=== PATIENT | male | born 1960 | race Caucasian/White ===

== ENCOUNTER 2021-01-27 15:42 | Outpatient (CLI) | payer OTHER, MEDICARE, SELFPAY | END 2021-01-27 15:43 | disposition home or self-care (01) | LOC: ANHCOVIDVC 15:42 | DX: Z23 Encounter for immunization (principal) | CPT/HCPCS: 0001A; 91300 ==

== ENCOUNTER 2021-02-17 15:47 | Outpatient (CLI) | payer OTHER, MEDICARE, SELFPAY | END 2021-02-17 15:48 | disposition home or self-care (01) | LOC: ANHCOVIDVC 15:47 | DX: Z23 Encounter for immunization (principal) | CPT/HCPCS: 0002A; 91300 ==

== ENCOUNTER 2022-05-20 14:52 | Emergency (ER) | payer MEDICARE, OTHER, SELFPAY ==
[2022-05-20 15:06] VITALS: BP 121/66; PULSE 88; RESP 18; TEMP 36.9; O2SAT 97
[2022-05-20] MEDS: SODIUM CHLORIDE 0.9% IV 1,000 ML 999 ML IV CONT (16:10)
[2022-05-20] MEDS: KETOROLAC 30 MG/ML VIAL (*BKC) IV PUSH (16:10)
[2022-05-20 16:16] LABS: Basophils Percent Auto 0.5 % (0.2-1.2); Eosinophils Absolute Auto 0.2 K/mm3 (0-0.3); Eosinophils Percent Auto 2.3 % (0-4.4); Hematocrit 45.6 % (42.0-52.0); Hemoglobin 14.9 g/dL (14.0-18.0); Immature Granulocyte Absolute 0.04 K/mm3 (0.00-0.031); Immature Granulocyte Percent A 0.5 % (0-0.5); Lymphocytes Absolute Auto 0.82 K/mm3 (0.9-3.2); Lymphocytes Percent Auto 9.6 % (18.3-44.2); Mean Corpuscular HGB Conc 32.7 g/dl (32-36); Mean Corpuscular Hemoglobin 30.2 pg (26-34); Mean Corpuscular Volume 92.3 fl (80-100); Mean Platelet Volume 9.9 fl (7.4-10.4); Monocytes Absolute Auto 0.7 K/mm3 (0.1-0.6); Monocytes Percent Auto 8.3 % (2.6-8.5); Neutrophils Absolute Auto 6.7 K/mm3 (1.3-6.7); Neutrophils Percent Auto 78.8 % (45.5-73.1); Platelet Count Result 237 k/mm3 (150-375); Red Blood Count 4.94 M/mm3 (4.6-6.20); Red Cell Distribution Width 13.2 % (11.5-14.5); White Blood Count 8.5 K/mm3 (4.5-10.0)
[2022-05-20 16:27] LABS: Anion Gap 5 mmol/L (8-16); Blood Urea Nitrogen 13 mg/dL (9-20); Calcium 8.8 mg/dL (8.4-10.2); Carbon Dioxide 28 mmol/L (22-30); Chloride 107 mmol/L (98-107); Estimated CRCL calculation 61 ml/min; Estimated Glomerular Filt Rate > 60; Glucose 84 mg/dL (65-110); Potassium 3.7 mmol/L (3.4-5.0); Sodium 140 mmol/L (137-145)
--- NOTE | 2022-05-20 16:37 | ED.GENADULT ---
HPI - General Adult General Chief complaint: Upper Respiratory Infection Stated complaint: bodyaches, upper resp Time Seen by Provider: 05/20/22 15:10 History of Present Illness HPI narrative: Patient is a 61-year-old male who presents ER with concerns of having an infection. Reports for the last couple days he has been having body aches in his legs and back and shoulders. He has been having sore throat and some congestion. He endorses fevers and chills. No productive cough. No exertional dyspnea. Home COVID test was negative. No known sick contacts. Related Data Home Medications Medication Instructions Recorded Confirmed clonazepam 0.5 mg tablet tablet 05/20/22 lithium carbonate 300 mg capsule cap 05/20/22 metoprolol tartrate 25 mg tablet tablet 05/20/22 Allergies Allergy/AdvReac Type Severity Reaction Status Date / Time No Known Allergies Allergy Verified 05/20/22 15:15 Review of Systems Review of Systems: All systems reviewed & are unremarkable except as noted in HPI and below Constitutional: Constitutional: Reports chills, Reports fatigue and Reports fever(s) ENT: Denies nasal congestion and Reports sore throat Cardiovascular: Cardiovascular: Denies chest pain, Denies radiating jaw, neck or arm pain and Denies slow heart rate Respiratory: Respiratory: Denies cough and Denies dyspnea Musculoskeletal: Musculoskeletal: Reports myalgias, Denies arthralgias and Denies joint swelling Neurologic: Denies headache(s), Denies focal weakness and Denies numbness PMFSH Past Medical History Medical History (Updated 05/20/22 @ 18:19 by Kyle Ramon MD) Anxiety Depression GERD (gastroesophageal reflux disease) Surgical History Surgical History (Updated 05/20/22 @ 16:40 by Kyle Ramon MD) Hx of fusion of cervical spine Exam Narrative: GENERAL: Well-appearing, well-nourished, and in no acute distress. HEAD: Normocephalic, atraumatic. ENT: Mucous membranes moist. Normal-appearing posterior pharynx with uvula midline and nonedematous. NECK: Supple. CHEST: Clear to auscultation. No respiratory distress. HEART: Regular rate and rhythm. Normal peripheral pulses. EXTREMITIES: Normal range of motion. No edema. SKIN: Warm, dry, no rash. NEURO: Alert and oriented x3. PSYCH: Normal mood and affect. Course Course Emergency Course: Patient informed of results. Discharge home. Vital Signs Vital signs: Vital Signs Temperature 98.4 F 05/20/22 15:06 Pulse Rate 88 05/20/22 15:06 Respiratory Rate 18 05/20/22 15:06 Blood Pressure 121/66 05/20/22 15:06 Pulse Oximetry 97 05/20/22 15:06 Temperature 98.4 F 05/20/22 15:06 Pulse Rate 88 05/20/22 15:06 Respiratory Rate 18 05/20/22 15:06 Blood Pressure 121/66 05/20/22 15:06 Pulse Oximetry 97 05/20/22 15:06 Medical Decision Making Vital Signs Vital Signs: Vital Signs Temperature 98.4 F 05/20/22 15:06 Pulse Rate 88 05/20/22 15:06 Respiratory Rate 18 05/20/22 15:06 Blood Pressure 121/66 05/20/22 15:06 Pulse Oximetry 97 05/20/22 15:06 Temperature 98.4 F 05/20/22 15:06 Pulse Rate 88 05/20/22 15:06 Respiratory Rate 18 05/20/22 15:06 Blood Pressure 121/66 05/20/22 15:06 Pulse Oximetry 97 05/20/22 15:06 Lab Data Result diagrams: 05/20/22 16:05 05/20/22 16:05 Labs: Lab Results 05/20/22 05/20/22 05/20/22 Range/Units 16:05 16:05 16:05 WBC 8.5 (4.5-10.0) K/mm3 RBC 4.94 (4.6-6.20) M/mm3 Hgb 14.9 (14.0-18.0) g/dL Hct 45.6 (42.0-52.0) % MCV 92.3 (80-100) fl MCH 30.2 (26-34) pg MCHC 32.7 (32-36) g/dl RDW 13.2 (11.5-14.5) % Plt Count 237 (150-375) k/mm3 MPV 9.9 (7.4-10.4) fl Immature Gran % (Auto) 0.5 (0-0.5) % Neut % (Auto) 78.8 H (45.5-73.1) % Lymph % (Auto) 9.6 L (18.3-44.2) % [place] % (Auto) 8.3 (2.6-8.5) % Eos % (Auto) 2.3 (0-4.4) % Baso % (Auto)
[2022-05-20 16:53] LABS: SARS-CoV-2 RNA PCR Positive
[2022-05-20 17:58] LABS: Influenza A QL RT-PCR Negative (Negative); Influenza B QL RT-PCR Negative (Negative)
== END 2022-05-20 18:28 | disposition home or self-care (01) ==
PROVIDERS: Emergency Provider Emergency Medicine; PCP Family Medicine
DX: U07.1 COVID-19 (principal); K21.9 Gastro-esophageal reflux disease without esophagitis; F41.9 Anxiety disorder, unspecified; F32.A Depression, unspecified; Z98.1 Arthrodesis status
CPT/HCPCS: 36415; 80048; 85025; 87502; 96361; 96374; 99284; C9803; J1885; J7030; U0003; U0005

== ENCOUNTER 2022-05-23 07:58 | Emergency (ER) | payer MEDICARE, OTHER, SELFPAY ==
[2022-05-23 08:24] VITALS: BP 115/76; PULSE 60; RESP 20; TEMP 36.9; O2SAT 100
--- NOTE | 2022-05-23 08:58 | ED.GENADULT ---
HPI - General Adult General Chief complaint: Upper Respiratory Infection Stated complaint: COVID + - CANT SWALLOW, THROATS CLOSING Time Seen by Provider: 05/23/22 08:51 History of Present Illness HPI narrative: 61-year-old male presents emergency room secondary to severe sore throat. Patient is COVID-positive. Is been positive now for approximately 6 days. He has been started on Paxil avoid already. His main complaint now is that his throat hurts so bad that it hurts to swallow and has not been able to eat or even drink much. He has all the other typical symptoms of COVID such as significant amount of congestion, fevers, and body aches. He is not complaining of significant shortness of breath at this time. Related Data Home Medications Medication Instructions Recorded Confirmed clonazepam 0.5 mg tablet tablet 05/20/22 lithium carbonate 300 mg capsule cap 05/20/22 metoprolol tartrate 25 mg tablet tablet 05/20/22 Allergies Allergy/AdvReac Type Severity Reaction Status Date / Time No Known Allergies Allergy Verified 05/20/22 15:15 Review of Systems Review of Systems: CONSTITUTIONAL: Having chills and fevers and fatigue EYES: Denies visual changes, redness, or discharge. ENT: Having rhinorrhea, severe sore throat, pain with swallowing CARDIOVASCULAR: Denies chest pain, palpitations, or edema. RESPIRATORY: Having a cough which is predominantly GASTROINTESTINAL: Denies abdominal pain, nausea, vomiting, or diarrhea. GENITOURINARY: Denies dysuria or hematuria. SKIN: Denies rash or itching. MUSCULOSKELETAL: Denies back pain, joint pain, or myalgia. NEUROLOGIC: Denies headache, numbness, or weakness. PSYCHIATRIC: Denies anxiety or depression. [facility] Past Medical History Medical History Anxiety Depression GERD (gastroesophageal reflux disease) Surgical History Surgical History Hx of fusion of cervical spine Exam Narrative: APPEARANCE: Ill-appearing Head normocephalic and atraumatic. EYES: PERRLA/EOMI, conjunctivae very clear. NOSE: Normal with no drainage EARS:TMS clear Jenn Bright, with good light reflex. THROAT: Posterior pharynx is erythematous with no exudates no signs of any abscess formation NECK: Supple. No adenopathy, no masses. RESPIRATORY: Airway patent, respirations nonlabored. Clear to auscultation bilaterally, no rales, rhonchi, wheezing. CARDIOVASCULAR: Regular rate and rhythm without murmurs, rubs, or gallops. ABDOMINAL: Soft, nontender, nondistended, no hepatosplenomegaly Musculoskeletal: Moves all extremities. Strength/ROM intact, No edema, No calf tenderness. NEURO: Alert. Cranial nerves II through XII intact. Normal gait. Good coordination. Nonfocal examination. SKIN:: Warm, dry. Normal Color PSYCHIATRIC: Normal affect/mood, normal interaction Course Vital Signs Vital signs: Vital Signs Temperature 98.4 F 05/23/22 08:24 Pulse Rate 60 05/23/22 08:24 Respiratory Rate 20 05/23/22 08:24 Blood Pressure 115/76 05/23/22 08:24 Pulse Oximetry 100 05/23/22 08:24 Oxygen Delivery Room Air 05/23/22 08:24 Temperature 98.4 F 05/23/22 08:24 Pulse Rate 60 05/23/22 08:24 Respiratory Rate 20 05/23/22 08:24 Blood Pressure 115/76 05/23/22 08:24 Pulse Oximetry 100 05/23/22 08:24 Oxygen Delivery Room Air 05/23/22 08:24 Medical Decision Making [facility] Narrative Medical decision making narrative: Rapid strep screen was obtained however we are out of the reagent and is a send out will not get the results back today and this was explained to the patient. My index of suspicion for strep pharyngitis is very low we will not start him on antibiotics at this point. He did get some relief with the medication I gave him for his throat. We will discharge him on some viscous lidocaine as well as some medication to also assist with the pain. Advised him to increase flui
[2022-05-23] MEDS: HYDROcodone/acetaminophen (*CRX) 5-325 MG TABLET 1 TAB PO (09:33)
[2022-05-23] MEDS: LIDOCAINE HCL 2% VISC SOLN 15 ML UDC PO (09:33)
--- NOTE | 2022-05-23 10:47 | PC.NURSE ---
Patient report received from BENJAMÍN Green. All questions answered and care of patient assumed.
[2022-05-23 12:00] VITALS: PULSE 80; RESP 17; O2SAT 100
== END 2022-05-23 12:02 | disposition home or self-care (01) ==
PROVIDERS: Emergency Provider Emergency Medicine
DX: U07.1 COVID-19 (principal); J02.9 Acute pharyngitis, unspecified; F41.9 Anxiety disorder, unspecified; F32.A Depression, unspecified; K21.9 Gastro-esophageal reflux disease without esophagitis; Z98.1 Arthrodesis status
CPT/HCPCS: 87070; 87880; 99283; A9270

== ENCOUNTER 2022-07-23 08:16 | Outpatient (CLI) | payer MEDICARE, OTHER, SELFPAY ==
[2022-07-23 08:58] LABS: Alanine Aminotransferase 29 U/L (6-50); Alkaline Phosphatase 80 U/L (38-126); Anion Gap 8 mmol/L (8-16); Aspartate Amino Transferase 26 U/L (17-59); Bilirubin,Total 0.3 mg/dL (0.2-1.3); Blood Urea Nitrogen 18 mg/dL (9-20); Calcium 9.5 mg/dL (8.4-10.2); Carbon Dioxide 27 mmol/L (22-30); Chloride 105 mmol/L (98-107); Cholesterol 164 mg/dL (0-200); Estimated Glomerular Filt Rate 56; Glucose 101 mg/dL (65-110); HDL Direct 32 mg/dL; Potassium 3.8 mmol/L (3.4-5.0); Sodium 140 mmol/L (137-145); Triglycerides 429 mg/dL (<150)
[2022-07-23 09:10] LABS: LDL Cholesterol Direct 62 mg/dL
[2022-07-23 09:11] LABS: Vitamin D 25 Hydroxy 51.5 ng/mL
[2022-07-23 09:29] LABS: Prostate Specific Antigen 2.2 ng/mL (< OR = 4.0)
[2022-07-25 06:20] LABS: C-Peptide 4.16 ng/mL (0.80-3.85)
[2022-07-25 14:08] LABS: Insulin Level Total 19.2 uIU/mL (<=19.6)
[2022-07-26 11:03] LABS: Vitamin B6 8.6 ng/mL (2.1-21.7)
[2022-07-29 04:53] LABS: Vitamin B1 11 nmol/L (8-30)
== END 2022-07-23 08:17 | disposition home or self-care (01) ==
PROVIDERS: PCP Internal Medicine; Visit Provider Internal Medicine
DX: Z13.1 Encounter for screening for diabetes mellitus (principal); Z79.899 Other long term (current) drug therapy; Z13.29 Encounter for screening for other suspected endocrine disorder; E78.2 Mixed hyperlipidemia; E55.9 Vitamin D deficiency, unspecified; Z12.5 Encounter for screening for malignant neoplasm of prostate
CPT/HCPCS: 36415; 80053; 80061; 82306; 82607; 82746; 83525; 84153; 84207; 84252; 84425; 84439; 84443; 84681; G0103

== ENCOUNTER 2022-07-30 09:00 | Outpatient (CLI) | payer MEDICARE, OTHER, SELFPAY ==
--- NOTE | ~2022-07-30 | US_ITS ---
EXAMINATION: US abdomen complete DATE: 07/30/2022 09:51 INDICATION: Abdominal distention TECHNIQUE: Multiple grayscale and Doppler ultrasound images of the abdomen were obtained. COMPARISON: None available FINDINGS: Bowel gas obscures visualization of the pancreas. The liver is normal with normal echogenic ity and echotexture. No surface nodularity. Normal hepatopetal flow in the main portal vein. The gall bladder is normal with no abnormal wall thickening, pericholecystic fluid or stones. The normal commo n bile duct measures 3 mm. There was no sonographic Zurita sign. The visualized portions of the aorta and inferior vena cava are normal. The right kidney measures 11.6 x 5.4 x 4.9 cm. The left kidney measures 11.1 x 4.0 x 6.8 cm. The kidn eys demonstrate normal parenchymal echogenicity. There is no hydronephrosis. The spleen is normal in appearance and measures 11.6 cm. IMPRESSION: 1. No sonographic correlate for the patient's symptoms. Reviewed, dictated and finalized at location B.
--- NOTE | ~2022-07-30 | XR_ITS ---
EXAMINATION: XR UGIAC w small bowel DATE: 07/30/2022 10:44 INDICATION: Gaseous abdominal distention TECHNIQUE: Technology Engineer AP view of the abdomen and pelvis was obtained. The patient drank thick barium, gas- producing crystals, and thin barium. A total of 541 fluoroscopic images of the esophagus, stomach, an d proximal small bowel were obtained. Additional overhead radiographs were obtained during the transi t through the small bowel. Spot fluoroscopic images of the small bowel were obtained upon contrast re aching the cecum. Fluoroscopy exposure time was 1.8 minutes. COMPARISON: None. FINDINGS: Technology Engineer radiograph demonstrates a normal bowel gas pattern. Mild lumbar dextroscoliosis with mild spond ylosis. Median sternotomy wires suggesting prior coronary artery bypass grafting. There is also been prior C6-C7 anterior spinal fusion with anterior plate and screw fixation. The esophagus is normal without mass or stricture. Esophageal motility is normal. There is no hiatal hernia. There was no gastroesophageal reflux with provocative maneuvers. The stomach and proximal sma ll bowel are normal. Transit time from the stomach to proximal colon was approximately . There is normal caliber of the sm all bowel. Increased number/density of mildly thickened mucosal folds in the right ilium which appear s very similar to the jejunum which can be seen with celiac disease. Terminal ileum is normal. Small amount of contrast is seen within the appendix. No tethering or abnormal mass effect observed upon th e small bowel with real-time fluoroscopy. IMPRESSION: 1. Jejunalization of the ilium with increased number of mildly thickened mucosal fold which can be se en with celiac sprue disease. Otherwise normal upper GI and small bowel follow-through study. Reviewed, dictated and finalized at location A. IMPRESSION: 1. Jejunalization of the ilium with increased number of mildly thickened mucosa l fold which can be seen with celiac sprue disease. Otherwise normal upper GI a nd small bowel follow-through study.
== END 2022-07-30 09:01 | disposition home or self-care (01) ==
PROVIDERS: PCP Internal Medicine; Visit Provider Internal Medicine
DX: R14.0 Abdominal distension (gaseous) (principal); R10.9 Unspecified abdominal pain
CPT/HCPCS: 74246; 74248; 76700

== ENCOUNTER 2022-10-29 02:19 | Day surgery (SDC) | payer MEDICARE, OTHER, SELFPAY ==
[2022-10-26 15:36] VITALS: BMI 29.0
[2022-10-29 08:10] VITALS: BP 123/64; PULSE 56; RESP 18; TEMP 36.4; O2SAT 99
[2022-10-29] MEDS: LACTATED RINGERS 1,000 ML 150 ML IV CONT (08:13)
--- NOTE | 2022-10-29 08:28 | WPDHPUPDATE1 ---
History and Physical Update Update Date/Time: 10/29/22 08:28 Celiac panel has not yet been obtained will be obtained today, same day is EGD. History and Physical has been reviewed, including an updated exam of the patient. There are NO changes in the patient's condition. Risks, benefits, and alternatives have been discussed and questions answered. Patient agrees to proceed with procedure.
--- NOTE | 2022-10-29 08:45 | WPDANESEPPF ---
Anes - Initial Pre Proc Eval Procedure: Operation Date: 10/29/22 09:00 Proposed Procedures p Esophagogastroduodenoscopy EGD - Dariel Hilliard MD Date/Time: 10/29/22 08:45 Surgeon: Dariel Hilliard MD Pre Op Diagnosis: GERD, abnormal UGI, weight loss Patient Data Age: 62 Gender: M Height: 1.8 m Weight: 94.4 kg Last Vital Signs Temp 97.5 F L 10/29/22 08:10 Pulse 56 L 10/29/22 08:10 Resp 18 10/29/22 08:10 BP 123/64 10/29/22 08:10 Pulse Ox 99 10/29/22 08:10 O2 Del Method Room Air 10/29/22 08:10 Allergies Allergy/AdvReac Type Severity Reaction Status Date / Time No Known Allergies Allergy Verified 10/29/22 08:09 Home Medications Medication Instructions Recorded Confirmed Type clonazepam 0.5 mg tablet 1 tablet PO TID PRN Anxiety 05/20/22 10/29/22 History metoprolol tartrate 25 mg tablet 12.5 tablet PO DAILY 05/20/22 10/29/22 History hydrocodone 5 mg-acetaminophen 300 1 tablet PO TID PRN pain #10 tabs 05/23/22 10/29/22 Rx mg tablet alirocumab 75 mg/mL subcutaneous 75 mg subcut Q14D 07/23/22 10/29/22 History pen injector (Praluent Pen) aspirin 81 mg tablet,delayed 81 mg PO DAILY 07/23/22 10/29/22 History release (Adult Low Dose Aspirin) fluticasone propionate 50 1 spray intranasal Q12H 07/23/22 10/29/22 History mcg/actuation nasal spray,suspension lithium carbonate 300 mg capsule 300 mg PO TID 07/23/22 10/29/22 History cyclobenzaprine 5 mg tablet 5 mg PO TID PRN muscle spasm #270 10/14/22 10/29/22 Rx tabs omeprazole 20 mg capsule,delayed 20 mg PO DAILY #90 caps 10/14/22 10/29/22 Rx release pramipexole 1 mg tablet 1 mg PO TID #270 tabs 10/14/22 10/29/22 Rx pregabalin 25 mg capsule 25 mg PO TID 10/18/22 10/29/22 History melatonin 10 mg capsule 10 mg PO HS 10/26/22 10/29/22 History Patient hx anesthesia problems: none Family hx anesthesia problems: none Results Review: All pre-operative results and documents have been reviewed as part of the pre-operative evaluation. [facility] Past Medical History Medical History (Updated 10/20/22 @ 12:44 by Macey Beverly APRN) Abdominal bloating Abnormal digestive system diagnostic imaging Abnormal weight loss Anxiety Anxiety with depression ASHD (arteriosclerotic heart disease) Bipolar II disorder BMI 29.0-29.9,adult Chronic low back pain Colon cancer screening Depression Encounter for Medicare annual wellness exam Encounter to establish care Fundic gland polyposis of stomach GERD (gastroesophageal reflux disease) GERD (gastroesophageal reflux disease) Hypersomnolence Insulin resistance Mixed hyperlipidemia On [employer] drug therapy GUNJAN (obstructive sleep apnea) Overactive bladder Prostate cancer screening RLS (restless legs syndrome) Unintentional weight loss Vitamin B12 deficiency Surgical History Surgical History Hx of fusion of cervical spine S/P CABG x 3 Family History Family History Father Hypertension Depression Heart disease Diverticulitis Alzheimers disease Mother Depression Social History Social History Smoking status: Never smoker Second hand tobacco smoke exposure: No Alcohol intake: never Alcohol use details: Rare social ETOH. 2-3 drinks yearly. Substance use: never Substance use type: does not use Living arrangements: alone Gender identity (if verbalized by the patient): Male Spiritual care concerns: No Anes - Eval Final PreProcedure Day of Procedure 10/29/22 08:45 Patient weight: overweight Heart: regular rate and rhythm Lungs: clear to auscultation Airway: Mallampati scale class II Neurological: alert and oriented Last oral intake: >/= 8 hours ASA classification: III Emergent: no Anesthetic plan: proceed Anesthesia type and monitoring: general GIVS and standard monitoring Re
[2022-10-29] MEDS: BENZOCAINE (*SP) 60 ML SPRAY CAN (HURRICAINE) 1 SPRAY MUCOUS MEM (08:56)
[2022-10-29 09:05] VITALS: BP 98/60; PULSE 63; RESP 21; O2SAT 95
[2022-10-29 09:15] VITALS: BP 96/56; PULSE 62; RESP 23; O2SAT 96
[2022-10-29 09:25] VITALS: BP 101/52; PULSE 61; RESP 22; O2SAT 100
[2022-10-29 09:46] VITALS: BP 81/41; PULSE 61; RESP 14; O2SAT 100
[2022-10-29 09:56] VITALS: BP 129/83; PULSE 64; RESP 20; O2SAT 100
[2022-11-03 16:45] LABS: Gliadin AB, IgG <1.0 U/mL (<15.0); TTG IGA AB <1.0 U/mL (<15.0)
== END 2022-10-29 09:46 | disposition home or self-care (01) ==
PROVIDERS: PCP Internal Medicine; Visit Provider Internal Medicine Gastroenterology
PROC: 0DJ08ZZ Inspection of Upper Intestinal Tract, Via Natural or Artificial Opening Endoscopic (ICD-10-PCS; CPT 43235; principal; 2022-10-29 09:00)
DX: K21.9 Gastro-esophageal reflux disease without esophagitis (principal); Z87.19 Personal history of other diseases of the digestive system; I25.10 Atherosclerotic heart disease of native coronary artery without angina pectoris; E78.2 Mixed hyperlipidemia; G47.33 Obstructive sleep apnea (adult) (pediatric); G25.81 Restless legs syndrome; F41.8 Other specified anxiety disorders; F31.9 Bipolar disorder, unspecified; Z95.1 Presence of aortocoronary bypass graft; Z98.1 Arthrodesis status; Z79.82 Long term (current) use of aspirin; Z79.891 Long term (current) use of opiate analgesic
CPT/HCPCS: 43239; 36415; 83516; 86255; 87081; 88305; J2704; J7120

== ENCOUNTER 2022-11-02 10:07 | Outpatient (CLI) | payer MEDICARE, OTHER, SELFPAY ==
--- NOTE | ~2022-11-02 | CT_ITS ---
CT Abdomen and Pelvis with contrast. History: Abdominal pain. Spiral CT of the abdomen and pelvis was performed after the administration of intravenous contrast. 1 00 cc of Omnipaque 350 was administered intravenously without complication. Dose reduction technique was used on this scan by utilizing automated exposure control and iterative reconstruction technique. The dose-length product (DLP) was 634.12 mGy-cm. Findings: Scans through the lung bases demonstrate mild atelectatic change. The liver, spleen, pancreas, gallbladder, adrenals and right kidney are within normal limits. Tiny no nobstructing left renal stone noted. No evidence of aortic aneurysm. No lymphadenopathy is seen. There is no evidence of bowel obstruction. There is no evidence to suggest acute appendicitis or dive rticulitis. Images through the pelvis were performed. Urinary bladder unremarkable. Prostate gland and seminal ve sicles are unremarkable. No ascites is seen. Impression: Tiny nonobstructing left renal stone, otherwise unremarkable exam. Reviewed, dictated and finalized at [facility] [place]. ITORY REPRESENTATIVE Impression: Tiny nonobstructing left renal stone, otherwise unremarkable exam.
[2022-11-02 10:29] LABS: Estimated Glomerular Filt Rate 51
== END 2022-11-02 10:08 | disposition home or self-care (01) ==
LOC: ANHIMG 10:08
PROVIDERS: PCP Internal Medicine; Visit Provider Nurse Practitioner
DX: R10.9 Unspecified abdominal pain (principal); N20.0 Calculus of kidney
CPT/HCPCS: 74177; Q9967

== ENCOUNTER 2023-01-19 11:52 | Outpatient (CLI) | payer MEDICARE, OTHER, SELFPAY ==
[2023-01-19 12:51] LABS: Alanine Aminotransferase 27 U/L (6-50); Albumin Level 4.1 g/dL (3.5-5.1); Alkaline Phosphatase 75 U/L (38-126); Anion Gap 5 mmol/L (8-16); Aspartate Amino Transferase 22 U/L (17-59); Bilirubin,Total 0.8 mg/dL (0.2-1.3); Blood Urea Nitrogen 12 mg/dL (9-20); Calcium 9.2 mg/dL (8.4-10.2); Carbon Dioxide 27 mmol/L (22-30); Chloride 109 mmol/L (98-107); Estimated Glomerular Filt Rate > 60; Glucose 102 mg/dL (65-110); Potassium 4.3 mmol/L (3.4-5.0); Sodium 141 mmol/L (137-145)
[2023-01-19 13:28] LABS: Hemoglobin A1C 5.1 % (<5.7)
[2023-01-19 13:56] LABS: Folic Acid 8.2 ng/mL (2.76->20)
[2023-01-22 04:14] LABS: C-Peptide 3.42 ng/mL (0.80-3.85)
[2023-01-23 14:15] LABS: Insulin Level Total 12.2 uIU/mL (<=19.6)
[2023-01-24 10:56] LABS: Vitamin B1 11 nmol/L (8-30)
== END 2023-01-19 11:53 | disposition home or self-care (01) ==
PROVIDERS: PCP Internal Medicine; Visit Provider Internal Medicine
DX: E88.81 Metabolic syndrome and other insulin resistance (principal); Z79.899 Other long term (current) drug therapy; E53.9 Vitamin B deficiency, unspecified; E53.8 Deficiency of other specified B group vitamins
CPT/HCPCS: 36415; 80053; 82607; 82746; 83036; 83525; 84425; 84681

== ENCOUNTER 2023-02-17 08:23 | Outpatient (CLI) | payer MEDICARE, OTHER, SELFPAY ==
[2023-02-17 08:40] LABS: Basophils Absolute Auto 0.1 K/mm3 (0.0-0.1); Basophils Percent Auto 0.8 % (0.2-1.2); Eosinophils Absolute Auto 0.4 K/mm3 (0-0.3); Eosinophils Percent Auto 4.8 % (0-4.4); Hematocrit 49.5 % (42.0-52.0); Hemoglobin 16.1 g/dL (14.0-18.0); Immature Granulocyte Absolute 0.03 K/mm3 (0.00-0.031); Immature Granulocyte Percent A 0.4 % (0-0.5); Lymphocytes Absolute Auto 2.88 K/mm3 (0.9-3.2); Lymphocytes Percent Auto 33.6 % (18.3-44.2); Mean Corpuscular HGB Conc 32.5 g/dl (32-36); Mean Corpuscular Hemoglobin 29.9 pg (26-34); Mean Corpuscular Volume 91.8 fl (80-100); Mean Platelet Volume 9.4 fl (7.4-10.4); Monocytes Absolute Auto 0.5 K/mm3 (0.1-0.6); Monocytes Percent Auto 6.3 % (2.6-8.5); Neutrophils Absolute Auto 4.6 K/mm3 (1.3-6.7); Neutrophils Percent Auto 54.1 % (45.5-73.1); Platelet Count Result 250 k/mm3 (150-375); Red Blood Count 5.39 M/mm3 (4.6-6.20); Red Cell Distribution Width 12.9 % (11.5-14.5); White Blood Count 8.6 K/mm3 (4.5-10.0)
[2023-02-17 08:53] LABS: Alanine Aminotransferase 44 U/L (6-50); Albumin Level 4.2 g/dL (3.5-5.1); Alkaline Phosphatase 87 U/L (38-126); Anion Gap 5 mmol/L (8-16); Aspartate Amino Transferase 31 U/L (17-59); Bilirubin,Total 0.9 mg/dL (0.2-1.3); Blood Urea Nitrogen 12 mg/dL (9-20); Calcium 8.9 mg/dL (8.4-10.2); Carbon Dioxide 30 mmol/L (22-30); Chloride 105 mmol/L (98-107); Estimated Glomerular Filt Rate > 60; Glucose 105 mg/dL (65-110); Potassium 4.1 mmol/L (3.4-5.0); Sodium 140 mmol/L (137-145)
[2023-02-17 08:59] LABS: Lithium 0.7 mmol/L (0.6-1.2)
== END 2023-02-17 08:24 | disposition home or self-care (01) ==
LOC: ANHLAB 08:26
PROVIDERS: PCP Internal Medicine
DX: Z79.899 Other long term (current) drug therapy (principal)
CPT/HCPCS: 36415; 80053; 80178; 85025

== ENCOUNTER 2023-02-17 09:21 | Emergency (ER) | payer MEDICARE, OTHER, SELFPAY ==
--- NOTE | ~2023-02-17 | CT_ITS ---
EXAMINATION: CT brain wo con DATE: 02/17/2023 10:02 INDICATION: Head injury. TECHNIQUE: Computed tomography (CT) of the head was performed without intravenous contrast. The mA wa s adjusted according to patient size. Iterative reconstruction technique was employed. The dose-lengt h product was 605.33 mGy-cm. COMPARISON: None FINDINGS: There is no intracranial hemorrhage, acute infarction, or abnormal intracranial mass lesion . The ventricles are normal in size. The orbits are normal. There is mild mucosal thickening in the e thmoid sinuses. The mastoid air cells are normal. IMPRESSION: 1. Normal brain. Reviewed, dictated and finalized at location A. IMPRESSION: 1. Normal brain.
--- NOTE | ~2023-02-17 | CT_ITS ---
EXAMINATION: CT cervical spine wo con DATE: 02/17/2023 10:04 INDICATION: Head injury. Neck pain. TECHNIQUE: Computed tomography (CT) of the cervical spine was performed without intravenous contrast. Automated exposure control and iterative reconstruction technique were employed. The dose-length pro duct was 449.48 mGy-cm. COMPARISON: None FINDINGS: There is 19 degrees dextroscoliosis of cervical spine. There is 2 mm retrolisthesis of C4 o n C5. There are changes of anterior fusion procedure at C5-C6 with healed interbody bone graft and an terior plate and screws. There is moderately decreased disc height at C3-C4 and severely decreased di sc height at C4-C5 and C6-C7. The following disc levels are specifically discussed: C2-C3: There is no uncovertebral joint osteoarthritis. There is no facet joint osteoarthritis. There is no neural foraminal stenosis. There is no central canal stenosis. C3-C4: There is mild bilateral uncovertebral joint osteoarthritis. There is mild right facet joint os teoarthritis. There is no neural foraminal stenosis. There is mild central canal stenosis. C4-C5: There is mild right and severe left uncovertebral joint osteoarthritis. There is mild bilatera l facet joint osteoarthritis. There is mild left neural foraminal stenosis. There is mild central can al stenosis. C5-C6: There is mild left uncovertebral joint hypertrophy. There is ankylosis of the facet joints wit hout hypertrophy. There is no neural foraminal stenosis. There is no central canal stenosis. C6-C7: There is severe bilateral uncovertebral joint osteoarthritis. There is severe bilateral facet joint osteoarthritis. There is moderate right and mild left neural foraminal stenosis. There is mild central canal stenosis. C7-T1: There is no uncovertebral joint osteoarthritis. There is severe bilateral facet joint osteoart hritis. There is mild left neural foraminal stenosis. There is no central canal stenosis. IMPRESSION: 1. No fracture. 2. Severe cervical spondylosis. 3. Cervical dextroscoliosis. 4. Anterior fusion procedure at C5-C6. Reviewed, dictated and finalized at location A.
[2023-02-17 09:23] VITALS: BP 119/67; PULSE 63; RESP 18; TEMP 36.4; O2SAT 100
--- NOTE | 2023-02-17 09:43 | ED.GENADULT ---
HPI - General Adult General Chief complaint: Head Injury Stated complaint: head injury Time Seen by Provider: 02/17/23 09:31 Source: patient Mode of arrival: ambulatory Limitations: no limitations History of Present Illness HPI narrative: This is a 62-year-old male presents the ED with chief complaint of a head injury that occurred this morning just prior to arrival. Patient was stacking logs at home and one of the logs came back fell onto his head. Patient states that hit him in the right side of the head. He now complains of a laceration and some pain to the right side of the head. Reports the bleeding was able to be controlled. Reports a little bit of neck pain. Denies LOC. He is not taking blood thinners. Denies any further site of pain or injury. Related Data Home Medications Medication Instructions Recorded Confirmed clonazepam 0.5 mg tablet 1 tablet PO TID PRN Anxiety 05/20/22 01/19/23 alirocumab 75 mg/mL subcutaneous 75 mg subcut Q14D 07/23/22 01/19/23 pen injector (Praluent Pen) aspirin 81 mg tablet,delayed 81 mg PO DAILY 07/23/22 01/19/23 release (Adult Low Dose Aspirin) fluticasone propionate 50 1 spray intranasal Q12H 07/23/22 01/19/23 mcg/actuation nasal spray,suspension lithium carbonate 300 mg capsule 300 mg PO TID 07/23/22 01/19/23 pregabalin 25 mg capsule 25 mg PO TID 10/18/22 01/19/23 melatonin 10 mg capsule 10 mg PO HS 10/26/22 01/19/23 vibegron 75 mg tablet (Gemtesa) 75 mg PO DAILY 12/28/22 01/19/23 Allergies Allergy/AdvReac Type Severity Reaction Status Date / Time No Known Allergies Allergy Verified 01/19/23 11:18 Review of Systems Review of Systems: CONSTITUTIONAL: Denies fever, chills, or sweats. EYES: Denies visual changes, redness, or discharge. ENT: Endorses neck pain. Denies rhinorrhea, congestion, sore throat, or otalgia. CARDIOVASCULAR: Denies chest pain, palpitations, or edema. RESPIRATORY: Denies cough or dyspnea. GASTROINTESTINAL: Denies abdominal pain, nausea, vomiting, or diarrhea. GENITOURINARY: Denies dysuria or hematuria. SKIN: Endorses skin laceration. Denies rash or itching. MUSCULOSKELETAL: Denies back pain, joint pain, or myalgia. NEUROLOGIC: Endorses head pain. Denies headache, numbness, dizziness, or weakness. PSYCHIATRIC: Denies anxiety or depression. [facility] Past Medical History Medical History (Updated 02/17/23 @ 10:25 by Marlo Stark PA-C) Abdominal bloating Abnormal digestive system diagnostic imaging Abnormal weight loss Anxiety Anxiety with depression ASHD (arteriosclerotic heart disease) Bipolar II disorder BMI 28.0-28.9,adult BMI 29.0-29.9,adult Chest discomfort Chronic low back pain Colon cancer screening Depression Encounter for Medicare annual wellness exam Encounter to establish care Fundic gland polyposis of stomach GERD (gastroesophageal reflux disease) GERD (gastroesophageal reflux disease) Hypersomnolence Insulin resistance 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 2-3 drinks yearly. Substance use: never Substance use type: does not use Living arrangements: alone Occupation/Education: retired Gender identity (if verbalized by the patient): Male Spiritual care concerns:
[2023-02-17 10:43] VITALS: BP 124/87; PULSE 74; RESP 14; O2SAT 98
== END 2023-02-17 10:44 | disposition home or self-care (01) ==
PROVIDERS: Emergency Provider Physician Assistant; PCP Internal Medicine
DX: S01.81XA Laceration without foreign body of other part of head, initial encounter (principal); I25.10 Atherosclerotic heart disease of native coronary artery without angina pectoris; E78.2 Mixed hyperlipidemia; E53.8 Deficiency of other specified B group vitamins; N32.81 Overactive bladder; G47.33 Obstructive sleep apnea (adult) (pediatric); G25.81 Restless legs syndrome; K21.9 Gastro-esophageal reflux disease without esophagitis; F31.9 Bipolar disorder, unspecified; F41.8 Other specified anxiety disorders; Z98.1 Arthrodesis status; Z95.1 Presence of aortocoronary bypass graft; Z79.82 Long term (current) use of aspirin; W20.8XXA Other cause of strike by thrown, projected or falling object, initial encounter
CPT/HCPCS: 12001; 36415; 70450; 72125; 80053; 80178; 85025; 99284

== ENCOUNTER 2023-04-06 11:18 | Outpatient (CLI) | payer MEDICARE, OTHER, SELFPAY ==
[2023-04-06 11:54] LABS: Hematocrit 44.8 % (42.0-52.0); Hemoglobin 14.8 g/dL (14.0-18.0); Mean Corpuscular Hemoglobin 30.4 pg (26-34); Platelet Count Result 252 k/mm3 (150-375); Red Blood Count 4.87 M/mm3 (4.6-6.20); Red Cell Distribution Width 13.3 % (11.5-14.5); White Blood Count 9.4 K/mm3 (4.5-10.0)
[2023-04-06 12:09] LABS: CRP 0.6 mg/dL (<1.0)
[2023-04-06 13:01] LABS: Erythrocyte Sedimentation Rate 3 mm/hr (0-20)
== END 2023-04-06 11:19 | disposition home or self-care (01) ==
LOC: ANHLAB 11:19
PROVIDERS: PCP Internal Medicine; Visit Provider Nurse Practitioner
DX: K92.1 Melena (principal); Z79.899 Other long term (current) drug therapy; R19.8 Other specified symptoms and signs involving the digestive system and abdomen
CPT/HCPCS: 36415; 85027; 85652; 86140

== ENCOUNTER 2023-04-25 14:16 | Outpatient (CLI) | payer MEDICARE, OTHER, SELFPAY ==
--- NOTE | ~2023-04-25 | CT_ITS ---
EXAMINATION: CT brain wo/w con DATE: 04/25/2023 15:25 INDICATION: Confusion. Altered mental status. TECHNIQUE: Computed tomography (CT) of the head was performed without and with 100 mL Omnipaque 350 i ntravenous contrast. The mA was adjusted according to patient size. Iterative reconstruction techniqu e was employed. The dose-length product was 1362.00 mGy-cm. COMPARISON: Head CT 02/17/2023 FINDINGS: There is no intracranial hemorrhage, acute infarction, or abnormal intracranial mass lesion . The ventricles are normal in size. The orbits are normal. There is mild mucosal thickening in the e thmoid sinuses. The mastoid air cells are normal. IMPRESSION: 1. Normal brain. Reviewed, dictated and finalized at location A. IMPRESSION: 1. Normal brain.
[2023-04-25 15:00] LABS: Appearance Urine Clear (Clear); Bilirubin Urine Negative (Negative); Blood Urine Negative (Negative); Color Urine Yellow (Yellow); Glucose Urine UA Negative (Negative); Ketones Urine Negative (Negative); Leukocyte Esterase Ur Negative LEU/UL (Negative); Nitrate Urine Negative (Negative); Protein Urine Negative (Negative); Specific Grav Ur 1.013 (1.001-1.035); Urobilinogen Urine 0.2 mg/dL (<2.0)
[2023-04-25 15:05] LABS: Alanine Aminotransferase 29 U/L (6-50); Albumin Level 4.4 g/dL (3.5-5.1); Alkaline Phosphatase 77 U/L (38-126); Anion Gap 4 mmol/L (8-16); Aspartate Amino Transferase 25 U/L (17-59); Bilirubin,Total 0.5 mg/dL (0.2-1.3); Blood Urea Nitrogen 15 mg/dL (9-20); Calcium 9.1 mg/dL (8.4-10.2); Carbon Dioxide 28 mmol/L (22-30); Chloride 107 mmol/L (98-107); Estimated Glomerular Filt Rate 56; Glucose 101 mg/dL (65-110); Potassium 4.2 mmol/L (3.4-5.0); Sodium 139 mmol/L (137-145)
[2023-04-25 15:06] LABS: Lithium 0.9 mmol/L (0.6-1.2)
[2023-04-25 15:11] LABS: Estimated Glomerular Filt Rate 47
[2023-04-25 15:12] LABS: Add Urine Microscopic? NO
[2023-04-25 15:26] LABS: Free T4 Free Thyroxine 0.98 ng/mL (0.78-2.19)
[2023-04-25 16:39] LABS: Folic Acid > 20.0 ng/mL (2.76->20)
[2023-04-27 18:05] LABS: Amphetamines NEGATIVE ng/mL (<500); Barbiturates NEGATIVE ng/mL (<300); Benzodiazepines NEGATIVE ng/mL (<100); Cocaine Metabolite NEGATIVE ng/mL (<150); Marijuana Metabolite NEGATIVE ng/mL (<20); Methadone Metabolite NEGATIVE ng/mL (<100); Opiates NEGATIVE ng/mL (<100); Oxidant NEGATIVE mcg/mL (<200); pH 6.2 (4.5-9.0)
[2023-04-30 06:53] LABS: Vitamin B1 11 nmol/L (8-30)
[2023-05-05 15:16] LABS: Vitamin B2 16.8 nmol/L (6.2-39.0)
== END 2023-04-25 14:17 | disposition home or self-care (01) ==
PROVIDERS: PCP Internal Medicine; Visit Provider Internal Medicine
DX: R41.0 Disorientation, unspecified (principal); R41.82 Altered mental status, unspecified
CPT/HCPCS: 36415; 70470; 80053; 80178; 80307; 81003; 82607; 82746; 84207; 84252; 84425; 84439; 84443; Q9967

== ENCOUNTER 2023-05-31 01:50 | Day surgery (SDC) | payer MEDICARE, OTHER, SELFPAY ==
[2023-05-31 10:32] VITALS: BP 110/66; PULSE 56; RESP 18; TEMP 36.2; O2SAT 98
--- NOTE | 2023-05-31 10:41 | WPDANESEPPF ---
Anes - Initial Pre Proc Eval Procedure: Operation Date: 05/31/23 11:30 Proposed Procedures p Colonoscopy - Dariel Hilliard MD Date/Time: 05/31/23 10:41 Surgeon: Dariel Hilliard MD Pre Op Diagnosis: rectal bleeding Patient Data Age: 62 Gender: M Height: 1.8 m Weight: 95.5 kg Last Vital Signs Temp 97.2 F L 05/31/23 10:32 Pulse 56 L 05/31/23 10:32 Resp 18 05/31/23 10:32 BP 110/66 05/31/23 10:32 Pulse Ox 98 05/31/23 10:32 O2 Del Method Room Air 05/31/23 10:32 Allergies Allergy/AdvReac Type Severity Reaction Status Date / Time No Known Allergies Allergy Verified 05/31/23 10:31 Home Medications Medication Instructions Recorded Confirmed Type clonazepam 0.5 mg tablet 1 tablet PO TID PRN Anxiety 05/20/22 05/20/23 History alirocumab 75 mg/mL subcutaneous 75 mg subcut Q14D 07/23/22 05/20/23 History pen injector (Praluent Pen) aspirin 81 mg tablet,delayed 81 mg PO DAILY 07/23/22 05/20/23 History release (Adult Low Dose Aspirin) fluticasone propionate 50 1 spray intranasal Q12H 07/23/22 05/20/23 History mcg/actuation nasal spray,suspension omeprazole 20 mg capsule,delayed 20 mg PO DAILY #90 caps 10/14/22 05/20/23 Rx release melatonin 10 mg capsule 10 mg PO HS PRN Insomnia 10/26/22 05/20/23 History nitroglycerin 0.4 mg sublingual 0.4 mg sublingual Q5M PRN chest 12/28/22 05/20/23 Rx tablet pain #25 tabs nystatin-triamcinolone 100,000 1 applic topical BID #30 grams 12/28/22 05/20/23 Rx unit/g-0.1 % topical cream cyclobenzaprine 5 mg tablet 5 mg PO BID PRN muscle spasm 2 02/17/23 05/20/23 Rx weeks #14 tabs mecobalamin (vitamin B12) 1,000 1,000 mcg sublingual DAILY 02/18/23 05/20/23 History mcg disintegrating tablet,sublingual thiamine HCl (vitamin B1) 100 mg 100 mg PO DAILY 05/02/23 05/20/23 History tablet sodium,potassium,mag sulfates 17.5 See Rx Instructions PO .COMPLEX 05/03/23 05/20/23 Rx gram-3.13 gram-1.6 gram oral soln #354 mL (Suprep Bowel Prep Kit) lithium carbonate 300 mg capsule 300 mg PO TID 05/04/23 05/20/23 History folic acid 800 mcg tablet 0.8 mg PO DAILY 05/20/23 05/20/23 History hydrocodone 5 mg-acetaminophen 300 1 tablet PO TID PRN Anxiety 05/20/23 05/20/23 History mg tablet metoprolol succinate 25 mg 12.5 mg PO HS 05/20/23 05/20/23 History tablet,extended release 24 hr pramipexole 1 mg tablet 1 mg PO TID 05/20/23 05/20/23 History Patient hx anesthesia problems: none Family hx anesthesia problems: none Results Review: All pre-operative results and documents have been reviewed as part of the pre-operative evaluation. [facility] Past Medical History Medical History (Updated 04/25/23 @ 13:25 by Giselle Stevens CMA) Abdominal bloating Abnormal digestive system diagnostic imaging Abnormal weight loss Anxiety Anxiety with depression ASHD (arteriosclerotic heart disease) Bipolar II disorder BMI 28.0-28.9,adult BMI 29.0-29.9,adult Chest discomfort Chronic low back pain Colon cancer screening Confusion COVID-19 Depression Encounter for Medicare annual wellness exam Encounter for routine adult health examination with abnormal findings Encounter to establish care Fundic gland polyposis of stomach GERD (gastroesophageal reflux disease) GERD (gastroesophageal reflux disease) Head trauma Hematochezia Hypersomnolence Insulin resistance Laceration of head Mixed hyperlipidemia Mucus in stool On senior care drug therapy GUNJAN (obstructive sleep apnea) Overactive bladder Prostate cancer screening RLS (restless legs syndrome) Tenesmus (rectal) Tinea cruris Tremor Unintentional weight loss Urinary incontinence Vitamin B12 deficiency Surgical History Surgical History Hx of fusion of cervical spine S/P CABG x 3 Family History Family History Father Hypertension Depression Heart disease Diverticulitis
[2023-05-31] MEDS: LACTATED RINGERS 1,000 ML 150 ML IV CONT (10:42)
--- NOTE | 2023-05-31 11:01 | PM.HPGS ---
History of Present Illness History of Present Illness Consent: Risks, benefits, and alternatives have been discussed and questions answered. Patient agrees to proceed with procedure. Chief complaint: rectal bleeding Narrative: Rubens Madden is a 62 year old male Presents for colonoscopy. Patient reports he has had bright red blood per rectum with most all bowel movements over the last 6 weeks. He states this last 1 week this has stopped. Patient denies any abdominal pain. He reports his bowel habits are normal. He has not become anemic. Patient states approximately 3 years ago underwent colonoscopy elsewhere by Dr. Martin was found to have colon polyps. Patient presents today to evaluate rectal bleeding. Family history is noncontributory. Review of Systems Review of Systems: Review of systems noncontributory. [facility] Past Medical History Medical History (Updated 04/25/23 @ 13:25 by Giselle Stevens [facility]) Abdominal bloating Abnormal digestive system diagnostic imaging Abnormal weight loss Anxiety Anxiety with depression ASHD (arteriosclerotic heart disease) Bipolar II disorder BMI 28.0-28.9,adult BMI 29.0-29.9,adult Chest discomfort Chronic low back pain Colon cancer screening Confusion COVID-19 Depression Encounter for Medicare annual wellness exam Encounter for routine adult health examination with abnormal findings Encounter to establish care Fundic gland polyposis of stomach GERD (gastroesophageal reflux disease) GERD (gastroesophageal reflux disease) Head trauma Hematochezia Hypersomnolence Insulin resistance Laceration of head Mixed hyperlipidemia Mucus in stool 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 2-3 drinks yearly. Substance use: never Substance use type: does not use Living arrangements: with family Occupation/Education: retired Gender identity (if verbalized by the patient): Male Spiritual care concerns: No Meds Home Medications and Allergies Home Medications Medication Instructions Recorded Confirmed Type clonazepam 0.5 mg tablet 1 tablet PO TID PRN Anxiety 05/20/22 05/20/23 History alirocumab 75 mg/mL subcutaneous 75 mg subcut Q14D 07/23/22 05/20/23 History pen injector (Praluent Pen) aspirin 81 mg tablet,delayed 81 mg PO DAILY 07/23/22 05/20/23 History release (Adult Low Dose Aspirin) fluticasone propionate 50 1 spray intranasal Q12H 07/23/22 05/20/23 History mcg/actuation nasal spray,suspension omeprazole 20 mg capsule,delayed 20 mg PO DAILY #90 caps 10/14/22 05/20/23 Rx release melatonin 10 mg capsule 10 mg PO HS PRN Insomnia 10/26/22 05/20/23 History nitroglycerin 0.4 mg sublingual 0.4 mg sublingual Q5M PRN chest 12/28/22 05/20/23 Rx tablet pain #25 tabs nystatin-triamcinolone 100,000 1 applic topical BID #30 grams 12/28/22 05/20/23 Rx unit/g-0.1 % topical cream cyclobenzaprine 5 mg tablet 5 mg PO BID PRN muscle spasm 2 02/17/23 05/20/23 Rx weeks #14 tabs mecobalamin (vitamin B12) 1,000 1,000 mcg sublingual DAILY 02/18/23 05/20/23 History mcg disintegrating tablet,sublingual thiamine HCl (vitamin B1) 100 mg 100 mg PO DAILY 05/02/23 05/20/23 History tablet sodium,potassiu
[2023-05-31 12:09] VITALS: BP 93/62; PULSE 67; RESP 23; O2SAT 100
[2023-05-31 12:19] VITALS: BP 95/61; PULSE 66; RESP 18; O2SAT 99
[2023-05-31 12:29] VITALS: BP 98/65; PULSE 57; RESP 21; O2SAT 97
== END 2023-05-31 12:39 | disposition home or self-care (01) ==
PROVIDERS: PCP Internal Medicine; Visit Provider Internal Medicine Gastroenterology
PROC: 0DJD8ZZ Inspection of Lower Intestinal Tract, Via Natural or Artificial Opening Endoscopic (ICD-10-PCS; CPT 45378; principal; 2023-05-31 11:30)
DX: K92.1 Melena (principal); D12.2 Benign neoplasm of ascending colon; K64.8 Other hemorrhoids; E53.8 Deficiency of other specified B group vitamins; F41.8 Other specified anxiety disorders; I25.10 Atherosclerotic heart disease of native coronary artery without angina pectoris; F31.81 Bipolar II disorder; Z79.82 Long term (current) use of aspirin; K21.9 Gastro-esophageal reflux disease without esophagitis; E78.2 Mixed hyperlipidemia; G47.33 Obstructive sleep apnea (adult) (pediatric)
CPT/HCPCS: 45385; 88305; J2704; J7120

== ENCOUNTER 2023-08-19 16:05 | Emergency (ER) | payer MEDICARE, OTHER, SELFPAY ==
--- NOTE | ~2023-08-19 | XR_ITS ---
XR toe 1st LT min 2V DATE: 08/19/2023 16:44 INDICATION: Stepped on nail. TECHNIQUE: 3 views COMPARISON: None FINDINGS: There is severe joint space narrowing and prominent spurring at the first metatarsophalange al joint, consistent with severe osteoarthritis. No fracture or dislocation, periosteal reaction or bone destruction. No radiopaque intra-articular loose body or subcutaneous emphysema. 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
[2023-08-19 16:10] VITALS: BP 114/58; PULSE 64; RESP 16; TEMP 36.1; O2SAT 100
--- NOTE | 2023-08-19 16:32 | ED.SKABFB ---
HPI - Skin/Abscess/Foreign Bdy General Chief complaint: Skin/Abscess/Foreign Body Stated complaint: stepped on nail Time Seen by Provider: 08/19/23 16:24 Source: patient and RN notes reviewed Mode of arrival: ambulatory Limitations: no limitations History of Present Illness HPI narrative: This is a 62 year old male who presents for evaluation of left great toe injury. He states he accidentally stepped on a conner nail. He had his shoes on and he reports it went through his shoe. He has puncture wound to his great toe and he states he clean it with peroxide. he has throbbing pain to his toe. He is concerned because his tetanus immunization is out of date. He denies history of diabetes mellitus. Related Data Home Medications Medication Instructions Recorded Confirmed clonazepam 0.5 mg tablet 1 tablet PO TID PRN Anxiety 05/20/22 07/07/23 alirocumab 75 mg/mL subcutaneous 75 mg subcut Q14D 07/23/22 07/07/23 pen injector (Praluent Pen) aspirin 81 mg tablet,delayed 81 mg PO DAILY 07/23/22 07/07/23 release (Adult Low Dose Aspirin) fluticasone propionate 50 1 spray intranasal Q12H 07/23/22 07/07/23 mcg/actuation nasal spray,suspension mecobalamin (vitamin B12) 1,000 1,000 mcg sublingual DAILY 02/18/23 07/07/23 mcg disintegrating tablet,sublingual thiamine HCl (vitamin B1) 100 mg 100 mg PO DAILY 05/02/23 07/07/23 tablet folic acid 800 mcg tablet 0.8 mg PO DAILY 05/20/23 07/07/23 hydrocodone 5 mg-acetaminophen 300 1 tablet PO TID PRN Anxiety 05/20/23 07/07/23 mg tablet metoprolol succinate 25 mg 12.5 mg PO HS 05/20/23 07/07/23 tablet,extended release 24 hr pramipexole 1 mg tablet 1 mg PO TID 05/20/23 07/07/23 lithium carbonate 300 mg capsule 300 mg PO BID 07/07/23 07/07/23 trazodone 100 mg tablet 100 mg PO QHS PRN 07/07/23 07/07/23 Allergies Allergy/AdvReac Type Severity Reaction Status Date / Time No Known Allergies Allergy Verified 10/06/23 16:59 Review of Systems Review of Systems: All systems reviewed & are unremarkable except as noted in HPI and below PMFSH Past Medical History Medical History Abdominal bloating Abnormal digestive system diagnostic imaging Abnormal weight loss Anxiety Anxiety with depression ASHD (arteriosclerotic heart disease) Bipolar II disorder BMI 28.0-28.9,adult BMI 29.0-29.9,adult Chest discomfort Chronic low back pain Colon cancer screening Confusion COVID-19 Depression Encounter for Medicare annual wellness exam Encounter for routine adult health examination with abnormal findings Encounter for routine adult health examination without abnormal findings Encounter to establish care Fundic gland polyposis of stomach GERD (gastroesophageal reflux disease) GERD (gastroesophageal reflux disease) Head trauma Hematochezia Hypersomnolence Insomnia Insulin resistance Laceration of head Mixed hyperlipidemia Mucus in stool 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 2-3 drinks yearly. Substance use: never Substance use type: does not use Living arrangements: with family Occupation/Education: retired Gender identity (if verbalized by the patient): Male Spiritual
[2023-08-19] MEDS: TETANUS,DIPHTHERIA,AC PERTUSSIS ADULT (0.5 ML) BOOSTRIX IM (16:59)
[2023-08-19] MEDS: IBUPROFEN 400 MG TABLET 800 MG PO (16:59)
[2023-08-19] MEDS: CIPROFLOXACIN 500 MG TAB PO (16:59)
== END 2023-08-19 17:09 | disposition home or self-care (01) ==
LOC: ANHED 16:38
PROVIDERS: Emergency Provider General Practice; PCP Internal Medicine
DX: S91.132A Puncture wound without foreign body of left great toe without damage to nail, initial encounter (principal); Z23 Encounter for immunization; E78.2 Mixed hyperlipidemia; K21.9 Gastro-esophageal reflux disease without esophagitis; G47.33 Obstructive sleep apnea (adult) (pediatric); G25.81 Restless legs syndrome; E53.8 Deficiency of other specified B group vitamins; F31.9 Bipolar disorder, unspecified; F41.9 Anxiety disorder, unspecified; Z95.1 Presence of aortocoronary bypass graft; Z86.16 Personal history of COVID-19; Z98.1 Arthrodesis status; Z79.82 Long term (current) use of aspirin; M19.072 Primary osteoarthritis, left ankle and foot; W45.0XXA Nail entering through skin, initial encounter
CPT/HCPCS: 73660; 90471; 90715; 99283; A9270

== ENCOUNTER 2023-08-25 10:20 | Outpatient (CLI) | payer MEDICARE, OTHER, SELFPAY ==
[2023-08-25 12:24] LABS: Appearance Urine Clear (Clear); Bilirubin Urine Negative (Negative); Blood Urine Negative (Negative); Color Urine Yellow (Yellow); Glucose Urine UA Negative (Negative); Ketones Urine Negative (Negative); Leukocyte Esterase Ur Negative LEU/UL (Negative); Nitrate Urine Negative (Negative); Protein Urine Negative (Negative); Specific Grav Ur 1.017 (1.001-1.035); Urobilinogen Urine 0.2 mg/dL (<2.0)
[2023-08-25 12:24] LABS: Alanine Aminotransferase 30 U/L (6-50); Alkaline Phosphatase 71 U/L (38-126); Anion Gap 5 mmol/L (8-16); Aspartate Amino Transferase 29 U/L (17-59); Bilirubin,Total 0.7 mg/dL (0.2-1.3); Blood Urea Nitrogen 16 mg/dL (9-20); Calcium 9.1 mg/dL (8.4-10.2); Carbon Dioxide 25 mmol/L (22-30); Chloride 106 mmol/L (98-107); Estimated Glomerular Filt Rate 56; Glucose 116 mg/dL (65-110); Potassium 3.8 mmol/L (3.4-5.0); Sodium 136 mmol/L (137-145)
[2023-08-25 12:32] LABS: Add Urine Microscopic? NO
[2023-08-25 13:30] LABS: Folic Acid 9.9 ng/mL (2.76->20)
== END 2023-08-25 10:21 | disposition home or self-care (01) ==
PROVIDERS: PCP Internal Medicine; Visit Provider Internal Medicine
DX: Z79.899 Other long term (current) drug therapy (principal); E53.8 Deficiency of other specified B group vitamins
CPT/HCPCS: 36415; 80053; 81003; 82607; 82746

== ENCOUNTER 2023-08-27 08:20 | Outpatient (CLI) | payer MEDICARE, OTHER, SELFPAY ==
[2023-08-27 10:12] LABS: Hemoglobin A1C 5.1 % (<5.7)
== END 2023-08-27 08:21 | disposition home or self-care (01) ==
LOC: ANHLAB 08:22
PROVIDERS: PCP Internal Medicine; Visit Provider Internal Medicine
DX: E88.810 Metabolic syndrome (principal); Z79.899 Other long term (current) drug therapy
CPT/HCPCS: 36415; 83036

== ENCOUNTER 2023-09-13 10:05 | Outpatient (CLI) | payer MEDICARE, OTHER, SELFPAY ==
[2023-09-13 10:29] LABS: Cholesterol 184 mg/dL (0-200); HDL Direct 38 mg/dL; Triglycerides 152 mg/dL (<150)
[2023-09-13 10:41] LABS: LDL Cholesterol Direct 112 mg/dL
[2023-09-13 11:01] LABS: Prostate Specific Antigen 3.1 ng/mL (< OR = 4.0)
== END 2023-09-13 10:06 | disposition home or self-care (01) ==
PROVIDERS: PCP Internal Medicine; Visit Provider Internal Medicine
DX: E78.2 Mixed hyperlipidemia (principal); Z12.5 Encounter for screening for malignant neoplasm of prostate
CPT/HCPCS: 36415; 80061; 84153; G0103

== ENCOUNTER 2023-11-28 14:45 | Outpatient (CLI) | payer MEDICARE, OTHER, SELFPAY ==
--- NOTE | ~2023-11-28 | XR_ITS ---
EXAMINATION:XR_[id number]_CR DATE: 11/28/2023 15:15 INDICATION: Neck pain TECHNIQUE: AP and lateral in flexion and extension views of the cervical spine are provided. COMPARISON: None FINDINGS: There are 3 mm of retrolisthesis of C4 on C5. Alignment is otherwise normal. There is no hy permobility with flexion or extension. There are changes of anterior fusion at C5-6. There is no frac ture. There is severe loss of intervertebral disc space height at C4-5. There is moderate loss of int ervertebral disc space height at C3-4. The odontoid process is intact. No fracture is identified. The re is severe uncovertebral joint osteoarthritis at C4-5. There is moderate multilevel facet joint ost eoarthritis. Prevertebral soft tissues are normal. IMPRESSION: 1. Severe cervical spondylosis at C4-5, otherwise moderate cervical spondylosis without acute finding s. Reviewed, dictated and finalized at location F. TREATMENT OFFSIDER IMPRESSION: 1. Severe cervical spondylosis at C4-5, otherwise moderate cervical spondylosis without acute findings.
[2023-11-28 15:12] LABS: Appearance Urine Clear (Clear); Bilirubin Urine Negative (Negative); Blood Urine Negative (Negative); Color Urine Yellow (Yellow); Glucose Urine UA Negative (Negative); Ketones Urine Negative (Negative); Leukocyte Esterase Ur Negative LEU/UL (Negative); Nitrate Urine Negative (Negative); Protein Urine Negative (Negative); Specific Grav Ur 1.016 (1.001-1.035); Urobilinogen Urine 0.2 mg/dL (<2.0)
[2023-11-28 15:44] LABS: Add Urine Microscopic? NO
== END 2023-11-28 14:46 | disposition home or self-care (01) ==
PROVIDERS: PCP Internal Medicine; Visit Provider Internal Medicine
DX: N32.81 Overactive bladder (principal); R30.0 Dysuria; R32 Unspecified urinary incontinence; M47.892 Other spondylosis, cervical region
CPT/HCPCS: 72040; 81003; 87086

== ENCOUNTER → 2023-12-12 09:40 | Outpatient (CLI) | payer MEDICARE, OTHER, SELFPAY ==
--- NOTE | ~2023-12-12 | MR_ITS ---
MRI of the brain Clinical History: Syncope Technique: Axial and sagittal T1-weighted images were acquired. These were followed by axial T2-weigh blanka, diffusion weighted, gradient, and FLAIR images. Following intravenous administration of 19 cc Mu ltiHance gadolinium, T1-weighted fat-sat imaging was performed in the axial and coronal planes. Findings: There is no significant signal abnormality seen in the brain parenchyma. No acute infarct, intracranial hemorrhage or mass lesion. Ventricles and subarachnoid spaces are unremarkable. Orbits are unremarkable. Paranasal sinuses and m astoid air cells are clear. Major intracranial flow voids are intact. Sagittal midline structures are intact. No abnormal postcontrast enhancement identified. IMPRESSION: Unremarkable exam. Reviewed, dictated and finalized at location M. STERED VETERINARY TECHNICIAN IMPRESSION: Unremarkable exam.
--- NOTE | ~2023-12-12 | MR_ITS ---
MRI of the cervical spine Clinical History: Cervicalgia Technique: Axial T2-weighted and gradient images, and sagittal T1-weighted, T2-weighted, and STIR manda ges were acquired. Findings: There is anterior fusion of C5 and C6. There is 3 mm retrolisthesis of C4 over C5. No suspi cious bone marrow signal abnormality identified. No acute fracture seen. At C2-C3, there is no disc bulge or herniation. No spinal canal stenosis, cord compression, or neural foraminal narrowing. At C3-C4, there is mild degenerative disc narrowing. There is minimal disc bulge. No spinal canal mary carmen nosis, cord compression, or right neural foraminal narrowing. There is probable mild left neural fora chelsea narrowing with mild left facet arthropathy. At C4-C5, there is severe degenerative disc narrowing. There is mild disc ossify complex without todd k canal stenosis or cord compression. There is left neural foraminal narrowing with left facet arthro dionte. Right neural foramen preserved. At C5-C6, there is no disc bulge or herniation. No spinal canal stenosis, cord compression, or neural foraminal narrowing. At C6-C7, there is severe degenerative disc narrowing, with minimal disc bulge. No central canal sten osis or cord compression. There is probable mild bilateral neural foraminal narrowing. Paravertebral soft tissues are unremarkable. There is a 1.5 cm cystic mass noted in the region of the superficial left parotid gland, or along the anterior margin of the left sternocleidomastoid muscle (axial image 6). Impression: Anterior fusion of C5-C6. 3 mm retrolisthesis of C4 over C5. [id number] degenerative spondylosis, as above. Nonspecific 1.5 cm cystic mass in the superficial left neck, as detailed above. Reviewed, dictated and finalized at [facility]. RAM SUPERVISOR Impression: Anterior fusion of C5-C6. 3 mm retrolisthesis of C4 over C5. [id number] degenerative spondylosis, as above. Nonspecific 1.5 cm cystic mass in the superficial left neck, as detailed above.
== END ==
PROVIDERS: PCP Internal Medicine; Visit Provider Internal Medicine
DX: R55 Syncope and collapse (principal); M47.892 Other spondylosis, cervical region
CPT/HCPCS: 70553; 72141; A9577

== ENCOUNTER 2024-01-03 09:14 | Outpatient (CLI) | payer MEDICARE, OTHER, SELFPAY ==
--- NOTE | 2024-01-03 11:30 | NEURO_ITS ---
Impression: # Complains of left upper extremity weakness. History of C-spine surgery long time ago. # Subtle Carpal Tunnel Syndrome. # No ulnar neuropathy. # Needle/EMG exam mildly abnormal in left upper extremity with neurogenic changes but without fibrillations. # Clinical correlation recommended; Findings suggestive of old damage at cervical level. Nerve Conduction Studies Anti Sensory Summary Table Stim Site NR Peak (ms) P-T Amp (?V) Site1 Site2 Delta-P (ms) Dist (cm) Fernando (m/s) Left Median Anti Sensory (2-3nd Digit) Wrist 4.0 25.1 Wrist 2-3nd Digit 4.0 14.0 35 Wrist 3.8 28.4 Wrist 2-3nd Digit 4.0 14.0 35 Right Median Anti Sensory (2-3nd Digit) Wrist 3.6 24.3 Wrist 2-3nd Digit 3.6 14.0 39 Wrist 3.4 18.6 Wrist 2-3nd Digit 3.6 14.0 39 Left Radial Anti Sensory (Base 1st Digit) Wrist 2.2 25.2 Wrist Base 1st Digit 2.2 0.0 Right Radial Anti Sensory (Base 1st Digit) Wrist 2.9 16.5 Wrist Base 1st Digit 2.9 0.0 Left Ulnar Anti Sensory (5th Digit) Wrist 3.0 59.6 Wrist 5th Digit 3.0 14.0 47 Right Ulnar Anti Sensory (5th Digit) Wrist 2.9 39.4 Wrist 5th Digit 2.9 14.0 48 Motor Summary Table Stim Site NR Onset (ms) O-P Amp (mV) Site1 Site2 Delta-0 (ms) Dist (cm) Fernando (m/s) Left Median Motor (Abd Poll Brev) Wrist 3.5 3.3 Elbow Wrist 6.0 33.0 55 Elbow 9.5 2.5 Right Median Motor (Abd Poll Brev) Wrist 4.0 3.4 Elbow Wrist 5.6 31.0 55 Elbow 9.6 3.1 Left Ulnar Motor (Abd Dig Minimi) Wrist 3.0 6.1 A Elbow Wrist 5.6 31.0 55 A Elbow 8.6 5.1 Right Ulnar Motor (Abd Dig Minimi) Wrist 3.0 8.3 A Elbow Wrist 5.6 31.0 55 A Elbow 8.6 6.9 F Wave Studies NR F-Lat (ms) L-R F-Lat (ms) Left Median (Mrkrs) (Abd Poll Brev) 32.56 0.70 Right Median (Mrkrs) (Abd Poll Brev) 31.86 0.70 Left Ulnar (Mrkrs) (Abd Dig Min) 31.88 0.02 Right Ulnar (Mrkrs) (Abd Dig Min) 31.86 0.02 EMG Side Muscle Nerve Root Ins Act Fibs Amp Dur Recrt Comment Right 1stDorInt Ulnar C8-T1 Nml Nml Nml Nml Nml Right Ext Indicis Radial (Post Int) C7-8 Nml Nml Nml Nml Nml Right Ext Digitorum Radial (Post Int) C7-8 Nml Nml Nml Nml Nml Right BrachioRad Radial C5-6 Nml Nml Nml Nml Nml Right PronatorTeres Median C6-7 Nml Nml Nml Nml Nml Right Abd Poll Brev Median C8-T1 Nml Nml Nml Nml Nml Left 1stDorInt Ulnar C8-T1 Nml Nml Incr >12ms Reduced Left Ext Indicis Radial (Post Int) C7-8 Nml Nml Incr >12ms Reduced Left Ext Digitorum Radial (Post Int) C7-8 Nml Nml Incr >12ms Reduced Left Abd Poll Brev Median C8-T1 Nml Nml Incr >12ms Reduced Left BrachioRad Radial C5-6 Nml Nml Incr >12ms Reduced Left PronatorTeres Median C6-7 Nml Nml Incr >12ms Reduced Right ABD Dig Min Ulnar C8-T1 Nml Nml Nml Nml Nml Right Biceps Musculocut C5-6 Nml Nml Nml Nml Nml Right Triceps Radial C6-7-8 Nml Nml Nml Nml Nml Right Deltoid Axillary C5-6 Nml Nml Nml Nml Nml Left ABD Dig Min Ulnar C8-T1 Nml Nml Incr >12ms Reduced Left Biceps Musculocut C5-6 Nml Nml Incr >12ms Reduced Left Triceps Radial C6-7-8 Nml Nml Incr >12ms Reduced Left Deltoid Axillary C5-6 Nml Nml Incr >12ms Reduced MTDD
== END 2024-01-03 09:15 | disposition home or self-care (01) ==
LOC: ANHNEURO 09:15
PROVIDERS: PCP Internal Medicine; Visit Provider Internal Medicine
DX: R29.898 Other symptoms and signs involving the musculoskeletal system (principal); R25.1 Tremor, unspecified; R20.2 Paresthesia of skin; R20.0 Anesthesia of skin; R94.131 Abnormal electromyogram [EMG]; G56.02 Carpal tunnel syndrome, left upper limb
CPT/HCPCS: 95886; 95911

== ENCOUNTER 2024-01-04 01:15 | Day surgery (SDC) | payer MEDICARE, OTHER, SELFPAY ==
[2023-11-01 10:12] VITALS: BMI 27.9
--- NOTE | 2023-11-15 09:58 | SUR.PREOP ---
Patient called regarding upcoming procedure. Left voicemail with procedure date and time and contact for questions.
--- NOTE | 2023-11-15 21:00 | PM.HPGS ---
History of Present Illness History of Present Illness Consent: Risks, benefits, and alternatives have been discussed and questions answered. Patient agrees to proceed with procedure. Chief complaint: GERD Narrative: Rubens Madden is a 63 year old male with chronic GRD sx. [facility] Past Medical History Medical History (Updated 10/17/23 @ 13:56 by Giselle Stevens [facility]) Abdominal bloating Abnormal digestive system diagnostic imaging Abnormal weight loss Anxiety Anxiety with depression ASHD (arteriosclerotic heart disease) Bipolar II disorder Black-out (not amnesia) BMI 28.0-28.9,adult BMI 29.0-29.9,adult Cervicalgia Chest discomfort Chronic low back pain Colon cancer screening Confusion COVID-19 Depression Encounter for Medicare annual wellness exam Encounter for routine adult health examination with abnormal findings Encounter for routine adult health examination without abnormal findings Encounter to establish care Fundic gland polyposis of stomach GERD (gastroesophageal reflux disease) Head trauma Hematochezia Hypersomnolence Insomnia Insulin resistance Laceration of head Mixed hyperlipidemia Mucus in stool 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 2-3 drinks yearly. Substance use: never Substance use type: does not use Lack of Transportation: No Lack of Food: Never True Current Housing: I Have Housing Concerned About Future Housing: No Difficulty Paying Gas/Electric Bills: No Difficulty Paying for Meds: No Currently Unemployed: No Difficulty w/ Childcare or Family Care: No Living arrangements: with family Occupation/Education: retired Gender identity (if verbalized by the patient): Male Spiritual care concerns: No Meds Home Medications and Allergies Home Medications Medication Instructions Recorded Confirmed Type clonazepam 0.5 mg tablet 1 tablet PO TID PRN Anxiety 05/20/22 11/01/23 History alirocumab 75 mg/mL subcutaneous 75 mg subcut Q14D 07/23/22 11/01/23 History pen injector (Praluent Pen) aspirin 81 mg tablet,delayed 81 mg PO DAILY 07/23/22 11/01/23 History release (Adult Low Dose Aspirin) fluticasone propionate 50 1 spray intranasal Q12H 07/23/22 11/01/23 History mcg/actuation nasal spray,suspension omeprazole 20 mg capsule,delayed 20 mg PO DAILY #90 caps 10/14/22 11/01/23 Rx release nitroglycerin 0.4 mg sublingual 0.4 mg sublingual Q5M PRN chest 12/28/22 11/01/23 Rx tablet pain #25 tabs thiamine HCl (vitamin B1) 100 mg 100 mg PO DAILY 05/02/23 11/01/23 History tablet folic acid 800 mcg tablet 0.8 mg PO DAILY 05/20/23 11/01/23 History hydrocodone 5 mg-acetaminophen 300 0.5 tablet PO TID PRN Anxiety 05/20/23 11/01/23 History mg tablet metoprolol succinate 25 mg 12.5 mg PO HS 05/20/23 11/01/23 History tablet,extended release 24 hr lithium carbonate 300 mg capsule 300 mg PO BID 07/07/23 11/01/23 History trazodone 100 mg tablet 50 mg PO QHS 07/07/23 11/01/23 History nystatin 100,000 unit/gram topical 1 applic topical BID #60 grams 09/12/23 11/01/23 Rx powder ezetimibe 10 mg tablet (Zetia) 10 mg PO DAILY #90 tabs 09/14/23 11/01/23 Rx Adults Multivitamin 1 tab-cap PO DAILY 11/01/23 11/01/23 H
--- NOTE | 2024-01-02 09:16 | SUR.PREOP ---
Patient called regarding upcoming procedure. Voicemail left regarding appointment times.
--- NOTE | 2024-01-03 18:35 | PM.HPGS ---
History of Present Illness History of Present Illness Consent: Risks, benefits, and alternatives have been discussed and questions answered. Patient agrees to proceed with procedure. Chief complaint: GERD Narrative: Rubens Madden is a 63 year old male with chronic acid reflux disease for which she is on omeprazole 20 mg b.i.d.. He had an EGD about 14 months ago which was unremarkable. beginning about 1 year ago he has been having attacks of sharp pains in the substernal area. It initially comes on quickly but then will persist for a few minutes as a deep ache. He denies any difficulty with swallowing. These episodes do not occur necessarily while eating. He has lost about 30 lb in the last year as well. He believes that his appetite is unchanged. Review of Systems Review of Systems: All systems reviewed & are unremarkable except as noted in HPI and below PMFSH Past Medical History Medical History Abdominal bloating Abnormal digestive system diagnostic imaging Abnormal weight loss Anxiety Anxiety with depression ASHD (arteriosclerotic heart disease) Bipolar II disorder Black-out (not amnesia) BMI 28.0-28.9,adult BMI 29.0-29.9,adult Cervicalgia Chest discomfort Chronic low back pain Colon cancer screening Confusion COVID-19 Depression Encounter for Medicare annual wellness exam Encounter for routine adult health examination with abnormal findings Encounter for routine adult health examination without abnormal findings Encounter to establish care Frequent headaches Fundic gland polyposis of stomach GERD (gastroesophageal reflux disease) Head trauma Hematochezia Hypersomnolence Insomnia Insulin resistance Laceration of head Mixed hyperlipidemia Mucus in stool 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 2-3 drinks yearly. Substance use: never Substance use type: does not use Lack of Transportation: No Lack of Food: Never True Current Housing: I Have Housing Concerned About Future Housing: No Difficulty Paying Gas/Electric Bills: No Difficulty Paying for Meds: No Currently Unemployed: No Difficulty w/ Childcare or Family Care: No Living arrangements: with family Occupation/Education: retired Gender identity (if verbalized by the patient): Male Spiritual care concerns: No Meds Home Medications and Allergies Home Medications Medication Instructions Recorded Confirmed Type alirocumab 75 mg/mL subcutaneous 75 mg subcut Q14D 07/23/22 01/04/24 History pen injector (Praluent Pen) aspirin 81 mg tablet,delayed 81 mg PO DAILY 07/23/22 01/04/24 History release (Adult Low Dose Aspirin) nitroglycerin 0.4 mg sublingual 0.4 mg sublingual Q5M PRN chest 12/28/22 01/04/24 Rx tablet pain #25 tabs hydrocodone 5 mg-acetaminophen 300 0.5 tablet PO TID PRN Anxiety 05/20/23 01/04/24 History mg tablet nystatin 100,000 unit/gram topical 1 applic topical BID #60 grams 09/12/23 01/04/24 Rx powder Adults Multivitamin 1 tab-cap PO DAILY 11/01/23 01/04/24 History ascorbic acid (vitamin C) 1,000 mg 1 g PO DAILY 11/01/23 01/04/24 History tablet blood sugar diagnostic (Blood #25 ea 11/01/2301/04
[2024-01-04 10:20] VITALS: BP 117/62; PULSE 60; RESP 16; TEMP 36.1; O2SAT 100; BMI 28.7
--- NOTE | 2024-01-04 10:50 | WPDANESEPPF ---
Anes - Initial Pre Proc Eval Procedure: Operation Date: 01/04/24 11:30 Proposed Procedures p Esophagogastroduodenoscopy - Randy Staton MD Date/Time: 01/04/24 10:53 Surgeon: Randy Staton MD Pre Op Diagnosis: GERD Patient Data Age: 63 Gender: M Height: 1.8 m Weight: 93.4 kg Last Vital Signs Temp 96.9 F L 01/04/24 10:20 Pulse 60 01/04/24 10:20 Resp 16 01/04/24 10:20 BP 117/62 01/04/24 10:20 Pulse Ox 100 01/04/24 10:20 O2 Del Method Room Air 01/04/24 10:20 Allergies Allergy/AdvReac Type Severity Reaction Status Date / Time ciprofloxacin [From Cipro] AdvReac Intermediate Nausea and Verified 01/04/24 10:44 Vomiting Home Medications Medication Instructions Recorded Confirmed Type alirocumab 75 mg/mL subcutaneous 75 mg subcut Q14D 07/23/22 01/04/24 History pen injector (Praluent Pen) aspirin 81 mg tablet,delayed 81 mg PO DAILY 07/23/22 01/04/24 History release (Adult Low Dose Aspirin) nitroglycerin 0.4 mg sublingual 0.4 mg sublingual Q5M PRN chest 12/28/22 01/04/24 Rx tablet pain #25 tabs hydrocodone 5 mg-acetaminophen 300 0.5 tablet PO TID PRN Anxiety 05/20/23 01/04/24 History mg tablet nystatin 100,000 unit/gram topical 1 applic topical BID #60 grams 09/12/23 01/04/24 Rx powder Adults Multivitamin 1 tab-cap PO DAILY 11/01/23 01/04/24 History ascorbic acid (vitamin C) 1,000 mg 1 g PO DAILY 11/01/23 01/04/24 History tablet blood sugar diagnostic (Blood #25 ea 11/01/23 01/04/24 Rx Glucose Test strips) blood-glucose meter (Blood Glucose #1 ea 11/01/23 01/04/24 Rx Monitoring kit) cyanocobalamin (vitamin B-12) 1,000 mcg IM MONTHLY 11/01/23 01/04/24 History 1,000 mcg/mL injection solution fluticasone propionate 50 1 spray intranasal Q12H PRN 11/28/23 01/04/24 History mcg/actuation nasal Allergy Symptoms spray,suspension clonazepam 0.5 mg tablet 0.5 mg PO TID PRN Anxiety #60 tabs 12/05/23 01/04/24 Rx cyclobenzaprine 10 mg tablet 10 mg PO TID PRN muscle spasm #40 12/05/23 01/04/24 Rx tabs folic acid 800 mcg tablet 0.8 mg PO DAILY #90 tabs 12/05/23 01/04/24 Rx lithium carbonate 300 mg capsule 300 mg PO BID #180 caps 12/05/23 01/04/24 Rx metoprolol succinate 25 mg 12.5 mg PO HS #90 tabs 12/05/23 01/04/24 Rx tablet,extended release 24 hr omeprazole 20 mg capsule,delayed 20 mg PO BID #180 caps 12/05/23 01/04/24 Rx release trazodone 100 mg tablet 50 mg PO QHS #60 tabs 12/05/23 01/04/24 Rx pramipexole 1 mg tablet 1 mg PO TID 12/07/23 01/04/24 History Patient hx anesthesia problems: none Family hx anesthesia problems: none Results Review: All pre-operative results and documents have been reviewed as part of the pre-operative evaluation. [facility] Past Medical History Medical History (Updated 12/14/23 @ 15:00 by Coni Edgar MA) Abdominal bloating Abnormal digestive system diagnostic imaging Abnormal weight loss Anxiety Anxiety with depression ASHD (arteriosclerotic heart disease) Bipolar II disorder Black-out (not amnesia) BMI 28.0-28.9,adult BMI 29.0-29.9,adult Cervicalgia Chest discomfort Chronic low back pain Colon cancer screening Confusion COVID-19 Depression Encounter for Medicare annual wellness exam Encounter for routine adult health examination with abnormal findings Encounter for routine adult health examination without abnormal findings Encounter to establish care Frequent headaches Fundic gland polyposis of stomach GERD (gastroesophageal reflux disease) Head trauma Hematochezia Hypersomnolence Insomnia Insulin resistance Laceration of head Mixed hyperlipidemia Mucus in stool 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
[2024-01-04] MEDS: LACTATED RINGERS 1,000 ML 150 ML IV CONT (10:53)
[2024-01-04 11:47] VITALS: BP 98/68; PULSE 58; RESP 19; O2SAT 98
[2024-01-04 11:57] VITALS: BP 105/69; PULSE 57; RESP 23; O2SAT 98
[2024-01-04 12:07] VITALS: BP 116/76; PULSE 54; RESP 18; O2SAT 98
== END 2024-01-04 12:15 | disposition home or self-care (01) ==
PROVIDERS: PCP Internal Medicine; Visit Provider Internal Medicine Gastroenterology
PROC: 0DJ08ZZ Inspection of Upper Intestinal Tract, Via Natural or Artificial Opening Endoscopic (ICD-10-PCS; CPT 43235; principal; 2024-01-04 11:30)
DX: K21.9 Gastro-esophageal reflux disease without esophagitis (principal); F31.81 Bipolar II disorder; E78.2 Mixed hyperlipidemia; G47.33 Obstructive sleep apnea (adult) (pediatric); E53.8 Deficiency of other specified B group vitamins
CPT/HCPCS: 43239; 88305; J2704; J7120

== ENCOUNTER 2024-01-12 13:21 | Outpatient (CLI) | payer MEDICARE, OTHER, SELFPAY ==
--- NOTE | ~2024-01-12 | US_ITS ---
EXAMINATION: US soft tissue head and neck DATE: 01/12/2024 13:52 INDICATION: Cystic lesion seen on prior cervical spine MR TECHNIQUE: Multiple grayscale and Doppler ultrasound images of the region of concern at the left neck were obtained. COMPARISON: MRI dated 12/12/2023 FINDINGS: There are couple subcentimeter hypoechoic nodules in the parotid . Correspond to normal sized intrapa rotid lymph nodes on the prior MRI. Medially posterior to the ankles the left mandible and along the anterior margin of the sternocleidomastoid muscle is a 2.3 x 1.2 x 1.7 cm simple appearing anechoic c yst with no evident internal flow on color Doppler or evident solid soft tissue component. IMPRESSION: 1. 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 Reviewed, dictated and finalized at location L. [employer]ENT OF [place] IMPRESSION: 1. 2.3 x 1.2 x 1.7 cm simple appearing cystic lesion along the anterior margin of the left sternocleidomastoid muscle which given location would be most consi stent with a second branchial cleft cyst.
== END 2024-01-12 13:22 ==
PROVIDERS: PCP Internal Medicine; Visit Provider Internal Medicine
DX: R93.89 Abnormal findings on diagnostic imaging of other specified body structures (principal)
CPT/HCPCS: 76536

== ENCOUNTER 2024-01-25 11:56 | Outpatient (CLI) | payer MEDICARE, OTHER, SELFPAY ==
[2024-01-25 13:04] LABS: Alanine Aminotransferase 37 U/L (6-50); Albumin Level 4.2 g/dL (3.5-5.1); Alkaline Phosphatase 78 U/L (38-126); Anion Gap 5 mmol/L (8-16); Aspartate Amino Transferase 35 U/L (17-59); Bilirubin,Total 0.4 mg/dL (0.2-1.3); Blood Urea Nitrogen 15 mg/dL (9-20); Calcium 9.4 mg/dL (8.4-10.2); Carbon Dioxide 26 mmol/L (22-30); Chloride 107 mmol/L (98-107); Cholesterol 200 mg/dL (0-200); Estimated Glomerular Filt Rate > 60; Glucose 105 mg/dL (65-110); HDL Direct 37 mg/dL; Potassium 3.9 mmol/L (3.4-5.0); Sodium 138 mmol/L (137-145); Triglycerides 323 mg/dL (<150)
[2024-01-25 13:14] LABS: LDL Cholesterol Direct 130 mg/dL
== END 2024-01-25 11:57 | disposition home or self-care (01) ==
LOC: ANHLAB 12:00
PROVIDERS: PCP Internal Medicine; Visit Provider Internal Medicine
DX: E78.2 Mixed hyperlipidemia (principal); Z79.899 Other long term (current) drug therapy
CPT/HCPCS: 36415; 80053; 80061

== ENCOUNTER 2024-03-13 14:43 | Outpatient (CLI) | payer MEDICARE, OTHER, SELFPAY ==
[2024-03-13 15:30] LABS: Alanine Aminotransferase 40 U/L (6-50); Albumin Level 4.1 g/dL (3.5-5.1); Alkaline Phosphatase 67 U/L (38-126); Anion Gap 5 mmol/L (4-12); Aspartate Amino Transferase 34 U/L (17-59); Bilirubin,Total 0.5 mg/dL (0.2-1.3); Blood Urea Nitrogen 13 mg/dL (9-20); Calcium 9.2 mg/dL (8.4-10.2); Carbon Dioxide 25 mmol/L (22-30); Chloride 112 mmol/L (98-107); Estimated Glomerular Filt Rate > 60; Glucose 108 mg/dL (65-110); Potassium 4.1 mmol/L (3.4-5.0); Sodium 142 mmol/L (137-145)
[2024-03-13 16:35] LABS: Folic Acid 18.7 ng/mL (2.76->20)
[2024-03-13 17:01] LABS: Lithium 0.5 mmol/L (0.6-1.2)
[2024-03-13 17:21] LABS: Free T4 Free Thyroxine 1.04 ng/mL (0.78-2.19); Vitamin D 25 Hydroxy 32.8 ng/mL
== END 2024-03-13 14:44 | disposition home or self-care (01) ==
LOC: ANHLAB 14:48
PROVIDERS: PCP Internal Medicine; Visit Provider Internal Medicine
DX: E55.9 Vitamin D deficiency, unspecified (principal); Z79.899 Other long term (current) drug therapy; Z13.29 Encounter for screening for other suspected endocrine disorder; E53.8 Deficiency of other specified B group vitamins
CPT/HCPCS: 36415; 80053; 80178; 82306; 82607; 82746; 84439; 84443

== ENCOUNTER 2024-04-16 10:52 | Outpatient (CLI) | payer MEDICARE, OTHER, SELFPAY | END 2024-04-16 10:53 | disposition home or self-care (01) | LOC: ANHAUDIO 10:52 | PROVIDERS: PCP Internal Medicine; Visit Provider Otolaryngology | DX: H93.13 Tinnitus, bilateral (principal); H90.3 Sensorineural hearing loss, bilateral | CPT/HCPCS: 92557; 92567 ==

== ENCOUNTER 2024-04-27 08:44 | Outpatient (CLI) | payer MEDICARE, OTHER, SELFPAY ==
[2024-04-27 10:13] LABS: Anion Gap 8 mmol/L (4-12); Blood Urea Nitrogen 15 mg/dL (9-20); Calcium 9.4 mg/dL (8.4-10.2); Carbon Dioxide 25 mmol/L (22-30); Chloride 110 mmol/L (98-107); Estimated Glomerular Filt Rate 51; Glucose 94 mg/dL (65-110); Potassium 3.5 mmol/L (3.4-5.0); Sodium 143 mmol/L (137-145)
[2024-04-27 10:15] LABS: Lithium 0.9 mmol/L (0.6-1.2)
== END 2024-04-27 08:45 | disposition home or self-care (01) ==
LOC: ANHLAB 08:47
PROVIDERS: PCP Internal Medicine; Visit Provider Internal Medicine
DX: Z79.899 Other long term (current) drug therapy (principal)
CPT/HCPCS: 36415; 80048; 80178

== ENCOUNTER 2024-06-06 10:21 | Outpatient (CLI) | payer MEDICARE, OTHER, SELFPAY ==
[2024-06-06 11:00] LABS: Appearance Urine Clear (Clear); Bilirubin Urine Negative (Negative); Blood Urine Negative (Negative); Color Urine Yellow (Yellow); Glucose Urine UA Negative (Negative); Ketones Urine Negative (Negative); Leukocyte Esterase Ur Negative LEU/UL (Negative); Nitrate Urine Negative (Negative); Protein Urine Negative (Negative); Specific Grav Ur 1.016 (1.001-1.035); Urobilinogen Urine 0.2 mg/dL (<2.0)
[2024-06-06 11:01] LABS: Add Urine Microscopic? NO
[2024-06-06 11:02] LABS: Basophils Absolute Auto 0.1 K/mm3 (0.0-0.1); Basophils Percent Auto 0.8 % (0.2-1.2); Eosinophils Absolute Auto 0.2 K/mm3 (0-0.3); Eosinophils Percent Auto 2.9 % (0-4.4); Hematocrit 46.2 % (42.0-52.0); Hemoglobin 15.4 g/dL (14.0-18.0); Immature Granulocyte Absolute 0.01 K/mm3 (0.00-0.031); Immature Granulocyte Percent A 0.1 % (0-0.5); Lymphocytes Percent Auto 32.2 % (18.3-44.2); Mean Corpuscular HGB Conc 33.3 g/dl (32-36); Mean Corpuscular Hemoglobin 31.2 pg (26-34); Mean Corpuscular Volume 93.7 fl (80-100); Mean Platelet Volume 10.1 fl (7.4-10.4); Monocytes Absolute Auto 0.5 K/mm3 (0.1-0.6); Monocytes Percent Auto 6.7 % (2.6-8.5); Neutrophils Absolute Auto 4.3 K/mm3 (1.3-6.7); Neutrophils Percent Auto 57.3 % (45.5-73.1); Platelet Count Result 247 k/mm3 (150-375); Red Blood Count 4.93 M/mm3 (4.6-6.20); Red Cell Distribution Width 12.5 % (11.5-14.5); White Blood Count 7.5 K/mm3 (4.5-10.0)
[2024-06-06 11:17] LABS: Alanine Aminotransferase 29 U/L (6-50); Albumin Level 4.1 g/dL (3.5-5.1); Alkaline Phosphatase 70 U/L (38-126); Anion Gap 9 mmol/L (4-12); Aspartate Amino Transferase 25 U/L (17-59); Bilirubin,Total 0.8 mg/dL (0.2-1.3); Blood Urea Nitrogen 15 mg/dL (9-20); Carbon Dioxide 25 mmol/L (22-30); Chloride 104 mmol/L (98-107); Cholesterol 154 mg/dL (0-200); Estimated Glomerular Filt Rate 51; Glucose 100 mg/dL (65-110); HDL Direct 36 mg/dL; Potassium 4.2 mmol/L (3.4-5.0); Sodium 138 mmol/L (137-145); Triglycerides 195 mg/dL (<150)
[2024-06-06 11:28] LABS: LDL Cholesterol Direct 86 mg/dL
[2024-06-06 11:45] LABS: Iron 84 ug/dL (49-181)
[2024-06-06 11:54] LABS: Percent Iron Saturation 27 % (20-50)
[2024-06-06 12:01] LABS: Prostate Specific Antigen 4.2 ng/mL (< OR = 4.0)
[2024-06-06 12:10] LABS: Vitamin D 25 Hydroxy 57.4 ng/mL
[2024-06-06 12:29] LABS: Folic Acid > 20.0 ng/mL (2.76->20)
[2024-06-06 12:36] LABS: Hemoglobin A1C 5.3 % (<5.7)
[2024-06-06 13:31] LABS: Free T4 Free Thyroxine 1.03 ng/mL (0.78-2.19)
== END 2024-06-06 10:22 | disposition home or self-care (01) ==
PROVIDERS: PCP Internal Medicine; Visit Provider Internal Medicine
DX: E55.9 Vitamin D deficiency, unspecified (principal); Z79.899 Other long term (current) drug therapy; E78.2 Mixed hyperlipidemia; Z12.5 Encounter for screening for malignant neoplasm of prostate; D50.9 Iron deficiency anemia, unspecified; Z13.29 Encounter for screening for other suspected endocrine disorder; E53.8 Deficiency of other specified B group vitamins
CPT/HCPCS: 36415; 80053; 80061; 81003; 82306; 82607; 82728; 82746; 83036; 83540; 83550; 84153; 84439; 84443; 85025; G0103

== ENCOUNTER 2024-06-18 12:44 | Outpatient (CLI) | payer MEDICARE, OTHER, SELFPAY ==
--- NOTE | ~2024-06-18 | US_ITS ---
EXAMINATION: US FNA w image guidance DATE: 06/18/2024 13:59 INDICATION: Localized swelling, mass and lump, neck. TECHNIQUE: The procedure and its benefits and risks were discussed with the patient. Risks specifically discusse d included bleeding. The patient verbalized understanding of the risks and agreed to proceed. The nec k was prepped and draped in the usual sterile manner. 1% lidocaine was used for local anesthesia. A n 18 gauge needle and five 25G needles were passed into the lesion under ultrasound guidance. There were no immediate complications. COMPARISON: CT cervical spine 02/17/23, MRI 12/12/23, ultrasound 01/12/24 FINDINGS: Grayscale ultrasound images demonstrate needles advanced into 2.6 x 1.2 x 1.9 cm cyst in left neck fo r biopsy. IMPRESSION: 1. Ultrasound-guided fine needle aspiration of a 2.6 cm cyst in left neck. Reviewed, dictated and finalized at location A.
== END 2024-06-18 12:45 | disposition home or self-care (01) ==
PROVIDERS: PCP Internal Medicine; Visit Provider Otolaryngology
DX: R22.1 Localized swelling, mass and lump, neck (principal)
CPT/HCPCS: 10005; 88108; 88305

== ENCOUNTER 2024-09-05 11:52 | Outpatient (CLI) | payer MEDICARE, OTHER, SELFPAY ==
--- NOTE | ~2024-09-05 | CT_ITS ---
CLINICAL INDICATION: Prostate cancer COMPARISON: 11/02/2022. TECHNIQUE: An enhanced CT of the abdomen and pelvis was performed utilizing multislice spiral [employer] ue reconstructed at 5 mm slice thickness. Coronal and sagittal reconstructions were performed. This CT examination was performed utilizing dose reduction techniques. DLP: 713.64 mGy-cm FINDINGS/OBSERVATIONS: Visualized lower thorax:The bilateral lung bases are clear. The heart is of normal size, without pericardial effusion. Small hiatal hernia is present. Liver: The liver is borderline enlarged measuring 19 cm in longitudinal dimension. Gallbladder and biliary system: The gallbladder is decompressed, somewhat limiting its evaluation. Pancreas: The pancreas enhances homogeneously. No ductal dilatation is appreciated. Spleen: The spleen is not enlarged and demonstrates multiple punctate calcifications, suggesting prio r granulomatous disease. Kidneys: The bilateral kidneys enhance symmetrically. Redemonstration of a nonobstructing 2 mm calcul us within the interpolar region of the left kidney. No hydronephrosis or additional renal calculi are present. Adrenal glands: Unremarkable Gastrointestinal tract: No significant diverticulosis is present Appendix:The air-filled appendix is of normal caliber (axial sequence, image 120). Vasculature: Trace calcified atherosclerotic disease. Lymph nodes: No pathologically enlarged or morphologically suspicious lymph nodes within the retroper itoneum or at the root of the mesentery. Benign-appearing lymph nodes are identified within the bilateral inguinal regions, decreased in size from previous examination dated 11/02/2022 Pelvic structures:The bladder is only minimally distended. The prostate gland enhances heterogeneously, unchanged from prior. Body wall and musculoskeletal: Trace degenerative disease within the lower thoracic and lumbosacral s pines with disc space narrowing and endplate changes. Facet arthropathy is also noted. No lytic or blastic lesions are present. IMPRESSION: Stable contrast enhanced CT examination of the abdomen and pelvis, as detailed above with isolated fi ndings a nonobstructing stone. Reviewed, dictated and finalized at location A. IMPRESSION: Stable contrast enhanced CT examination of the abdomen and pelvis, as detailed above with isolated findings a nonobstructing stone.
--- NOTE | ~2024-09-05 | NM_ITS ---
EXAMINATION: NM bone scan whole body DATE: 09/05/2024 15:34 INDICATION: Prostate cancer TECHNIQUE: 23.6 mCi Tc-99m HDP was administered intravenously. Delayed whole-body scintigrams were o btained. COMPARISON: CT abdomen pelvis dated 09/05/2024 FINDINGS: There is likely degenerative joint centered uptake at the bilateral acromioclavicular and sternoclavi cular joints, the bilateral first metatarsophalangeal joints and at the bilateral patellofemoral ozzie culation of the knees. There is an upper thoracic mild dextrocurvature tiny focus of mild uptake in t he midthoracic spine along the concave left-sided curvature at T6-T7 most likely related to degenerat pratibha facet osteoarthritis. No other atypical foci of bone uptake to suggest metastatic disease. IMPRESSION: 1. No lesion suspicious for metastatic disease. Reviewed, dictated and finalized at location A.
[2024-09-05 12:21] LABS: Estimated Glomerular Filt Rate 44
== END 2024-09-05 11:53 | disposition home or self-care (01) ==
PROVIDERS: PCP Internal Medicine; Visit Provider Urology
DX: C61 Malignant neoplasm of prostate (principal)
CPT/HCPCS: 74177; 78306; A9503; Q9967

== ENCOUNTER 2024-09-18 15:26 | Outpatient (CLI) | payer MEDICARE, OTHER, SELFPAY ==
[2024-09-18 19:09] LABS: Anion Gap 7 mmol/L (4-12); Blood Urea Nitrogen 13 mg/dL (9-20); Calcium 9.2 mg/dL (8.4-10.2); Carbon Dioxide 29 mmol/L (22-30); Chloride 104 mmol/L (98-107); Estimated Glomerular Filt Rate 55; Glucose 87 mg/dL (65-110); Sodium 140 mmol/L (137-145)
[2024-09-18 20:31] LABS: Lithium 0.8 mmol/L (0.6-1.2)
== END 2024-09-18 15:27 | disposition home or self-care (01) ==
LOC: ANHGOSHLAB 15:27
PROVIDERS: PCP Internal Medicine; Visit Provider Internal Medicine
DX: Z79.899 Other long term (current) drug therapy (principal)
CPT/HCPCS: 36415; 80048; 80178

== ENCOUNTER 2024-09-18 15:30 | Outpatient (RCR) | payer MEDICARE, OTHER, SELFPAY ==
--- NOTE | 2024-09-07 12:41 | OPREHPOC ---
Outpatient Therapy Plan of Care This is a Multidisciplinary Plan of Care that may contain components documented by all disciplines (PT, OT, and ST.) PT Problem 1 PT Problem #1 Knowledge Deficit PT Goal 1 Goal / Goal Update [place] with HEP Target Visit 4 PT Goal 2 Goal / Goal Update Report 75% improvement in radicular pain symptoms into left shoulder Target Visit 8 PT Problem 2 PT Problem #2 Impaired Range of Motion PT Goal 1 Goal / Goal Update Patient will improve kymberly cervical rotation to 40+ degrees to allow for improved facet glide and cervical mobility Target Visit 10 PT Goal 2 Goal / Goal Update Patient will improve cervical extension to 30+ degrees to allow for improved cervical facet glide Target Visit 10 PT Problem 3 PT Problem #3 Impaired Strength PT Goal 1 Goal / Goal Update Improve kymberly hip flexion strength to 4+/5 to improve foot clearance with gait and ambulation Target Visit 10 PT Goal 2 Goal / Goal Update Improve L knee extension strength to 4+/5 to improve stability with gait and ADLs Target Visit 10
--- NOTE | 2024-09-07 12:42 | PTOPEVAL1 ---
Assessment and note entered by Dayday Stern, PT Evaluation Information Assessment Status Evaluation Diagnosis Unspecified Tremor ICD-10 Condition Codes (PT) Cervicalgia M54.2,Weakness R53.1 Onset February 2024 Subjective Information Reports that he has noted weakness in arm and gross extremity. He has been having pain in the neck radiating down the arm at this time. He uses a SCP in his left hand because his legs have been very unsteady. reports that he was having severe tremors on his left hand over the past few weeks. They checked in with MD to assess if he needed surgery. [place] that he needed therapy and surgery was not warranted at this time. Recommended cervical therapy and gross conditioning. Reports that overall his body just feels very weak as well at this time. Reports that he has anxiety problems as well and that they may be contributing to his issues. Patient was told that there was no effect noted on his nerve conduction study to justify his resting tremor. Majority of his problem is moving to the left. Patient was diagnosed with prostate Cancer last Tuesday Reported Pain Level Pain Score 0: Self Report Assessment PT Clinical Summary Patient presents with resting tremor, weakness in L hemisphere of LE and pain in cervical spine. Significant limitation to cervical mobility noted this date with pain working into left side of neck . Patient will benefit from skilled therapy to address these deficits to improve pain, functionality, and gross mobility to improve safety and mobility. Treatment will be emphasized to cervical spine with transition to whole body conditioning. Plan of Care Interventions Electrical Stimulation,Hot Pack/Cold Pack,Manual Therapy,Neuro Re-education,Therapeutic Activities, Therapeutic Exercise PT Services Indicated Yes Treatment Frequency and 1-2x/week for 10 visits Duration These treatments will address the objective and functional deficits as defined above. The patient will be advanced safely and appropriately in order for the patient to progress towards his/her prior level of function. Additional exercises will be introduced and as well as a comprehensive home exercise program upon discharge, if needed, ?to ensure carryover of functional gains achieved in the clinic. This treatment plan has been reviewed and agreement upon by the patient.
--- NOTE | 2024-10-01 11:02 | PCPTNOTE ---
Patient called & cancelled scheduled appointment this date due to having a biopsy and having some pain.
--- NOTE | 2024-10-03 13:42 | PCPTNOTE ---
Patient called to cancel due to being stuck at another appointment.
--- NOTE | 2024-10-05 13:06 | PTOPDC ---
Assessment and note entered by Dayday Stern, PT Evaluation Information Assessment Status Discharge - Pt Not Presen Diagnosis Unspecified Tremor ICD-10 Condition Codes (PT) Cervicalgia M54.2,Weakness R53.1 Onset February 2024 Subjective Information Patient reports that patient will need to cancel pending PT appointments. Currently undergoing infection in neck biopsy and will be starting radiation for prostate cancer. Assessment PT Clinical Summary Discharge patient from skilled therapy at this time due to medical complexity and limited availability. Will resume when patient is ready again following CA treatment. Plan of Care PT Services Indicated Yes
== END 2024-10-05 14:39 | disposition home or self-care (01) ==
LOC: ANHGOSHPT 15:30
PROVIDERS: PCP Internal Medicine; Visit Provider Internal Medicine
DX: M54.2 Cervicalgia (principal); R53.1 Weakness; R25.1 Tremor, unspecified
CPT/HCPCS: 36415; 80048; 80178; 97110; 97140; 97161

== ENCOUNTER 2024-10-01 20:31 | Emergency (ER) | payer MEDICARE, OTHER, SELFPAY ==
--- NOTE | ~2024-10-01 | CT_ITS ---
CT scan of the Neck Technique: 2.5 mm axial scans were obtained through the neck after intravenous administration of 75 c c Omnipaque 350. Coronal and sagittal reconstructions of the neck were obtained. Dose reduction techn ique was used on this scan by utilizing automated exposure control and iterative reconstruction techn ique. The dose-length product (DLP) was 514.19 mGy-cm. Clinical History: Left neck cyst/infection Findings: There is a 1.8 x 1.4 cm cystic mass or fluid collection in the left neck, just anterior to the sterno cleidal mastoid muscle, just inferior to the parotid gland (axial image 57), with surrounding soft ti ssue edema/infiltrative changes. Lesion is just superficial to the left submandibular gland. The paro tid and submandibular glands themselves appear unremarkable. No other lymphadenopathy, mass lesion, o r other fluid collection evident in the neck. Parapharyngeal fat preserved bilaterally. Orbits are unremarkable. Paranasal sinuses and mastoid air cells are clear. The thyroid gland appears normal. Images of the lung apices reveal no abnormalities. Impression: 1.8 x 1.4 cm cystic mass in the left neck, as detailed above, most compatible with necrotic lymph nod e versus other cystic lesion or possibly small circumscribed abscess. Correlate for suppurative adeni tis. Necrotic metastatic lymph node is a potential alternative consideration, though felt to be less likely overall. Reviewed, dictated and finalized at [facility]. TER PILOT Impression: 1.8 x 1.4 cm cystic mass in the left neck, as detailed above, most compatible w ith necrotic lymph node versus other cystic lesion or possibly small circumscri bed abscess. Correlate for suppurative adenitis. Necrotic metastatic lymph node is a potential alternative consideration, though felt to be less likely overal l.
[2024-10-01 20:49] VITALS: BP 122/76; PULSE 86; RESP 16; TEMP 36.8; O2SAT 100
[2024-10-02 00:58] LABS: Basophils Absolute Auto 0.1 K/mm3 (0.0-0.1); Basophils Percent Auto 0.4 % (0.2-1.2); Eosinophils Absolute Auto 0.2 K/mm3 (0-0.3); Eosinophils Percent Auto 1.7 % (0-4.4); Hematocrit 43.2 % (42.0-52.0); Hemoglobin 14.5 g/dL (14.0-18.0); Immature Granulocyte Absolute 0.05 K/mm3 (0.00-0.031); Immature Granulocyte Percent A 0.4 % (0-0.5); Lymphocytes Absolute Auto 2.89 K/mm3 (0.9-3.2); Lymphocytes Percent Auto 21.6 % (18.3-44.2); Mean Corpuscular HGB Conc 33.6 g/dl (32-36); Mean Corpuscular Volume 92.5 fl (80-100); Mean Platelet Volume 9.6 fl (7.4-10.4); Monocytes Absolute Auto 1.1 K/mm3 (0.1-0.6); Monocytes Percent Auto 7.9 % (2.6-8.5); Neutrophils Absolute Auto 9.1 K/mm3 (1.3-6.7); Platelet Count Result 229 k/mm3 (150-375); Red Blood Count 4.67 M/mm3 (4.6-6.20); Red Cell Distribution Width 12.4 % (11.5-14.5); White Blood Count 13.4 K/mm3 (4.5-10.0)
[2024-10-02 01:14] LABS: Alanine Aminotransferase 105 U/L (6-50); Albumin Level 3.9 g/dL (3.5-5.1); Alkaline Phosphatase 86 U/L (38-126); Anion Gap 6 mmol/L (4-12); Aspartate Amino Transferase 104 U/L (17-59); Bilirubin,Total 0.7 mg/dL (0.2-1.3); Blood Urea Nitrogen 17 mg/dL (9-20); CRP 4.3 mg/dL (<1.0); Calcium 9.1 mg/dL (8.4-10.2); Carbon Dioxide 26 mmol/L (22-30); Chloride 105 mmol/L (98-107); Estimated CRCL calculation 61 ml/min; Estimated Glomerular Filt Rate > 60; Glucose 130 mg/dL (65-110); Potassium 3.8 mmol/L (3.4-5.0); Sodium 137 mmol/L (137-145)
--- NOTE | 2024-10-02 01:15 | ED.GENADULT ---
HPI - General Adult General Chief complaint: Neck Pain/Injury Stated complaint: neck infection and swelling left side Time Seen by Provider: 10/02/24 01:04 History of Present Illness HPI narrative: Patient is a 64-year-old male who presents to the emergency department this evening complaining of left-sided neck pain and swelling. Patient does have a known cyst on his left neck was incidentally found on a cervical spine MRI on December 12 of this year measuring 1.5 cm. Patient underwent an ultrasound-guided FNA performed by Dr. Sims on June 18 of this which was inconclusive. Patient states that since then he has followed up with an ENT physician out of [facility] and recently underwent a 2nd biopsy this past Tuesday 3 days ago. Patient states that since he started to notice some pain along his left neck and noticed that the cyst which was initially barely noticeable has now increased in size and has become more swollen. Patient has also noticed some redness to the skin overlying the cyst. Patient states that prior to the biopsy he had no pain or swelling to the left neck. Patient finally decided to come to the emergency department for further evaluation due to concern for an infection. He denies any fevers or chills at home, denies any additional symptoms or concerns at this time. Related Data Home Medications Medication Instructions Recorded Confirmed aspirin 81 mg tablet,delayed 81 mg PO DAILY 07/23/22 09/18/24 release (Adult Low Dose Aspirin) ascorbic acid (vitamin C) 1,000 mg 1 g PO DAILY 11/01/23 09/18/24 tablet cyanocobalamin (vitamin B-12) 1,000 mcg IM MONTHLY 11/01/23 09/18/24 1,000 mcg/mL injection solution trazodone 50 mg tablet 50 mg PO QHS PRN 03/13/24 09/18/24 cholecalciferol (vitamin D3) 50 50 mcg PO DAILY 03/14/24 09/18/24 mcg (2,000 unit) capsule evolocumab 140 mg/mL subcutaneous 140 mg subcut .Q2W 03/16/24 09/18/24 pen injector (Zaire Watson) bupropion HCl 150 mg tablet,12 hr 150 mg PO DAILY 04/27/24 09/18/24 sustained-release (Wellbutrin SR) fluticasone propionate 50 1 spray intranasal Q12H PRN 09/18/24 09/18/24 mcg/actuation nasal Allergy Symptoms spray,suspension Allergies Allergy/AdvReac Type Severity Reaction Status Date / Time ciprofloxacin [From Cipro] AdvReac Intermediate Nausea and Verified 09/18/24 09:07 Vomiting Review of Systems Review of Systems: All systems are reviewed and are negative unless stated otherwise in the HPI. [facility] Past Medical History Medical History Abdominal bloating Abnormal digestive system diagnostic imaging Abnormal weight loss Anxiety Anxiety with depression ASHD (arteriosclerotic heart disease) Bipolar II disorder Black-out (not amnesia) BMI 27.0-27.9,adult BMI 28.0-28.9,adult BMI 29.0-29.9,adult Cervicalgia Chest discomfort Chronic low back pain Colon cancer screening Confusion COVID-19 Depression Dizziness DJD (degenerative joint disease) Elevated PSA Encounter for Medicare annual wellness exam Encounter for routine adult health examination with abnormal findings Encounter for routine adult health examination without abnormal findings Encounter to establish care Follow up Frequent headaches Fundic gland polyposis of stomach GERD (gastroesophageal reflux disease) Head trauma Hematochezia Hypersomnolence Insomnia Insulin resistance Laceration of head Left leg pain Memory impairment Mixed hyperlipidemia Mucus in stool Nausea Neuralgia of left perineal nerve 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 GUNJAN (obstructive sleep apnea) Overactive bladder Prostate cancer Prostate cancer screening RLS (restless legs syndrome) Tenesmus (rectal) Tinea cruris Tremor Unintentional weight loss Urinary incontinence Vitamin B12 deficiency Surgical History Surgical History Hx of fusion of cervical spine S/P CABG x 3 Family History Family History Father Hypertension Depression Heart disease Diverticulitis Alzheimers disease Mother Depression Social History Social History Social History: Caffeine-coffee Smoking status: Never smoker Second hand tobacco smoke exposure: No Alcohol intake: current Alcohol use details: Rare social ETOH. 2-3 drinks yearly. Substance use: never Substance use type: does not use Do You Feel Safe in your Home?: Yes Lack of Transportation: No Lack of Food: Never True Current Housing: I Have Housing Concerned About Future Housing: No Difficulty Paying Gas/Electric Bills: No Difficulty Paying for Meds: No Currently Unemployed: No Education: Bachelor's Degree Difficulty w/ Childcare or Family Care: No Living arrangements: with family Occupation/Education: retired Gender identity (if verbalized by the patient): Male Spiritual care concerns: No Exam Narrative: General: Alert, awake, afebrile, in no acute distress. HEENT: PERRL, no rhinorrhea, no post nasal drip, oropharynx clear. Neck: Round cystic mass palpated to the left neck, tender to touch, overlying erythema. Cardiovascular: Regular rate and rhythm, no murmurs, rubs or gallops, no peripheral edema. Respiratory: Clear to auscultation bilaterally, no tachypnea, no wheezing, no rhonchi, no rubs, no respiratory distress. Abdomen: Soft, nontender, nondistended, no rebound, no guarding, no peritoneal signs. Musculoskeletal: No joint swelling or deformity, normal muscle tone. Skin: No rashes or petechia, no signs of infection. Psychiatric: Alert and oriented, normal behavior and judgment for situation. Neurological: Alert and oriented to person, place, and time. Follows all commands. No focal deficits, speech is clear and fluent. Course Vital Signs Vital signs: Vital Signs Temperature 98.2 F 10/01/24 20:49 Pulse Rate 86 10/01/24 20:49 Respiratory Rate 16 10/01/24 20:49 Blood Pressure 122/76 10/01/24 20:49 Pulse Oximetry 100 10/01/24 20:49 Temperature 98.2 F 10/01/24 20:49 Pulse Rate 82 10/02/24 04:15 Respiratory Rate 17 10/02/24 04:15 Blood Pressure 126/82 10/02/24 04:15 Pulse Oximetry 100 10/02/24 04:15 Medical Decision Making MDM Narrative Medical decision making narrative: The patient was evaluated by myself in the emergency department. History is obtained from patient who is an independent historian and physical exam was performed. External medical records were reviewed at this time. IV was established and pertinent tests were ordered. Patient was administered 4 mg IV morphine for pain and 4 mg IV Zofran for nausea. Laboratory results obtained revealing a leukocytosis of 13.4, AST 104, ALT 105, CRP 4.3, ESR pending, otherwise unremarkable. Imaging studies obtained included CT neck soft tissue with IV contrast which was independently interpreted by me revealing a 1.8 cm no chronic limb fluid inferior to the left parotid gland at correlate with suppurative adenitis, which is pending final radiology interpretation. At this time, the [facility] transfer line for [facility] was contacted and I did speak with the on-call ENT physician Dr. Barrett and he informed me that given the patient's nontoxic appearance he feels comfortable having the patient follow-up as an outpatient tomorrow Tuesday or Tuesday of this week if the patient feels comfortable following up outpatient. If the patient is not feel comfortable he can be transferred. Shared medical decision with the patient was initiated at this time and patient feels comfortable following up as an outpatient. He was administered a dose of IV Unasyn here and 10 mg of IV Decadron. Patient was prescribed Augmentin yesterday by his ENT physician and he was instructed to continue taking the Augmentin. Differential diagnosis considerations include abscess, cancer, cellulitis. Comorbidities impacting this visit include none. I have evaluated and discussed social determinants of health with the patient that could potentially impact subsequent diagnosis and treatment plans. On repeat assessment of the patient, reevaluation revealed that the patient is doing well and is in no acute distress. Patient symptoms have improved since he arrived to our emergency department. Repeat vital signs were all reviewed and noted to be stable. Differential diagnosis and treatment plan were discussed with the patient at bedside. Patient agrees with discussion and after shared medical decision making agrees with discharge. All questions were answered to the patient's satisfaction. Patient will follow up with ENT either tomorrow on Tuesday or Tuesday of this week and was informed that he will be contacted via phone by the ENT office regarding the time of his appointment. He was also instructed to continue taking the Augmentin that was prescribed to him. Patient was provided with strict return precautions and instructed to return to the emergency department if any new or worsening symptoms develop. The patient was discharged in stable condition. Vital Signs Vital Signs: Vital Signs Temperature 98.2 F 10/01/24 20:49 Pulse Rate 86 10/01/24 20:49 Respiratory Rate 16 10/01/24 20:49 Blood Pressure 122/76 10/01/24 20:49 Pulse Oximetry 100 10/01/24 20:49 Temperature 98.2 F 10/01/24 20:49 Pulse Rate 82 10/02/24 04:15 Respiratory Rate 17 10/02/24 04:15 Blood Pressure 126/82 10/02/24 04:15 Pulse Oximetry 100 10/02/24 04:15 Lab Data 10/02/24 00:50 10/02/24 00:50 Labs: Lab Results 10/02/24 Range/Units 00:50 WBC 13.4 H (4.5-10.0) K/mm3 RBC 4.67 (4.6-6.20) M/mm3 Hgb 14.5 (14.0-18.0) g/dL Hct 43.2 (42.0-52.0) % MCV 92.5 (80-100) fl MCH 31.0 (26-34) pg MCHC 33.6 (32-36) g/dl RDW 12.4 (11.5-14.5) % Plt Count 229 (150-375) k/mm3 MPV 9.6 (7.4-10.4) fl Immature Gran % (Auto) 0.4 (0-0.5) % Neut % (Auto) 68.0 (45.5-73.1) % Lymph % (Auto) 21.6 (18.3-44.2) % [place] % (Auto) 7.9 (2.6-8.5) % Eos % (Auto) 1.7 (0-4.4) % Baso % (Auto) 0.4 (0.2-1.2) % Lymph # (Auto) 2.89 (0.9-3.2) K/mm3 [place] # (Auto) 1.1 H (0.1-0.6) K/mm3 Eos # (Auto) 0.2 (0-0.3) K/mm3 Baso # (Auto) 0.1 (0.0-0.1) K/mm3 Abs Immat Gran (auto) 0.05 H (0.00-0.031) K/mm3 Absolute Neuts (auto) 9.1 H (1.3-6.7) K/mm3 Absolute Nucleated RBC 0.000 (0.0-0.012) K/mm3 Nucleated RBC % 0.0 (0.0-0.2) % ESR 47 H (0-20) mm/hr Sodium 137 (137-145) mmol/L Potassium 3.8 (3.4-5.0) mmol/L Chloride 105 (98-107) mmol/L Carbon Dioxide 26 (22-30) mmol/L Anion Gap 6 (4-12) mmol/L BUN 17 (9-20) mg/dL Creatinine 1.10 (0.7-1.3) mg/dL Estim Creat Clear Calc 61 ml/min Estimated GFR > 60 (59 - ) Glucose 130 H (65-110) mg/dL Calcium 9.1 (8.4-10.2) mg/dL Total Bilirubin 0.7 (0.2-1.3) mg/dL AST 104 H (17-59) U/L ALT 105 H (6-50) U/L Alkaline Phosphatase 86 (38-126) U/L C-Reactive Protein 4.3 H (<1.0) mg/dL Total Protein 7.0 (6.3-8.2) g/dL Albumin 3.9 (3.5-5.1) g/dL Discharge Plan Discharge Clinical Impression: Necrotizing inflammation of lymph node Patient Disposition: Home, Self-Care Condition: Improved Instructions: Antibiotic Form, Lymph Node Biopsy (DC), Neck Pain (ED) Additional Instructions: Please follow-up with ENT as scheduled for your upcoming appointment. You will be contacted by the ENT office for Dr. Briscoe regarding your appointment time which will be tomorrow Tuesday or Tuesday of this week. You were instructed to continue taking the Augmentin that was prescribed to you. Use the prescribed pain medication as needed. Return to the emergency department if any new or worsening symptoms develop. Prescriptions: New hydrocodone-acetaminophen 5-325 mg tablet 1 tablet PO Q8H PRN (Reason: pain) Qty: 7 0RF No Action nitroglycerin 0.4 mg tablet, sublingual 0.4 mg sublingual Q5M PRN (Reason: chest pain) Qty: 25 0RF Rx Instructions: do not exceed 3 doses per episode bupropion HCl [Wellbutrin SR] 150 mg tablet sustained-release 12 hr 150 mg PO DAILY pramipexole 1 mg tablet 1 mg PO TID Qty: 270 1RF aspirin [Adult Low Dose Aspirin] 81 mg tablet,delayed release (DR/EC) 81 mg PO DAILY trazodone 50 mg tablet 50 mg PO QHS PRN Repatha SureClick 140 mg/mL pen injector 140 mg subcut .Q2W fluticasone propionate 50 mcg/actuation spray,suspension 1 spray intranasal Q12H PRN (Reason: Allergy Symptoms) Patient Comments: uses at bedtime once Rx Instructions: administer into each nostril ascorbic acid (vitamin C) 1,000 mg Tablet 1 g PO DAILY cyanocobalamin (vitamin B-12) 1,000 mcg/mL solution 1,000 mcg IM MONTHLY Rx Instructions: Pt to inject 1ml by IM route once monthly. Please D/C the oral Cyanocobalamin. Thank you (DME) blood-glucose meter [Blood Glucose Monitoring] Kit See Rx Instructions .Route Qty: 1 4RF Rx Instructions: As directed (DME) Blood Glucose Test Strip See Rx Instructions .Route Qty: 25 3RF Rx Instructions: As directed metoprolol succinate 25 mg tablet extended release 24 hr 12.5 mg PO HS Qty: 90 0RF Hold Instructions: Pt stopped on his own nystatin 100,000 unit/gram powder 1 applic topical BID Qty: 60 1RF cholecalciferol (vitamin D3) 50 mcg (2,000 unit) capsule 50 mcg PO DAILY omeprazole 20 mg capsule,delayed release(DR/EC) 20 mg PO BID Qty: 180 1RF clonazepam 0.5 mg tablet 0.5 mg PO TID PRN (Reason: anxiety) Qty: 60 0RF folic acid 800 mcg tablet 0.8 mg PO DAILY Qty: 90 1RF hydrocodone-acetaminophen 5-300 mg tablet 1 tablet PO TID PRN (Reason: Anxiety) Qty: 15 0RF lithium carbonate 300 mg capsule 300 mg PO BID Qty: 180 0RF Follow-up/Referrals: Bon Rodriguez MD [Primary Care Provider] - 1 Week Time of Disposition: 04:02
[2024-10-02] MEDS: MORPHINE SULFATE (*CRX) 4 MG/ML INJ IV PUSH (01:45)
[2024-10-02] MEDS: ONDANSETRON INJ 4 MG/2 ML VIAL IV PUSH ×2 (01:45→04:10)
[2024-10-02] MEDS: AMPICILLIN SULB 3 GM/NS 100 ML 3 GM/100 ML VIAL IVPB (03:53)
[2024-10-02] MEDS: MORPHINE SULFATE (*CRX) 2 MG/ML INJ IV PUSH (04:10)
[2024-10-02] MEDS: dexAMETHasone SOD PHOS INJ 10 MG/ML 1 ML VIAL IV PUSH (04:10)
[2024-10-02 04:15] VITALS: BP 126/82; PULSE 82; RESP 17; O2SAT 100
[2024-10-02 05:12] LABS: Erythrocyte Sedimentation Rate 47 mm/hr (0-20)
== END 2024-10-02 04:15 | disposition home or self-care (01) ==
PROVIDERS: Emergency Provider Emergency Medicine; PCP Internal Medicine
DX: I88.8 Other nonspecific lymphadenitis (principal); I25.10 Atherosclerotic heart disease of native coronary artery without angina pectoris; E78.2 Mixed hyperlipidemia; N32.81 Overactive bladder; G25.81 Restless legs syndrome; G47.33 Obstructive sleep apnea (adult) (pediatric); E55.9 Vitamin D deficiency, unspecified; K21.9 Gastro-esophageal reflux disease without esophagitis; F31.81 Bipolar II disorder; F41.8 Other specified anxiety disorders; R32 Unspecified urinary incontinence; Z95.1 Presence of aortocoronary bypass graft; Z98.1 Arthrodesis status; Z86.16 Personal history of COVID-19; Z79.82 Long term (current) use of aspirin; Z79.899 Other long term (current) drug therapy
CPT/HCPCS: 36415; 70491; 80053; 85025; 85652; 86140; 96365; 96375; 96376; 99284; J0295; J1100; J2270; J2405; Q9967

== ENCOUNTER 2024-11-30 09:56 | Outpatient (CLI) | payer MEDICARE, OTHER, SELFPAY ==
--- NOTE | ~2024-11-30 | XR_ITS ---
XR knee LT min 4V Ordering provider: Bon Rodriguez MD History: . M25.562 - Pain in left knee X 6 MONTHS, NKI . Comparison: None. FINDINGS: BONES: No acute fracture or dislocation. JOINT SPACES: Normal. SOFT TISSUES: Normal. IMPRESSION: No acute osseous abnormality left knee. Reviewed, dictated and finalized at location A. [facility]
--- OUTSIDE RECORDS SUMMARY | 2024-12-06 06:13 | XMS_ITS | Encounter Summary ---
Author Organization [facility] Address [address] [place] [address] Phone Care Team Providers Care Client Service Professional Name Role Phone Bon Rodriguez MD Primary Care Provider [phone] Rick Ricci MD Unavailable [phone] Encounter Details Date Type Department Care Team (Latest Contact Info) Description 01/30/2018 Orders Only [facility] CONVERSION Scanning, Provider Social History Tobacco Use Types Packs/Day Years Used Date Smoking Tobacco: Never Sex and Gender Information Value Date Recorded Sex Assigned at Not on file Legal Sex Male 7:15 AM BUNCH 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 Gender Identity Male 02/20/2021 1:17 PM CDT Sexual Orientation Straight 06/30/2019 7: 44 AM CDT documented as of this encounter Plan of Treatment Not on file documented as of this encounter Procedures Procedure Name Priority Date/Time Associated Diagnosis Comments VASCULAR LABORATORY REPORT 01/30/2018 3:42 PM CDT documented in this encounter Results * VASCULAR LABORATORY REPORT (01/30/2018 3:42 PM CDT) Anatomical Region Laterality Modality Ultrasound us Provider Scanning CV VASCULAR PROCEDURES Final R esult documented in this encounter Visit Diagnoses Not on filedocumented in this encounter Additional Health Concerns Infection Onset Date Last Indicated Resolved Time COVID: Suspected 06/10/2021 06/10/2021 06/10/2021 8:52 PM CDT documented as of this encounter Care Teams Client Service Professional Relationship Specialty Start Date End Date Bon Rodriguez MD [address] [place] [address] PCP - General Internal Medicine 10/21/23 Rick Ricci MD [address] [place] [address] Urology 10/08/24 documented as of this encounter
--- OUTSIDE RECORDS SUMMARY | 2024-12-06 06:13 | XMS_ITS | Referral Summary ---
Author Organization [facility] Address 1 [place] [address] Care Team Providers Care Musician Instrumental Name Role Phone Bon Rodriguez MD Primary Care Provider [phone] Rick Ricci MD Unavailable [phone] Encounters Date Type Department Care Team Description 12/04/2024 10:05 AM MAJOR GIFTS MANAGER Lab [facility] [address] [place] [id number] Prostate cancer (HCC); Hemorrhage, not elsewhere classified 11/29/2024 Telephone [facility] Radiology [address] [place] [address] Viviane Arias, RN 11/28/2024 Telephone [facility] Rad[facility] Oncology [address] [facility] [place] [address] Meghann Howard RN 11/28/2024 Telephone [facility] Radiology 1 [place] [address] Viviane Arias, RN 11/28/2024 Orders Only [facility] Radiation Oncology [address] [facility] [place] [address] Satya Vidal MD Prostate cancer (HCC) (Primary Dx); Hemorrhage, not elsewhere classified 11/27/2024 Telephone [facility] Radiation Oncology [address] [facility] [place] [address] Satya Vidal MD 11/24/2024 2:22 PM MAJOR GIFTS MANAGER - 11/24/2024 11:59 PM MAJOR GIFTS MANAGER Hospital Encounter [facility] [address] [place] [address] Prostate cancer (HCC) Discharge Disposition: Discharge to home or self care 11/21/2024 Orders Only [facility] [address] [place] [address] Satya Vidal MD Prostate cancer (HCC) 11/21/2024 Orders Only [facility] Radiation Oncology [address] [place] [address] Satya Vidal MD Prostate cancer (HCC) (Primary Dx) 11/02/2024 Orders Only [facility] Radiation Oncology [address] [place] [address] Satya Vidal MD Prostate cancer (HCC) (Primary Dx) 11/02/2024 10:00 AM MAJOR GIFTS MANAGER Consult [facility] Radiation Oncology [address] [place] [address] Satya Vidal MD Prostate cancer (HCC) (Primary Dx) 10/29/2024 12:46 PM MAJOR GIFTS MANAGER - 10/29/2024 11:59 PM MAJOR GIFTS MANAGER Hospital Encounter [facility] Medical Office Building [address] [address] Malignant neoplasm of prostate (HCC) Discharge Disposition: Discharge to home or self care 10/22/2024 12:30 PM MAJOR GIFTS MANAGER Office Visit [facility] [address] [facility] Floor 1, [address] [place] [address] Yesika Shah NP Mixed hyperlipidemia (Primary Dx); Multiple vessel coronary artery disease; S/P CABG (coronary artery bypass graft); Diastolic dysfunction 10/16/2024 Telephone [facility] Radiation Oncology [address] [facility] [place] [address] Satya Vidal MD 10/15/2024 Telephone [facility] [address] [place] [address] Marta Hayes RN 10/05/2024 Telephone [facility] [address] [facility] 8th [place] [address] [place] [phone] Moises Zurita from Last 3 Months Allergies Active Allergy Reactions Criticality Noted Date Comments Zolpidem Hallucinations Medium 11/02/2024 Propoxyphene Other (See comments) Low 02/25/2020 Confusion Rosuvastatin Other (See comments) Reaction: CRAMPS, Medications omeprazole (PriLOSEC) 20 mg capsule take 1 capsule by oral route every day 30 minutes to 1 hour before a meal 0 0 017 Active ascorbic acid, vitamin C, (VITAMIN C) 500 mg capsule, extended release CR capsule 500 mg. 0 0 017 Active HYDROcodone-a cetaminophen (NORCO) 5-325 mg per tablet take 1 tablet by oral route every 6 hours as needed for pain 0 0 017 Active pramipexole (MIRAPEX) 1 mg tablet take 1 tablet by oral route 3 times every day 0 0 017 Active clonazePAM (KlonoPIN) 0.5 mg tablet Take 1 tablet (0.5 mg total) by mouth daily as needed for anxiety Active lithium 300 mg capsule Take 1 tablet/capsule (300 mg total) by mouth 2 (two) times a day with meals Active nitroglycerin (NITROSTAT) 0.[address] 1 tablet (0.4 mg total) under the tongue every 5 (five) minutes as needed for chest pain May repeat dose q 5 min, up to 3 doses total 25 tablet 6 Active cyclobenzapri ne (FLEXERIL) 5 mg tablet as needed Active traZODone (DESYREL) 100 mg tablet Take 0.5 tablets (50 mg total) by mouth nightly 05/11/2 022 Active folic acid (FOLVITE) 800 mcg tablet Take 1 tablet (800 mcg total) by mouth daily Active buPROPion XL (WELLBUTRIN XL) 150 mg 24 hr tablet Take 1 tablet (150 mg total) by mouth daily Active bupropion HCl (WELLBUTRIN SR ORAL) Active cefadroxil (DURICEF) 500 mg capsule Take 1 capsule (500 mg total) by mouth 2 (two) times a day Active cyanocobalami n (Vitamin B-12) 1,000 mcg/mL injection INJECT 1ML INTRAMUSCULARLY ONCE MONTHLY Active HYDROcodone-a cetaminophen (VICODIN) 5-300 mg per tablet Take by mouth 3 (three) times a day as needed Active propranoloL (INDERAL) 10 mg tablet Take 1 tablet (10 mg total) by mouth 2 (two) times a day 60 tablet 11 Active evolocumab (Repatha SureClick) 140 mg/mL pen injector ADMINISTER 1 ML(140 MG) UNDER THE SKIN EVERY 14 DAYS 6 mL 1 Active evolocumab (Repatha SureClick) 140 mg/mL pen injector Inject 1 mL (140 mg total) under the skin every 14 (fourteen) days 2 mL 6 024 2023 Discontinued Active Problems Problem Noted Date Diagnosed Date Diastolic dysfunction 12/25/2021 Assessment & Plan (12/25/2021 10:32 AM MAJOR GIFTS MANAGER): As aforementioned the patient had a transthoracic echocardiogram on 02/26/2020 that showed mid range EF of 55%, mild LV hypertrophy as well as grade 1 diastolic dysfunction. Dyspnea on exertion 12/25/2021 Low vitamin D level 12/01/2021 Obesity (BMI 30-39.9) 12/01/2021 GUNJAN (obstructive sleep apnea) 12/01/2021 History of deep vein thrombosis 02/25/2021 Dysphonia 02/12/2020 Laryngopharyngeal reflux (LPR) 02/12/2020 Neck pain of over 3 months duration 09/06/2019 Bipolar affective disorder 06/24/2017 Hyperthyroidism 03/21/2017 Overview (04/08/2017): Hyperthyroidism Benign essential hypertension 03/17/2017 Assessment & Plan (06/25/2022 11:30 AM CDT): Blood pressure well controlled we will continue his current regimen without change. Assessment & Plan (12/25/2021 10:27 AM MAJOR GIFTS MANAGER): Records mention that the patient has hypertension. His blood pressure seems to be well controlled and is in the 120s over 70s. He is only taking metoprolol 12.5 mg daily. Patient was counseled on lifestyle modifications. Will make no adjustments to his antihypertensive therapy for now. Multiple vessel coronary artery disease 08/20/20 16 Overview (12/22/2021): Cath 06/2016LAD showed proximal calcification with a 60%-70% proximal and mid LAD stenosis with significant calcification. 3. Left circumflex artery showed mid circumflex site 90% stenosis. It seems to be filling the RCA indicating a total occlusion of the RCA. 4. RCA: A large caliber vessel. It showed total occlusion at the midsection with filling via collaterals from the left system Normal nuc stress 02/202002/11/21 LEXISCAN Adequate Stress with Lexiscan. Positive Lexiscan stress test. Reversible defect consistent wit ischemia in lateral area. Normal LV systolic function. Compared to last study in 2017. There are changes noted. LVEF 56% Assessment & Plan (06/25/2022 11:30 AM CDT): Status post coronary artery bypass grafting with recent oncologic stress echo showing normal LV function with no evidence of inducible ischemia. Prior atypical chest pain symptoms have since resolved the patient is now doing well with normal activity tolerance and no concerning symptoms. Continue current regimen without change. Assessment & Plan (12/25/2021 10:31 AM MAJOR GIFTS MANAGER): The patient is known to have triple-vessel disease and is currently status post triple-vessel CABG in 2015 with COLIN to LAD, SVG to RCA as well as SVG to OM. His most recent nuclear stress study was obtained in 2019 and was negative for infarct or ischemia. His last TTE from 2019 also described grade 1 diastolic dysfunction, mild concentric LV hypertrophy, mild systolic dysfunction with an EF of 55%. He is currently taking aspirin as well as metoprolol 12.5 and Praluent. Since he is now describing chest pain with atypical features that is not exertional and increase in frequency will plan to work him up with a pharmacological stress echocardiogram. Will start patient on Imdur 30 mg daily. Will prescribe sublingual nitroglycerin. Will order an NT proBNP. Hyperlipidemia 07/04/2016 Assessment & Plan (06/25/2022 11:30 AM CDT): Well controlled on PCSK9 inhibitor. Assessment & Plan (12/25/2021 10:26 AM MAJOR GIFTS MANAGER): Patient's most recent lipid panel is from 10/13/2021 with a total cholesterol 154 and LDL cholesterol 46. This was obtained while the patient was on Praluent. Anxiety 07/04/2016 S/P CABG (coronary artery bypass graft) 07/04/20 16 Overview (12/24/2021): [id number] COLIN to LAD, SVG to OM PDA) . Normal stress February 2020 CO (myocardial infarction) 11/14/2015 Resolved Problems Problem Noted Date Diagnosed Date Resolved Date Paroxysmal A-fib (CMS/HCC) 07/04/2016 0 02/10/2024 Immunizations Name Administration Dates Next Due DTaP 05/12/2015 Influenza, Quadrivalent, Split, Intramuscular Tdap 05/12/2015 Social History Tobacco Use Types Packs/Day Years Used Date Smoking Tobacco: Never Smokeless Tobacco: Never Tobacco Cessation:Counseling Given: Not Answered Alcohol Use Standard Drinks/Week Comments Not Currently 0 (1 standard drink = 0.6 oz pur e alcohol) AUDIT-C Answer Date Recorded Q1: How often do you have a drink containing alcohol? Never 11/02/2024 Q2: How many drinks containi ng alcohol do you have on a typical day when you are drinking? Patient does not drink Q3: How often do you have si x or more drinks on one occasion? Never 11/02/2024 PHQ-2 Answer Date Recorded PHQ-2 Total Score (If total score is 3 or more points, staff should administer the PHQ-9) 1 12/01/2021 Personal Safety Answer Date Recorded Have you ever been in or are you currently in a harmful physical or emotional relationship or is someone making you feel afraid or unsafe? Denies 08/01/2024 Sex and Gender Information Value Date Recorded Sex Assigned at Not on file Legal Sex Male 7:15 AM MAJOR GIFTS MANAGER Gender Identity Male 02/20/2021 1:17 PM CDT Sexual Orientation Straight 06/30/2019 7: 44 AM CDT Last Filed Vital Signs Vital Sign Reading Time Taken Comments Blood Pressure 120/76 11/02/2024 10:01 AM MAJOR GIFTS MANAGER Pulse 58 11/02/2024 10:01 AM MAJOR GIFTS MANAGER Temperature 36.5 ??C (97.7 ??F) 11/02/2024 10:[address] Respiratory Rate 18 11/02/2024 10:01 AM MAJOR GIFTS MANAGER Oxygen Saturation 96% 11/02/2024 10:01 AM MAJOR GIFTS MANAGER Inhaled Oxygen Concentration - - Weight 92.1 kg (203 lb) 11/24/2024 2:29 PM MAJOR GIFTS MANAGER Height 180.3 cm (5' 11 ) 11/24/2024 2:29 PM MAJOR GIFTS MANAGER Body Mass Index 28.31 11/24/2024 2:29 PM MAJOR GIFTS MANAGER Plan of Treatment Not on file Procedures Procedure Name Priority Date/Time Associated Diagnosis Comments PROTIME-INR Routine 12/04/2024 10:13 AM MAJOR GIFTS MANAGER Prostate cancer (HCC) Hemorrhage, not elsewhere classified MRI THORACIC SPINE W WO CONTRAST Schedule Routine, Read Routine (OP Routine) 11/24/2024 3:00 PM MAJOR GIFTS MANAGER Prostate cancer (HCC) SURGICAL PATHOLOGY Routine 11/21/2024 5:05 PM MAJOR GIFTS MANAGER Prostate cancer (HCC) PET/CT PROSTATE CANCER PSMA SKULL TO THIGH Schedule Routine, Read Routine (OP Routine) 10/29/2024 2:13 PM MAJOR GIFTS MANAGER Malignant neoplasm of prostate (HCC) PSA SCREEN Routine 10/13/2021 11:56 AM MAJOR GIFTS MANAGER HEPATITIS PANEL, ACUTE Routine 12/18/2015 3:58 PM MAJOR GIFTS MANAGER from Last 3 Months or Most Recently Relevant to Health Maintenance Results * (ABNORMAL) Protime-INR (12/04/2024 10:13 AM MAJOR GIFTS MANAGER) PT 15.4(H) 12.0 - 14.6 sec Comment: Ref Range High Testing performed by: [address] [address] INR 1.2 0.9 - 1.2 RICHY Comment: Ref Range High Interpretive data Oral anticoagulant therapeutic ranges: Venous thromboembolism prophylaxis or treatment: 2.0-3.0 CARDIOLOGY Standard range: 2.0-3.0 High-intensity range: 2.5-3.5 Refer to indication-specific guidelines for appropriate target ranges for prosthetic heart valve replacement. Current interpretive data was last revised on 2019. Testing performed by: [facility], [address] [place] [address]., [id number] Blood 12/04/2024 10:1 3 AM MAJOR GIFTS MANAGER 12/04/2024 11:55 AM MAJOR GIFTS MANAGER us Satya Vidal MD LAB BLOOD ORDERABLES Final R esult RICHY [address] [facility] Department [place] [address] * MRI Thoracic Spine W WO Contrast (11/24/2024 3:00 PM MAJOR GIFTS MANAGER) Anatomical Region Laterality Modality Spine N/A Magnetic Resonan ce 11/26/2024 10:3 8 AM MAJOR GIFTS MANAGER Impressions 11/26/2024 10:38 AM MAJOR GIFTS MANAGER 1. ??1 cm area of vague enhancement in the right aspect of the T7 vertebral bodies corresponding to the focus of PSMA uptake seen on the PET/CT suspicious for a metastatic lesion. ?? 2. ??Mild to moderate degenerative changes of the thoracic spine as described above without spinal canal or neural foraminal stenosis. Electronically signed by: Giana Clifford M.D. Narrative 11/26/2024 10:38 AM MAJOR GIFTS MANAGER EXAMINATION: Magnetic resonance imaging (MRI) of the thoracic spine without and with contrast HISTORY: Prostate cancer, suspicious T7 lesion seen on PET CT TECHNIQUE: Multiplanar multi-weighted MRI of the thoracic was performed without and with intravenous contrast using the standard protocol. Contrast information: 18 mL Gadoterate Meglumine COMPARISON: F 18-PSMA PET-CT on 10/29/2024 FINDINGS: The alignment of the thoracic spine is normal. ??In the area corresponding to the PSMA uptake in the right aspect of T7 vertebral body, there is a subtle 1 cm area of hypointense T1-weighted signal and subtle enhancement. The remaining vertebral bodies demonstrate normal signal intensity on all sequences. There are no compression fractures. The spinal cord demonstrates normal signal intensity on all sequences. Intervertebral disks have moderate disc degeneration with small disc protrusion from T8 to T12 without causing spinal canal stenosis. Limited views of the chest and abdomen show no soft tissue abnormality. The aorta is normal. There is mild to moderate facet arthropathy. There is no neuroforaminal stenosis. There is no spinal canal stenosis. Procedure Note VoGiana MD - 11/26/2024 EXAMINATION: Magnetic resonance imaging (MRI) of the thoracic spine without and with contrast HISTORY: Prostate cancer, suspicious T7 lesion seen on PET CT TECHNIQUE: Multiplanar multi-weighted MRI of the thoracic was performed without and with intravenous contrast using the standard protocol. Contrast information: 18 mL Gadoterate Meglumine COMPARISON: F 18-PSMA PET-CT on 10/29/2024 FINDINGS: The alignment of the thoracic spine is normal. In the area corresponding to the PSMA uptake in the right aspect of T7 vertebral body, there is a subtle 1 cm area of hypointense T1-weighted signal and subtle enhancement. The remaining vertebral bodies demonstrate normal signal intensity on all sequences. There are no compression fractures. The spinal cord demonstrates normal signal intensity on all sequences. Intervertebral disks have moderate disc degeneration with small disc protrusion from T8 to T12 without causing spinal canal stenosis. Limited views of the chest and abdomen show no soft tissue abnormality. The aorta is normal. There is mild to moderate facet arthropathy. There is no neuroforaminal stenosis. There is no spinal canal stenosis. IMPRESSION: 1. 1 cm area of vague enhancement in the right aspect of the T7 vertebral bodies corresponding to the focus of PSMA uptake seen on the PET/CT suspicious for a metastatic lesion. 2. Mild to moderate degenerative changes of the thoracic spine as described above without spinal canal or neural foraminal stenosis. Electronically signed by: Giana Clifford M.D. us Satya Vidal MD IMG MRI PROCEDURES Final Res ult * Surgical pathology (11/21/2024 5:05 PM MAJOR GIFTS MANAGER) Tissue (Miscellaneous) 11/21/2024 5:05 PM MAJOR GIFTS MANAGER 11/21/2024 5:05 PM MAJOR GIFTS MANAGER Narrative [facility] - 11/26/2024 2:58 PM MAJOR GIFTS MANAGER EPIC results best viewed via link to PDF [facility] Pathology Consult Service [address], [place] [address] Note to Patients: This report may contain a detailed description of human tissue sent by a health care provider to the laboratory for pathologic evaluation. The content of this report is essential for diagnosis and may provide important critical findings. This information may be unfamiliar to patients to review without a medical professional present. It is advised that the patient review this report in the presence of a health care provider who can answer questions and explain the details. SURGICAL PATHOLOGY REPORT * Consult Report * [facility] is providing an additional review of previously collected tissue. FINAL Patient Name: ??ARMANDO DALE Address: ??[address] [facility], ?[place], [place] ??[address] Gender: ??M : ??1960 (Age: 64) Hospital #: ??[id number] Patient Type: ??[facility] Location: ??UNKNOWN Taken: ??11/21/2024 Received: ??11/21/2024 Accessioned: ??11/22/2024 Reported: ??11/26/2024 Physician(s): Satya Vidal MD [facility] Client Services/Laboratory [address] [place] [address] P: [phone] F: [phone] Diagnosis: Consult material received from [facility], [place], [place] (OSC: [id number]; 08/15/2024). A. Prostate, left lateral base, biopsy ? - Prostatic adenocarcinoma, [place] score 4 + 3 = 7 (grade group 3, 70% pattern 4), in one of one cores, involving 35% of total core tissue ? - Cribriform pattern present ? B. Prostate, left base, biopsy ? - Prostatic adenocarcinoma, Darren score 3+3=6, grade group 1, in one of one core, involving 20% of total core tissue ? C. Prostate, left lateral mid, biopsy ? - Prostatic adenocarcinoma, [place] score 3 + 4 = 7 (grade group 2, 20% pattern 4), in one of one core, involving 20% of total core tissue ? D. Prostate, left mid, biopsy ? - Prostatic adenocarcinoma, Darren score 3 + 4 = 7 (grade group 2, 10% pattern 4), in one of one core, involving 15% of total core tissue ? E. Prostate, left lateral apex, biopsy ? - Prostatic adenocarcinoma, Darren score 3 + 4 = 7 (grade group 2, 10% pattern 4), in one of one core, involving 20% of total core tissue ? F. Prostate, left apex, biopsy ? - Prostatic adenocarcinoma, Darren score 4 + 3 = 7 (grade group 3, 70% pattern 4), in one of one core, involving 40% of total core tissue ? - Cribriform pattern present ? G. Prostate, right base, biopsy ? - Benign prostatic tissue H. Prostate, right lateral base, biopsy ? - Benign prostatic tissue I. Prostate, right mid, biopsy ? - Benign prostatic tissue J. Prostate, lateral mid, biopsy ? - Benign prostatic tissue K. Prostate, right apex, biopsy ? - Benign prostatic tissue L. Prostate, right lateral apex, biopsy ? - Benign prostatic tissue jili/11/22/2024 16:35 By this signature, I attest that the above diagnosis is based upon my personal examination of the slides(and/or other material indicated in the diagnosis). Ana Kramer M.D., PH.D. Report Electronically Reviewed and Signed Out By Ana Kramer M.D., PH.D. 11/26/2024 14:58:24 Microscopic Description and Comment: Unless gross-only is specified, the final diagnosis for each specimen is based on a microscopic examination of each tissue sample. History: The patient is a 64-year-old man with history of prostate cancer. Materials Received: Received for review are four slides labeled [id number], accompanied by a corresponding pathology report. The material originates from [facility], [place], [place]. Selected slide(s) may be digitally scanned for our files, and all materials are returned to the referring institution, along with a copy of our final report. Any testing required for diagnostic purposes was performed in the Department of Pathology and Immunology at [facility], [address] [place] [id number] CLIA # [id number] The performance characteristics of the testing cited in this report (if any) were determined by the ??[facility] Department of Pathology and Immunology [facility], as part of an ongoing quality compliance manager program and in compliance with federally mandated regulations drawn from the Clinical Laboratory Improvement Act of 1988 (CLIA '88). ??Some of these tests rely on the use of analyte specific reagents (ASR) and are subject to specific labeling requirements by the US Food and Drug Administration. ??Such diagnostic tests may only be performed in a facility that is certified by the Department of Health and Human Services as a high complexity laboratory under CLIA '88. ??The FDA has determined that such clearance or approval is not necessary. ??ASRs should not be regarded as investigational or for research. ??ASRs were developed and the performance characteristics determined by the [facility], [facility] Department of Pathology and Immunology. ??It has not been cleared or approved by the U.S. Food and Drug Administration. ??Any test designated as LDT was developed and its performance characteristics determined by [facility]. It has not been cleared or approved by the FDA. This test is used for clinical purposes and should not be regarded as investigational or for research. Report images and/or scanned reports, if included, only viewable in PDF version of report. us Satya Vidal MD LAB PATHOLOGY ORDERABLES Fin al Result [facility] [address] [address] * PET/CT Prostate Cancer PSMA Skull to Thigh (10/29/2024 2:13 PM MAJOR GIFTS MANAGER) Anatomical Region Laterality Modality N/A Positron Emissio n Tomography (PET) 10/29/2024 2:58 PM MAJOR GIFTS MANAGER Narrative 10/29/2024 3:12 PM MAJOR GIFTS MANAGER EXAM DESCRIPTION: ??F 18-PSMA PET-CT REASON FOR STUDY: INITIAL STAGING; prostate carcinoma; PSA 4.7 ng/mL RADIOPHARMACEUTICAL: 10.0 ??mCi F-18 PSMA via ??right antecubital TECHNIQUE: The patient received an IV injection of the radiotracer. After an initial uptake phase of approximately 60 ??minutes, a low-dose CT scan without intravenous and without oral contrast was acquired from skull base to mid-thigh. Subsequently positron emission tomography images were obtained from the thigh to skull base. CT, PET and fused images were reconstructed in transaxial, coronal, and sagittal projections and interpreted from a workstation. COMPARISON: CT chest 01/28/2018 FINDINGS: Prostate/prostate bed: ??Prostate gland measures 4.8 cm. ??Foci of PSMA uptake at the prostate base with SUV max of 3.8, suspicious for malignancy. ??Correlate with biopsy findings. Lymph nodes: ??No PSMA avid lymph nodes. Osseous structures: ??Focus of PSMA uptake in the vertebral body of T7, suspicious for metastatic disease. ??PSMA uptake in the lateral right 3rd rib and lateral right 7th rib without definite CT correlate but remains suspicious for metastatic disease. Head and neck: ??Expected prominent radiotracer activity in the lacrimal and salivary glands. No radiotracer avid cervical lymph nodes. Chest: ??No abnormal radiotracer uptake in the chest. No suspicious pulmonary nodules. Abdomen and pelvis: ??Expected mild activity in the liver without focal abnormal uptake. Expected intense radiotracer activity in the urinary system, proximal small bowel and spleen. Soft tissues: ??No abnormal radiotracer activity in the soft tissues. IMPRESSION: Foci of PSMA uptake at the prostate base, suspicious for malignancy. Correlate with biopsy findings. Foci of PSMA uptake in the vertebral body of T7, suspicious for metastatic disease. PSMA uptake in the lateral right 3rd and 7th ribs without definite CT correlate is indeterminate. ??Attention to follow-up. No evidence of PSMA avid sarah metastatic disease. ?? THIS IS AN ELECTRONICALLY VERIFIED FINAL REPORT 10/29/2024 3:12 PM - Electronically signed by ??Annamarie Stewart M.D. FT: FT D: ??10/29/2024 3:12 PM T: ??10/29/2024 3:12 PM Report ID: [id number] Reading Location: ??[id number] Procedure Note Annamarie Smith MD - 10/29/2024 EXAM DESCRIPTION: F 18-PSMA PET-CT REASON FOR STUDY: INITIAL STAGING; prostate carcinoma; PSA 4.7 ng/mL RADIOPHARMACEUTICAL: 10.0 mCi F-18 PSMA via right antecubital TECHNIQUE: The patient received an IV injection of the radiotracer. Afteran initial uptake phase of approximately 60 minutes, a low-dose CT scanwithout intravenous and without oral contrast was acquired from skull base to mid-thigh. Subsequently positron emission tomography images were obtainedfrom the thigh to skull base. CT, PET and fused images were reconstructed in transaxial, coronal, and sagittal projections and interpreted from a workstation. COMPARISON: CT chest 01/28/2018 FINDINGS: Prostate/prostate bed: Prostate gland measures 4.8 cm. Foci of PSMA uptake at the prostate base with SUV max of 3.8, suspicious for malignancy. Correlate with biopsy findings. Lymph nodes: No PSMA avid lymph nodes. Osseous structures: Focus of PSMA uptake in the vertebral body of T7, suspicious for metastatic disease. PSMA uptake in the lateral right 3rdrib and lateral right 7th rib without definite CT correlate but remainssuspicious for metastatic disease. Head and neck: Expected prominent radiotracer activity in the lacrimaland salivary glands. No radiotracer avid cervical lymph nodes. Chest: No abnormal radiotracer uptake in the chest. No suspiciouspulmonary nodules. Abdomen and pelvis: Expected mild activity in the liver without focal abnormal uptake. Expected intense radiotracer activity in the urinarysystem, proximal small bowel and spleen. Soft tissues: No abnormal radiotracer activity in the soft tissues. IMPRESSION: Foci of PSMA uptake at the prostate base, suspicious for malignancy. Correlate with biopsy findings. Foci of PSMA uptake in the vertebral body of T7, suspicious formetastatic disease. PSMA uptake in the lateral right 3rd and 7th ribs without definite CT correlate is indeterminate. Attention to follow-up. No evidence of PSMA avid sarah metastatic disease. THIS IS AN ELECTRONICALLY VERIFIED FINAL REPORT 10/29/2024 3:12 PM - Electronically signed by Annamarie Stewart M.D. FT: FT Report ID: [id number] Reading Location: [place] [id number] us Leonardo Garcia MD IMG PET PROCEDURES Final R esult * PSA screen (10/13/2021 11:56 AM MAJOR GIFTS MANAGER) [facility] PSA-Total 2.39 <=5.40 ng/mL RICHY JURADO Comment: Interpretive Data ?AGE ? SEX ?REFERENCE INTERVAL 0 minutes-150 years ?Female ?None 0 minutes-49 years ? Male ?None ? 50-59 years ? Male ?0-3.90 ? 60-69 years ? Male ?0-5.40 ? 70-79 years ? Male ?0-6.20 ? 80-150 years ?Male ?0-6.20 Current interpretive data last revised 2018. Blood 10/13/2021 11:5 6 AM MAJOR GIFTS MANAGER 10/13/2021 12:54 PM MAJOR GIFTS MANAGER us Karen Dailey MD LAB BLOOD ORDERABLES Final Resul t RICHY JURADO [address] [facility] Department [place] [address] * Hepatitis panel, acute (12/18/2015 3:58 PM MAJOR GIFTS MANAGER) HepBsAg NONREACT NONREACTIVE 12/18/2015 6:47 PM MAJOR GIFTS MANAGER [facility] [employer] [facility] HISTORICAL RESULTS Comment: Siemens CentaurXP using KAMERON (chemiluminescent immunoassay) technology. NONREACTIVE: IgM antibodies to Hepatitis B Surface antigen not detected. REACTIVE: IgM antibodies to Hepatitis B Surface antigen detected. Reactive results will be confirmed by neutralization testing. HBsAb (immune status) NONREACT NONREACTIVE 12/18/2015 6:34 PM MAJOR GIFTS MANAGER [facility] [employer] HISTORICAL RESULTS Comment: Siemens CentaurXP using KAMERON (chemiluminescent immunoassay) technology. NONREACTIVE: IgM antibodies to Hepatitis B Surface antibody not detected. REACTIVE: IgM antibodies to Hepatitis B Surface antibody detected. Hep B core IgM NONREACT NONREACTIVE 6 7:13 PM MAJOR GIFTS MANAGER [facility] [employer] HISTORICAL RESULTS Comment: Siemens CentaurXP using KAMERON (chemiluminescent immunoassay) technology. NONREACTIVE: IgM antibodies to Hepatitis B Core antigen not detected. EQUIVOCAL: IgM antibodies to Hepatitis B Core antigen may or may not be present. Obtain a ??new specimen and retest. REACTIVE: IgM antibodies to Hepatitis B Core antigen detected. Hep A IgM NONREACT NONREACTIVE 12/18/2015 7:14 PM [employer] [facility] [employer] HISTORICAL RESULTS Comment: Siemens CentaurXP using KAMERON (chemiluminescent immunoassay) technology. NONREACTIVE: IgM antibodies to Hepatitis A not detected. This does not exclude possibility of exposure to Hepatitis A or early acute infection. EQUIVOCAL:IgM antibodies to Hepatitis A may or may not be present. Suggest recollection and retest. REACTIVE: Antibodies to Hepatitis A detected. Hep C Ab NONREACT NONREACTIVE 12/18/2015 7:12 PM [employer] [facility] [employer] HISTORICAL RESULTS Comment: Siemens CentaurXP using KAMERON (chemiluminescent immunoassay) technology. NONREACTIVE: Antibodies to Hepatitis C not detected. This does not exclude early acute Hepatitis C infection, possibility of exposure to Hepatitis C, antibodies below detection limit, or to lack of antibody reactivity to the antigen used in this assay. EQUIVOCAL: Antibodies to Hepatitis C may or may not be present. ??Sample to be confirmed by real-time PCR method. REACTIVE: Antibodies to Hepatitis C detected. 12/18/2015 3:58 PM MAJOR GIFTS MANAGER 12/18/2015 4:06 PM MAJOR GIFTS MANAGER us Carlos Dailey MD LAB MICROBIOLOGY - GENERAL ORD ERABLES Final Result [facility] HISTORICAL RESULTS from Last 3 Months or Most Recently Relevant to Health Maintenance Insurance MEDICARE [facility] MEDICARE [facility] MEDICARE [facility] Care Teams Musician Instrumental Relationship Specialty Start Date End Date Bon Rodriguez MD [address] [place] [address] PCP - General Internal Medicine 10/21/23 Rick Ricci MD [address] [place] [address] Urology 10/08/24
--- OUTSIDE RECORDS SUMMARY | 2024-12-06 06:13 | XMS_ITS | Clinical Summary ---
Author Organization [facility] Address [address] [place] [address]. [place] [address] [place] [address] Care Team Providers Care Drug And Alcohol Counselor Name Role Phone Bon Rodriguez MD Primary Care Provider [phone] Social History Tobacco Use Types Packs/Day Years Used Date Smoking Tobacco: Never Assessed Sex and Gender Information Value Date Recorded Sex Assigned at Not on file Legal Sex Male 8:33 PM CDT Gender Identity Not on file Sexual Orientation Not on file Plan of Treatment Upcoming Encounters Date Type Department Care Team (Late st Contact Info) Description 12/21/2024 10:20 AM LINUX SYSTEMS ENGINEER Office Visit [facility] - [address], [address] [place] [address] Antionette Antonio MD [address] [place] [id number] Health Maintenance Due Date Last Done Comments Colorectal Cancer Screening Colonoscopy (10 Years) 1959 PHQ-2 (Physician Adel) 1971 Hepatitis C 1977 DTaP, Tdap and Td Vaccines ( 1 - Tdap) 1978 Zoster Vaccines (1 of 2) 2009 COVID-19 Vaccine ( - 2023-2 5 season) 2024 Influenza Adult (#1) 2024 Pneumococcal Vaccine: 65+ Ye ars (1 of 1 - PCV) 2024 RSV Immunization or 60+ Years (1 - 1-dose 75+ series) 2034 Meningococcal B Vaccine Aged Out No l onger eligible based on patient's age to complete this topic Meningococcal Vaccine Aged Out No deejay gladis eligible based on patient's age to complete this topic Pneumococcal Vaccine: Pediat rics (0 to 5 Years) and At-Risk Patients (6 to 64 Years) Aged Out No longer eligible b ased on patient's age to complete this topic RSV Immunizations Under 20 Months Aged Out No longer eligible based on patient's age to complete this topic Insurance MEDICARE [facility] Care Teams Drug And Alcohol Counselor Relationship Specialty Start Date End Date Bon Rodriguez MD [address] [facility] [address] - [facility] [address] [place] [address] PCP - General INTERNAL MEDICINE 01/19/23
--- OUTSIDE RECORDS SUMMARY | 2024-12-06 06:13 | XMS_ITS | Clinical Summary ---
Author Organization [facility] Address [address] [place] [address] Care Team Providers Care Forecast Analyst Name Role Phone Bon Rodriguez MD Primary Care Provider [phone] Rick Ricci MD Unavailable [phone] Allergies Active Allergy Reactions Criticality Noted Date [...] tablets (50 mg total) by mouth nightly Active folic acid (FOLVITE) 800 mcg tablet [...] 12/25/2021 Assessment & Plan (12/25/2021 10:32 AM TECHNICAL TRAINING COORDINATOR): As aforementioned the patient had a transthoracic [...] change. Assessment & Plan (12/25/2021 10:27 AM TECHNICAL TRAINING COORDINATOR): Records mention that the patient has hypertension. [...] systolic function. Compared to last study in 2018. There are changes noted. LVEF 56% Assessment [...] change. Assessment & Plan (12/25/2021 10:31 AM TECHNICAL TRAINING COORDINATOR): The patient is known to have triple-vessel [...] inhibitor. Assessment & Plan (12/25/2021 10:26 AM TECHNICAL TRAINING COORDINATOR): Patient's most recent lipid panel is from 10/13/2021 with a total cholesterol 154 and LDL cholesterol 46. This was obtained while the patient was on Praluent. Anxiety 07/04/2016 S/P CABG (coronary artery bypass graft) 07/04/20 16 Overview (12/24/2021): [id number] COLIN to LAD, SVG to OM PDA) . Normal stress February 2020 NH (myocardial infarction) 11/14/2015 Resolved Problems Problem Noted Date Diagnosed Date Resolved Date Paroxysmal A-fib (CMS/HCC) 07/04/2016 0 02/10/2024 Encounters Date Type Department Care Team Description 12/04/2024 10:05 AM TECHNICAL TRAINING COORDINATOR Lab [facility] Lab [facility] [place] [address] Prostate cancer (HCC); Hemorrhage, not elsewhere classified 11/29/2024 Telephone [facility] Radiology 1 [place] [address] Viviane Arias, BENJAMÍN 11/28/2024 Telephone [facility] Oncology [address] [facility] [place] [address] Meghann Howard RN 11/28/2024 Telephone [facility] Radiology 1 [place] [address] Viviane Arias, RN 11/28/2024 Orders Only [facility] Radiation Oncology [address] [facility] [place] [address] Satya Vidal MD Prostate cancer (HCC) (Primary Dx); Hemorrhage, not elsewhere classified 11/27/2024 Telephone [facility] Radiation Oncology [address] [facility] [place] [address] Satya Vidal MD 11/24/2024 2:22 PM TECHNICAL TRAINING COORDINATOR - 11/24/2024 11:59 PM TECHNICAL TRAINING COORDINATOR Hospital Encounter [facility] [address] [place] [address] Prostate cancer (HCC) Discharge Disposition: Discharge to home or self care 11/21/2024 Orders Only [facility] LEMUS [address] [place] [address] Satya Vidal MD Prostate cancer (HCC) 11/21/2024 Orders Only [facility] Radiation Oncology [address] [place] [address] [place] [address] Satya Vidal MD Prostate cancer (HCC) (Primary Dx) 11/02/2024 10:00 AM TECHNICAL TRAINING COORDINATOR Consult [facility] Radiation Oncology [address] [place] [address] [place] [address] Satya Vidal MD Prostate cancer (HCC) (Primary Dx) 11/02/2024 Orders Only [facility] Radiation Oncology [address] [place] [address] [place] [address] Satya Vidal MD Prostate cancer (HCC) (Primary Dx) 10/29/2024 12:46 PM TECHNICAL TRAINING COORDINATOR - 10/29/2024 11:59 PM TECHNICAL TRAINING COORDINATOR Hospital Encounter [facility] Medical Office Building [address] [place] [address] Malignant neoplasm of prostate (HCC) Discharge Disposition: Discharge to home or self care 10/22/2024 12:30 PM TECHNICAL TRAINING COORDINATOR Office Visit [facility] Cardiology [address] [facility] Floor 1, [address] [place] [phone] Yesika Shah NP Mixed hyperlipidemia (Primary Dx); Multiple vessel coronary artery disease; S/P CABG (coronary artery bypass graft); Diastolic dysfunction 10/16/2024 Telephone [facility] Radiation Oncology [address] [facility] [place] [address] Satya Vidal MD 10/15/2024 Telephone [place] [address] [place] [phone] Marta Hayes, RN 10/05/[address] [facility] Cardiology [address] [facility] 8th [place] [address] [place] [phone] Moises Zurita from Last 3 Months Immunizations Name Administration Dates Next Due DTaP 05/12/2015 Influenza, Quadrivalent, Split, Intramuscular Tdap 05/12/2015 Surgical History Surgery Date Site/Laterality Comments OTHER SURGICAL HISTORY Heart triple by pass SINUS SURGERY US ABDOMEN COMPLETE W LIVER DOPPLER (C) 04/17/2020 Right US ABDOMEN COMPLETE W LIVER DOPPLER (C) 03/12/2021 Right US ABDOMEN COMPLETE W LIVER DOPPLER (C) 03/02/2022 Right CERVICAL FUSION 11/14/1998 - 11/13/1999 Left HERNIA REPAIR FOOT SURGERY 11/14/2017 - 11/13/2018 Bilateral for arthritis Medical History Medical History Date Comments Gastroesophageal reflux disease GERD Disease of thyroid gland Thyroid disease Paroxysmal A-fib (CMS/HCC) (HCC) CAD (coronary artery disease) NH (myocardial infarction) (HCC) 2015 Essential tremor Overactive bladder Family History Medical History Relation Name Comments Cancer Brother Coronary artery disease Father Mary nary artery disease; Hypertension Father Relation Name Status Comments Brother Father Social History Tobacco Use Types Packs/Day Years [...] on file Legal Sex Male 7:15 AM TECHNICAL TRAINING COORDINATOR Gender Identity Male 02/20/2021 1:17 PM CDT Sexual Orientation Straight 06/30/2019 7: 44 AM CDT Obstetrics History Last Filed Vital Signs Vital Sign Reading Time Taken Comments Blood Pressure 120/76 11/02/2024 10:01 AM TECHNICAL TRAINING COORDINATOR Pulse 58 11/02/2024 10:01 AM TECHNICAL TRAINING COORDINATOR Temperature 36.5 ??C (97.7 ??F) 11/02/2024 10:[address] Respiratory Rate 18 11/02/2024 10:01 AM TECHNICAL TRAINING COORDINATOR Oxygen Saturation 96% 11/02/2024 10:01 AM TECHNICAL TRAINING COORDINATOR Inhaled Oxygen Concentration - - Weight 92.1 kg (203 lb) 11/24/2024 2:29 PM TECHNICAL TRAINING COORDINATOR Height 180.3 cm (5' 11 ) 11/24/2024 2:29 PM TECHNICAL TRAINING COORDINATOR Body Mass Index 28.31 11/24/2024 2:29 PM TECHNICAL TRAINING COORDINATOR Plan of Treatment Health Maintenance Due Date Last Done Comments Colon Cancer Screening-Colonoscopy 1960 Hepatitis B Screening 1977 Zoster Vaccine (1 of 2) 2009 Depression Screening 12/01/2022 12/01/2021 Prostate Cancer Screening-PSA 10/13/2023 10/13/2021, 10/12/2017 Covid-19 Vaccine ( season) 07/15/202404/2021, 01/27/2021 Influenza Vaccine (#1) 2024 08/20/2016 Pneumococcal vaccine 65+ (1 of 1 - PCV) 2024 Well Visit 65+ 2024 12/01/2021 Fall Risk Assessment 11/02/2025 11/02/2024, 03/18/20 22 DTaP/Tdap/Td Vaccine (4 - Td or Tdap) 08/19/2033 08/19/2023, 05/12/2015, 05/12/2015 Hepatitis C Screening Completed 12/18/2015 Procedures Procedure Name Priority Date/Time Associated Diagnosis Comments PROTIME-INR Routine 12/04/2024 10:13 AM TECHNICAL TRAINING COORDINATOR Prostate cancer (HCC) Hemorrhage, not elsewhere classified MRI THORACIC SPINE W WO CONTRAST Schedule Routine, Read Routine (OP Routine) 11/24/2024 3:00 PM TECHNICAL TRAINING COORDINATOR Prostate cancer (HCC) SURGICAL PATHOLOGY Routine 11/21/2024 5:05 PM TECHNICAL TRAINING COORDINATOR Prostate cancer (HCC) PET/CT PROSTATE CANCER PSMA SKULL TO THIGH Schedule Routine, Read Routine (OP Routine) 10/29/2024 2:13 PM TECHNICAL TRAINING COORDINATOR Malignant neoplasm of prostate (HCC) PSA SCREEN Routine 10/13/2021 11:56 AM TECHNICAL TRAINING COORDINATOR HEPATITIS PANEL, ACUTE Routine 12/18/2015 3:58 PM TECHNICAL TRAINING COORDINATOR from Last 3 Months or Most Recently Relevant to Health Maintenance Results * (ABNORMAL) Protime-INR (12/04/2024 10:13 AM TECHNICAL TRAINING COORDINATOR) PT 15.4(H) 12.0 - 14.6 sec Comment: Ref Range High Testing performed by: [facility], [address] [place] [address], [place]., [address] INR 1.2 0.9 - 1.2 RICHY Comment: Ref Range High Interpretive data Oral anticoagulant therapeutic ranges: Venous thromboembolism prophylaxis or treatment: 2.0-3.0 CARDIOLOGY Standard range: 2.0-3.0 High-intensity range: 2.5-3.5 Refer to indication-specific guidelines for appropriate target ranges for prosthetic heart valve replacement. Current interpretive data was last revised on 2019. Testing performed by: [facility], [address] [place] [address]., [address] Blood 12/04/2024 10:1 3 AM TECHNICAL TRAINING COORDINATOR 12/04/2024 11:55 AM TECHNICAL TRAINING COORDINATOR us Satya Vidal MD LAB BLOOD ORDERABLES Final R esult RICHY [address] [facility] Department [place] [address] * MRI Thoracic Spine W WO Contrast (11/24/2024 3:00 PM TECHNICAL TRAINING COORDINATOR) Anatomical Region Laterality Modality Spine N/A Magnetic Resonan ce 11/26/2024 10:3 8 AM TECHNICAL TRAINING COORDINATOR Impressions 11/26/2024 10:38 AM TECHNICAL TRAINING COORDINATOR 1. ??1 cm area of vague enhancement in the right aspect of the T7 vertebral bodies corresponding to the focus of PSMA uptake seen on the PET/CT suspicious for a metastatic lesion. ?? 2. ??Mild to moderate degenerative changes of the thoracic spine as described above without spinal canal or neural foraminal stenosis. Electronically signed by: Giana Clifford M.D. Narrative 11/26/2024 10:38 AM TECHNICAL TRAINING COORDINATOR EXAMINATION: Magnetic resonance imaging (MRI) of the [...] is no spinal canal stenosis. Procedure Note Giana Clifford MD - 11/26/2024 EXAMINATION: Magnetic resonance imaging [...] Giana Clifford M.D. us Satya Vidal MD IM MRI PROCEDURES Final Res ult * Surgical pathology (11/21/2024 5:05 PM TECHNICAL TRAINING COORDINATOR) Tissue (Miscellaneous) 11/21/2024 5:05 PM TECHNICAL TRAINING COORDINATOR 11/21/2024 5:05 PM TECHNICAL TRAINING COORDINATOR [facility] PATHOLOGY LAB - 11/26/2024 2:58 PM TECHNICAL TRAINING COORDINATOR EPIC results best viewed via link to PDF [facility] Pathology Consult Service [address], [address], [place] [address] Note to Patients: This report [...] SURGICAL PATHOLOGY REPORT * Consult Report * [facility] is providing an additional review of previously collected tissue. FINAL Patient Name: ??ARMANDO DALE Address: ??[address] [facility], ?[place], [place] ??[address] Gender: ??M : ??1960 (Age: 64) Hospital #: ??[id number] Patient Type: ??[facility] Location: ??UNKNOWN Taken: ??11/21/2024 Received: ??11/21/2024 Accessioned: ??11/22/2024 Reported: ??11/26/2024 Physician(s): Satya Vidal MD [facility] [address] [place] [address] P: [phone] F: [phone] Diagnosis: Consult material received from [facility], [place], [place] (OSC: [id number]; 08/15/2024). A. Prostate, left lateral base, biopsy ? - Prostatic adenocarcinoma, [place] score 4 + 3 = 7 (grade group 3, 70% pattern 4), in one of one cores, involving 35% of total core tissue ? - Cribriform pattern present ? B. Prostate, left base, biopsy ? - Prostatic adenocarcinoma, [place] score 3+3=6, grade group 1, in one of one core, involving 20% of total core tissue ? C. Prostate, left lateral mid, biopsy ? - Prostatic adenocarcinoma, Darren [...] lateral apex, biopsy ? - Prostatic adenocarcinoma, [place] score 3 + 4 = 7 (grade [...] Received for review are four slides labeled [id number], accompanied by a corresponding pathology report. The material originates from [facility], [place], [place]. Selected slide(s) may be digitally scanned for our files, and all materials are returned to the referring institution, along with a copy of our final report. Any testing required for diagnostic purposes was performed in the Department of Pathology and Immunology at [facility] Medical [facility], [address] [place] [address] CLIA # [id number] The performance characteristics of the testing cited in this report (if any) were determined by the ??[facility] Department of Pathology and Immunology [facility], as part of an ongoing quality assurance monitor final program and in compliance with federally mandated [...] and the performance characteristics determined by the [facility], [facility] Department of Pathology and Immunology. ??It has not been cleared or approved by the U.S. Food and Drug Administration. ??Any test designated as LDT was developed and its performance characteristics determined by [facility]. It has not been cleared or approved by the FDA. This test is used for clinical purposes and should not be regarded as investigational or for research. Report images and/or scanned reports, if included, only viewable in PDF version of report. Satya Vidal MD LAB PATHOLOGY ORDERABLES Fin al Result [facility] [address] [address] * PET/CT Prostate Cancer PSMA Skull to Thigh (10/29/2024 2:13 PM TECHNICAL TRAINING COORDINATOR) Anatomical Region Laterality Modality N/A Positron Emissio n Tomography (PET) 10/29/2024 2:58 PM TECHNICAL TRAINING COORDINATOR Narrative 10/29/2024 3:12 PM TECHNICAL TRAINING COORDINATOR EXAM DESCRIPTION: ??F 18-PSMA PET-CT REASON FOR [...] PM T: ??10/29/2024 3:12 PM Report ID: [id number] Reading Location: ??[id number] Procedure Note Annamarie Smith MD - 10/29/2024 [...] Annamarie Stewart M.D. FT: FT Report ID: [id number] Reading Location: [id number] us Leonardo Garcia MD IMG PET PROCEDURES Final R esult * PSA screen (10/13/2021 11:56 AM TECHNICAL TRAINING COORDINATOR) [facility] PSA-Total 2.39 <=5.40 ng/mL RICHY JURADO Comment: Interpretive Data ?AGE ? SEX ?REFERENCE INTERVAL 0 minutes-150 years ?Female ?None 0 minutes-49 years ? Male ?None ? 50-59 years ? Male ?0-3.90 ? 60-69 years ? Male ?0-5.40 ? 70-79 years ? Male ?0-6.20 ? 80-150 years ?Male ?0-6.20 Current interpretive data last revised 2018. Blood 10/13/2021 11:5 6 AM TECHNICAL TRAINING COORDINATOR 10/13/2021 12:54 PM TECHNICAL TRAINING COORDINATOR Karen Dailey MD LAB BLOOD ORDERABLES Final Resul t Performing Organization Address City/State/[facility] Co de Phone Number RICHY [address] [facility] Department of Laboratories [place], [place] [id number] * Hepatitis panel, acute (12/18/2015 3:58 PM TECHNICAL TRAINING COORDINATOR) [facility] HepBsAg NONREACT NONREACTIVE 12/18/2015 6:47 PM TECHNICAL TRAINING COORDINATOR [facility] HIST[facility]ICAL RESULTS Comment: [employer] using KAMERON (chemiluminescent immunoassay) technology. NONREACTIVE: IgM antibodies to Hepatitis B Surface antigen not detected. REACTIVE: IgM antibodies to Hepatitis B Surface antigen detected. Reactive results will be confirmed by neutralization testing. HBsAb (immune status) NONREACT NONREACTIVE 12/18/2015 6:34 PM TECHNICAL TRAINING COORDINATOR [facility] HISTORICAL RESULTS Comment: [employer] using KAMERON (chemiluminescent immunoassay) technology. NONREACTIVE: IgM antibodies to Hepatitis B Surface antibody not detected. REACTIVE: IgM antibodies to Hepatitis B Surface antibody detected. Hep B core IgM NONREACT NONREACTIVE 7:13 PM TECHNICAL TRAINING COORDINATOR [facility] [employer] [email or web address] HISTORICAL RESULTS Comment: [employer] using KAMERON (chemiluminescent immunoassay) technology. NONREACTIVE: IgM antibodies to Hepatitis B Core antigen not detected. EQUIVOCAL: IgM antibodies to Hepatitis B Core antigen may or may not be present. Obtain a ??new specimen and retest. REACTIVE: IgM antibodies to Hepatitis B Core antigen detected. Hep A IgM NONREACT NONREACTIVE 12/18/2015 7:14 PM TECHNICAL TRAINING COORDINATOR [facility] [employer] [email or web address] HISTORICAL RESULTS Comment: [employer] using KAMERON (chemiluminescent immunoassay) technology. NONREACTIVE: IgM antibodies to Hepatitis A not detected. This does not exclude possibility of exposure to Hepatitis A or early acute infection. EQUIVOCAL:IgM antibodies to Hepatitis A may or may not be present. Suggest recollection and retest. REACTIVE: Antibodies to Hepatitis A detected. Hep C Ab NONREACT NONREACTIVE 12/18/2015 7:12 PM TECHNICAL TRAINING COORDINATOR [facility] [employer] [email or web address] HISTORICAL RESULTS Comment: [employer] using KAMERON [...] to Hepatitis C detected. 12/18/2015 3:58 PM TECHNICAL TRAINING COORDINATOR 12/18/2015 4:06 PM TECHNICAL TRAINING COORDINATOR us Carlos Dailey MD LAB MICROBIOLOGY - GENERAL ORD ERABLES Final Result [facility] HISTORICAL RESULTS from Last 3 Months or Most Recently Relevant to Health Maintenance Insurance [place]IC[place] MEDICARE [employer] [facility] Care Teams Forecast Analyst Relationship Specialty Start Date End Date Bon Rodriguez MD [address] [place] [address] PCP - General Internal Medicine 10/21/23 Rick Ricci MD [address] [place] [address] Urology 10/08/24
--- OUTSIDE RECORDS SUMMARY | 2024-12-06 06:13 | XMS_ITS | Patient Health Summary ---
Author Organization [facility] Address [address] [place] [address] [place] [address] Care Team Providers Care Manager Roofing Name Role Phone Bon Rodriguez MD Primary Care Provider [phone] Note from [facility],non-owned Affiliates and Associated Physician Practices is amultiple site organization consisting of ambulatory clinics and hospital sitesin [place], [place], [place] and [place]. This disclosure is being madepursuant to the Care Everywhere program and may not contain all information available regarding this patient. Last updated 18.[facility] Allergies * Zolpidem(Other) * Propoxyphene(Unknown,Other) -Low Criticality * Rosuvastatin(Other) Medications * Be aware that medications may not be up to date on this document. Alwaysverify current medications with the patient. * buPROPion XL 24hr (Wellbutrin-XL) 150 MG tablet(Started 07/09/2024) Take 1 (one) tablet by mouth once daily * aspirin EC (Ecotrin) 325 MG tablet Take 1 (one) tablet by mouth once daily * clonazePAM (KlonoPIN) 0.5 MG tablet Take 1 (one) tablet by mouth once daily as needed * cyanocobalamin (Vitamin B-12) injection(Started 06/04/2024) Inject 1,000 (one thousand) mcg subcutaneously every 30 days * Repatha SureClick 140 MG/ML auto-injector(Started 02/10/2024) Inject 140 (one hundred forty) mg subcutaneously every 14 days * ezetimibe (Zetia) 10 MG tablet(Started 09/16/2024) Take 1 (one) tablet by mouth once daily * famotidine (Pepcid) 40 MG tablet Take 1 (one) tablet by mouth 2 times daily * fluticasone propionate (Flonase) 50 MCG/ACT nasal spray [place] 1 (one) spray into each nostril 2 times daily * folic acid 800 MCG tablet(Started 12/06/2023) Take 1 (one) tablet by mouth once daily * HYDROcodone-acetaminophen (Palacios) 5-325 MG tablet Take 1 (one) tablet by mouth once daily * lithium carbonate (Eskalith) 300 MG capsule Take 1 (one) capsule by mouth 3 times daily * metoprolol succinate XL 24hr (Toprol XL) 25 MG tablet(Started 08/02/2024) Take 1 (one) tablet by mouth once daily * nitroGLYCERIN (Nitrostat) 0.4 MG tablet Dissolve 1 (one) tablet under the tongue as needed * Nystop 957597 UNIT/GM powder(Started 09/16/2024) Apply 1 Units to affected area 2 times daily * omeprazole (PriLOSEC) 20 MG capsule(Started 08/23/2024) Take 1 (one) capsule by mouth 2 times daily * pramipexole (Mirapex) 1 MG tablet Take 1 (one) tablet by mouth at bedtime * traZODone (Desyrel) 50 MG tablet Take 1 (one) tablet by mouth once daily * Cholecalciferol (Vitamin D-3) 25 MCG (1000 UT) Take 1 (one) capsule by mouth once daily * aspirin EC (Ecotrin) 81 MG tablet Take 1 (one) tablet by mouth once daily * propranolol (Inderal) 10 MG tablet Take 1 (one) tablet by mouth 2 times daily * oxyCODONE, immediate release, (Roxicodone) 5 MG tablet(Started 11/01/2024) Take 1 (one) tablet by mouth every 6 hours as needed for Pain * amoxicillin-clavulanate (Augmentin) 875-125 MG tablet(Started 11/03/2024) Take 1 (one) tablet by mouth 2 times daily with morning and evening meal Ended Medications* amoxicillin-clavulanate (Augmentin) 875-125 MG tablet(Started 11/04/2024)() Take 1 (one) tablet by mouth 2 times daily for 7 days Active Problems No known active problems Immunizations * Covid Pfizer primary monovalent 12+ yr 0.3mL Purple cap(Given 02/17/2021, 01/27/2021) * DTaP VACCINE IM (6wk-6yrs)(Given 05/12/2015) * FLU VACCINE QUAD IIV4 SPLIT 0.25 ML IM(Given 08/20/2016) * TDAP (7yrs+)(Given 05/12/2015) * TDAP, HISTORIC VACCINE(Given 08/19/2023) Social History Tobacco Use Types Packs/Day Years Used Date Smoking Tobacco: Never Smokeless Tobacco: Never Tobacco Cessation:Counseling Given: Not Answered Alcohol Use Standard Drinks/Week Comments Never 0 (1 standard drink = 0.6 oz pur e alcohol) Sex and Gender Information Value Date Recorded Sex Assigned at Not on file Gender Identity Not on file Sexual Orientation Not on file Last Filed Vital Signs Vital Sign Reading Time Taken Comments Blood Pressure 124/82 11/16/2024 1:00 PM PROJECT SUPERINTENDENT Pulse 60 11/16/2024 1:00 PM PROJECT SUPERINTENDENT Temperature 36.6 ??C (97.9 ??F) 11/04/2024 2:27 PM CS T Respiratory Rate 18 11/04/2024 2:27 PM PROJECT SUPERINTENDENT Oxygen Saturation 97% 11/04/2024 2:27 PM PROJECT SUPERINTENDENT Inhaled Oxygen Concentration - - Weight 92.5 kg (204 lb) 11/16/2024 1:00 PM PROJECT SUPERINTENDENT Height 180.3 cm (5' 11 ) 11/16/2024 1:00 PM PROJECT SUPERINTENDENT Body Mass Index 28.45 11/16/2024 1:00 PM PROJECT SUPERINTENDENT Procedures * CARDIAC RHYTHM STRIP ORDER(Performed 11/06/2024) * CT NECK SOFT TISSUE W CONT(Performed 11/04/2024) Performed for Neck mass * COMPREHENSIVE METABOLIC PANEL(Performed 11/04/2024) * CBC W AUTO DIFFERENTIAL(Performed 11/04/2024) * PATHOLOGY TISSUE EXAM (STL)(Performed 11/01/2024) Performed for Diagnosis unknown * LARYNGEAL MASK AIRWAY(Performed 11/01/2024) * FL BX/REMV,LYMPH NODE,DEEP CERV/SCAL(Performed 11/01/2024) Performed for Diagnosis unknown * FL FNA BX W US GDN 1ST LES(Performed 09/28/2024) Performed for Neck mass * FINE NEEDLE ASPIRATION (STL)(Performed 09/28/2024) Performed for Neck mass * CT NECK SOFT TISSUE W CONT(Performed 09/28/2024) Performed for Neck mass * CREATININE - POCT INTERFACED(Performed 09/28/2024) Results * CARDIAC RHYTHM STRIP ORDER (11/06/2024 8:47 PM PROJECT SUPERINTENDENT) Narrative 11/06/2024 8:47 PM PROJECT SUPERINTENDENT Ordered by an unspecified provider. Scanned Document CARDIAC SERVICES ORD ERABLES * CT NECK SOFT TISSUE W CONT (11/04/2024 12:56 PM PROJECT SUPERINTENDENT) Only the most recent of2 resultswithin the time period is included. Anatomical Region Laterality Modality Head Computed Tomogra phy 11/04/2024 1:00 PM PROJECT SUPERINTENDENT Impressions 11/04/2024 2:28 PM PROJECT SUPERINTENDENT IMPRESSION: 1.Postsurgical changes of the removal of the soft tissue mass in the left upper neck at the level of the mandible just anterior to the left sternocleidomastoid muscle with associated subcutaneous emphysema, edema, ill-defined fat stranding and fluid densities. No residual or recurrent lesion identified in this region. 2.There is a 12 x 8 mm oval-shaped, hyperattenuating lesion within the level 3 of the left neck (series 4, image 73 and series 5, image 41), likely reactive lymph node. The left piriform sinus is obscured, likely postsurgical changes. No rim-enhancing fluid collection to suggest abscess. The report is dictated by Eliceo Carter MD, (Cheese Processor) I, Diane Stephen MD have personally reviewed and interpreted this examination/study. > Interpreting Provider: Diane Stephen MD on 11/04/2024 2:28 PM Narrative 11/04/2024 2:28 PM PROJECT SUPERINTENDENT PROCEDURE: ??CT NECK SOFT TISSUE W CONT, DATE/TIME OF EXAM: ??11/04/2024 12:57 PM, LOCATION ??[facility] INDICATION: R22.1: Neck mass ADDITIONAL CLINICAL INFORMATION: Ordering Provider Reason For Exam: ??further assess neck mass EXAMINATION: ??Computed tomography (CT) of the neck with contrast TECHNIQUE: CT of the neck was performed following the uneventful administration of Isovue-370 ??intravenous contrast according to standard protocol. COMPARISON: CT neck soft tissues 09/29/2024 FINDINGS: Postsurgical changes of the removal of the soft tissue mass in the left upper neck at the level of the mandible just anterior to the left sternocleidomastoid muscle with associated subcutaneous emphysema, edema, ill-defined fat stranding and fluid densities. No residual or recurrent lesion identified in this region. There is a 12 x 8 mm oval-shaped, hyperattenuating lesion within the level 3 of the left neck (series 4, image 73 and series 5, image 41), likely a lymph node. The left piriform sinus is obscured, unchanged. No rim-enhancing fluid collection to suggest abscess. Multiple small subcentimeter lymph nodes are noted in both sides of the neck with no evidence of cervical lymphadenopathy. The muscles of the neck appear normal. The cervical internal carotid arteries and internal jugular veins appear normal. The nasopharynx, oropharynx, hypopharynx and larynx appear normal. The visualized airway is patent. The visualized portions of the posterior fossa and brain appear normal. Postsurgical changes of anterior cervical fusion at C5-6. The visualized orbits and paranasal sinuses appear normal. The thyroid gland is normal. The visible lung apices are clear. Procedure Note Diane Stephen MD - 11/04/2024 PROCEDURE: CT NECK SOFT TISSUE W CONT, DATE/TIME OF EXAM: 11/04/2024 12:57 PM, LOCATION [facility] INDICATION: R22.1: Neck mass ADDITIONAL CLINICAL INFORMATION: Ordering Provider Reason For Exam: further assess neck mass EXAMINATION: Computed tomography (CT) of the neck with contrast TECHNIQUE: CT of the neck was performed following the uneventful administration of Isovue-370 intravenous contrast according to standard protocol. COMPARISON: CT neck soft tissues 09/29/2024 FINDINGS: Postsurgical changes of the removal of the soft tissue mass in the left upper neck at the level of the mandible just anterior to the left sternocleidomastoid muscle with associated subcutaneous emphysema,edema, ill-defined fat stranding and fluid densities. No residual or recurrent lesion identified in this region. There is a 12 x 8 mm oval-shaped, hyperattenuating lesion within the level 3 of the left neck (series 4, image 73 and series 5, image 41), likely a lymph node. The left piriform sinus is obscured, unchanged. No rim-enhancing fluid collection tosuggest abscess. Multiple small subcentimeter lymph nodes are noted in both sides of the neck with no evidence of cervical lymphadenopathy. The muscles of theneck appear normal. The cervical internal carotid arteries and internaljugular veins appear normal. The nasopharynx, oropharynx, hypopharynx and larynx appear normal. The visualized airway is patent. The visualized portions of the posterior fossa and brain appear normal. Postsurgical changes of anterior cervical fusion at C5-6. The visualized orbits and paranasal sinuses appear normal. The thyroid gland is normal. The visible lung apices are clear. IMPRESSION: 1.Postsurgical changes of the removal of the soft tissue mass in theleft upper neck at the level of the mandible just anterior to the left sternocleidomastoid muscle with associated subcutaneous emphysema,edema, ill-defined fat stranding and fluid densities. No residual or recurrent lesion identified in this region. 2.There is a 12 x 8 mm oval-shaped, hyperattenuating lesion within the level 3 of the left neck (series 4, image 73 and series 5, image 41), likely reactive lymph node. The left piriform sinus is obscured, likely postsurgical changes. No rim-enhancing fluid collection to suggestabscess. The report is dictated by Eliceo Carter MD, (Cheese Processor) I, Diane Stephen MD have personally reviewed and interpreted this examination/study. > Interpreting Provider: Diane Stephen MD on 11/04/2024 2:28 PM Stacey Faria DIRECTORY CARRIER-PROTOCOL OFFICER CT ORDERABLES * (ABNORMAL) CBC W AUTO DIFFERENTIAL (11/04/2024 11:38 AM PROJECT SUPERINTENDENT) WBC 10.9(H) 4.0 - 10.7 x10E9/L 11/04/2024 12:08 PM PROJECT SUPERINTENDENT [facility] RBC Count 5.04 4.30 - 5.80 x10E12/L 11/04/2024 12:08 PM PROJECT SUPERINTENDENT [facility] Hemoglobin 15.4 13.3 - 17.5 g/dL 11/04/2024 12:08 PM [facility] Hematocrit 45.5 38.7 - 51.1 % 11/04/2024 12:08 PM [facility] MCV 90.3 80.0 - 98.0 fL 11/04/2024 12:08 PM [facility] MCH 30.6 26.7 - 33.6 pg 11/04/2024 12:08 PM [facility] MCHC 33.8 31.7 - 36.3 g/dL 11/04/2024 12:08 PM [facility] RDW-CV 12.3 11.3 - 14.8 % 11/04/2024 12:08 PM [facility] Platelet Count 248 150 - 420 x10E9/L 11/04/2024 12:08 PM [facility] MPV 9.9 7.8 - 11.4 fL 11/04/2024 12:08 PM [facility] Neutrophil % 63.5 41.0 - 74.0 % 11/04/2024 12:08 PM [facility] Lymphocyte % 24.8 17.0 - 47.0 % 11/04/2024 12:08 PM [facility] Monocyte % 7.7 3.0 - 11.0 % 11/04/2024 12:08 PM [facility] Eosinophil % 2.9 0.0 - 7.0 % 11/04/2024 12:08 PM [facility] Basophil % 0.6 0.0 - 1.6 % 11/04/2024 12:08 PM [facility] Immature Granulocytes % 0.5 0.0 - 1.0 % 11/04/2024 12:08 PM [facility] Neutrophil Absolute 6.94 1.60 - 7.50 x10E9/L 11/04/2024 12:08 PM [facility] Lymphocyte Absolute 2.71 1.00 - 4.40 x10E9/L 11/04/2024 12:08 PM [facility] Monocyte Absolute 0.84 0.15 - 1.00 x10E9/L 11/04/2024 12:08 PM [facility] Eosinophil Absolute 0.32 0.00 - 0.60 x10E9/L 11/04/2024 12:08 PM [facility] Basophil Absolute 0.07 0.00 - 0.13 x10E9/L 11/04/2024 12:08 PM [facility] Blood BLOOD SPECIMEN / Unknown Venipuncture / Unknown 11/04/2024 11:38 AM PROJECT SUPERINTENDENT 11/04/2024 11:52 AM PROJECT SUPERINTENDENT Stacey Roman Faria DIRECTORY CARRIER-PROTOCOL OFFICER LAB - HEMATOL OGY ORDERABLES [facility] [address] [place] [address], [facility] [phone] * (ABNORMAL) COMPREHENSIVE METABOLIC PANEL (11/04/2024 11:38 AM PROJECT SUPERINTENDENT) BUN 13 7 - 26 mg/dL 11/04/2024 12:17 PM [facility] Creatinine 1.28(H) 0.71 - 1.16 mg/dL 11/04/2024 12:17 PM [facility] Sodium 138 136 - 145 mmol/L 11/04/2024 12:17 PM [facility] Potassium 3.8 3.5 - 4.5 mmol/L 11/04/2024 12:17 PM [facility] Chloride 108(H) 98 - 107 mmol/L 11/04/2024 12:17 PM [facility] CO2 27 22 - 29 mmol/L 11/04/2024 12:17 PM [facility] Glucose 105(H) 70 - 99 mg/dL 11/04/2024 12:17 PM [facility] Calcium 9.7 8.4 - 10.2 mg/dL 11/04/2024 12:17 PM [facility] Protein Total 6.8 6.0 - 8.3 g/dL 11/04/2024 12:17 PM [facility] Albumin 3.8 3.4 - 5.0 g/dL 11/04/2024 12:17 PM [facility] Bilirubin Total 0.5 0.2 - 1.2 mg/dL 11/04/2024 12:17 PM [facility] Alkaline Phosphatase 79 40 - 150 U/L 11/04/2024 12:17 PM [facility] ALT 26 5 - 55 U/L 11/04/2024 12:17 PM [facility] AST 20 5 - 34 U/L 11/04/2024 12:17 PM [facility] Anion Gap 3(L) 6 - 16 11/04/2024 12:17 PM [facility] BUN/Creatinine Ratio 10 7 - 23 11/04/2024 12:17 PM [facility] Osmolality Calculated 286 275 - 295 mOsm/kg 11/04/2024 12:17 PM [facility] Albumin/Globulin Ratio 1.3 1.1 - 2.3 11/04/2024 12:17 PM [facility] eGFR by CKD-EPI 62(L) >=90 mL/min/1.7 3 m2 11/04/2024 12:17 PM [facility] Blood BLOOD SPECIMEN / Unknown Venipuncture / Unknown 11/04/2024 11:38 AM PROJECT SUPERINTENDENT 11/04/2024 11:52 AM PROJECT SUPERINTENDENT Stacey Faria DIRECTORY CARRIER-PROTOCOL OFFICER LAB - SELVAGE MACHINE OPERATOR RY ORDERABLES Performing Organization Address City/State/[facility] Co de Phone Number [facility] [address] [place] [address], [facility] [phone] * PATHOLOGY TISSUE EXAM (STL) (11/01/2024 8:21 AM PROJECT SUPERINTENDENT) Case Report Surgical Pathology Report ? Case: [id number] ? Authorizing Provider: ??Marlo Briscoe MD ?Collected: ? 11/01/2024 08:21 AM ? Ordering Location: ? [facility] ? Received: ?11/01/2024 08:45 AM ? Pathologist: ? Laxmi Deleon MD ? Specimens: ?? A) - Nodule, Left Neck Nodule ? B) - Tissue, Additional Neck Tissue ? 11/02/2024 9:18 AM [facility] Final Diagnosis Left neck nodule, excision (A) - Warthin tumor - Focal adjacent benign salivary gland parenchyma Lymph node, additional neck tissue, excision (B) - Two lymph nodes with reactive follicular hyperplasia 11/02/2024 9:18 AM [facility] Clinical History The patient is a 64-year-old man. Per Epic, he has a neck mass that is located just posterior to the left submandibular gland. Operative procedure: excisional biopsy of neck mass. 11/02/2024 9:18 AM [facility] Gross Description The specimens are identified with the patient's name and date of . Received in formalin, specimen A, left neck nodule is 1.3 x 0.7 x 0.7 cm pink-zhang nodule, with fatty adhesions. The specimen is inked blue, and is sectioned showing pink-zhang cut surfaces with a central cyst (0.6 cm diameter) and zhang-yellow, gelatinous fluid. Entirely submitted in cassette A1. LJ Received in formalin, specimen B, additional neck tissue is an aggregate of pink-yellow soft tissues, 4 x 2.2 x 1 cm. Possible lymph nodes are identified, 1.5 x 0.7 x 0.7 cm and 0.6 x 0.4 x 0.2 cm. The remaining tissue is pink-yellow and fibrofatty. Entirely submitted as follows: B1-1 lymph node bisected, B2-intact node, B3-remaining tissue. LJ 11/02/2024 9:18 AM [facility] Microscopic Description Microscopic examination substantiates the above diagnosis. 11/02/2024 9:18 AM [facility] Pathologist Location at [facility] 11/02/2024 9:18 AM [facility] Disclaimer All histochemical and/or immunohistochemical results are interpreted with controls that demonstrate appropriate staining reactions before reporting results. Note on use of immunocytochemistry reagents: This test was developed and its performance characteristic determined by [facility], Department of Laboratory Medicine. It has not been cleared or approved by the U.S. Food and Drug Administration (FDA). The FDA has determined that such clearance or approval is not necessary. The test is used for clinical purpose. It should not be regarded as investigational or for research. This laboratory is certified to perform high complexity testing. The performance characteristics of the IHC/MARYANN assays have been validated on formalin-fixed paraffin embedded tissues only. The assays have not been validated on decalcified tissues. Results should be interpreted with caution. 11/02/2024 9:18 AM [facility] Embedded Images 11/02/2024 9:18 AM [facility] Pathology/Cytology NODULE / Unknown 11/01 8:21 AM PROJECT SUPERINTENDENT 11/01/2024 8:45 AM PROJECT SUPERINTENDENT Comment:Pre-op diagnosis: Diagnosis unknown [R69] Miscellaneous samples (specimen) TISSUE SPECIMEN / Unknown 11/01/2024 8:22 AM PROJECT SUPERINTENDENT 11/01/2024 8:45 AM PROJECT SUPERINTENDENT Comment:Pre-op diagnosis: Diagnosis unknown [R69] Marlo Briscoe MD LAB - PATHOLOGY/CYTO LOGY ORDERABLES [facility] [address] [place], [place] [id number] * LARYNGEAL MASK AIRWAY (11/01/2024 7:39 AM PROJECT SUPERINTENDENT) Narrative Schroeder, SINDHU Canales - 11/01/2024 7:39 AM PROJECT SUPERINTENDENT Bronwyn Schroeder APRN-CRNA ? 11/01/2024 ??7:40 AM LMA Placement Procedure/LDA Note: Patient Location: OR. Procedure: LMA Pretreatment: 100% O2 Induction: standard IV Patient position: supine. Mask Ventilation: easy with oral airway Type: ??LMA Size: ??4 Number of Attempts: 1. Cuff volume (mL): ??20 Placement verified by: CO2 monitor and CO2 detector Dentition unchanged? ??Yes Staff Section ? Anesthesia Provider: Bronwyn Schroeder APRN-CRNA, Performed the procedure Felton Berry MD GENERAL ANESTHESIA ORDERABLES * FL FNA BX W US GDN 1ST LES (09/28/2024 2:29 PM PROJECT SUPERINTENDENT) Narrative Freddy Salas MD - 09/28/2024 2:29 PM PROJECT SUPERINTENDENT Freddy Salas MD ? 10/01/2024 ??5:50 AM PROCEDURE NOTE Procedure: fine needle aspiration of left neck mass with ultrasound Indication: diagnosis Anesthesia: 2% lidocaine with epinephrine Based on the appearance of the mass, the decision was made to perform biopsy. ??The purpose of the procedure was discussed with the patient and written informed consent was obtained. Ultrasound was used to visualize the neck mass. Anesthetic was infiltrated. A 25g needle was passed into the mass multiple times which yielded cystic fluid and deflated the mass so no further passes were made. This was done under ultrasound guidance. ??This was sent this off to pathology. This then concluded the procedure and the patient tolerated the procedure well. Dr. Briscoe was present and performed all aspects of the procedure Time Out done at start of procedure for final verification. Date: 09/28/2024 Patient Name and Confirmed: ??Yes Procedure Confirmed: Yes Allergies Reviewed: Yes Correct Site and Side: Yes Correct Site Marked: Not applicable Document Consent: Yes Correct Patient Position: Yes Implants and/or special equipment or special requirements available: Yes Procedure Start Time: 2:15PM Procedure End Time: 2:18PM Members present for Time Out include the following: Provider: Rachna Resident: Josue RN/SOFTWARE IMPLEMENTATION PROJECT MANAGER/MA: Emani Others: Marlo Briscoe MD PROCEDURE/MINOR SURG ICAL ORDERABLES * FINE NEEDLE ASPIRATION (STL) (09/28/2024 2:21 PM PROJECT SUPERINTENDENT) Case Report Medical Cytology Report ? Case: [id number] ? Authorizing Provider: ??Marlo Briscoe MD ?Collected: ? 09/28/2024 02:21 PM ? Ordering Location: ? [facility] - ??Received: ?10/01/2024 07:38 AM ? ENT ? Pathologist: ? Yuriy Atwood MD ? Specimen: ?Neck Mass, Left neck cystic mass ? 10/02/2024 11:12 AM [facility] Specimen Adequacy Adequate cellularity for evaluation. 10/02/2024 11:12 AM [facility] Final Diagnosis Left neck cystic mass, fine-needle aspiration: - Inflammatory cells and degenerated cellular material, with foreign material present in the background. - No cytologic evidence of neoplasm or malignancy. Clinical correlation is necessary for full interpretation. 10/02/2024 11:12 AM [facility] Clinical History Cystic left neck mass 10/02/2024 11:12 AM [facility] Gross Description 1 pap stained Thin Prep and 1 cell block from 22cc of cloudy collection fluid 10/02/2024 11:12 AM [facility] Microscopic Description The slides show inflammatory cells and degenerated cellular material. There appears to be foreign material present in the background. No malignant cells are identified. 10/02/2024 11:12 AM [facility] Pathologist Location at [facility] 10/02/2024 11:12 AM [facility] Disclaimer The performance characteristics of all immunohistochemical and indirect immunofluorescence stains (if any) cited in this report were determined by the Histopathology Laboratory of [facility]. Some of these tests rely on the use of analyte-specific reagents and are subject to specific labeling requirements by the US Food and Drug Administration. Such tests were developed by the Histology Laboratory of [facility] and have not been cleared or approved by the FDA. The FDA has determined that such clearance and approval is not necessary. These tests are used for clinical purposes and should not be regarded as investigational or for research. This laboratory is certified under the Clinical Laboratory Improvement Amendments (CLIA) as qualified to perform high complexity clinical laboratory testing. This case has been personally reviewed and interpreted by the attending (teaching) pathologist. 10/02/2024 11:12 AM [facility] Embedded Images 10/02/2024 11:12 AM [facility] Pathology/Cytolo gy MASS OF NECK / Unknown Collection / Unknown 09/28/2024 2:21 PM PROJECT SUPERINTENDENT 10/01/2024 7:38 AM PROJECT SUPERINTENDENT Marlo Briscoe MD LAB - PATHOLOGY/CYTO LOGY ORDERABLES [facility] [address] [phone] * CREATININE - POCT INTERFACED (09/28/2024 12:50 PM PROJECT SUPERINTENDENT) Creatinine POCT 0.70 0.30 - 1.30 mg/dL 09/28/2024 12:54 PM PROJECT SUPERINTENDENT [facility] eGFR >90 >=90 mL/min/1.7 3 m2 09/28/2024 12:54 PM PROJECT SUPERINTENDENT [facility] Blood BLOOD SPECIMEN / Unknown 09/28/2024 12:50 PM PROJECT SUPERINTENDENT 09/28/2024 12:54 PM PROJECT SUPERINTENDENT Marlo Briscoe MD LAB - POINT OF CARE ORDERABLES [facility] [facility] [address] [place] [phone], [facility] [phone] Care Teams Manager Roofing Relationship Specialty Start Date End Date Bon Rodriugez MD [address] [place] [address] PCP - General 11/11/22
--- OUTSIDE RECORDS SUMMARY | 2024-12-06 06:13 | XMS_ITS | Referral Summary ---
Author Organization [facility] Address [address] [facility] [address] Care Team Providers Care Insurance Coder Name Role Phone Bon Rodriguez MD Primary Care Provider [phone] Source Comments [facility],non-owned Affiliates and Associated Physician Practices is amultiple site organization consisting of ambulatory clinics and hospital sitesin [place], [place], [place] and [place]. This disclosure is being madepursuant to the Care Everywhere program and may not contain all information available regarding this patient. Last updated 18.[facility] Encounters Date Type Department Care Team Description 11/16/2024 Travel 11/16/2024 1:15 PM GR[facility]ER [facility] Office Visit [facility] [address] [place] [phone] Marlo Briscoe MD Warthin tumor (Primary Dx) 11/05/2024 Telephone [facility] [address] [place] [phone] Sofi Thomas RN Follow-up 11/04/2024 Travel 11/04/2024 11:54 AM GR[facility] - 11/04/2024 2:45 PM [facility] Emergency [facility] EMER[facility]ENCY [facility]PART[facility] [address] [place] [phone] Ousmane Mcclain MD Post-operative pain (Primary Dx); Neck mass; Neck swelling; Neck pain Discharge Disposition: Home or Self Care 11/03/2024 Orders Only [facility] [address] [place] [phone] Jerry Ribeiro MD 11/01/2024 Travel 11/01/2024 7:24 AM [facility] Anesthesia Event [facility] [address] [place] [address] Felton Berry MD 11/01/2024 7:15 AM [facility] - 11/01/2024 8:40 AM [facility] Surgery [facility] [address] [place] [phone] Marlo Briscoe MD EXCISION BIOPSY NECK MASS 11/01/2024 5:52 AM [facility] - 11/01/2024 10:28 AM [facility] Hospital Encounter [facility] [address] [place] [phone] Marlo Briscoe MD Surgery General Discharge Disposition: Home or Self Care 10/19/2024 Travel 10/19/2024 2:30 PM [facility]ER [facility] [address] [place] [phone] Marlo Briscoe MD Neck mass (Primary Dx) 10/05/2024 Telephone [facility] [address] [place] [phone] Marlo Briscoe MD Question 10/04/2024 Telephone [facility] [address] [place] [phone] [place], November Surgery Scheduling 10/01/2024 Telephone [facility] [address] [place] [phone] Marlo Briscoe MD Question 09/28/2024 3:52 PM GR[facility] - 09/28/2024 11:59 PM [facility] Hospital Encounter [facility] LAB OP DRAW STATION [address] [place] [address] Marlo Briscoe MD Discharge Disposition: Home or Self Care 09/28/2024 Travel 09/28/2024 1:30 PM GRINDER LAP Office Visit [facility]NT [address] [facility] [place] [address] Marlo Briscoe MD Neck mass (Primary Dx) 09/28/2024 12:43 PM [facility] - 09/28/2024 3:51 PM [facility] Hospital Encounter [facility] CAT SCAN [address] [place] [address] Marlo Briscoe MD Discharge Disposition: Home or Self Care from Last 3 Months Allergies Active Allergy Reactions Criticality Noted Date Comments Zolpidem Other 11/01/2024 hallucinations Propoxyphene Unknown,Other Low 02/25/2020 Confusion Rosuvastatin Other 09/28/2024 Reaction: CRAMPS, Medications * Be aware that medications may not be up to date on this document. Alwaysverify current medications with the patient. Medication Sig Dispensed Refills Start Date End Date Status buPROPion XL 24hr (Wellbutrin-XL) 150 MG tablet Take 1 (one) tablet by mouth once daily 07/09/2024 Active aspirin EC (Ecotrin) 325 MG tablet Take 1 (one) tablet by mouth once daily Active clonazePAM (KlonoPIN) 0.5 MG tablet Take 1 (one) tablet by mouth once daily as needed Active cyanocobalamin (Vitamin B-12) injection Inject 1,000 (one thousand) mcg subcutaneously every 30 days 06/04/2024 Active Repatha SureClick 140 MG/ML auto-injector Inject 140 (one hundred forty) mg subcutaneously every 14 days 02/10/2024 Active ezetimibe (Zetia) 10 MG tablet Take 1 (one) tablet by mouth once daily 09/16/2024 Active famotidine (Pepcid) 40 MG tablet Take 1 (one) tablet by mouth 2 times daily Active fluticasone propionate (Flonase) 50 MCG/ACT nasal spray [place] 1 (one) spray into each nostril 2 times daily Active folic acid 800 MCG tablet Take 1 (one) tablet by mouth once daily 12/06/2023 Active HYDROcodone-acet aminophen (Everly) 5-325 MG tablet Take 1 (one) tablet by mouth once daily Active lithium carbonate (Eskalith) 300 MG capsule Take 1 (one) capsule by mouth 3 times daily Active metoprolol succinate XL 24hr (Toprol XL) 25 MG tablet Take 1 (one) tablet by mouth once daily 08/02/2024 Active nitroGLYCERIN (Nitrostat) 0.4 MG tablet Dissolve 1 (one) tablet under the tongue as needed Active Nystop 165701 UNIT/GM powder Apply 1 Units to affected area 2 times daily 09/16/2024 Active omeprazole (PriLOSEC) 20 MG capsule Take 1 (one) capsule by mouth 2 times daily 08/23/2024 Active pramipexole (Mirapex) 1 MG tablet Take 1 (one) tablet by mouth at bedtime Active traZODone (Desyrel) 50 MG tablet Take 1 (one) tablet by mouth once daily Active Cholecalciferol (Vitamin D-3) 25 MCG (1000 UT) Take 1 (one) capsule by mouth once daily Active aspirin EC (Ecotrin) 81 MG tablet Take 1 (one) tablet by mouth once daily Active propranolol (Inderal) 10 MG tablet Take 1 (one) tablet by mouth 2 times daily Active oxyCODONE, immediate release, (Roxicodone) 5 MG tabletIndication s:Mass of left side of neck Take 1 (one) tablet by mouth every 6 hours as needed for Pain 8 tablet 11/01/2024 Active Additional Information Patient not taking.Reported on 11/16/2024 amoxicillin-clav ulanate (Augmentin) 875-125 MG tablet Take 1 (one) tablet by mouth 2 times daily with morning and evening meal 20 tablet 11/03/2024 Active amoxicillin-clav ulanate (Augmentin) 875-125 MG tablet Take 1 (one) tablet by mouth 2 times daily for 7 days 14 tablet 11/04/2024 11/11/2024 Active Problems No known active problems Immunizations Name Administration Dates Next Due OPE [employer] primary monoval ent 12+ yr 0.3mL Purple cap 02/17/2021,01/27/2021 DTaP VACCINE IM (6wk-6yrs) 05/12/2015 FLU VACCINE QUAD IIV4 SPLIT 0.25 ML IM 6 TDAP (7yrs+) 05/12/2015 TDAP, HISTORIC VACCINE 08/19/2023 Social History Tobacco Use Types Packs/Day Years [...] Comments Blood Pressure 124/82 11/16/2024 1:00 PM [facility] Pulse 60 11/16/2024 1:00 PM [facility] Temperature 36.6 ??C (97.9 ??F) 11/04/2024 2:27 PM CS T Respiratory Rate 18 11/04/2024 2:27 PM [facility] Oxygen Saturation 97% 11/04/2024 2:27 PM [facility] Inhaled Oxygen Concentration - - Weight 92.5 kg (204 lb) 11/16/2024 1:00 PM [facility] Height 180.3 cm (5' 11 ) 11/16/2024 1:00 PM [facility] Body Mass Index 28.45 11/16/2024 1:00 PM [facility] Plan of Treatment Not on file Procedures Procedure Name Priority Date/Time Associated Diagnosis Comments CARDIAC RHYTHM STRIP ORDER 11/06/2024 8:[address] NECK SOFT TISSUE W CONT STAT 11/04/2024 12:56 PM [facility] Neck mass COMPREHENSIVE METABOLIC PANEL STAT 11/04/2024 11:38 AM [facility] CBC W AUTO DIFFERENTIAL STAT 11/04/2024 11:38 AM [facility] PATHOLOGY TISSUE EXAM (STL) Routine 11/01/2024 8:21 AM [facility] Diagnosis unknown LARYNGEAL MASK AIRWAY Routine 11/01/2024 7:39 AM GR[facility]ER LAP W[place] BX/REMV,LYMPH NODE,DEEP CERV/SCAL 11/01/2024 6:40 AM [facility] Diagnosis unknown [place] FNA BX W US GDN 1ST LES Routine 09/28/2024 2:29 PM [facility] LAP Neck mass FINE NEEDLE ASPIRATION (STL) Routine 09/28/2024 2:21 PM [facility]ER LAP Neck mass CT NECK SOFT TISSUE W CONT Routine 09/28/2024 1:04 PM [facility] Neck mass CREATININE - POCT INTERFACED Routine 09/28/2024 12:50 PM GR[facility]ER [facility] from Last 3 Months Results * CARDIAC RHYTHM STRIP ORDER (11/06/2024 8:47 PM GRINDER LAP) Narrative 11/06/2024 8:47 PM [facility] Ordered by an unspecified provider. Scanned Document CARDIAC SERVICES ORD ERABLES * CT NECK SOFT TISSUE W CONT (11/04/2024 12:56 PM GR[facility]ER LAP) Only the most recent of2 resultswithin the time period is included. Anatomical Region Laterality Modality Head Computed Tomogra phy 11/04/2024 1:00 PM [facility] Impressions 11/04/2024 2:28 PM [facility] IMPRESSION: 1.Postsurgical changes of the removal of [...] report is dictated by Eliceo Carter MD, (Air Valve Repairer) I, Diane Stephen MD have personally reviewed and interpreted this examination/study. > Interpreting Provider: Diane Stephen MD on 11/04/2024 2:28 PM Narrative 11/04/2024 2:28 PM [facility] PROCEDURE: ??CT NECK SOFT TISSUE W CONT, DATE/TIME OF EXAM: ??11/04/2024 12:57 PM, LOCATION ??[facility] INDICATION: R22.1: Neck mass ADDITIONAL CLINICAL INFORMATION: [...] DATE/TIME OF EXAM: 11/04/2024 12:57 PM, LOCATION [facility] INDICATION: R22.1: Neck mass ADDITIONAL CLINICAL INFORMATION: [...] report is dictated by Eliceo Carter MD, (Air Valve Repairer) I, Diane Stephen MD have personally reviewed and interpreted this examination/study. > Interpreting Provider: Diane Stephen MD on 11/04/2024 2:28 PM Stacey Faria [facility] ORDERABLES * (ABNORMAL) CBC W AUTO DIFFERENTIAL (11/04/2024 11:38 AM GRINDER LAP) WBC 10.9(H) 4.0 - 10.7 x10E9/L 11/04/2024 12:08 PM GR[facility] RBC Count 5.04 4.30 - 5.80 x10E12/L 11/04/2024 12:08 PM [facility] Hemoglobin 15.4 13.3 - 17.5 g/dL 11/04/2024 12:08 PM GR[facility] Hematocrit 45.5 38.7 - 51.1 % 11/04/2024 12:08 PM [facility] MCV 90.3 80.0 - 98.0 fL 11/04/2024 12:08 PM [facility] MCH 30.6 26.7 - 33.6 pg 11/04/2024 12:08 PM [facility] MCHC 33.8 31.7 - 36.3 g/dL 11/04/2024 12:08 PM [facility] RDW-CV 12.3 11.3 - 14.8 % 11/04/2024 12:08 PM [facility] Platelet Count 248 150 - 420 x10E9/L 11/04/2024 12:08 PM [facility] MPV 9.9 7.8 - 11.4 fL 11/04/2024 12:08 PM [facility] Neutrophil % 63.5 41.0 - 74.0 % 11/04/2024 12:08 PM [facility] Lymphocyte % 24.8 17.0 - 47.0 % 11/04/2024 12:08 PM [facility] Monocyte % 7.7 3.0 - 11.0 % 11/04/2024 12:08 PM [facility] Eosinophil % 2.9 0.0 - 7.0 % 11/04/2024 12:08 PM [facility] Basophil % 0.6 0.0 - 1.6 % 11/04/2024 12:08 PM [facility] Immature Granulocytes % 0.5 0.0 - 1.0 % 11/04/2024 12:08 PM [facility] Neutrophil Absolute 6.94 1.60 - 7.50 x10E9/L 11/04/2024 12:08 PM [facility] Lymphocyte Absolute 2.71 1.00 - 4.40 x10E9/L 11/04/2024 12:08 PM [facility] Monocyte Absolute 0.84 0.15 - 1.00 x10E9/L 11/04/2024 12:08 PM [facility] Eosinophil Absolute 0.32 0.00 - 0.60 x10E9/L 11/04/2024 12:08 PM [facility] Basophil Absolute 0.07 0.00 - 0.13 x10E9/L 11/04/2024 12:08 PM [facility] Blood BLOOD SPECIMEN / Unknown Venipuncture / Unknown 11/04/2024 11:38 AM [facility] 11/04/2024 11:52 AM [facility]ER [facility] Stacey Faria [facility] - HEMATOL OGY ORDERABLES Performing Organization Address City/State/[facility] Co de Phone Number [facility] [address] [place] [address], [facility] [phone] * (ABNORMAL) COMPREHENSIVE METABOLIC PANEL (11/04/2024 11:38 AM GR[facility]ER [facility]) BUN 13 7 - 26 mg/dL 11/04/2024 12:17 PM [facility] Creatinine 1.28(H) 0.71 - 1.16 mg/dL 11/04/2024 12:17 PM [facility] Sodium 138 136 - 145 mmol/L 11/04/2024 12:17 PM [facility] Potassium 3.8 3.5 - 4.5 mmol/L 11/04/2024 12:17 PM [facility] Chloride 108(H) 98 - 107 mmol/L 11/04/2024 12:17 PM [facility] CO2 27 22 - 29 mmol/L 11/04/2024 12:17 PM [facility] Glucose 105(H) 70 - 99 mg/dL 11/04/2024 12:17 PM [facility] Calcium 9.7 8.4 - 10.2 mg/dL 11/04/2024 12:17 PM [facility] Protein Total 6.8 6.0 - 8.3 g/dL 11/04/2024 12:17 PM [facility] Albumin 3.8 3.4 - 5.0 g/dL 11/04/2024 12:17 PM [facility] Bilirubin Total 0.5 0.2 - 1.2 mg/dL 11/04/2024 12:17 PM [facility] Alkaline Phosphatase 79 40 - 150 U/L 11/04/2024 12:17 PM [facility] ALT 26 5 - 55 U/L 11/04/2024 12:17 PM [facility] AST 20 5 - 34 U/L 11/04/2024 12:17 PM [facility] Anion Gap 3(L) 6 - 16 11/04/2024 12:17 PM [facility] BUN/Creatinine Ratio 10 7 - 23 11/04/2024 12:17 PM [facility] Osmolality Calculated 286 275 - 295 mOsm/kg 11/04/2024 12:17 PM [facility] Albumin/Globulin Ratio 1.3 1.1 - 2.3 11/04/2024 12:17 PM [facility] eGFR by CKD-EPI 62(L) >=90 mL/min/1.7 3 m2 11/04/2024 12:17 PM [facility] Blood BLOOD SPECIMEN / Unknown Venipuncture / Unknown 11/04/2024 11:38 AM [facility] 11/04/2024 11:52 AM [facility] Stacey Faria [facility] - FURNITURE LUMBER PRODUCTION WORKER RY ORDERABLES Performing Organization Address [facility]/State/ZIP Co de Phone Number [facility] [address] [place] [address], [facility] [phone] * PATHOLOGY TISSUE EXAM (STL) (11/01/2024 8:21 AM GRINDER [facility]) Case Report Surgical Pathology Report ? Case: [id number] ? Authorizing Provider: ??Marlo Briscoe MD ?Collected: ? 11/01/2024 08:21 AM ? Ordering Location: ? [facility] ? Received: ?11/01/2024 08:45 AM ? Pathologist: ? Laxmi Deleon MD ? Specimens: ?? A) - Nodule, Left Neck Nodule ? B) - Tissue, Additional Neck Tissue ? 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 Per Epic, he has a neck mass that is located just posterior to the left submandibular gland. Operative procedure: excisional biopsy of neck mass. 11/02/2024 9:18 AM [facility] Gross Description The specimens are identified [...] node, B3-remaining tissue. LJ 11/02/2024 9:18 AM [facility] Microscopic Description Microscopic examination substantiates the above diagnosis. 11/02/2024 9:18 AM [facility] Pathologist Location at [facility] 11/02/2024 9:18 AM [facility] Disclaimer All histochemical and/or immunohistochemical results are interpreted with controls that demonstrate appropriate staining reactions before reporting results. Note on use of immunocytochemistry reagents: This test was developed and its performance characteristic determined by [facility], Department of Laboratory Medicine. It has not [...] be interpreted with caution. 11/02/2024 9:18 AM [facility] Embedded Images 11/02/2024 9:18 AM [facility] Pathology/Cytology NODULE / Unknown 11/01 8:21 AM [facility] 11/01/2024 8:45 AM [facility] Comment:Pre-op diagnosis: Diagnosis unknown [R69] Miscellaneous samples (specimen) TISSUE SPECIMEN / Unknown 11/01/2024 8:22 AM [facility] 11/01/2024 8:45 AM [facility] Comment:Pre-op diagnosis: Diagnosis unknown [R69] Marlo Briscoe MD LAB - PATHOLOGY/CYTO LOGY ORDERABLES Performing Organization Address City/State/[facility] Co de Phone Number [facility] [address] [place] [address] * LARYNGEAL MASK AIRWAY (11/01/2024 7:39 AM GR[facility]ER [facility]) Narrative Bronwyn Schroeder APRN-ACROBATIC RIGGER - 11/01/2024 7:39 AM [facility] Bronwyn Schroeder APRN-CRNA ? 11/01/2024 ??7:40 AM [...] Felton Berry MD GENERAL ANESTHESIA ORDERABLES * [place] FNA BX W US GDN 1ST LES (09/28/2024 2:29 PM GR[facility]ER [facility]) Narrative Freddy Salas MD - 09/28/2024 2:29 PM [facility] Freddy Salas MD ? 10/01/2024 ??5:50 AM [...] include the following: Provider: Rachna Resident: Josue RN/FINANCIAL SERVICES SPECIALIST/BRISEYDA: Emani Others: Marlo Briscoe MD PROCEDURE/MINOR SURG ICAL ORDERABLES * FINE NEEDLE ASPIRATION (STL) (09/28/2024 2:21 PM [facility]) Case Report Medical Cytology Report ? Case: [id number] ? Authorizing Provider: ??Marlo Briscoe MD ?Collected: ? 09/28/2024 02:21 PM ? Ordering Location: ? [facility] - ??Received: ?10/01/2024 07:38 AM ? ENT ? Pathologist: ? Yuriy Atwood MD ? Specimen: ?Neck Mass, Left neck cystic mass ? 10/02/2024 11:12 AM [facility] Specimen Adequacy Adequate cellularity for evaluation. 10/02/2024 11:12 AM [facility] Final Diagnosis Left neck cystic mass, fine-needle aspiration: - Inflammatory cells and degenerated cellular material, with foreign material present in the background. - No cytologic evidence of neoplasm or malignancy. Clinical correlation is necessary for full interpretation. 10/02/2024 11:12 AM [facility] Clinical History Cystic left neck mass 10/02/2024 11:12 AM [facility] Gross Description 1 pap stained Thin Prep and 1 cell block from 22cc of cloudy collection fluid 10/02/2024 11:12 AM [facility] Microscopic Description The slides show inflammatory cells and degenerated cellular material. There appears to be foreign material present in the background. No malignant cells are identified. 10/02/2024 11:12 AM [facility] Pathologist Location at [facility] 10/02/2024 11:12 AM [facility] Disclaimer The performance characteristics of all immunohistochemical and indirect immunofluorescence stains (if any) cited in this report were determined by the Histopathology Laboratory of [facility]. Some of these tests rely on the use of analyte-specific reagents and are subject to specific labeling requirements by the [place] Food and Drug Administration. Such tests were developed by the Histology Laboratory of [facility] and have not been cleared or approved [...] the attending (teaching) pathologist. 10/02/2024 11:12 AM [facility] Embedded Images 10/02/2024 11:12 AM [facility] Pathology/Cytolo gy MASS OF NECK / Unknown Collection / Unknown 09/28/2024 2:21 PM [facility] 10/01/2024 7:38 AM [facility] Marlo Briscoe MD LAB - PATHOLOGY/CYTO LOGY ORDERABLES [facility] [address] [place] [address], [facility] [phone] * CREATININE - POCT INTERFACED (09/28/2024 12:50 PM [facility]) Creatinine POCT 0.70 0.30 - 1.30 mg/dL 09/28/2024 12:54 PM [facility] eGFR >90 >=90 mL/min/1.7 3 m2 09/28/2024 12:54 PM [facility] Blood BLOOD SPECIMEN / Unknown 09/28/2024 12:50 PM [facility] 09/28/2024 12:54 PM [facility] Marlo Briscoe MD LAB - POINT OF CARE ORDERABLES [facility] [address] [place] [address], [facility] [phone] from Last 3 Months Care Teams Insurance Coder Relationship Specialty Start Date End Date Bon Rodriguez MD [address] [place] [phone] PCP - General 11/11/22
--- OUTSIDE RECORDS SUMMARY | 2024-12-06 06:13 | XMS_ITS | Clinical Summary ---
Author Organization [facility] Address [address] [place] [address] Care Team Providers Care Photo Finisher Name Role Phone Bon Rodriguez MD Primary Care Provider [phone] Source Comments [facility],non-owned Affiliates and Associated Physician Practices is amultiple site organization consisting of ambulatory clinics and hospital sitesin [place], [place], [place] and [place]. This disclosure is being madepursuant to the Care Everywhere program and may not contain all information available regarding this patient. Last updated 18.[facility] Allergies Active Allergy Reactions Criticality Noted Date [...] fluticasone propionate (Flonase) 50 MCG/ACT nasal spray Clifton 1 (one) spray into each nostril 2 times daily Active folic acid 800 MCG tablet Take 1 (one) tablet by mouth once daily 12/06/2023 Active HYDROcodone-acet aminophen (Elsah) 5-325 MG tablet Take 1 (one) tablet by mouth once daily Active lithium carbonate (Eskalith) 300 MG capsule Take 1 (one) capsule by mouth 3 times daily Active metoprolol succinate XL 24hr (Toprol XL) 25 MG tablet Take 1 (one) tablet by mouth once daily 08/02/2024 Active nitroGLYCERIN (Nitrostat) 0.4 MG tablet Dissolve 1 (one) tablet under the tongue as needed Active Nystop 239875 UNIT/GM powder Apply 1 Units to affected [...] 11/11/2024 Active Problems No known active problems Encounters Date Type Department Care Team Description 11/16/2024 1:15 PM RN MATERNAL CHILD Office Visit [facility] - ENT [address] [place] [phone] Marlo Briscoe MD Warthin tumor (Primary Dx) 11/16/2024 Travel 11/05/2024 Telephone [facility] - ENT [address] [place] [phone] Sofi Thomas RN Follow-up 11/04/2024 11:54 AM RN MATERNAL CHILD - 11/04/2024 2:45 PM [facility] Emergency [facility] [address] [place] [address] Ousmane Mcclain MD Post-operative pain (Primary Dx); Neck mass; Neck swelling; Neck pain Discharge Disposition: Home or Self Care 11/04/2024 Travel 11/03/2024 Orders Only [facility] - ENT [address] [place] [phone] Jerry Ribeiro MD 11/01/2024 7:24 AM RN MATERNAL CHILD Anesthesia Event [facility] [address] [place] [address] Felton Berry MD 11/01/2024 7:15 AM RN MATERNAL CHILD - 11/01/2024 8:40 AM RN MATERNAL CHILD Surgery [facility] [address] [place] [address] Marlo Briscoe MD EXCISION BIOPSY NECK MASS 11/01/2024 5:52 AM RN MATERNAL CHILD - 11/01/2024 10:28 AM RN MATERNAL CHILD Hospital Encounter [facility] [address] [place] [address] aMrlo Briscoe MD Surgery General Discharge Disposition: Home or Self Care 11/01/2024 Travel 10/19/2024 2:30 PM RN MATERNAL CHILD Office Visit [facility] - ENT [address] [place] [phone] Marlo Briscoe MD Neck mass (Primary Dx) 10/19/2024 Travel 10/05/2024 Telephone [facility] - ENT [address] [place] [phone] Marlo Briscoe MD Question 10/04/2024 Telephone [facility] - ENT [address] [place] [phone] At[place], November Surgery Scheduling 10/01/2024 Telephone [facility] - ENT [address] [place] [phone] Marlo Briscoe MD Question 09/28/2024 3:52 PM RN MATERNAL CHILD - 09/28/2024 11:59 PM RN MATERNAL CHILD Hospital Encounter [facility] OP DRAW STATION [address] [place] [address] Marlo Briscoe MD Discharge Disposition: Home or Self Care 09/28/2024 1:30 PM RN MATERNAL CHILD Office Visit [facility] - ENT [address] [place] [phone] Marlo Briscoe MD Neck mass (Primary Dx) 09/28/2024 12:43 PM RN MATERNAL CHILD - 09/28/2024 3:51 PM RN MATERNAL CHILD Hospital Encounter [facility] CAT SCAN [address] [place] [address] Marlo Briscoe MD Discharge Disposition: Home or Self Care 09/28/2024 Travel from Last 3 Months Immunizations Name Administration Dates Next Due CovBag Borrow or Steal primary monoval ent 12+ yr 0.3mL Purple [...] Comments Blood Pressure 124/82 11/16/2024 1:00 PM RN MATERNAL CHILD Pulse 60 11/16/2024 1:00 PM RN MATERNAL CHILD Temperature 36.6 ??C (97.9 ??F) 11/04/2024 2:27 PM CS T Respiratory Rate 18 11/04/2024 2:27 PM RN MATERNAL CHILD Oxygen Saturation 97% 11/04/2024 2:27 PM RN MATERNAL CHILD Inhaled Oxygen Concentration - - Weight 92.5 kg (204 lb) 11/16/2024 1:00 PM RN MATERNAL CHILD Height 180.3 cm (5' 11 ) 11/16/2024 1:00 PM RN MATERNAL CHILD Body Mass Index 28.45 11/16/2024 1:00 PM RN MATERNAL CHILD Plan of Treatment Health Maintenance Due Date Last Done Comments COLOGUARD (AGES 45-75) - COL ON CA SCREENING 1959 COLON MONITORING 1959 COLONOSCOPY - COLON CA SCREENING 1959 CT COLONOGRAPHY - COLON CA SCREENING 1959 Colorectal Cancer Screening 1959 FIT - COLON CA SCREENING 1959 FLEX SIG - COLON CA SCREENING 1959 LIPID TESTING 1959 MEDICARE AWV ? 12 MONTHS 1959 HIV SCREENING 1974 HEPATITIS C SCREENING 09/10/1977 PNEUMOCOCCAL VACCINE 50+ (1 of 1 - PCV) 2009 ZOSTER VACCINE (1 of 2) 2009 COVID-19 VACCINE (3 - 2023-2 5 season) 2024 02/17/2021, 01/27/2021 INFLUENZA VACCINE (#1) 2024 08/20/2016 DEPRESSION SCREENING 11/14/2024 SCREENING FOR DIABETES 11/04/2027 11/04/2024 DTAP/TDAP/TD VACCINES (4 - T d or Tdap) 08/19/2033 08/19/2023, 05/12/2015, 05/12/2015 Respiratory Syncytial Virus (RSV) Vaccine Pt: or over 60 yrs (1 - 1-dose 75+ series) 2034 HEPATITIS B VACCINE Aged Out No longe r eligible based on patient's age to complete this topic HIB VACCINE Aged Out No longer eligi ble based on patient's age to complete this topic HPV VACCINE Aged Out No longer eligi ble based on patient's age to complete this topic MENINGOCOCCAL (Group B) VACCINE Aged Out No longer eligible b ased on patient's age to complete this topic MENINGOCOCCAL VACCINE Aged Out No deejay gladis eligible based on patient's age to complete this topic Procedures Procedure Name Priority Date/Time Associated Diagnosis Comments CARDIAC RHYTHM STRIP ORDER 11/06/2024 8:47 PM RN MATERNAL CHILD CT NECK SOFT TISSUE W CONT STAT 11/04/2024 12:56 PM RN MATERNAL CHILD Neck mass COMPREHENSIVE METABOLIC PANEL STAT 11/04/2024 11:38 AM RN MATERNAL CHILD CBC W AUTO DIFFERENTIAL STAT 11/04/2024 11:38 AM RN MATERNAL CHILD PATHOLOGY TISSUE EXAM (STL) Routine 11/01/2024 8:21 AM RN MATERNAL CHILD Diagnosis unknown LARYNGEAL MASK AIRWAY Routine 11/01/2024 7:39 AM RN MATERNAL CHILD AK BX/REMV,LYMPH NODE,DEEP CERV/SCAL 11/01/2024 6:40 AM RN MATERNAL CHILD Diagnosis unknown AK FNA BX W US GDN 1ST LES Routine 09/28/2024 2:29 PM RN MATERNAL CHILD Neck mass FINE NEEDLE ASPIRATION (STL) Routine 09/28/2024 2:21 PM RN MATERNAL CHILD Neck mass CT NECK SOFT TISSUE W CONT Routine 09/28/2024 1:04 PM RN MATERNAL CHILD Neck mass CREATININE - POCT INTERFACED Routine 09/28/2024 12:50 PM RN MATERNAL CHILD from Last 3 Months Results * CARDIAC RHYTHM STRIP ORDER (11/06/2024 8:47 PM RN MATERNAL CHILD) Narrative 11/06/2024 8:47 PM RN MATERNAL CHILD Ordered by an unspecified provider. Scanned Document CARDIAC SERVICES ORD ERABLES * CT NECK SOFT TISSUE W CONT (11/04/2024 12:56 PM RN MATERNAL CHILD) Only the most recent of2 resultswithin the time period is included. Anatomical Region Laterality Modality Head Computed Tomogra phy 11/04/2024 1:00 PM RN MATERNAL CHILD Impressions 11/04/2024 2:28 PM RN MATERNAL CHILD IMPRESSION: 1.Postsurgical changes of the removal of [...] report is dictated by Eliceo Carter MD, (Automotive Warranty Administrator) I, Diane Stephen MD have personally reviewed and interpreted this examination/study. > Interpreting Provider: Diane Stephen MD on 11/04/2024 2:28 PM Narrative 11/04/2024 2:28 PM RN MATERNAL CHILD PROCEDURE: ??CT NECK SOFT TISSUE W CONT, DATE/TIME OF EXAM: ??11/04/2024 12:57 PM, LOCATION ??[facility] INDICATION: R22.1: Neck mass ADDITIONAL CLINICAL INFORMATION: [...] DATE/TIME OF EXAM: 11/04/2024 12:57 PM, LOCATION [facility] INDICATION: R22.1: Neck mass ADDITIONAL CLINICAL INFORMATION: [...] report is dictated by Eliceo Carter MD, (Automotive Warranty Administrator) I, Diane Stephen MD have personally reviewed and interpreted this examination/study. > Interpreting Provider: Diane Stephen MD on 11/04/2024 2:28 PM Stacey Roman Faria PORCELAIN ENAMEL INSTALLER-BLUEPRINT BLOCKER CT ORDERABLES * (ABNORMAL) CBC W AUTO DIFFERENTIAL (11/04/2024 11:38 AM RN MATERNAL CHILD) WBC 10.9(H) 4.0 - 10.7 x10E9/L 11/04/2024 12:08 PM [facility] RBC Count 5.04 4.30 - 5.80 x10E12/L 11/04/2024 12:08 PM [facility] Hemoglobin 15.4 13.3 - 17.5 g/dL 11/04/2024 12:08 PM [facility] Hematocrit 45.5 38.7 - 51.1 % 11/04/2024 12:08 PM [facility] MCV 90.3 80.0 - 98.0 fL 11/04/2024 12:08 PM [facility] MCH 30.6 26.7 - 33.6 pg 11/04/2024 12:08 PM [facility] MCHC 33.8 31.7 - 36.3 g/dL 11/04/2024 12:08 PM [facility] RDW-CV 12.3 11.3 - 14.8 % 11/04/2024 12:08 PM [facility] Platelet Count 248 150 - 420 x10E9/L 11/04/2024 12:08 PM [facility] MPV 9.9 7.8 - 11.4 fL 11/04/2024 12:08 PM [facility] Neutrophil % 63.5 41.0 - 74.0 % 11/04/2024 12:08 PM [facility] Lymphocyte % 24.8 17.0 - 47.0 % 11/04/2024 12:08 PM [facility] Monocyte % 7.7 3.0 - 11.0 % 11/04/2024 12:08 PM [facility] Eosinophil % 2.9 0.0 - 7.0 % 11/04/2024 12:08 PM [facility] Basophil % 0.6 0.0 - 1.6 % 11/04/2024 12:08 PM [facility] Immature Granulocytes % 0.5 0.0 - 1.0 % 11/04/2024 12:08 PM [facility] Neutrophil Absolute 6.94 1.60 - 7.50 x10E9/L 11/04/2024 12:08 PM [facility] Lymphocyte Absolute 2.71 1.00 - 4.40 x10E9/L 11/04/2024 12:08 PM [facility] Monocyte Absolute 0.84 0.15 - 1.00 x10E9/L 11/04/2024 12:08 PM [facility] Eosinophil Absolute 0.32 0.00 - 0.60 x10E9/L 11/04/2024 12:08 PM [facility] Basophil Absolute 0.07 0.00 - 0.13 x10E9/L 11/04/2024 12:08 PM [facility] Blood BLOOD SPECIMEN / Unknown Venipuncture / Unknown 11/04/2024 11:38 AM RN MATERNAL CHILD 11/04/2024 11:52 AM RN MATERNAL CHILD Stacey Faria APRN-BLUEPRINT BLOCKER LAB - HEMATOL OGY ORDERABLES [facility] [address] [place] [address], [facility] [phone] * (ABNORMAL) COMPREHENSIVE METABOLIC PANEL (11/04/2024 11:38 AM [facility]) BUN 13 7 - 26 mg/dL 11/04/2024 12:17 PM [facility] Creatinine 1.28(H) 0.71 - 1.16 mg/dL 11/04/2024 12:17 PM [facility] Sodium 138 136 - 145 mmol/L 11/04/2024 12:17 PM [facility] Potassium 3.8 3.5 - 4.5 mmol/L 11/04/2024 12:17 PM [facility] Chloride 108(H) 98 - 107 mmol/L 11/04/2024 12:17 PM [facility] CO2 27 22 - 29 mmol/L 11/04/2024 12:17 PM [facility] Glucose 105(H) 70 - 99 mg/dL 11/04/2024 12:17 PM [facility] Calcium 9.7 8.4 - 10.2 mg/dL 11/04/2024 12:17 PM [facility] Protein Total 6.8 6.0 - 8.3 g/dL 11/04/2024 12:17 PM [facility] Albumin 3.8 3.4 - 5.0 g/dL 11/04/2024 12:17 PM [facility] Bilirubin Total 0.5 0.2 - 1.2 mg/dL 11/04/2024 12:17 PM [facility] Alkaline Phosphatase 79 40 - 150 U/L 11/04/2024 12:17 PM [facility] ALT 26 5 - 55 U/L 11/04/2024 12:17 PM [facility] AST 20 5 - 34 U/L 11/04/2024 12:17 PM [facility] Anion Gap 3(L) 6 - 16 11/04/2024 12:17 PM [facility] BUN/Creatinine Ratio 10 7 - 23 11/04/2024 12:17 PM [facility] Osmolality Calculated 286 275 - 295 mOsm/kg 11/04/2024 12:17 PM [facility] Albumin/Globulin Ratio 1.3 1.1 - 2.3 11/04/2024 12:17 PM [facility] eGFR by CKD-EPI 62(L) >=90 mL/min/1.7 3 m2 11/04/2024 12:17 PM [facility] Blood BLOOD SPECIMEN / Unknown Venipuncture / Unknown 11/04/2024 11:38 AM RN MATERNAL CHILD 11/04/2024 11:52 AM RN MATERNAL CHILD Stacey Faria PORCELAIN ENAMEL INSTALLER-BLUEPRINT BLOCKER LAB - SHINGLE PACKER RY ORDERABLES Performing Organization Address City/State/[facility] Co de Phone Number [facility] [address] [place] [address], [facility] [phone] * PATHOLOGY TISSUE EXAM (STL) (11/01/2024 8:21 AM RN MATERNAL CHILD) Case Report Surgical Pathology Report ? Case: [id number] ? Authorizing Provider: ??Marlo Briscoe MD ?Collected: ? 11/01/2024 08:21 AM ? Ordering Location: ? [facility] ? Received: ?11/01/2024 08:45 AM ? Pathologist: ? Laxmi Deleon MD ? Specimens: ?? A) - Nodule, Left Neck Nodule ? B) - Tissue, Additional Neck Tissue ? 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 Per Epic, he has a neck mass that is located just posterior to the left submandibular gland. Operative procedure: excisional biopsy of neck mass. 11/02/2024 9:18 AM [facility] Gross Description The specimens [...] lymph node bisected, B2-intact node, B3-remaining tissue. WARNER 11/02/2024 9:18 AM [facility] Microscopic Description Microscopic examination substantiates the above diagnosis. 11/02/2024 9:18 AM [facility] Pathologist Location at [facility] 11/02/2024 9:18 AM [facility] Disclaimer All histochemical and/or immunohistochemical results are interpreted with controls that demonstrate appropriate staining reactions before reporting results. Note on use of immunocytochemistry reagents: This test was developed and its performance characteristic determined by [facility], Department of Laboratory Medicine. It has not [...] be interpreted with caution. 11/02/2024 9:18 AM [facility] Embedded Images 11/02/2024 9:18 AM [facility] Pathology/Cytology NODULE / Unknown 11/01 8:21 AM RN MATERNAL CHILD 11/01/2024 8:45 AM RN MATERNAL CHILD Comment:Pre-op diagnosis: Diagnosis unknown [R69] Miscellaneous samples (specimen) TISSUE SPECIMEN / Unknown 11/01/2024 8:22 AM RN MATERNAL CHILD 11/01/2024 8:45 AM RN MATERNAL CHILD Comment:Pre-op diagnosis: Diagnosis unknown [R69] Marlo Briscoe MD LAB - PATHOLOGY/CYTO LOGY ORDERABLES Performing Organization Address City/State/[facility] Co de Phone Number [facility] [address] [place] [address] * LARYNGEAL MASK AIRWAY (11/01/2024 7:39 AM RN MATERNAL CHILD) Narrative Bronwyn Schroeder APRN-BARTENDER SERVER - 11/01/2024 7:39 AM RN MATERNAL CHILD Bronwyn Schroeder APRN-BARTENDER SERVER ? 11/01/2024 ??7:40 AM LMA Placement Procedure/LDA Note: Patient Location: OR. Procedure: LMA Pretreatment: 100% O2 Induction: standard IV Patient position: supine. Mask Ventilation: easy with oral airway Type: ??LMA Size: ??4 Number of Attempts: 1. Cuff volume (mL): ??20 Placement verified by: CO2 monitor and CO2 detector Dentition unchanged? ??Yes Staff Section ? Anesthesia Provider: Bronwyn Schroeder, PORCELAIN ENAMEL INSTALLER-BARTENDER SERVER, Performed the procedure Felton Berry MD GENERAL ANESTHESIA ORDERABLES * AK FNA BX W US GDN 1ST LES (09/28/2024 2:29 PM RN MATERNAL CHILD) Narrative Freddy Salas MD - 09/28/2024 2:29 PM RN MATERNAL CHILD Freddy Salas MD ? 10/01/2024 ??5:50 AM [...] include the following: Provider: Rachna Resident: Josue RN/STUDENT DEVELOPMENT COORDINATOR/MA: Emani Others: Marlo Briscoe MD PROCEDURE/MINOR SURG ICAL ORDERABLES * FINE NEEDLE ASPIRATION (STL) (09/28/2024 2:21 PM RN MATERNAL CHILD) Case Report Medical Cytology Report ? Case: [id number] ? Authorizing Provider: ??Marlo Briscoe MD ?Collected: ? 09/28/2024 02:21 PM ? Ordering Location: ? [facility] - ??Received: ?10/01/2024 07:38 AM ? ENT ? Pathologist: ? Yuriy Atwood MD ? Specimen: ?Neck Mass, Left neck cystic mass ? 10/02/2024 11:12 AM [facility] Specimen Adequacy Adequate cellularity for evaluation. 10/02/2024 11:12 AM [facility] Final Diagnosis Left neck cystic mass, fine-needle aspiration: - Inflammatory cells and degenerated cellular material, with foreign material present in the background. - No cytologic evidence of neoplasm or malignancy. Clinical correlation is necessary for full interpretation. 10/02/2024 11:12 AM [facility] Clinical History Cystic left neck mass 10/02/2024 11:12 AM [facility] Gross Description 1 pap stained Thin Prep and 1 cell block from 22cc of cloudy collection fluid 10/02/2024 11:12 AM [facility] Microscopic Description The slides show inflammatory cells and degenerated cellular material. There appears to be foreign material present in the background. No malignant cells are identified. 10/02/2024 11:12 AM [facility] Pathologist Location at [facility] 10/02/2024 11:12 AM [facility] Disclaimer The performance characteristics of all immunohistochemical and indirect immunofluorescence stains (if any) cited in this report were determined by the Histopathology Laboratory of [facility]. Some of these tests rely on the use of analyte-specific reagents and are subject to specific labeling requirements by the [place] Food and Drug Administration. Such tests were developed by the Histology Laboratory of [facility] and have not been cleared or approved [...] the attending (teaching) pathologist. 10/02/2024 11:12 AM [facility] Embedded Images 10/02/2024 11:12 AM [facility] Pathology/Cytolo gy MASS OF NECK / Unknown Collection / Unknown 09/28/2024 2:21 PM RN MATERNAL CHILD 10/01/2024 7:38 AM RN MATERNAL CHILD Marlo Briscoe MD LAB - PATHOLOGY/CYTO LOGY ORDERABLES Performing Organization Address [facility]/State/[facility] Co de Phone Number [facility] [address] [phone] * CREATININE - POCT INTERFACED (09/28/2024 12:50 PM RN MATERNAL CHILD) Creatinine POCT 0.70 0.30 - 1.30 mg/dL 09/28/2024 12:54 PM [facility] eGFR >90 >=90 mL/min/1.7 3 m2 09/28/2024 12:54 PM [facility] Blood BLOOD SPECIMEN / Unknown 09/28/2024 12:50 PM RN MATERNAL CHILD 09/28/2024 12:54 PM RN MATERNAL CHILD Marlo Briscoe MD LAB - POINT OF CARE ORDERABLES [facility] [address] [place] [address], [facility] [phone] from Last 3 Months Care Teams Photo Finisher Relationship Specialty Start Date End Date Bon Rodriguez MD [address] [place] [address] PCP - General 11/11/22
--- OUTSIDE RECORDS SUMMARY | 2024-12-06 06:13 | XMS_ITS | Encounter Summary ---
Author Organization [facility] Healthcare Address [address] [place] [address] Care Team Providers Care Packer Dried Beef Name Role Phone Bon Rodriguez MD Primary Care Provider [phone] Rick Ricci MD Unavailable [phone] Encounter Details Date Type Department Care Team (Late st Contact Info) Description 11/28/2024 Telephone [facility] Radiology [address] [place] [address] Viviane Arias, RN Social History Tobacco Use Types Packs/Day Years Used Date Smoking Tobacco: Never Smokeless Tobacco: Never Alcohol Use Standard Drinks/Week Comments Not Currently [...] on file Legal Sex Male 7:15 AM PROBATION COUNSELOR Gender Identity Male 02/20/2021 1:17 PM CDT Sexual Orientation Straight 06/30/2019 7: 44 AM CDT documented as of this encounter Miscellaneous Notes * Telephone Encounter - Viviane Arias RN - 11/28/2024 10:58 AM PROBATION COUNSELOR ERICKA Radiology Date order received:11/27/24 Referring MD office: Satya Vidal MD Spoke with patient and below information given/reviewed: ERICKA ZAMUDIO has spoken to Sandee Madden () and informed her of detailed information regarding upcoming appointment. Information form has been sent through My Chart. Date scheduled: 12/07/24 Location: [address] [place] [address] [place] [address] Entrance A to Hospital. [place] [facility] Admitting Registration time: 8:00 am Procedure time:9:00 am Instructed on NPO instructions: NPO after midnight on 12/07/24. Informed to take any neededmedication with small sips of water. Indicated seasonal driver (family/friend) required:Y seasonal driver required/pt informed Anticoagulant/Antiplatelet use: Y 81 mg ASA will need to hold for 5 days prior to procedure. Approval sent to Yesika Shah DRILL PRESS SET UP OPERATOR RADIAL with Cardiology for this request. Hold will need to begin on 12/02/24 Yesika Shah DRILL PRESS SET UP OPERATOR RADIAL has approved hold. Noted in epic. Sandee Madden is aware to begin hold 12/02/24. Lab work completed:CBC- care everywhere Request for PT/INR from ordering team, Dr. Vidal/Meghann Howard RN/Niecy Argueta RN to have completed prior to bx Insurance PA needed: to be obtained by referring office as per protocol Medicare NPR ATION COUNSELOR ATION COUNSELOR documented in this encounter Plan of Treatment Not on file documented as of this encounter Visit Diagnoses Not on filedocumented in this encounter Care Teams Packer Dried Beef Relationship Specialty Start Date End Date Bon Rodriguez MD [address] [address] [address] [facility] [address] [place] [address] PCP - General Internal Medicine 10/21/23 Rick Ricci MD [address] [place] [address] Urology 10/08/24 documented as of this encounter
--- OUTSIDE RECORDS SUMMARY | 2024-12-06 06:13 | XMS_ITS | Encounter Summary ---
Author Organization [facility] Healthcare Address [address] [place] [address] Care Team Providers Care Reel Slitter Name Role Phone Bon Rodriguez MD Primary Care Provider [phone] Rick Ricci MD Unavailable [phone] Encounter Details Date Type Department Care Team (Late st Contact Info) Description 11/29/2024 Telephone [facility] Radiology [address] [place] [address] Viviane Arias, RN Social History Tobacco Use [...] on file Legal Sex Male 7:15 AM DOOR CLOSER MECHANIC Gender Identity Male 02/20/2021 1:17 PM CDT Sexual Orientation Straight 06/30/2019 7: 44 AM CDT documented as of this encounter Miscellaneous Notes * Telephone Encounter - Viviane Arias RN - 11/29/2024 7:04 AM DOOR CLOSER MECHANIC ----- Message from Yesika Shah NP sent at 11/28/2024 4:11 PM DOOR CLOSER MECHANIC ----- Regarding: RE: Hold approval 81 mg ASA for T.Y. Yes, Yesika ----- Message ----- From: Viviane Arias RN Sent: 11/28/2024 10:50 AM DOOR CLOSER MECHANIC To: Phoebe Moyer RN; Yesika Shah NP Subject: Hold approval 81 mg ASA for T.Y. ERICKA Mcginnis has been requested for a T7 bone bx on Mr. Madden. He is currently on 81 mg ASA and this willneed to be held for 5 days prior to scheduled procedure. He is currently scheduled for 12/07/24 at [facility] with Dr. Sina John. Can you approve this hold? Thank you Eusebio Hong RN CLOSER MECHANIC documented in this encounter Plan of Treatment Not on file documented as of this encounter Visit Diagnoses Not on filedocumented in this encounter Care Teams Reel Slitter Relationship Specialty Start Date End Date Bon Rodriguez MD [address] [place] [address] PCP - General Internal Medicine 10/21/23 Rick Ricci MD [address] [place] [address] Urology 10/08/24 documented as of this encounter
== END 2024-11-30 09:57 | disposition home or self-care (01) ==
PROVIDERS: PCP Internal Medicine; Visit Provider Internal Medicine
DX: M25.562 Pain in left knee (principal); G89.29 Other chronic pain
CPT/HCPCS: 73564

== ENCOUNTER 2025-02-27 12:29 | Outpatient (CLI) | payer MEDICARE, OTHER, SELFPAY ==
--- NOTE | ~2025-02-27 | US_ITS ---
EXAMINATION:US venous doppler LE BI INDICATION:Bilateral lower extremity pain TECHNIQUE: Multiple grayscale, color flow and Doppler images of the bilateral lower extremity deep ve nous systems were obtained and reviewed. COMPARISON:No prior studies for comparison. FINDINGS: The common femoral, superficial femoral and popliteal veins demonstrate normal respiratory variation, augmentation and compressibility. Color flow is also seen within the posterior tibial, pe roneal, greater saphenous and profunda veins. IMPRESSION: 1: No lower extremity deep venous thrombosis. Reviewed, dictated and finalized at location B.
--- NOTE | ~2025-02-27 | XR_ITS ---
XR hip BI 2V w AP pelvis 02/27/2025 13:33 Indication: Bilateral hip pain Procedure: AP pelvis and 2 views each hip Comparison: No prior studies for comparison. Findings: No fracture, subluxation or dislocation. Pelvic rings intact. Mild symmetric osteoarthritis of the hips. No soft tissue abnormality. No foreign bodies. Impression: 1: Mild symmetric osteoarthritis of the hips. Reviewed, dictated and finalized at location B. Impression: 1: Mild symmetric osteoarthritis of the hips.
--- OUTSIDE RECORDS SUMMARY | 2025-02-27 13:33 | XMS_ITS | Encounter Summary ---
Author Organization [facility] Address [address] [place] [address] Phone Care Team Providers Care Freezer Laboratory Technician Name Role Phone Bon Rodriguez MD Primary Care Provider [phone] Rick Ricci MD Unavailable [phone] Encounter Details Date Type Department Care Team (Latest Contact Info) Description 02/22/2025 Orders Only [facility] Scanning, Provider Social History Tobacco Use Types [...] making you feel afraid or unsafe? Denies 12/07/2024 Sex and Gender Information Value Date Recorded Sex Assigned at Not on file Legal Sex Male 7:15 AM [employer] Gender Identity Male 02/20/2021 1:17 PM CDT Sexual Orientation Straight 06/30/2019 7: 44 AM CDT documented as of this encounter Plan of Treatment Not on file documented as of this encounter Procedures Procedure Name Priority Date/Time Associated Diagnosis Comments SCAN - NEUROLOGY 02/22/2025 4:58 PM CDT documented in this encounter Results * SCAN - NEUROLOGY (02/22/2025 4:58 PM CDT) Anatomical Region Laterality Modality Other us Provider Scanning Final Result documented in this encounter Visit Diagnoses Not on filedocumented in this encounter Care Teams Freezer Laboratory Technician Relationship Specialty Start Date End Date Bon Rodriguez MD [address] [place] [address] PCP - General Internal Medicine 10/21/23 Rick Ricci MD [address] [place] [address] Urology 10/08/24 documented as of this encounter
--- OUTSIDE RECORDS SUMMARY | 2025-02-27 13:33 | XMS_ITS | Referral Summary ---
Author Organization [facility] Address [address] [place] [address] Care Team Providers Care Crown Perforator Operator Name Role Phone Bon Rodriguez MD Primary Care Provider [phone] Rick Ricci MD Unavailable [phone] Encounters Date Type Department Care Team Description 02/27/2025 Orders Only [facility] Building 2 Radiation Oncology [address] [place] [address] 0[address]19 Satya Vidal MD 02/25/2025 Documentation [facility] [place] [address] [facility] First Floor [address] [place] [id number] Linh Sims RMA 02/22/2025 Orders Only [facility] Scanning, Provider 02/21/2025 Results Follow-Up [place] [id number] [facility] 6th [place] [address] [place] [id number] Meghann Hathaway MD PhD 02/21/2025 Completion of Therapy [facility] Building 2 Radiation Oncology [address] [place] [address] 11725 Satya Vidal MD 02/21/2025 OTV [facility] Building 2 Radiation Oncology [address] [place] [address] 53109 Satya Vidal MD 02/21/2025 Orders Only RAD ONC TREATMENTS Miscellaneous, Not In File 02/21/2025 1:30 PM CDT Treatment [facility] Building 2 Radiation Oncology [address] [place] [address] 91658 Satya Vidal MD 02/20/2025 Orders Only RAD ONC TREATMENTS Miscellaneous, Not In File 02/20/2025 1:30 PM CDT Treatment [facility] Building 2 Radiation Oncology [address] [place] [address] 02/19/2025 8:10 PM CDT Lab [facility] ([facility]) [address] [place] [address] Amnesia 02/19/2025 Orders Only RAD ONC TREATMENTS Miscellaneous, Not In File 02/19/2025 1:30 PM CDT Treatment [facility] Building 2 Radiation Oncology [address] [place] [address] 76[address] 02/19/2025 3:00 PM CDT Office Visit [facility] [address] [facility] 6th [place] [address] [place] [address] Meghann Hathaway MD PhD Memory loss or impairment (Primary Dx); Amnesia; Depression, unspecified depression type 02/18/2025 Orders Only RAD ONC TREATMENTS Miscellaneous, Not In File 02/18/2025 1:30 PM CDT Treatment [facility] Building 2 Radiation Oncology [address] [place] [address] 615[address] 02/15/2025 Orders Only RAD ONC TREATMENTS Miscellaneous, Not In File 02/15/2025 1:30 PM CDT Treatment [facility] Building 2 Radiation Oncology [address] [place] [address] 10339 02/14/2025 OTV [facility] 2 Radiation Oncology [address] [place] [address] 75924 Dharmesh Martinez MD 02/14/2025 Orders Only RAD ONC TREATMENTS Miscellaneous, Not In File 02/14/2025 1:30 PM CDT Treatment [facility] Building 2 Radiation Oncology [address] [place] [address] 61112 02/13/2025 Orders Only RAD ONC TREATMENTS Miscellaneous, Not In File 02/13/2025 1:30 PM CDT Treatment [facility] 2 Radiation Oncology [address] [place] [address] 33707 02/12/2025 Orders Only RAD ONC TREATMENTS Miscellaneous, Not In File 02/12/2025 1:30 PM CDT Treatment [facility] 2 Radiation Oncology [address] [place] [address] 98420 02/11/2025 Orders Only RAD ONC TREATMENTS Miscellaneous, Not In File 02/11/2025 1:30 PM CDT Treatment [facility] 2 Radiation Oncology [address] [place] [address] 88414 02/08/2025 Orders Only RAD ONC TREATMENTS Miscellaneous, Not In File 02/08/2025 1:30 PM CDT Treatment [facility] 2 Radiation Oncology [address] [place] [address] 97833 02/07/2025 OTV [facility] 2 Radiation Oncology [address] [place] [address] 81876 Dharmesh Martinez MD 02/07/2025 Orders Only RAD ONC TREATMENTS Miscellaneous, Not In File 02/07/2025 1:30 PM CDT Treatment [facility] 2 Radiation Oncology [address] [place] [address] 26269 02/06/2025 Orders Only RAD ONC TREATMENTS Miscellaneous, Not In File 02/06/2025 1:30 PM CDT Treatment [facility] 2 Radiation Oncology [address] [place] [address] 77509 02/05/2025 Orders Only RAD ONC TREATMENTS Miscellaneous, Not In File 02/05/2025 1:30 PM CDT Treatment [facility] 2 Radiation Oncology [address] [place] [address] 20653 02/04/2025 Orders Only RAD ONC TREATMENTS Miscellaneous, Not In File 02/04/2025 1:30 PM CDT Treatment [facility] 2 Radiation Oncology [address] [place] [address] 26247 02/01/2025 Orders Only RAD ONC TREATMENTS Miscellaneous, Not In File 02/01/2025 1:30 PM CDT Treatment [facility] 2 Radiation Oncology [address] [place] [address] 02740 01/31/2025 OTV [facility] 2 Radiation Oncology [address] [place] [address] 01271 Satya Vidal MD 01/31/2025 Orders Only RAD ONC TREATMENTS Miscellaneous, Not In File 01/31/2025 1:30 PM CDT Treatment [facility] 2 Radiation Oncology [address] [place] [address] 34639 01/30/2025 Orders Only RAD ONC TREATMENTS Miscellaneous, Not In File 01/30/2025 1:30 PM CDT Treatment [facility] 2 Radiation Oncology [address] [place] [address] 57352 01/29/2025 Orders Only RAD ONC TREATMENTS Miscellaneous, Not In File 01/29/2025 1:30 PM CDT Treatment [facility] 2 Radiation Oncology [address] [place] [address] 13470 01/28/2025 Orders Only RAD ONC TREATMENTS Miscellaneous, Not In File 01/28/2025 1:30 PM CDT Treatment [facility] 2 Radiation Oncology [address] [place] [address] 93464 01/25/2025 Orders Only RAD ONC TREATMENTS Miscellaneous, Not In File 01/25/2025 1:30 PM CDT Treatment [facility] 2 Radiation Oncology [address] [place] [address] 78605 01/24/2025 OTV [facility] 2 Radiation Oncology [address] [place] [address] 92666 Valdez Wyatt MD Prostate cancer (HCC) (Primary Dx) 01/24/2025 Orders Only RAD ONC TREATMENTS Miscellaneous, Not In File 01/24/2025 1:30 PM CDT Treatment [facility] 2 Radiation Oncology [address] [place] [address] 17088 01/23/2025 Orders Only RAD ONC TREATMENTS Miscellaneous, Not In File 01/23/2025 1:30 PM CDT Treatment [facility] 2 Radiation Oncology [address] [place] [address] 14782 01/22/2025 Orders Only RAD ONC TREATMENTS Miscellaneous, Not In File 01/22/2025 1:30 PM CDT Treatment [facility] 2 Radiation Oncology [address] [place] [address] 27377 01/21/2025 Orders Only RAD ONC TREATMENTS Miscellaneous, Not In File 01/21/2025 1:30 PM CDT Treatment [facility] 2 Radiation Oncology [address] [place] [address] 74763 01/18/2025 Orders Only RAD ONC TREATMENTS Miscellaneous, Not In File 01/18/2025 1:30 PM CUSTOMER SUPPORT ANALYST Treatment [facility] 2 Radiation Oncology [address] [place] [address] 07659 01/17/2025 OTV [facility] 2 Radiation Oncology [address] [place] [address] 45183 Satya Vidal MD 01/17/2025 Orders Only RAD ONC TREATMENTS Miscellaneous, Not In File 01/17/2025 1:30 PM CUSTOMER SUPPORT ANALYST Treatment [facility] 2 Radiation Oncology [address] [place] [address] 25595 01/16/2025 Orders Only RAD ONC TREATMENTS Miscellaneous, Not In File 01/16/2025 2:00 PM CUSTOMER SUPPORT ANALYST Clinical Support [facility] 2 Radiation Oncology [address] [place] [address] 89915 Obesity (BMI 30-39.9) (Primary Dx); Low vitamin D level 01/16/2025 1:30 PM CUSTOMER SUPPORT ANALYST Treatment [facility] 2 Radiation Oncology [address] [place] [address] 99013 01/15/2025 Orders Only RAD ONC TREATMENTS Miscellaneous, Not In File 01/15/2025 1:00 PM CUSTOMER SUPPORT ANALYST Clinical Support [facility] 2 Radiation Oncology [address] [place] [address] 26919 Satya Vidal MD 01/15/2025 1:30 PM CUSTOMER SUPPORT ANALYST Treatment [facility] 2 Radiation Oncology [address] [place] [address] 08759 Satya Vidal MD 01/15/2025 1:45 PM CUSTOMER SUPPORT ANALYST Treatment [facility] 2 Radiation Oncology [address] [place] [address] 17595 Satya Vidal MD 01/09/2025 7:25 PM CUSTOMER SUPPORT ANALYST Treatment [facility] 2 Radiation Oncology [address] [place] [address] 84067 01/01/2025 9:43 AM CUSTOMER SUPPORT ANALYST - 01/01/2025 11:59 PM CUSTOMER SUPPORT ANALYST Hospital Encounter [facility] Radiation Oncology [address] [place] [address] Satya Vidal MD Discharge Disposition: Discharge to home or self care 01/01/2025 8:47 AM CUSTOMER SUPPORT ANALYST - 01/01/2025 11:59 PM CUSTOMER SUPPORT ANALYST Hospital Encounter [facility] Radiation Oncology [address] [place] [address] Satya Vidal MD Discharge Disposition: Discharge to home or self care 12/31/2024 Orders Only [facility] Radiation Oncology [address] [place] [address] Satya Vidal MD Prostate cancer (HCC) 12/31/2024 6:55 AM CUSTOMER SUPPORT ANALYST - 12/31/2024 11:59 PM CUSTOMER SUPPORT ANALYST Hospital Encounter [facility] Radiation Oncology [address] [facility] [place] [address] Satya Vidal MD Gay, Hiram Alberto, MD Prostate cancer (HCC) Discharge Disposition: Discharge to home or self care 12/27/2024 Telephone [facility] 2 Radiation Oncology [address] [place] [address] 10911 Satya Vidal MD 12/26/2024 9:25 AM CUSTOMER SUPPORT ANALYST - 12/26/2024 11:59 PM CUSTOMER SUPPORT ANALYST Hospital Encounter [facility] [address] [place] [address] Prostate cancer (HCC) Discharge Disposition: Discharge to home or self care 12/25/2024 Telephone [facility] 2 Radiation Oncology [address] [place] [address]84 [place] 12/25/2024 Orders Only [facility] 2 Radiation Oncology [address] [place] [address] 13387 Satya Vidal MD Prostate cancer (HCC) (Primary Dx) 12/21/2024 11:25 AM CUSTOMER SUPPORT ANALYST Lab [facility] [address] [place] [address] Prostate cancer (HCC) 12/17/2024 Orders Only [facility] Radiation Oncology [address] [place] [address] Satya Vidal MD Prostate cancer (HCC) (Primary Dx) 12/12/2024 Telephone [facility] Radiation Oncology [address] [place] [address] Satya Vidal MD 12/11/2024 Telephone [facility] Radiation Oncology [address] [place] [address] Satya Vidal MD 12/10/2024 Telephone [facility] Radiology [address] [place] [address] Viviane Arias, RN 12/07/2024 7:35 AM CUSTOMER SUPPORT ANALYST - 12/07/2024 11:59 PM CUSTOMER SUPPORT ANALYST Hospital Encounter [facility] Radiology [address] [place] [address] Sina John MD Cabrera Lebron, Jorge Alberto, MD Prostate cancer (HCC) Discharge Disposition: Discharge to home or self care 12/06/2024 Telephone [facility] Radiology [address] [place] [address] Phoebe Moyer RN 12/04/2024 10:05 AM [facility] Lab [facility] [address] [place] [address] 10330 Prostate cancer (HCC); Hemorrhage, not elsewhere classified 11/29/2024 Telephone [facility]iology [address] [place] [address] 82927 Viviane Arias, RN from Last 3 Months Allergies Active Allergy Reactions Criticality Noted Date Comments Zolpidem Hallucinations Medium 11/02/2024 Propoxyphene Other (See comments) Low 02/25/2020 Confusion Rosuvastatin Other (See comments) Reaction: CRAMPS, Medications omeprazole (PriLOSEC) 20 mg capsule take 1 capsule by oral route every day 30 minutes to 1 hour before a meal 0 0 03/21/20 17 Active ascorbic acid, vitamin C, (VITAMIN C) 500 mg capsule, extended release CR capsule 500 mg. 0 0 03/21/20 17 Active HYDROcodone-ac etaminophen (NORCO) 5-325 mg per tablet take 1 tablet by oral route every 6 hours as needed for pain 0 0 03/21/20 17 Active pramipexole (MIRAPEX) 1 mg tablet take 1 tablet by oral route 3 times every day 0 0 03/21/20 17 Active clonazePAM (KlonoPIN) 0.5 mg tablet Take 1 tablet (0.5 mg total) by mouth daily as needed for anxiety Active lithium 300 mg capsule Take 1 tablet/capsule (300 mg total) by mouth 2 (two) times a day with meals 09/09/20 21 Active nitroglycerin (NITROSTAT) 0.[address] 1 tablet (0.4 mg total) under the tongue every 5 (five) minutes as needed for chest pain May repeat dose q 5 min, up to 3 doses total 25 tablet 6 12/25/19 22 Active cyclobenzaprin e (FLEXERIL) 5 mg tablet as needed 05/27/20 22 Active traZODone (DESYREL) 100 mg tablet Take 0.5 tablets (50 mg total) by mouth nightly 03/24/20 22 Active folic acid (FOLVITE) 800 mcg tablet Take 1 tablet (800 mcg total) by mouth daily 12/06/19 24 Active buPROPion XL (WELLBUTRIN XL) 150 mg 24 hr tablet Take 1 tablet (150 mg total) by mouth daily 07/09/20 24 Active bupropion HCl (WELLBUTRIN SR ORAL) 03/18/20 24 Active cefadroxil (DURICEF) 500 mg capsule Take 1 capsule (500 mg total) by mouth 2 (two) times a day 07/09/20 24 Active cyanocobalamin (Vitamin B-12) 1,000 mcg/mL injection INJECT 1ML INTRAMUSCULARLY ONCE MONTHLY 06/04/20 24 Active HYDROcodone-ac etaminophen (VICODIN) 5-300 mg per tablet Take by mouth 3 (three) times a day as needed 07/03/20 24 Active propranoloL (INDERAL) 10 mg tablet Take 1 tablet (10 mg total) by mouth 2 (two) times a day 60 tablet 11 10/22/20 24 Active evolocumab (Repatha SureClick) 140 mg/mL pen injector ADMINISTER 1 ML(140 MG) UNDER THE SKIN EVERY 14 DAYS 6 mL 1 11/12/20 24 Active ciprofloxacin (Cipro) 250 mg tabletIndicati ons:Prostate cancer (HCC) 500 mg the night before the procedure then 250 mg twice a day for 4 days 10 tablet 12/30/19 25 Active tamsulosin (FLOMAX) 0.4 mg extended release capsule Take 1 capsule (0.4 mg total) by mouth nightly 30 capsule 3 01/18/20 25 Active mesalamine (ROWASA) 4 gram/60 mL enemaIndicatio ns:Ulcerative Proctitis Insert 60 mL (4 g total) into the rectum nightly 300 mL 1 02/28/20 25 Active Active Problems Problem Noted Date Diagnosed Date Amnesia 02/19/2025 Depression 02/19/2025 Prostate cancer 01/17/2025 Cancer Staging:Clinical:Stage IIC(cT1c, cN0, cM0, PSA: 4.7, Grade Group: 3) - Signed by Satya Vidal MD on 01/17/2025 Diastolic dysfunction 12/25/2021 Assessment & Plan (12/25/2021 10:32 AM CUSTOMER SUPPORT ANALYST): As aforementioned the patient had a transthoracic [...] change. Assessment & Plan (12/25/2021 10:27 AM CUSTOMER SUPPORT ANALYST): Records mention that the patient has hypertension. His blood pressure seems to be well controlled and is in the 120s over 70s. He is only taking metoprolol 12.5 mg daily. Patient was counseled on lifestyle modifications. Will make no adjustments to his antihypertensive therapy for now. Multiple vessel coronary artery disease 08/20/20 Overview (12/22/2021): Cath 06/2016LAD showed proximal calcification [...] change. Assessment & Plan (12/25/2021 10:31 AM CUSTOMER SUPPORT ANALYST): The patient is known to have triple-vessel [...] inhibitor. Assessment & Plan (12/25/2021 10:26 AM CUSTOMER SUPPORT ANALYST): Patient's most recent lipid panel is from 10/13/2021 with a total cholesterol 154 and LDL cholesterol 46. This was obtained while the patient was on Praluent. Anxiety 07/04/2016 S/P CABG (coronary artery bypass graft) 07/04/20 16 Overview (12/24/2021): [id number] COLIN to LAD, SVG to OM PDA) . Normal stress February 2020 NV (myocardial infarction) 11/14/2015 Resolved Problems Problem Noted Date Diagnosed Date Resolved Date Paroxysmal A-fib 07/04/2016 02/10/2024 Immunizations Immunization Administration Dates Next Due DTaP 05/12/2015 Influenza, [...] on file Legal Sex Male 7:15 AM CUSTOMER SUPPORT ANALYST Gender Identity Male 02/20/2021 1:17 PM CDT Sexual Orientation Straight 06/30/2019 7: 44 AM CDT Last Filed Vital Signs Vital Sign Reading Time Taken Comments Blood Pressure 119/76 02/21/2025 1:45 PM CDT Pulse 75 02/21/2025 1:45 PM CDT Temperature 36.5 C (97.7 F) 12/07/2024 8:12 AM CUSTOMER SUPPORT ANALYST Respiratory Rate 16 12/31/2024 8:47 AM CUSTOMER SUPPORT ANALYST Oxygen Saturation 99% 02/21/2025 1:45 PM CDT Inhaled Oxygen Concentration - - Weight 95 kg (209 lb 6.4 oz) 02/19/2025 2:45 PM CDT Height 180.3 cm (5' 11 ) 02/19/2025 2:45 PM CDT Body Mass Index 29.21 02/19/2025 2:45 PM CDT Plan of Treatment Not on file Medical Devices Implanted Type Area Thread Spinner Device Identifier Shelf Expiration Date Model / Serial / Lot Sternal Wires Sternum Procedures Procedure Name Priority Date/Time Associated Diagnosis Comments SCAN - NEUROLOGY 02/22/2025 4:58 PM CDT RAD ONC ARIA SESSION SUMMARY 02/21/2025 1:35 PM CDT RAD ONC ARIA SESSION SUMMARY 02/20/2025 1:58 PM CDT VITAMIN B12 Routine 02/19/2025 4:50 PM CDT Amnesia THYROID FUNCTION CASCADE Routine 02/19/2025 4:50 PM CDT Amnesia RAD ONC ARIA SESSION SUMMARY 02/19/2025 1:56 PM CDT RAD ONC ARIA SESSION SUMMARY 02/18/2025 1:35 PM CDT RAD ONC ARIA SESSION SUMMARY 02/15/2025 1:48 PM CDT RAD ONC ARIA SESSION SUMMARY 02/14/2025 2:03 PM CDT RAD ONC ARIA SESSION SUMMARY 02/13/2025 1:45 PM CDT RAD ONC ARIA SESSION SUMMARY 02/12/2025 2:05 PM CDT RAD ONC ARIA SESSION SUMMARY 02/11/2025 1:43 PM CDT RAD ONC ARIA SESSION SUMMARY 02/08/2025 1:47 PM CDT RAD ONC ARIA SESSION SUMMARY 02/07/2025 2:14 PM CDT RAD ONC ARIA SESSION SUMMARY 02/06/2025 1:41 PM CDT RAD ONC ARIA SESSION SUMMARY 02/05/2025 1:44 PM CDT RAD ONC ARIA SESSION SUMMARY 02/04/2025 1:48 PM CDT RAD ONC ARIA SESSION SUMMARY 02/01/2025 1:41 PM CDT RAD ONC ARIA SESSION SUMMARY 01/31/2025 1:40 PM CDT RAD ONC ARIA SESSION SUMMARY 01/30/2025 1:37 PM CDT RAD ONC ARIA SESSION SUMMARY 01/29/2025 1:41 PM CDT RAD ONC ARIA SESSION SUMMARY 01/28/2025 1:54 PM CDT RAD ONC ARIA SESSION SUMMARY 01/25/2025 1:47 PM CDT RAD ONC ARIA SESSION SUMMARY 01/24/2025 1:42 PM CDT RAD ONC ARIA SESSION SUMMARY 01/23/2025 1:40 PM CDT RAD ONC ARIA SESSION SUMMARY 01/22/2025 1:45 PM CDT RAD ONC ARIA SESSION SUMMARY 01/21/2025 1:44 PM CDT RAD ONC ARIA SESSION SUMMARY 01/18/2025 1:42 PM CUSTOMER SUPPORT ANALYST RAD ONC ARIA SESSION SUMMARY 01/17/2025 1:40 PM CUSTOMER SUPPORT ANALYST RAD ONC ARIA SESSION SUMMARY 01/16/2025 1:48 PM CUSTOMER SUPPORT ANALYST RAD ONC ARIA SESSION SUMMARY 01/15/2025 1:58 PM CUSTOMER SUPPORT ANALYST MRI PELVIS PROSTATE W WO CONTRAST Schedule Routine, Read Routine (OP Routine) 12/26/2024 10:48 AM CUSTOMER SUPPORT ANALYST Prostate cancer (HCC) URINALYSIS AND REFLEX TO MICROSCOPIC AND CULTURE Routine 12/21/2024 11:42 AM CUSTOMER SUPPORT ANALYST Prostate cancer (HCC) BIOPSY DEEP BONE Schedule Routine, Read Routine (OP Routine) 12/07/2024 9:56 AM CUSTOMER SUPPORT ANALYST Prostate cancer (HCC) TISSUE AEROBIC AND ANAEROBIC CULTURE AND GRAM STAIN Routine 12/07/2024 9:48 AM CUSTOMER SUPPORT ANALYST MYCOLOGY (FUNGAL) CULTURE Routine 12/07/2024 9:48 AM CUSTOMER SUPPORT ANALYST MYCOBACTERIOLOGY AFB CULTURE Routine 12/07/2024 9:48 AM CUSTOMER SUPPORT ANALYST SURGICAL PATHOLOGY Routine 12/07/2024 9: 25 AM CUSTOMER SUPPORT ANALYST Prostate cancer (HCC) PROTIME-INR Routine 12/04/2024 10:13 AM CUSTOMER SUPPORT ANALYST Prostate cancer (HCC) Hemorrhage, not elsewhere classified PSA SCREEN Routine 10/13/2021 11:56 AM CUSTOMER SUPPORT ANALYST HEPATITIS PANEL, ACUTE Routine 6 3:58 PM CUSTOMER SUPPORT ANALYST from Last 3 Months or Most Recently Relevant to Health Maintenance Results * SCAN - NEUROLOGY (02/22/2025 4:58 PM CDT) Anatomical Region Laterality Modality Other us Provider Scanning Final Result * RAD ONC ARIA SESSION SUMMARY (02/21/2025 1:35 PM CDT) Course Name [email or web address] ARIA Course Plan Date 01/01/2025 10:16 AM ARIA Elapsed Days 37 ARIA Treatment Start Date 01/15/2025 ARIA Treatment Site [id number] ARIA Dose Given To Date (cGy) 7,000 ARIA Session Dosage Given (cGy) 250 ARIA Plan ID PROSTATE_P ELV ARIA Fractions Treated 28 ARIA Prescribed Dose Per Fraction (cGy) 250 ARIA Prescribed Total Dose (cGy) 7,000 ARIA 02/21/2025 1:35 PM CDT us Not In File Miscellaneous RADIATION ONCOLOGY ORD ERABLES Final Result Performing Organization Address City/[facility]/ZIP Co de Phone Number LUIS * RAD ONC ARIA SESSION SUMMARY (02/20/2025 1:58 PM CDT) Course Name [email or web address] [email or web address] ARIA Course Plan Date 01/01/2025 10:16 AM ARIA Elapsed Days 36 ARIA Treatment Start Date 01/15/2025 ARIA Treatment Site [id number] ARIA Dose Given To Date (cGy) 6,750 ARIA Session Dosage Given (cGy) 250 ARIA Plan ID PROSTATE_P ELV ARIA Fractions Treated 27 ARIA Prescribed Dose Per Fraction (cGy) 250 ARIA Prescribed Total Dose (cGy) 7,000 ARIA 02/20/2025 1:58 PM CDT us Not In File Miscellaneous RADIATION ONCOLOGY ORD ERABLES Final Result Performing Organization Address [facility] Co de Phone Number LUIS * Thyroid Function [place] (02/19/2025 4:50 PM CDT) TSH 1.74 0.30 - 4.20 mcIUnit/mL Blood 02/19/2025 4:50 PM CDT 02/19/2025 5:23 PM CDT us Meghann Hathaway MD PhD LAB BLOOD ORDERABLES F inal Result [facility] Department [place] [address] * Vitamin B12 (02/19/2025 4:50 PM CDT) Vitamin B12 339 230 - 1,250 pg/mL Blood 02/19/2025 4:50 PM CDT 02/19/2025 5:23 PM CDT us Meghann Hathaway MD PhD LAB BLOOD ORDERABLES F inal Result Performing Organization Address City/[facility]/ZIP [facility] [place] [address] * RAD ONC ARIA SESSION SUMMARY (02/19/2025 1:56 PM CDT) Course Name [email or web address]_Prostat ARIA Course Plan Date 01/01/2025 10:16 AM ARIA Elapsed Days 35 ARIA Treatment Start Date 01/15/2025 ARIA Treatment Site [id number] ARIA Dose Given To Date (cGy) 6,500 ARIA Session Dosage Given (cGy) 250 ARIA Plan ID PROSTATE_P ELV ARIA Fractions Treated 26 ARIA Prescribed Dose Per Fraction (cGy) 250 ARIA Prescribed Total Dose (cGy) 7,000 ARIA 02/19/2025 1:56 PM CDT us Not In File Miscellaneous RADIATION ONCOLOGY ORD ERABLES Final Result Performing Organization Address City/[facility]/ZIP Co de Phone Number ARIA * RAD ONC ARIA SESSION SUMMARY (02/18/2025 1:35 PM CDT) Course Name C1_Prostat ARIA Course Plan Date 01/01/2025 10:16 AM ARIA Elapsed Days 34 ARIA Treatment Start Date 01/15/2025 ARIA Treatment Site [id number]_7000 ARIA Dose Given To Date (cGy) 6,250 ARIA Session Dosage Given (cGy) 250 ARIA Plan ID PROSTATE_P ELV ARIA Fractions Treated 25 ARIA Prescribed Dose Per Fraction (cGy) 250 ARIA Prescribed Total Dose (cGy) 7,000 ARIA 02/18/2025 1:35 PM CDT us Not In File Miscellaneous RADIATION ONCOLOGY ORD ERABLES Final Result ARIA * RAD ONC ARIA SESSION SUMMARY (02/15/2025 1:48 PM CDT) Course Name C1_Prostat e ARIA Course Plan Date 01/01/2025 10:16 AM ARIA Elapsed Days 31 ARIA Treatment Start Date 01/15/2025 ARIA Treatment Site [id number]_7000 ARIA Dose Given To Date (cGy) 6,000 ARIA Session Dosage Given (cGy) 250 ARIA Plan ID PROSTATE_P ELV ARIA Fractions Treated 24 ARIA Prescribed Dose Per Fraction (cGy) 250 ARIA Prescribed Total Dose (cGy) 7,000 ARIA 02/15/2025 1:48 PM CDT us Not In File Miscellaneous RADIATION ONCOLOGY ORD ERABLES Final Result Performing Organization Address [facility] de Phone Number ARIA * RAD ONC ARIA SESSION SUMMARY (02/14/2025 2:03 PM CDT) Course Name C1_Prostat e ARIA Course Plan Date 01/01/2025 10:16 AM ARIA Elapsed Days 30 ARIA Treatment Start Date 01/15/2025 ARIA Treatment Site [id number]_7000 ARIA Dose Given To Date (cGy) 5,750 ARIA Session Dosage Given (cGy) 250 ARIA Plan ID PROSTATE_P ELV ARIA Fractions Treated 23 ARIA Prescribed Dose Per Fraction (cGy) 250 ARIA Prescribed Total Dose (cGy) 7,000 ARIA 02/14/2025 2:03 PM CDT us Not In File Miscellaneous RADIATION ONCOLOGY ORD ERABLES Final Result Performing Organization Address City/[facility] Co de Phone Number ARIA * RAD ONC ARIA SESSION SUMMARY (02/13/2025 1:45 PM CDT) Course Name C1_Prostat ARIA Course Plan Date 01/01/2025 10:16 AM ARIA Elapsed Days 29 ARIA Treatment Start Date 01/15/2025 ARIA Treatment Site [id number]_7000 ARIA Dose Given To Date (cGy) 5,500 ARIA Session Dosage Given (cGy) 250 ARIA Plan ID PROSTATE_P ELV ARIA Fractions Treated 22 ARIA Prescribed Dose Per Fraction (cGy) 250 ARIA Prescribed Total Dose (cGy) 7,000 ARIA 02/13/2025 1:45 PM CDT us Not In File Miscellaneous RADIATION ONCOLOGY ORD ERABLES Final Result Performing Organization Address City/[facility] Co de Phone Number ARIA * RAD ONC ARIA SESSION SUMMARY (02/12/2025 2:05 PM CDT) Course Name C1_Prostat ARIA Course Plan Date 01/01/2025 10:16 AM ARIA Elapsed Days 28 ARIA Treatment Start Date 01/15/2025 ARIA Treatment Site [id number]_7000 ARIA Dose Given To Date (cGy) 5,250 ARIA Session Dosage Given (cGy) 250 ARIA Plan ID PROSTATE_P ELV ARIA Fractions Treated 21 ARIA Prescribed Dose Per Fraction (cGy) 250 ARIA Prescribed Total Dose (cGy) 7,000 ARIA 02/12/2025 2:05 PM CDT us Not In File Miscellaneous RADIATION ONCOLOGY ORD ERABLES Final Result ARIA * RAD ONC ARIA SESSION SUMMARY (02/11/2025 1:43 PM CDT) Course Name C1_Prostat ARIA Course Plan Date 01/01/2025 10:16 AM ARIA Elapsed Days 27 ARIA Treatment Start Date 01/15/2025 ARIA Treatment Site [id number] ARIA Dose Given To Date (cGy) 5,000 ARIA Session Dosage Given (cGy) 250 ARIA Plan ID PROSTATE_P ELV ARIA Fractions Treated 20 ARIA Prescribed Dose Per Fraction (cGy) 250 ARIA Prescribed Total Dose (cGy) 7,000 ARIA 02/11/2025 1:43 PM CDT us Not In File Miscellaneous RADIATION ONCOLOGY ORD ERABLES Final Result LUIS * RAD ONC ARIA SESSION SUMMARY (02/08/2025 1:47 PM CDT) Course Name C1_Prostat e ARIA Course Plan Date 01/01/2025 10:16 AM ARIA Elapsed Days 24 ARIA Treatment Start Date 01/15/2025 ARIA Treatment Site [id number] ARIA Dose Given To Date (cGy) 4,750 ARIA Session Dosage Given (cGy) 250 ARIA Plan ID PROSTATE_P ELV ARIA Fractions Treated 19 ARIA Prescribed Dose Per Fraction (cGy) 250 ARIA Prescribed Total Dose (cGy) 7,000 ARIA 02/08/2025 1:47 PM CDT us Not In File Miscellaneous RADIATION ONCOLOGY ORD ERABLES Final Result Performing Organization Address [facility] Co de Phone Number ARIKinza * RAD ONC ARIA SESSION SUMMARY (02/07/2025 2:14 PM CDT) Course Name C1_Prostat e ARIA Course Plan Date 01/01/2025 10:16 AM ARIA Elapsed Days 23 ARIA Treatment Start Date 01/15/2025 ARIA Treatment Site [id number]_7000 ARIA Dose Given To Date (cGy) 4,500 ARIA Session Dosage Given (cGy) 250 ARIA Plan ID PROSTATE_P ELV ARIA Fractions Treated 18 ARIA Prescribed Dose Per Fraction (cGy) 250 ARIA Prescribed Total Dose (cGy) 7,000 ARIA 02/07/2025 2:14 PM CDT us Not In File Miscellaneous RADIATION ONCOLOGY ORD ERABLES Final Result ARIA * RAD ONC ARIA SESSION SUMMARY (02/06/2025 1:41 PM CDT) Course Name C1_Prostat e ARIA Course Plan Date 01/01/2025 10:16 AM ARIA Elapsed Days 22 ARIA Treatment Start Date 01/15/2025 ARIA Treatment Site [id number]_7000 ARIA Dose Given To Date (cGy) 4,250 ARIA Session Dosage Given (cGy) 250 ARIA Plan ID PROSTATE_P ELV ARIA Fractions Treated 17 ARIA Prescribed Dose Per Fraction (cGy) 250 ARIA Prescribed Total Dose (cGy) 7,000 ARIA 02/06/2025 1:41 PM CDT us Not In File Miscellaneous RADIATION ONCOLOGY ORD ERABLES Final Result Performing Organization Address City/[facility]/ZIP Co de Phone Number ARIKinza * RAD ONC ARIA SESSION SUMMARY (02/05/2025 1:44 PM CDT) Course Name C1_Prostat e ARIA Course Plan Date 01/01/2025 10:16 AM ARIA Elapsed Days 21 ARIA Treatment Start Date 01/15/2025 ARIA Treatment Site [id number]_7000 ARIA Dose Given To Date (cGy) 4,000 ARIA Session Dosage Given (cGy) 250 ARIA Plan ID PROSTATE_P ELV ARIA Fractions Treated 16 ARIA Prescribed Dose Per Fraction (cGy) 250 ARIA Prescribed Total Dose (cGy) 7,000 ARIA 02/05/2025 1:44 PM CDT us Not In File Miscellaneous RADIATION ONCOLOGY ORD ERABLES Final Result ARIKinza * RAD ONC ARIA SESSION SUMMARY (02/04/2025 1:48 PM CDT) Course Name C1_Prostat e ARIA Course Plan Date 01/01/2025 10:16 AM ARIA Elapsed Days 20 ARIA Treatment Start Date 01/15/2025 ARIA Treatment Site [id number]_7000 ARIA Dose Given To Date (cGy) 3,750 ARIA Session Dosage Given (cGy) 250 ARIA Plan ID PROSTATE_P ELV ARIA Fractions Treated 15 ARIA Prescribed Dose Per Fraction (cGy) 250 ARIA Prescribed Total Dose (cGy) 7,000 ARIA 02/04/2025 1:48 PM CDT us Not In File Miscellaneous RADIATION ONCOLOGY ORD ERABLES Final Result Performing Organization Address City/[facility] Co de Phone Number ARIA * RAD ONC ARIA SESSION SUMMARY (02/01/2025 1:41 PM CDT) Course Name C1_Prostat e ARIA Course Plan Date 01/01/2025 10:16 AM ARIA Elapsed Days 17 ARIA Treatment Start Date 01/15/2025 ARIA Treatment Site [id number]_7000 ARIA Dose Given To Date (cGy) 3,500 ARIA Session Dosage Given (cGy) 250 ARIA Plan ID PROSTATE_P ELV ARIA Fractions Treated 14 ARIA Prescribed Dose Per Fraction (cGy) 250 ARIA Prescribed Total Dose (cGy) 7,000 ARIA 02/01/2025 1:41 PM CDT us Not In File Miscellaneous RADIATION ONCOLOGY ORD ERABLES Final Result Performing Organization Address [facility] Co de Phone Number ARIA * RAD ONC ARIA SESSION SUMMARY (01/31/2025 1:40 PM CDT) Course Name C1_Prostat e_2024 ARIA Course Plan Date 01/01/2025 10:16 AM ARIA Elapsed Days 16 ARIA Treatment Start Date 01/15/2025 ARIA Treatment Site [id number]_7000 ARIA Dose Given To Date (cGy) 3,250 ARIA Session Dosage Given (cGy) 250 ARIA Plan ID PROSTATE_P ELV ARIA Fractions Treated 13 ARIA Prescribed Dose Per Fraction (cGy) 250 ARIA Prescribed Total Dose (cGy) 7,000 ARIA 01/31/2025 1:40 PM CDT us Not In File Miscellaneous RADIATION ONCOLOGY ORD ERABLES Final Result LUIS * RAD ONC ARIA SESSION SUMMARY (01/30/2025 1:37 PM CDT) Course Name C1_Prostat e ARIA Course Plan Date 01/01/2025 10:16 AM ARIA Elapsed Days 15 ARIA Treatment Start Date 01/15/2025 ARIA Treatment Site [id number]_7000 ARIA Dose Given To Date (cGy) 3,000 ARIA Session Dosage Given (cGy) 250 ARIA Plan ID PROSTATE_P ELV ARIA Fractions Treated 12 ARIA Prescribed Dose Per Fraction (cGy) 250 ARIA Prescribed Total Dose (cGy) 7,000 ARIA 01/30/2025 1:37 PM CDT us Not In File Miscellaneous RADIATION ONCOLOGY ORD ERABLES Final Result Performing Organization Address [facility] de Phone Number ARIKinza * RAD ONC ARIA SESSION SUMMARY (01/29/2025 1:41 PM CDT) Course Name C1_Prostat e ARIA Course Plan Date 01/01/2025 10:16 AM ARIA Elapsed Days 14 ARIA Treatment Start Date 01/15/2025 ARIA Treatment Site [id number]_7000 ARIA Dose Given To Date (cGy) 2,750 ARIA Session Dosage Given (cGy) 250 ARIA Plan ID PROSTATE_P ELV ARIA Fractions Treated 11 ARIA Prescribed Dose Per Fraction (cGy) 250 ARIA Prescribed Total Dose (cGy) 7,000 ARIA 01/29/2025 1:41 PM CDT us Not In File Miscellaneous RADIATION ONCOLOGY ORD ERABLES Final Result Performing Organization Address [facility] Co de Phone Number ARIA * RAD ONC ARIA SESSION SUMMARY (01/28/2025 1:54 PM CDT) Course Name C1_Prostat ARIA Course Plan Date 01/01/2025 10:16 AM ARIA Elapsed Days 13 ARIA Treatment Start Date 01/15/2025 ARIA Treatment Site [id number]_7000 ARIA Dose Given To Date (cGy) 2,500 ARIA Session Dosage Given (cGy) 250 ARIA Plan ID PROSTATE_P ELV ARIA Fractions Treated 10 ARIA Prescribed Dose Per Fraction (cGy) 250 ARIA Prescribed Total Dose (cGy) 7,000 ARIA 01/28/2025 1:54 PM CDT us Not In File Miscellaneous RADIATION ONCOLOGY ORD ERABLES Final Result Performing Organization Address City/[facility]/ZIP Co de Phone Number LUIS * RAD ONC ARIA SESSION SUMMARY (01/25/2025 1:47 PM CDT) Course Name C1_Prostat ARIA Course Plan Date 01/01/2025 10:16 AM ARIA Elapsed Days 10 ARIA Treatment Start Date 01/15/2025 ARIA Treatment Site [id number]_7000 ARIA Dose Given To Date (cGy) 2,250 ARIA Session Dosage Given (cGy) 250 ARIA Plan ID PROSTATE_P ELV ARIA Fractions Treated 9 ARIA Prescribed Dose Per Fraction (cGy) 250 ARIA Prescribed Total Dose (cGy) 7,000 ARIA 01/25/2025 1:47 PM CDT us Not In File Miscellaneous RADIATION ONCOLOGY ORD ERABLES Final Result ARIA * RAD ONC ARIA SESSION SUMMARY (01/24/2025 1:42 PM CDT) Course Name C1_Prostat ARIA Course Plan Date 01/01/2025 10:16 AM ARIA Elapsed Days 9 ARIA Treatment Start Date 01/15/2025 ARIA Treatment Site [id number]_7000 ARIA Dose Given To Date (cGy) 2,000 ARIA Session Dosage Given (cGy) 250 ARIA Plan ID PROSTATE_P ELV ARIA Fractions Treated 8 ARIA Prescribed Dose Per Fraction (cGy) 250 ARIA Prescribed Total Dose (cGy) 7,000 ARIA 01/24/2025 1:42 PM CDT us Not In File Miscellaneous RADIATION ONCOLOGY ORD ERABLES Final Result Performing Organization Address [facility] Co de Phone Number ARIKinza * RAD ONC ARIA SESSION SUMMARY (01/23/2025 1:40 PM CDT) Course Name C1_Prostat e ARIA Course Plan Date 01/01/2025 10:16 AM ARIA Elapsed Days 8 ARIA Treatment Start Date 01/15/2025 ARIA Treatment Site [id number]_7000 ARIA Dose Given To Date (cGy) 1,750 ARIA Session Dosage Given (cGy) 250 ARIA Plan ID PROSTATE_P ELV ARIA Fractions Treated 7 ARIA Prescribed Dose Per Fraction (cGy) 250 ARIA Prescribed Total Dose (cGy) 7,000 ARIA 01/23/2025 1:40 PM CDT us Not In File Miscellaneous RADIATION ONCOLOGY ORD ERABLES Final Result Performing Organization Address [facility] de Phone Number ARIA * RAD ONC ARIA SESSION SUMMARY (01/22/2025 1:45 PM CDT) Course Name C1_Prostat e ARIA Course Plan Date 01/01/2025 10:16 AM ARIA Elapsed Days 7 ARIA Treatment Start Date 01/15/2025 ARIA Treatment Site [id number]_7000 ARIA Dose Given To Date (cGy) 1,500 ARIA Session Dosage Given (cGy) 250 ARIA Plan ID PROSTATE_P ELV ARIA Fractions Treated 6 ARIA Prescribed Dose Per Fraction (cGy) 250 ARIA Prescribed Total Dose (cGy) 7,000 ARIA 01/22/2025 1:45 PM CDT us Not In File Miscellaneous RADIATION ONCOLOGY ORD ERABLES Final Result ARIA * RAD ONC ARIA SESSION SUMMARY (01/21/2025 1:44 PM CDT) Course Name C1_Prostat e_2024 ARIA Course Plan Date 01/01/2025 10:16 AM ARIA Elapsed Days 6 ARIA Treatment Start Date 01/15/2025 ARIA Treatment Site [id number]_7000 ARIA Dose Given To Date (cGy) 1,250 ARIA Session Dosage Given (cGy) 250 ARIA Plan ID PROSTATE_P ELV ARIA Fractions Treated 5 ARIA Prescribed Dose Per Fraction (cGy) 250 ARIA Prescribed Total Dose (cGy) 7,000 ARIA 01/21/2025 1:44 PM CDT us Not In File Miscellaneous RADIATION ONCOLOGY ORD ERABLES Final Result Performing Organization Address [facility] Co de Phone Number LUIS * RAD ONC ARIA SESSION SUMMARY (01/18/2025 1:42 PM CUSTOMER SUPPORT ANALYST) Course Name C1_Prostat e ARIA Course Plan Date 01/01/2025 10:16 AM ARIA Elapsed Days 3 ARIA Treatment Start Date 01/15/2025 ARIA Treatment Site [id number]_7000 ARIA Dose Given To Date (cGy) 1,000 ARIA Session Dosage Given (cGy) 250 ARIA Plan ID PROSTATE_P ELV ARIA Fractions Treated 4 ARIA Prescribed Dose Per Fraction (cGy) 250 ARIA Prescribed Total Dose (cGy) 7,000 ARIA 01/18/2025 1:42 PM CUSTOMER SUPPORT ANALYST us Not In File Miscellaneous RADIATION ONCOLOGY ORD ERABLES Final Result ARIA * RAD ONC ARIA SESSION SUMMARY (01/17/2025 1:40 PM CUSTOMER SUPPORT ANALYST) Course Name C1_Prostat e ARIA Course Plan Date 01/01/2025 10:16 AM ARIA Elapsed Days 2 ARIA Treatment Start Date 01/15/2025 ARIA Treatment Site [id number]_7000 ARIA Dose Given To Date (cGy) 750 ARIA Session Dosage Given (cGy) 250 ARIA Plan ID PROSTATE_P ELV ARIA Fractions Treated 3 ARIA Prescribed Dose Per Fraction (cGy) 250 ARIA Prescribed Total Dose (cGy) 7,000 ARIA 01/17/2025 1:40 PM CUSTOMER SUPPORT ANALYST us Not In File Miscellaneous RADIATION ONCOLOGY ORD ERABLES Final Result Performing Organization Address [facility] Co de Phone Number LUIS * RAD ONC ARIA SESSION SUMMARY (01/16/2025 1:48 PM CUSTOMER SUPPORT ANALYST) Course Name C1_Prostat e_2024 ARIA Course Plan Date 01/01/2025 10:16 AM ARIA Elapsed Days 1 ARIA Treatment Start Date 01/15/2025 ARIA Treatment Site [id number]_7000 ARIA Dose Given To Date (cGy) 500 ARIA Session Dosage Given (cGy) 250 ARIA Plan ID PROSTATE_P ELV ARIA Fractions Treated 2 ARIA Prescribed Dose Per Fraction (cGy) 250 ARIA Prescribed Total Dose (cGy) 7,000 ARIA 01/16/2025 1:48 PM CUSTOMER SUPPORT ANALYST us Not In File Miscellaneous RADIATION ONCOLOGY ORD ERABLES Final Result Performing Organization Address [facility] de Phone Number ARIA * RAD ONC ARIA SESSION SUMMARY (01/15/2025 1:58 PM CUSTOMER SUPPORT ANALYST) Course Name C1_Prostat e_2024 ARIA Course Plan Date 01/01/2025 10:16 AM ARIA Elapsed Days 0 ARIA Treatment Start Date 01/15/2025 ARIA Treatment Site [id number]_7000 ARIA Dose Given To Date (cGy) 250 ARIA Session Dosage Given (cGy) 250 ARIA Plan ID PROSTATE_P ELV ARIA Fractions Treated 1 ARIA Prescribed Dose Per Fraction (cGy) 250 ARIA Prescribed Total Dose (cGy) 7,000 ARIA 01/15/2025 1:58 PM CUSTOMER SUPPORT ANALYST us Not In File Miscellaneous RADIATION ONCOLOGY ORD ERABLES Final Result ARIA * MRI Pelvis Prostate W WO Contrast (12/26/2024 10:48 AM CUSTOMER SUPPORT ANALYST) Anatomical Region Laterality Modality Body N/A Magnetic Resonan ce 12/27/2024 7:53 AM CUSTOMER SUPPORT ANALYST Narrative 12/27/2024 8:16 AM CUSTOMER SUPPORT ANALYST EXAM DESCRIPTION: MRI PELVIS PROSTATE W WO CONTRAST REASON FOR STUDY: Prostate cancer, initial staging, high risk Recent biopsy last month, prostate cancer, staging. No surgery. TECHNIQUE: MRI of the pelvis performed without and with intravenous contrast according to the prostate protocol. All images stored on PACS. CONTRAST TYPE/DOSE: 20mL of GADOTERATE MEGLUMINE 0.5 MMOL/ML INTRAVENOUS SOLUTION (SO) injected via intravenous COMPARISON: Prostate PET-CT dated 10/29/2024. Correlated with recent clinic notes and biopsy results if available. FINDINGS: PROSTATE: Size: 4.0 x 4.6 x 4.9 cm cm. Volume: 47.21 cc. PSA: 4.7 Ng/mL. PSA density: 0.10 Ng/ml/cc. TRANSITIONAL ZONE: There are multiple nodules of varying T2 intensity with T2 hypointense rims as seen with prostatic hyperplasia. There is median lobe hypertrophy causing mass effect and indentation of the base of the urinary bladder. PERIPHERAL ZONE: Lesion 1: There is an irregular lesion noted in the posterior left peripheral zone at the level of the mid gland measuring 1.6 x 0.9 cm with a wide zone of contact with the capsule posteriorly measuring 1.4 cm with loss of the capsule along with associated bulging demonstrating hypointense T2 signal, hypointense ADC signal, and hyperintense DWI signal (axial T2 image 44, ADC image 19, DWI image 22).. There is associated enhancement on the post-contrast sequences, which courses superiorly along the left neurovascular bundle, and findings are suspicious for neurovascular bundle involvement (axial T1 postcontrast images 23-29). SEMINAL VESICLES: The bilateral seminal vesicles are grossly symmetrical and unremarkable. NEUROVASCULAR BUNDLE: There is enhancement of the left neurovascular bundle as described above. LYMPH NODES: There is no definite evidence of pelvic lymphadenopathy. URINARY: There is circumferential mucosal thickening of the urinary bladder. GI: The visualized bowel appears grossly unremarkable. There is no definite evidence of free fluid in the pelvis. MUSCULOSKELETAL: There is mild heterogeneity of the visualized bone marrow without definite evidence of aggressive appearing osseous lesion. There are degenerative changes of the spine and bilateral sacroiliac joints. OTHER: No other significant finding. IMPRESSION: Irregular lesion noted in the posterior left peripheral zone at the level of the mid gland measuring up to 1.6 cm with a wide zone of contact with the capsule posteriorly measuring 1.4 cm with loss of the capsule along with associated bulging and likely enhancement of the left neurovascular bundle, and findings are suspicious for extraprostatic extension with likely neurovascular bundle involvement. PIRADS 5: Very High Suspicion. EPE grade 3. Circumferential mucosal thickening of the urinary bladder, which may be related to underdistention, chronic urinary bladder outlet obstruction secondary to enlarged prostate gland, or cystitis. Clinical correlation with urinary analysis is recommended as clinically indicated. THIS IS AN ELECTRONICALLY VERIFIED FINAL REPORT 12/27/2024 8:16 AM - Electronically signed by Sang Grant D.O. PS T: Report ID: [id number] Reading Location: [place] [address] Procedure Note Sang Grant, DO - 12/27/2024 EXAM DESCRIPTION: MRI PELVIS PROSTATE W WO CONTRAST REASON FOR STUDY: Prostate cancer, initial staging, high risk Recent biopsy last month, prostate cancer, staging. No surgery. TECHNIQUE: MRI of the pelvis performed without and with intravenous contrast according to the prostate protocol. All images stored on PACS. CONTRAST TYPE/DOSE: 20mL of GADOTERATE MEGLUMINE 0.5 MMOL/ML INTRAVENOUS SOLUTION (SO) injected via intravenous COMPARISON: Prostate PET-CT dated 10/29/2024. Correlated with recentclinic notes and biopsy results if available. FINDINGS: PROSTATE: Size: 4.0 x 4.6 x 4.9 cm cm. Volume: 47.21 cc. PSA: 4.7 Ng/mL. PSA density: 0.10 Ng/ml/cc. TRANSITIONAL ZONE: There are multiple nodules of varying T2 intensitywith T2 hypointense rims as seen with prostatic hyperplasia. There is medianlobe hypertrophy causing mass effect and indentation of the base of the urinary bladder. PERIPHERAL ZONE: Lesion 1: There is an irregular lesion noted in the posterior leftperipheral zone at the level of the mid gland measuring 1.6 x 0.9 cm with a wide zoneof contact with the capsule posteriorly measuring 1.4 cm with loss of thecapsule along with associated bulging demonstrating hypointense T2 signal,hypointense ADC signal, and hyperintense DWI signal (axial T2 image 44, ADC image 19,DWI image 22).. There is associated enhancement on the post-contrastsequences, which courses superiorly along the left neurovascular bundle, and findingsare suspicious for neurovascular bundle involvement (axial T1 postcontrastimages 23-29). SEMINAL VESICLES: The bilateral seminal vesicles are grossly symmetricaland unremarkable. NEUROVASCULAR BUNDLE: There is enhancement of the left neurovascularbundle as described above. LYMPH NODES: There is no definite evidence of pelvic lymphadenopathy. URINARY: There is circumferential mucosal thickening of the urinarybladder. GI: The visualized bowel appears grossly unremarkable. There is no definite evidence of free fluid in the pelvis. MUSCULOSKELETAL: There is mild heterogeneity of the visualized bonemarrow without definite evidence of aggressive appearing osseous lesion. Thereare degenerative changes of the spine and bilateral sacroiliac joints. OTHER: No other significant finding. IMPRESSION: Irregular lesion noted in the posterior left peripheral zone at the levelof the mid gland measuring up to 1.6 cm with a wide zone of contact with the capsule posteriorly measuring 1.4 cm with loss of the capsule along with associated bulging and likely enhancement of the left neurovascularbundle, and findings are suspicious for extraprostatic extension with likely neurovascular bundle involvement. PIRADS 5: Very High Suspicion. EPEgrade 3. Circumferential mucosal thickening of the urinary bladder, which may be related to underdistention, chronic urinary bladder outlet obstruction secondary to enlarged prostate gland, or cystitis. Clinical correlationwith urinary analysis is recommended as clinically indicated. THIS IS AN ELECTRONICALLY VERIFIED FINAL REPORT 12/27/2024 8:16 AM - Electronically signed by Sang Grant D.O. PS T: Report ID: [id number] Reading Location: [place] [address] Satya Vidal MD IMG MRI PROCEDURES Tila l Result * Urinalysis reflex to microscopic and culture Urine (12/21/2024 11:42 AM CUSTOMER SUPPORT ANALYST) Color, ur Yellow Yellow Comment:Testing performed by : [address] [address] Clarity, ur Clear Clear RICHY Comment:Testing performed by : [address] [address] Specific gravity, ur 1.013 1.003 - 1.030 RICHY Comment:Testing performed by : [address] [address] pH, urine 7.0 RICHY Comment: Interpretive Data U rine pH is affected by diet, medications, systemic acid-base disturbances, and renal tubular function. pH may affect urinary stone formation. For example, urine pH below 6.0 may help reduce the tendency for calcium phosphate stones and pH greater than 6.0 may reduce the tendency for uric acid stone formation. Source: [facility] [employer] Current Interpretive Data was last revised on 2017 Testing performed by: [address] [address] Protein, ur ql Negative Negative RICHY Comment:Testing performed by : [address] [address] Glucose, ur ql Negative Negative RICHY Comment:Testing performed by : [address] [address] Ketones, ur Negative Negative RICHY Comment:Testing performed by : [address] [address] Bilirubin, ur Negative Negative RICHY Comment:Testing performed by : [address] [address] Blood, ur Negative Negative RICHY Comment:Testing performed by : [address] [address] Urobilinogen, ur <2.0 <2.0 mg/dL RICHY Comment:Testing performed by : [address] [address] Nitrite, ur Negative Negative RICHY Comment:Testing performed by : [address] [address] Leukocyte esterase, ur Negative Negative RICHY Comment:Testing performed by : [address], [place]., [address] UA reflex comment Reflex conditions for microscopic UA and culture not met. PHIARIELA Comment:Testing performed by : [address] [address] Urine 12/21/2024 11:4 2 AM CUSTOMER SUPPORT ANALYST 12/21/2024 6:12 PM CUSTOMER SUPPORT ANALYST us Satya Vidal MD LAB MICROBIOLOGY - GENE RAL ORDERABLES Final Result RICYH JURADO [address] [facility] Department [place] [address] * IR Biopsy Deep Bone (12/07/2024 9:56 AM CUSTOMER SUPPORT ANALYST) Anatomical Region Laterality Modality Body N/A Computed Tomogra phy 12/07/2024 10:2 0 AM CUSTOMER SUPPORT ANALYST Impressions 12/07/2024 10:23 AM CUSTOMER SUPPORT ANALYST T7 bone biopsy under CT guidance. The core specimens were sent to pathology. Aspirate was sent for microbiology. Dictated by: Dallas Cantu MD The radiology attending physician has personally reviewed this study, and had reviewed and/or edited this written report and agrees with it. Electronically signed by: Sina John MD Narrative 12/07/2024 10:23 AM CUSTOMER SUPPORT ANALYST EXAMINATION: T7 vertebral bone biopsy under CT guidance HISTORY: 66-year-old male with history of prostate cancer and new T7 lesion identified on PSMA PET/CT. ATTENDING PRESENCE: Dr. Sina John MD, the attending radiologist, was present from the beginning to the end of the procedure. SEDATION: Conscious sedation was administered under the attending physician's direction and continuous monitoring by a trained nurse specialist who was independent from those actually performing the procedure. Total monitored sedation time was 30 minutes. During the course of the procedure, the patient received Fentanyl 100 mcg and Versed 2 mg IV. TECHNIQUE: The risks, benefits and alternatives were discussed and informed consent was obtained. Prior to beginning the procedure, [place] Protocol was performed to confirm the patient's identity and the planned procedure. Sterile barriers used during the procedure included cap, mask, hand hygiene, sterile gloves, sterile gown and a sterile drape. Chloraprep was used for cutaneous antisepsis. The patient was placed prone on the procedure table. 5 mL of a 1:1 mixture of 0.25% bupivacaine and 1% lidocaine was injected for subcutaneous and deep anesthesia. 10/12 gauge Arrow OnControl coaxial biopsy device was inserted into the biopsy site and appropriate needle positioning confirmed utilizing CT guidance. 3 bone core specimens of 0.5-1 cm in length were obtained. 10 mL of marrow aspirate was also obtained and sent to microbiology. The needle was removed and the skin was cleansed with hydrogen peroxide. Dermabond was placed at the needle entry site. Complication: None Type: None ESTIMATED BLOOD LOSS: <30mL CONDITION: Stable condition. DISCHARGED TO: Home FINDINGS: Initial images demonstrate subtle lytic lesion in the right aspect of the T7 vertebral body. Subsequent images demonstrate appropriate position of the anesthetic and biopsy needles. Images at the conclusion of the procedure demonstrate expected postbiopsy change without complication. Procedure Note Sina John MD - 12/07/2024 EXAMINATION: T7 vertebral bone biopsy under CT guidance HISTORY: 66-year-old male with history of prostate cancer and new T7 lesion identified on PSMA PET/CT. ATTENDING PRESENCE: Dr. Sina John MD, the attending radiologist, was present from the beginning to the end of the procedure. SEDATION: Conscious sedation was administered under the attending physician's direction and continuous monitoring by a trained nurse specialist who was independent from those actually performing the procedure. Total monitored sedation time was 30 minutes. During the course of the procedure, the patient received Fentanyl 100 mcg and Versed 2 mg IV. TECHNIQUE: The risks, benefits and alternatives were discussed and informed consent was obtained. Prior to beginning the procedure, [place] Protocol was performed to confirm the patient's identity and the planned procedure. Sterile barriers used during the procedure included cap, mask, hand hygiene, sterile gloves, sterile gown and a sterile drape. Chloraprep was used for cutaneous antisepsis. The patient was placed prone on the procedure table. 5 mL of a 1:1 mixture of 0.25% bupivacaine and 1% lidocaine was injected for subcutaneous and deep anesthesia. 10/12 gauge Arrow OnControl coaxial biopsy device was inserted into the biopsy site and appropriate needle positioning confirmed utilizing CT guidance. 3 bone core specimens of 0.5-1 cm in length were obtained. 10 mL of marrow aspirate was also obtained and sent to microbiology. The needle was removed and the skin was cleansed with hydrogen peroxide. Dermabond was placed at the needle entry site. Complication: None Type: None ESTIMATED BLOOD LOSS: <30mL CONDITION: Stable condition. DISCHARGED TO: Home FINDINGS: Initial images demonstrate subtle lytic lesion in the right aspect of the T7 vertebral body. Subsequent images demonstrate appropriate position of the anesthetic and biopsy needles. Images at the conclusion of the procedure demonstrate expected postbiopsy change without complication. IMPRESSION: T7 bone biopsy under [address] guidance. The core specimens were sent to pathology. Aspirate was sent for microbiology. Dictated by: Dallas Cantu MD The radiology attending physician has personally reviewed this study, and had reviewed and/or edited this written report and agrees with it. Electronically signed by: Sina John MD Satya Vidal MD IMG IR PROCEDURES Final Result * (ABNORMAL) Tissue aerobic and anaerobic culture and gram stain Bone Thoracic spine (12/07/2024 9:48AM CUSTOMER SUPPORT ANALYST) Direct Specimen Exam Stain: Abundant polymorphonuclear leukocytes seen. No organisms seen. Report Final Report: Rare Propionibacterium (Cutibacterium) acnes (.) [facility] Organism PROPIONIBACTERIUM (CUTIBACTERIUM) ACNES [facility] Bone (Thoracic spine) 12/07/2024 9:48 AM CUSTOMER SUPPORT ANALYST 12/07/2024 11:46 AM CUSTOMER SUPPORT ANALYST Narrative [facility] - 12/11/2024 10:31 AM CUSTOMER SUPPORT ANALYST T7 bone biopsy Testing performed by [facility] Microbiology Laboratory ([phone]) Specimens submitted from normally sterile body sites will have all bacterial morphotypes identified. Specimens that contain grossly mixed thomas and/or are from body sites that are not normally sterile will be examined for Staphylococcus aureus, Pseudomonas aeruginosa, beta-hemolytic strep, vancomycin-resistant Enterococcus, Bacteroides, Parabacteroides, Clostridium perfringens and fungus. If any of these are isolated, the organism will be reported. Current interpretive data was last revised on 2020. Jaret Sauceda MD LAB MICROBIOLOGY - GENERAL ORDERABLES Final Result Performing Organization Address City/[facility]/ZIP Co de Phone Number [facility] [place] [address] * Mycology (fungal) culture Bone Thoracic spine (12/07/2024 9:48 AM CUSTOMER SUPPORT ANALYST) Report Final Report: No growth of fungus Bone (Thoracic spine) 12/07/2024 9:48 AM CUSTOMER SUPPORT ANALYST 12/07/2024 11:46 AM CUSTOMER SUPPORT ANALYST Narrative [facility] - 01/04/2025 8:29 AM CUSTOMER SUPPORT ANALYST T7 bone biopsy Testing performed by [facility] ([phone]). Satya Vidal MD LAB MICROBIOLOGY - GENE RAL ORDERABLES Final Result Performing Organization Address [facility] Co de Phone Number [facility] [place] [address] * Mycobacteriology (AFB) culture Bone Thoracic spine (12/07/2024 9:48 AM CUSTOMER SUPPORT ANALYST) Report Final Report: No growth of acid-fast bacilli Bone (Thoracic spine) 12/07/2024 9:48 AM CUSTOMER SUPPORT ANALYST 12/07/2024 11:46 AM CUSTOMER SUPPORT ANALYST Narrative [facility] - 02/04/2025 8:08 AM CDT T7 bone biopsy Testing performed by [facility] ([phone]). Satya Vidal MD LAB MICROBIOLOGY - GENE RAL ORDERABLES Final Result Performing Organization Address City/[facility] Co de Phone Number [facility] [place] [address] * Surgical pathology (12/07/2024 9:25 AM CUSTOMER SUPPORT ANALYST) Tissue specimen (specimen) (Bone - Biopsy / Curettings) 12/07/2024 9:25 AM CUSTOMER SUPPORT ANALYST Comment:T7 bone biopsy Narrative PATHOLOGY [facility] - 12/12/2024 10:25 AM CUSTOMER SUPPORT ANALYST EPIC results best viewed via link to PDF [facility] [place] [address] Note to Patients: This report may contain [...] and explain the details. SURGICAL PATHOLOGY REPORT FINAL Patient Name: ARMANDO DALE Gender: M : 1960 (Age: 64) Address: [address] [place], [place] [id number] Hospital #: [id number] Taken:12/07/2024 Received:12/07/2024 Reported: 12/12/2024 Patient Type: [facility] Ancillary Service: Laboratory Location: Physician(s): MD Bon Reyes M.D. Diagnosis: Bone, T7, biopsy - Fragments of bone and bone marrow (see comment) weathers/12/11/2024 08:26 By this signature, I attest that the above diagnosis is based upon my personal examination of the slides(and/or other material indicated in the diagnosis). Judson Lobo M.D. Report Electronically Reviewed and Signed Out By Judson Lobo M.D. 12/12/2024 10:25:57 Microscopic Description and Comment: An immunohistochemical study for keratin AE1/AE3/PCK26 is negative. The findings in this biopsy specimen do not clearly account for a lesion. Clinical and imaging correlation is recommended and if clinical concern persists, additional sampling may be helpful. Cinda Swift M.D., P.h.D. History: The patient is a 64-year-old man presenting for prostate cancer. Operative procedure: T7 bone biopsy. Specimen(s) Received: A: T7 bone biopsy Gross Description: Received in formalin, labeled with the patient s identifiers and T7 bone biopsy and consists of four red core(s) of bone (with attached hemorrhagic material measuring 0.3-0.6 cm in length by 0.2 cm in diameter). Labeled A1 with EDTA decalcification. Jar 0. elsw/12/07/2024 12:57 PA(s): Jeanette Wolfe By this signature, I attest that the above diagnosis is based upon my personal examination of the slides(and/or other material). Addenda/Procedures The performance characteristics of some immunohistochemical stains, fluorescence in-situ hybridization tests and immunophenotyping by flow cytometry cited in this report (if any) were determined by the Surgical Pathology and Flow Cytometry Departments at [facility] as part of an ongoing quality assurance calibrator program and in compliance with federally mandated regulations drawn from the Clinical Laboratory Improvement Act of 1988 (CLIA '88). Some of these tests rely on the use of analyte specific reagents and are subject to specific labeling requirements by the US Food and Drug Administration. Such diagnostic tests may only be performed in a facility that is certified by the Department of Health and Human Services as a high complexity laboratory under CLIA '88. The FDA has determined that such clearance or approval is not necessary. This test is used for clinical purposes. It should not be regarded as investigational or for research. Nevertheless, federal rules concerning the medical use of analyte specific reagents require that the following disclaimer be attached to the report: This test was developed and its performance characteristics determined by the Surgical Pathology and Flow Cytometry Departments of [facility]. It has not been cleared or approved by the U. S. Food and Drug Administration. IMAGES AND SCANNED DOCUMENTS, IF INCLUDED, ONLY VIEWABLE IN PDF VERSION OF REPORT us Satya Vidal MD LAB PATHOLOGY ORDERABLE S Final Result PATHOLOGY [facility] 3rd Floor [place], [place] [phone] * (ABNORMAL) Protime-INR (12/04/2024 10:13 AM CUSTOMER SUPPORT ANALYST) PT 15.4(H) 12.0 - 14.6 sec Comment: Ref Range High Testing performed by: [facility], [address] [place] [address]., [id number] INR 1.2 0.9 - 1.2 RICHY Comment: Ref Range High Interpretive data Oral anticoagulant therapeutic ranges: Venous thromboembolism prophylaxis or treatment: 2.0-3.0 CARDIOLOGY Standard range: 2.0-3.0 High-intensity range: 2.5-3.5 Refer to indication-specific guidelines for appropriate target ranges for prosthetic heart valve replacement. Current interpretive data was last revised on 2019. Testing performed by: [facility], [address] [place] [address], [id number] Blood 12/04/2024 10:1 3 AM CUSTOMER SUPPORT ANALYST 12/04/2024 11:55 AM CUSTOMER SUPPORT ANALYST Satya Vidal MD LAB BLOOD ORDERABLES Fi nal Result Performing Organization Address City/[facility] Co de Phone Number [address] [place] [place] [address] * PSA screen (10/13/2021 11:56 AM CUSTOMER SUPPORT ANALYST) Pathologist [facility], [place] PSA-Total 2.39 <=5.40 ng/mL RICHY Comment: Interpretive Data AGE SEX REFERENCE INTERVAL 0 minutes-150 years Female None 0 minutes-49 years Male None 50-59 years Male 0-3.90 60-69 years Male 0-5.40 70-79 years Male 0-6.20 80-150 years Male 0-6.20 Current interpretive data last revised 2018. Blood 10/13/2021 11:5 6 AM CUSTOMER SUPPORT ANALYST 10/13/2021 12:54 PM CUSTOMER SUPPORT ANALYST Karen Dailey MD LAB BLOOD ORDERABLES Final Resul t [address] [place] [address] * Hepatitis panel, acute (12/18/2015 3:58 PM CUSTOMER SUPPORT ANALYST) HepBsAg NONREACT NONREACTIVE 12/18/2015 6:47 PM CUSTOMER SUPPORT ANALYST [facility] HISTORICAL RESULTS Comment: [employer] ProduceaurXP using KAMERON (chemiluminescent immunoassay) technology. NONREACTIVE: IgM antibodies to Hepatitis B Surface antigen not detected. REACTIVE: IgM antibodies to Hepatitis B Surface antigen detected. Reactive results will be confirmed by neutralization testing. HBsAb (immune status) NONREACT NONREACTIVE 12/18/2015 6:34 PM CUSTOMER SUPPORT ANALYST [facility] HISTORICAL RESULTS Comment: Siemens CentaurXP using KAMERON (chemiluminescent immunoassay) technology. NONREACTIVE: IgM antibodies to Hepatitis B Surface antibody not detected. REACTIVE: IgM antibodies to Hepatitis B Surface antibody detected. Hep B core IgM NONREACT NONREACTIVE 6 7:13 PM CUSTOMER SUPPORT ANALYST [facility] HISTORICAL RESULTS Comment: Siemens CentaurXP using KAMERON (chemiluminescent immunoassay) technology. NONREACTIVE: IgM antibodies to Hepatitis B Core antigen not detected. EQUIVOCAL: IgM antibodies to Hepatitis B Core antigen may or may not be present. Obtain a new specimen and retest. REACTIVE: IgM antibodies to Hepatitis B Core antigen detected. Hep A IgM NONREACT NONREACTIVE 12/18/2015 7:14 PM CUSTOMER SUPPORT ANALYST [facility] HISTORICAL RESULTS Comment: Siemens CentaurXP using KAMERON (chemiluminescent immunoassay) technology. NONREACTIVE: IgM antibodies to Hepatitis A not detected. This does not exclude possibility of exposure to Hepatitis A or early acute infection. EQUIVOCAL:IgM antibodies to Hepatitis A may or may not be present. Suggest recollection and retest. REACTIVE: Antibodies to Hepatitis A detected. Hep C Ab NONREACT NONREACTIVE 12/18/2015 7:12 PM CUSTOMER SUPPORT ANALYST [facility] [facility] HISTORICAL RESULTS Comment: Siemens CentaurXP using KAMERON (chemiluminescent immunoassay) technology. NONREACTIVE: Antibodies to Hepatitis C not detected. This does not exclude early acute Hepatitis C infection, possibility of exposure to Hepatitis C, antibodies below detection limit, or to lack of antibody reactivity to the antigen used in this assay. EQUIVOCAL: Antibodies to Hepatitis C may or may not be present. Sample to be confirmed by real-time PCR method. REACTIVE: Antibodies to Hepatitis C detected. 12/18/2015 3:58 PM CUSTOMER SUPPORT ANALYST 12/18/2015 4:06 PM CUSTOMER SUPPORT ANALYST us Carlos Dailey MD LAB MICROBIOLOGY - GENERAL ORD ERABLES Final Result [facility] HISTORICAL RESULTS from Last 3 Months or Most Recently Relevant to Health Maintenance Insurance MEDICARE [facility] MEDICARE [facility] MEDICARE [employer] Care Teams Crown Perforator Operator Relationship Specialty Start Date End Date Bon Rodriguez MD [address] [place] [address] PCP - General Internal Medicine 10/21/23 Rick Ricci MD [address] [place] [address] Urology 10/08/24
--- OUTSIDE RECORDS SUMMARY | 2025-02-27 13:33 | XMS_ITS | Encounter Summary ---
Author Organization [facility] Address [address] [place] [address] Phone Care Team Providers Care Bookmaker Map Name Role Phone Bon Rodriguez MD Primary Care Provider [phone] Rick Ricci MD Unavailable [phone] Encounter Details Date Type Department Care Team (Latest Contact Info) Description 01/30/2018 Orders Only [facility] CONVERSION Scanning, Provider Social History Tobacco Use Types Packs/Day Years Used Date Smoking Tobacco: Never Sex and Gender Information Value Date Recorded Sex Assigned at Not on file Legal Sex Male 7:15 AM EXPLOSIVE ORDNANCE DISPOSAL SPECIALIST Gender Identity Male 02/20/2021 1:17 PM CDT [...] documented as of this encounter Care Teams Bookmaker Map Relationship Specialty Start Date End Date Bon Rodriguez MD [address] [place] [address] PCP - General Internal Medicine 10/21/23 Rick Ricci MD [address] [place] [address] Urology 10/08/24 documented as of this encounter
--- OUTSIDE RECORDS SUMMARY | 2025-02-27 13:33 | XMS_ITS | Encounter Summary ---
Author Organization [facility] Address [address] [place] [address] Phone Care Team Providers Care Technical Coordinator Name Role Phone Bon Rodriguez MD Primary Care Provider [phone] Rick Ricci MD Unavailable [phone] Encounter Details Date Type Department Care Team (Late st Contact Info) Description 02/21/2025 Results Follow-Up [facility] [address] [facility] Advanced Medicine 6th [place] [address] [place] [address] Meghann Hathaway MD PhD [address] [place], [place] [id number] [phone] Social History Tobacco Use Types Packs/Day Years [...] on file Legal Sex Male 7:15 AM CONTACT CENTER CONSULTANT Gender Identity Male 02/20/2021 1:17 PM CDT Sexual Orientation Straight 06/30/2019 7: 44 AM CDT documented as of this encounter Plan of Treatment Not on file documented as of this encounter Visit Diagnoses Not on filedocumented in this encounter Care Teams Technical Coordinator Relationship Specialty Start Date End Date Bon Rodriguez MD [address] [place] [address] PCP - General Internal Medicine 10/21/23 Rick Ricci MD [address] [place] [address] Urology 10/08/24 documented as of this encounter
--- OUTSIDE RECORDS SUMMARY | 2025-02-27 13:33 | XMS_ITS | Clinical Summary ---
Author Organization [facility] Address [address] [address] Care Team Providers Care Planer Tailer Name Role Phone Bon Rodriguez MD Primary Care Provider [phone] Source Comments [facility],non-owned Affiliates and Associated Physician Practices is amultiple site organization consisting of ambulatory clinics and hospital sitesin [place], [place], [place] and [place]. This disclosure is being madepursuant to the Care Everywhere program and may not contain all information available regarding this patient. Last updated 18.[facility] Allergies Active Allergy Reactions Criticality Noted Date Comments Zolpidem Other 11/01/2024 hallucinations Propoxyphene Unknown,Other Low 02/25/2020 Confusion Rosuvastatin Other 09/28/2024 Reaction: CRAMPS, Medications * Be aware that medications may not be up to date on this document. Alwaysverify current medications with the patient. buPROPion XL 24hr (Wellbutrin-XL ) 150 MG tablet Take 1 (one) tablet by mouth once daily Active aspirin EC (Ecotrin) 325 MG tablet Take 1 (one) tablet by mouth once daily Active clonazePAM (KlonoPIN) 0.5 MG tablet Take 1 (one) tablet by mouth once daily as needed Active cyanocobalamin (Vitamin B-12) injection Inject 1,000 (one thousand) mcg subcutaneously every 30 days 4 Active Repatha SureClick 140 MG/ML auto-injector Inject 140 (one hundred forty) mg subcutaneously every 14 days 4 Active ezetimibe (Zetia) 10 MG tablet Take 1 (one) tablet by mouth once daily 4 Active famotidine (Pepcid) 40 MG tablet Take 1 (one) tablet by mouth 2 times daily Active fluticasone propionate (Flonase) 50 MCG/ACT nasal spray [place] 1 (one) spray into each nostril 2 times daily Active folic acid 800 MCG tablet Take 1 (one) tablet by mouth once daily 4 Active HYDROcodone-ac etaminophen ([place]) 5-325 MG tablet Take 1 (one) tablet by mouth once daily Active lithium carbonate (Eskalith) 300 MG capsule Take 1 (one) capsule by mouth 3 times daily Active metoprolol succinate XL 24hr (Toprol XL) 25 MG tablet Take 1 (one) tablet by mouth once daily 4 Active nitroGLYCERIN (Nitrostat) 0.4 MG tablet Dissolve 1 (one) tablet under the tongue as needed Active Nystop [id number] UNIT/GM powder Apply 1 Units to affected area 2 times daily 4 Active omeprazole (PriLOSEC) 20 MG capsule Take 1 (one) capsule by mouth 2 times daily 4 Active pramipexole (Mirapex) 1 MG tablet Take 1 (one) tablet by mouth at bedtime Active traZODone (Desyrel) 50 MG tablet Take 1 (one) tablet by mouth once daily Active Cholecalcifero l (Vitamin D-3) 25 MCG (1000 UT) Take 1 (one) capsule by mouth once daily Active aspirin EC (Ecotrin) 81 MG tablet Take 1 (one) tablet by mouth once daily Active propranolol (Inderal) 10 MG tablet Take 1 (one) tablet by mouth 2 times daily Active oxyCODONE, immediate release, (Roxicodone) 5 MG tabletIndicati ons:Mass of left side of neck Take 1 (one) tablet by mouth every 6 hours as needed for Pain 8 tablet 4 Active Additional Information Patient not taking.Reported on 11/16/2024 amoxicillin-cl avulanate (Augmentin) 875-125 MG tablet Take 1 (one) tablet by mouth 2 times daily with morning and evening meal 20 tablet 4 Active Active Problems No known active problems Immunizations Immunization Administration Dates Next Due Aleksandar Mcgovern primary monoval ent 12+ yr 0.3mL Purple [...] at Not on file Legal Sex Male 1:44 PM CORE BAKER Gender Identity Not on file Sexual Orientation Not on file Last Filed Vital Signs Vital Sign Reading Time Taken Comments Blood Pressure 124/82 11/16/2024 1:00 PM CORE BAKER Pulse 60 11/16/2024 1:00 PM CORE BAKER Temperature 36.6 C (97.9 F) 11/04/2024 2:27 PM CORE BAKER Respiratory Rate 18 11/04/2024 2:27 PM CORE BAKER Oxygen Saturation 97% 11/04/2024 2:27 PM CORE BAKER Inhaled Oxygen Concentration - - Weight 92.5 kg (204 lb) 11/16/2024 1:00 PM CORE BAKER Height 180.3 cm (5' 11 ) 11/16/2024 1:00 PM CORE BAKER Body Mass Index 28.45 11/16/2024 1:00 PM CORE BAKER Plan of Treatment Health Maintenance Due Date Last Done Comments COLOGUARD (AGES 45-75) - COL ON CA SCREENING 1959 COLON MONITORING 1959 COLONOSCOPY - COLON CA SCREENING 1959 CT COLONOGRAPHY - COLON CA SCREENING 1959 Colorectal Cancer Screening 1959 FIT - COLON CA SCREENING 1959 FLEX SIG - COLON CA SCREENING 1959 LIPID TESTING 1959 MEDICARE AWV 12 MONTHS 1959 HIV SCREENING 1974 HEPATITIS C SCREENING 09/10/1977 PNEUMOCOCCAL VACCINE 50+ (1 of 1 - PCV) 2009 ZOSTER VACCINE (1 of 2) 2009 COVID-19 VACCINE (3 - 2023-2 5 season) 2024 02/17/2021, 01/27/2021 DEPRESSION SCREENING 11/14/2024 INFLUENZA VACCINE (Season Ended) 2025 08/20/2016 SCREENING FOR DIABETES 11/04/2027 11/04/2024 DTAP/TDAP/TD VACCINES [...] complete this topic MENINGOCOCCAL (Group B) VACCINE SHARED DECISION-MAKING Aged Out No longer eligible based on patient's age to complete this topic MENINGOCOCCAL GROUPS A/C/Y/W VACCINE Aged Out No longer eligible b ased on patient's age to complete this topic Procedures Procedure Name Priority Date/Time Associated Diagnosis Comments COMPREHENSIVE METABOLIC PANEL STAT 11/04/2024 11:38 AM CORE BAKER from Last 3 Months or Most Recently Relevant to Health Maintenance Results * (ABNORMAL) COMPREHENSIVE METABOLIC PANEL (11/04/2024 11:38 AM CORE BAKER) BUN 13 7 - 26 mg/dL 11/04/2024 12:17 PM [facility] Creatinine 1.28(H) 0.71 - 1.16 mg/dL 11/04/2024 12:17 PM [facility] Sodium 138 136 - 145 mmol/L 11/04/2024 12:17 PM [facility] Potassium 3.8 3.5 - 4.5 mmol/L 11/04/2024 12:17 PM [facility] Chloride 108(H) 98 - 107 mmol/L 11/04/2024 12:17 PM [facility] CO2 27 22 - 29 mmol/L 11/04/2024 12:17 PM [facility] Glucose 105(H) 70 - 99 mg/dL 11/04/2024 12:17 PM [facility] Calcium 9.7 8.4 - 10.2 mg/dL 11/04/2024 12:17 PM [facility] Protein Total 6.8 6.0 - 8.3 g/dL 11/04/2024 12:17 PM [facility] Albumin 3.8 3.4 - 5.0 g/dL 11/04/2024 12:17 PM [facility] Bilirubin Total 0.5 0.2 - 1.2 mg/dL 11/04/2024 12:17 PM [facility] Alkaline Phosphatase 79 40 - 150 U/L 11/04/2024 12:17 PM [facility] ALT 26 5 - 55 U/L 11/04/2024 12:17 PM [facility] AST 20 5 - 34 U/L 11/04/2024 12:17 PM [facility] Anion Gap 3(L) 6 - 16 11/04/2024 12:17 PM [facility] BUN/Creatinine Ratio 10 7 - 23 11/04/2024 12:17 PM [facility] Osmolality Calculated 286 275 - 295 mOsm/kg 11/04/2024 12:17 PM [facility] Albumin/Globulin Ratio 1.3 1.1 - 2.3 11/04/2024 12:17 PM [facility] eGFR by CKD-EPI 62(L) >=90 mL/min/1.7 3 m2 11/04/2024 12:17 PM [facility] Blood BLOOD SPECIMEN / Unknown Venipuncture / Unknown 11/04/2024 11:38 AM CORE BAKER 11/04/2024 11:52 AM [facility] us Stacey Faria [employer]LECTRON BEAM PHOTO MASK TECHNICIAN-CORRECTIONS SERGEANT LAB - CHEMISTRY ORDER KONG Final Result [facility] [address] [place] [address], [facility] [phone] from Last 3 Months or Most Recently Relevant to Health Maintenance Insurance MEDICARE [facility] MEDICARE Care Teams Planer Tailer Relationship Specialty Start Date End Date Bon Rodriguez MD [address] [place] [address] PCP - General 11/11/22
--- OUTSIDE RECORDS SUMMARY | 2025-02-27 13:33 | XMS_ITS | Clinical Summary ---
Author Organization [facility] Address [facility] [place] [address] Care Team Providers Care Prekindergarten Teacher Name Role Phone Bon Rodriguez MD Primary Care Provider [phone] Allergies Active Allergy Reactions Criticality Noted Date Comments Propoxyphene Other (see comment),Unknown Low 2019 Confusion Rosuvastatin Other (see comment) 09/28/2024 Reaction: CRAMPS, Zolpidem Hallucinations,Other (see comment) Medium 11/01/2024 hallucinations Medications buPROPion XL (WELLBUTRIN XL) 150 MG 24 hr tablet Take 1 tablet (150 mg total) by mouth daily. 07/09/20 24 Active aspirin EC (ECOTRIN) 81 MG tablet Take 1 tablet (81 mg total) by mouth daily. Active Cholecalcifero l (VITAMIN D-3) 25 MCG (1000 UT) Cap Take 1,000 Units by mouth daily. Active cyanocobalamin (B-12) 1000 MCG/ML injection INJECT 1ML INTRAMUSCULARLY ONCE MONTHLY 06/04/20 24 Active clonazePAM (KLONOPIN) 0.5 MG tablet Take 1 tablet (0.5 mg total) by mouth daily as needed. Active REPATHA SURECLICK 140 MG/ML injection (PEN) 1 mL (140 mg total) every 14 (fourteen) days. 02/10/20 24 Active ezetimibe (ZETIA) 10 MG tablet Take 1 tablet (10 mg total) by mouth daily. 09/16/20 24 Active fluticasone propionate (FLONASE) 50 MCG/ACT nasal spray 1 spray by Nasal route 2 (two) times daily. Active lithium 300 MG capsule Take 1 capsule (300 mg total) by mouth. Activ e HYDROcodone-Ac etaminophen 5-300 MG Tab Take by mouth 3 (three) times a day as needed 07/03/20 Active metoprolol succinate ER (TOPROL-XL) 25 MG 24 hr tablet Take 1 tablet (25 mg total) by mouth daily. 08/02/20 24 Active nitroglycerin (NITROSTAT) 0.[address] 1 tablet (0.4 mg total) under the tongue. Active traZODone (DESYREL) 50 MG tablet Take 1 tablet (50 mg total) by mouth daily. Active tamsulosin (FLOMAX) 0.4 MG Cap 0.4 mg the night before the procedure, then 0.4 mg nightly for 9 days. 12/30/19 Active ciprofloxacin (CIPRO) 250 MG tablet 500 mg the night before the procedure then 250 mg twice a day for 4 days 12/30/19 Active Encounters Date Type Department Care Team Description 12/21/2024 10:20 AM BONE DRIER OPERATOR Office Visit [facility] Multispecialty Care - [address], [address] [place] [id number] Antionette Antonio MD Tremors; Memory Loss 12/21/2024 Travel from Last 3 Months Family History Medical History Relation Comments Alzheimer's disease Father Alzheimer's disease Mother Stroke Mother Relation Status Comments Father Mother Social History Tobacco Use Types Packs/Day Years Used Date Smoking Tobacco: Never Smokeless Tobacco: Never Alcohol Use Standard Drinks/Week Comments Not Currently 0 (1 standard drink = 0.6 oz pur e alcohol) Once or twice a year Sex and Gender Information Value Date Recorded Sex Assigned at Not on file Legal Sex Male 8:33 PM CDT Gender Identity Not on file Sexual Orientation Not on file Last Filed Vital Signs Vital Sign Reading Time Taken Comments Blood Pressure 91/58 12/21/2024 10:28 AM BONE DRIER OPERATOR Pulse 58 12/21/2024 10:28 AM BONE DRIER OPERATOR Temperature 36.4 C (97.5 F) 12/21/2024 10:28 AM BONE DRIER OPERATOR Respiratory Rate 16 12/21/2024 10:28 AM BONE DRIER OPERATOR Oxygen Saturation 97% 12/21/2024 10:28 AM BONE DRIER OPERATOR Inhaled Oxygen Concentration - - Weight 93.9 kg (207 lb) 12/21/2024 10:28 AM BONE DRIER OPERATOR Height 180.3 cm (5' 11 ) 12/21/2024 10:28 AM BONE DRIER OPERATOR Body Mass Index 28.87 12/21/2024 10:28 AM BONE DRIER OPERATOR Plan of Treatment Upcoming Encounters Date Type Department Care Team (Late st Contact Info) Description 03/25/2025 11:00 AM CDT Office Visit [facility] Multispec[facility]ty [facility] - [facility] [address], [address] [place] [phone] Antionette Antonio MD [address] [place] [address] Health Maintenance Due Date Last Done Comments Colorectal Cancer Screening Colonoscopy (10 Years) 1959 Hepatitis C 1977 Zoster Vaccines (1 of 2) 2009 COVID-19 Vaccine (3 - 2023-2 5 season) 2024 02/17/2021, 01/27/2021 Pneumococcal Vaccine: 50+ Years (1 of 1 - PCV) 2024 PHQ-2 (Physician [place]) 11/14/2024 DTaP, Tdap and Td Vaccines ( 4 - Td or Tdap) 08/19/2033 08/19/2023, 05/12/2015, 05/12/2015 RSV Immunization or 60+ Years (1 - 1-dose 75+ series) 2034 Meningococcal B Vaccine Aged Out No l onger eligible based on patient's age to complete this topic Meningococcal Vaccine Aged Out No deejay gladis eligible based on patient's age to complete this topic Pneumococcal Vaccine: Pediatrics (0 to 5 Years) and At-Risk Patients (6 to 49 Years) Aged Out No longer eligible b ased on patient's age to complete this topic RSV Immunizations Under 20 Months Aged Out No longer eligible b ased on patient's age to complete this topic Insurance MEDICARE [facility] Care Teams Prekindergarten Teacher Relationship Specialty Start Date End Date Bon Rodriguez MD [address] [place] [address] PCP - General INTERNAL MEDICINE 01/19/23
--- OUTSIDE RECORDS SUMMARY | 2025-02-27 13:33 | XMS_ITS ---
Author Organization [facility] Address [address] [place] [address] Care Team Providers Care Salvage Supervisor Name Role Phone Bon Rodriguez MD Primary Care Provider [phone] Rick Ricci MD Unavailable [phone] Active Problems Problem Noted Date Diagnosed Date Amnesia 02/19/2025 Depression 02/19/2025 Prostate cancer 01/17/2025 Cancer Staging:Clinical:Stage IIC(cT1c, cN0, cM0, PSA: 4.7, Grade Group: 3) - Signed by Satya Vidal MD on 01/17/2025 Diastolic dysfunction 12/25/2021 Assessment & Plan (12/25/2021 10:32 AM DREDGING INSPECTOR): As aforementioned the patient had a transthoracic [...] change. Assessment & Plan (12/25/2021 10:27 AM DREDGING INSPECTOR): Records mention that the patient has hypertension. [...] change. 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 Assessment & Plan (12/25/2021 10:26 AM DREDGING INSPECTOR): Patient's most recent lipid panel is from 10/13/2021 with a total cholesterol 154 and LDL cholesterol 46. This was obtained while the patient was on Praluent. Anxiety 07/04/2016 S/P CABG (coronary artery bypass graft) 07/04/20 16 Overview (12/24/2021): [id number] COLIN to LAD, SVG to OM PDA) . Normal stress February 2020 SC (myocardial infarction) 11/14/2015 Current Treatment and Therapy Plans No current plan information found. Past Treatment and Therapy Plans No past plan information found. Radiation Treatments (No Episode) * Course [id number]/15/2025 - 02/21/2025 Treatment Period Energy Fraction Dose Fractions Total Dose Plans Planned PROSTATE_PELV 01/15/2025 - 02/21/2025 250 28 / 7,000 Reference Points Delivered [id number]_7000 01/15/2025 - 02/21/2025 7,000 Lifetime Dose Tracking * Chemical Lifetime Dose Automatic Entry Manual Entr y Fluoro Time 1.9 minutes 1.9 minutes 0 minutes Air kerma at the reference point (Ka,r) 8.99 mGy 8 .99 mGy 0 mGy Resolved Problems Problem Noted Date Diagnosed Date Resolved Date Paroxysmal A-fib 07/04/2016 02/10/2024
--- OUTSIDE RECORDS SUMMARY | 2025-02-27 13:33 | XMS_ITS | Encounter Summary ---
Author Organization [facility] Address [address] [place] [address] Care Team Providers Care Assistant Laboratory Director Name Role Phone Bon Rodriguez MD Primary Care Provider [phone] Rick Ricci MD Unavailable [phone] Encounter Details Date Type Department Care Team (Late st Contact Info) Description 02/27/2025 Orders Only [facility] Medical Office Building 2 Radiation Oncology [address] [place] [id number] Satya Vidal MD [address] [facility] [address] [place] [address] Social History Tobacco Use Types Packs/Day Years [...] on file Legal Sex Male 7:15 AM UPPER SHAPER Gender Identity Male 02/20/2021 1:17 PM CDT Sexual Orientation Straight 06/30/2019 7: 44 AM CDT documented as of this encounter Ordered Prescriptions Prescription Sig Dispense Quantity Refills Last Filled Start Date End Date mesalamine (ROWASA) 4 gram/60 mL enemaIndications:U lcerative Proctitis Insert 60 mL (4 g total) into the rectum nightly 300 mL 1 02/27/2025 documented in this encounter Plan of Treatment Not on file documented as of this encounter Visit Diagnoses Not on filedocumented in this encounter Care Teams Assistant Laboratory Director Relationship Specialty Start Date End Date Bon Rodriguez MD [address] [place] [address] PCP - General Internal Medicine 10/21/23 Rick Ricci MD [address] [place] [address] Urology 10/08/24 documented as of this encounter
--- OUTSIDE RECORDS SUMMARY | 2025-02-27 13:34 | XMS_ITS | Clinical Summary ---
Author Organization [facility] Address [address] [place] [address] Care Team Providers Care Learning Disabilities Specialist Name Role Phone Bon Rodriguez MD Primary Care Provider [phone] Rick Ricci MD Unavailable [phone] Allergies Active Allergy Reactions Criticality Noted Date [...] 12/25/2021 Assessment & Plan (12/25/2021 10:32 AM GUEST SERVICES ASSOCIATE): As aforementioned the patient had a transthoracic [...] change. Assessment & Plan (12/25/2021 10:27 AM GUEST SERVICES ASSOCIATE): Records mention that the patient has hypertension. [...] change. 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 Assessment & Plan (12/25/2021 10:26 AM GUEST SERVICES ASSOCIATE): Patient's most recent lipid panel is from 10/13/2021 with a total cholesterol 154 and LDL cholesterol 46. This was obtained while the patient was on Praluent. Anxiety 07/04/2016 S/P CABG (coronary artery bypass graft) 07/04/20 16 Overview (12/24/2021): [id number] COLIN to LAD, SVG to OM PDA) . Normal stress February 2020 IA (myocardial infarction) 11/14/2015 Resolved Problems Problem Noted Date Diagnosed Date Resolved Date Paroxysmal A-fib 07/04/2016 02/10/2024 Encounters Date Type Department Care Team Description 02/27/2025 Orders Only [facility] Building 2 Radiation Oncology [address] [place] [address] 32063 Satya Vidal MD 02/25/2025 Documentation [facility] [address] [facility] First Floor [address] [place] [address] Linh Sims RMA 02/22/2025 Orders Only [facility], Provider 02/21/2025 1:30 PM CDT Treatment [facility] 2 Radiation Oncology [address] [place] [address] 16882 Satya Vidal MD 02/21/2025 Results Follow-Up [address] 6th [place] [address] [place] [address] Meghann Hathaway MD PhD 02/21/2025 Completion of Therapy [facility] 2 Radiation Oncology [address] [place] [address] 40333 Satya Vidal MD 02/21/2025 OTV [facility] 2 Radiation Oncology [address] [place] [address] 99904 Satya Vidal MD 02/21/2025 Orders Only RAD ONC TREATMENTS Miscellaneous, Not In File 02/20/2025 1:30 PM CDT Treatment [facility] 2 Radiation Oncology [address] [place] [address] 57082 02/20/2025 Orders Only RAD ONC TREATMENTS Miscellaneous, Not In File 02/19/2025 8:10 PM CDT Lab [facility] [address] [place] [address] Amnesia 02/19/2025 3:00 PM CDT Office Visit [facility] [address] [facility] 6th [place] [address] [place] [id number] Meghann Hathaway MD PhD Memory loss or impairment (Primary Dx); Amnesia; Depression, unspecified depression type 02/19/2025 1:30 PM CDT Treatment [facility] 2 Radiation Oncology [address] [place] [address] 32074 02/19/2025 Orders Only RAD ONC TREATMENTS Miscellaneous, Not In File 02/18/2025 1:30 PM CDT Treatment [facility] 2 Radiation Oncology [address] [place] [address] 64378 02/18/2025 Orders Only RAD ONC TREATMENTS Miscellaneous, Not In File 02/15/2025 1:30 PM CDT Treatment [facility] 2 Radiation Oncology [address] [place] [address] 40963 02/15/2025 Orders Only RAD ONC TREATMENTS Miscellaneous, Not In File 02/14/2025 1:30 PM CDT Treatment [facility] 2 Radiation Oncology [address] [place] [address] 52740 02/14/2025 OTV [facility] 2 Radiation Oncology [address] [place] [address] 59227 Dharmesh Martinez MD 02/14/2025 Orders Only RAD ONC TREATMENTS Miscellaneous, Not In File 02/13/2025 1:30 PM CDT Treatment [facility] 2 Radiation Oncology [address] [place] [address] 47982 02/13/2025 Orders Only RAD ONC TREATMENTS Miscellaneous, Not In File 02/12/2025 1:30 PM CDT Treatment [facility] 2 Radiation Oncology [address] [place] [address] 84369 02/12/2025 Orders Only RAD ONC TREATMENTS Miscellaneous, Not In File 02/11/2025 1:30 PM CDT Treatment [facility] 2 Radiation Oncology [address] [place] [address] 03040 02/11/2025 Orders Only RAD ONC TREATMENTS Miscellaneous, Not In File 02/08/2025 1:30 PM CDT Treatment [facility] 2 Radiation Oncology [address] [place] [address] 82734 02/08/2025 Orders Only RAD ONC TREATMENTS Miscellaneous, Not In File 02/07/2025 1:30 PM CDT Treatment [facility] 2 Radiation Oncology [address] [place] [address] 07100 02/07/2025 OTV [facility] 2 Radiation Oncology [address] [place] [address] 82570 Dharmesh Martinez MD 02/07/2025 Orders Only RAD ONC TREATMENTS Miscellaneous, Not In File 02/06/2025 1:30 PM CDT Treatment [facility] 2 Radiation Oncology [address] [place] [address] 72160 02/06/2025 Orders Only RAD ONC TREATMENTS Miscellaneous, Not In File 02/05/2025 1:30 PM CDT Treatment [facility] 2 Radiation Oncology [address] [place] [address] 28984 02/05/2025 Orders Only RAD ONC TREATMENTS Miscellaneous, Not In File 02/04/2025 1:30 PM CDT Treatment [facility] 2 Radiation Oncology [address] [place] [address] 30703 02/04/2025 Orders Only RAD ONC TREATMENTS Miscellaneous, Not In File 02/01/2025 1:30 PM CDT Treatment [facility] 2 Radiation Oncology [address] [place] [address] 70113 02/01/2025 Orders Only RAD ONC TREATMENTS Miscellaneous, Not In File 01/31/2025 1:30 PM CDT Treatment [facility] 2 Radiation Oncology [address] [place] [address] 30190 01/31/2025 OTV [facility] 2 Radiation Oncology [address] [place] [address] 79985 Satya Vidal MD 01/31/2025 Orders Only RAD ONC TREATMENTS Miscellaneous, Not In File 01/30/2025 1:30 PM CDT Treatment [facility] 2 Radiation Oncology [address] [place] [address] 33625 01/30/2025 Orders Only RAD ONC TREATMENTS Miscellaneous, Not In File 01/29/2025 1:30 PM CDT Treatment [facility] 2 Radiation Oncology [address] [place] [address] 90315 01/29/2025 Orders Only RAD ONC TREATMENTS Miscellaneous, Not In File 01/28/2025 1:30 PM CDT Treatment [facility] 2 Radiation Oncology [address] [place] [address] 46695 01/28/2025 Orders Only RAD ONC TREATMENTS Miscellaneous, Not In File 01/25/2025 1:30 PM CDT Treatment [facility] 2 Radiation Oncology [address] [place] [address] 91576 01/25/2025 Orders Only RAD ONC TREATMENTS Miscellaneous, Not In File 01/24/2025 1:30 PM CDT Treatment [facility] 2 Radiation Oncology [address] [place] [address] 10921 01/24/2025 OTV [facility] 2 Radiation Oncology [address] [place] [address] 86959 Valdez Wyatt MD Prostate cancer (HCC) (Primary Dx) 01/24/2025 Orders Only RAD ONC TREATMENTS Miscellaneous, Not In File 01/23/2025 1:30 PM CDT Treatment [facility] 2 Radiation Oncology [address] [place] [address] 41079 01/23/2025 Orders Only RAD ONC TREATMENTS Miscellaneous, Not In File 01/22/2025 1:30 PM CDT Treatment [facility] 2 Radiation Oncology [address] [place] [address] 80012 01/22/2025 Orders Only RAD ONC TREATMENTS Miscellaneous, Not In File 01/21/2025 1:30 PM CDT Treatment [facility] 2 Radiation Oncology [address] [place] [address] 91069 01/21/2025 Orders Only RAD ONC TREATMENTS Miscellaneous, Not In File 01/18/2025 1:30 PM GUEST SERVICES ASSOCIATE Treatment [facility] 2 Radiation Oncology [address] [place] [address] 30554 01/18/2025 Orders Only RAD ONC TREATMENTS Miscellaneous, Not In File 01/17/2025 1:30 PM GUEST SERVICES ASSOCIATE Treatment [facility] 2 Radiation Oncology [address] [place] [address] 03301 01/17/2025 OTV [facility] 2 Radiation Oncology [address] [place] [address] 36413 Satya Vidal MD 01/17/2025 Orders Only RAD ONC TREATMENTS Miscellaneous, Not In File 01/16/2025 2:00 PM GUEST SERVICES ASSOCIATE Clinical Support [facility] Office Building 2 Radiation Oncology [address] [place] [address] 15185 Obesity (BMI 30-39.9) (Primary Dx); Low vitamin D level 01/16/2025 1:30 PM GUEST SERVICES ASSOCIATE Treatment [facility] 2 Radiation Oncology [address] [place] [address] 35634 01/16/2025 Orders Only RAD ONC TREATMENTS Miscellaneous, Not In File 01/15/2025 1:45 PM GUEST SERVICES ASSOCIATE Treatment [facility] 2 Radiation Oncology [address] [place] [address] 48056 Satya Vidal MD 01/15/2025 1:30 PM GUEST SERVICES ASSOCIATE Treatment [facility] 2 Radiation Oncology [address] [place] [address] 25376 Satya Vidal MD 01/15/2025 1:00 PM GUEST SERVICES ASSOCIATE Clinical Support [facility] 2 Radiation Oncology [address] [place] [address] 30823 Satya Vidal MD 01/15/2025 Orders Only RAD ONC TREATMENTS Miscellaneous, Not In File 01/09/2025 7:25 PM GUEST SERVICES ASSOCIATE Treatment [facility] 2 Radiation Oncology [address] [place] [address] 99913 01/01/2025 9:43 AM GUEST SERVICES ASSOCIATE - 01/01/2025 11:59 PM GUEST SERVICES ASSOCIATE Hospital Encounter [facility] Radiation Oncology [address] [facility] [place] [address] Satya Vidal MD Discharge Disposition: Discharge to home or self care 01/01/2025 8:47 AM GUEST SERVICES ASSOCIATE - 01/01/2025 11:59 PM GUEST SERVICES ASSOCIATE Hospital Encounter [facility] Radiation Oncology [address] [facility] [place] [address] Satya Vidal MD Discharge Disposition: Discharge to home or self care 12/31/2024 6:55 AM GUEST SERVICES ASSOCIATE - 12/31/2024 11:59 PM GUEST SERVICES ASSOCIATE Hospital Encounter [facility] Radiation Oncology [address] [place] [address] Satya Vidal MD Gay, Hiram Alberto, MD Prostate cancer (HCC) Discharge Disposition: Discharge to home or self care 12/31/2024 Orders Only [facility] Radiation Oncology [address] [place] [address] Satya Vidal MD Prostate cancer (HCC) 12/27/2024 [facility] Medical Office Building 2 Radiation Oncology [address] [place] [address] 81918 Satya Vidal MD 12/26/2024 9:25 AM GUEST SERVICES ASSOCIATE - 12/26/2024 11:59 PM GUEST SERVICES ASSOCIATE Hospital Encounter [facility] MRI [address] [place] [address] Prostate cancer (HCC) Discharge Disposition: Discharge to home or self care 12/25/2024 Telephone [facility] 2 Radiation Oncology [address] [place] [address] [place] 12/25/2024 Orders Only [facility] 2 Radiation Oncology [address] [place] [address] Satya Vidal MD Prostate cancer (HCC) (Primary Dx) 12/21/2024 11:25 AM GUEST SERVICES ASSOCIATE Lab [facility] [address] [place] [address] Prostate cancer (HCC) 12/17/2024 Orders Only [facility] Radiation Oncology [address] [facility] [place] [address] Satya Vidal MD Prostate cancer (HCC) (Primary Dx) 12/12/2024 Telephone [facility] Radiation Oncology [address] [facility] [place] [address] Satya Vidal MD 12/11/2024 Telephone [facility] Radiation Oncology [address] [facility] [place] [address] Satya Vidal MD 12/10/2024 Telephone [facility] Radiology [address] [place] [address] Viviane Arias RN 12/07/2024 7:35 AM GUEST SERVICES ASSOCIATE - 12/07/2024 11:59 PM GUEST SERVICES ASSOCIATE Hospital Encounter [facility] Radiology [address] [place] [address] Sina John MD Cabrera Lebron, Jorge Alberto, MD Prostate cancer (HCC) Discharge Disposition: Discharge to home or self care 12/06/2024 Telephone [facility] Radiology [address] [place] [address] Phoebe Moyer RN 12/04/2024 10:05 AM GUEST SERVICES ASSOCIATE Lab [facility] [address] [place] [address] Prostate cancer (HCC); Hemorrhage, not elsewhere classified 11/29/2024 Telephone [facility] Radiology [address] [place] [address] Viviane Arias RN from Last 3 Months Immunizations Immunization Administration Dates Next Due DTaP 05/12/2015 Influenza, Quadrivalent, Split, Intramuscular Tdap 05/12/2015 Surgical History Surgery Date Site/Laterality Comments CORONARY ARTERY BYPASS GRAFT Heart triple by pass SINUS SURGERY US ABDOMEN COMPLETE W LIVER DOPPLER (C) 04/17/2020 Right US ABDOMEN COMPLETE W LIVER DOPPLER (C) 03/12/2021 Right US ABDOMEN COMPLETE W LIVER DOPPLER (C) 03/02/2022 Right CERVICAL FUSION 11/14/1998 - 11/13/1999 Left HERNIA REPAIR FOOT SURGERY 11/14/2017 - 11/13/2018 Bilateral for arthritis BIOPSY DEEP BONE 12/07/2024 N/A MENISCUS SURGERY Right Medical History Medical History Date Comments Gastroesophageal reflux disease GERD Disease of thyroid gland Thyroid disease Paroxysmal A-fib (HCC) 07/04/2016 CAD (coronary artery disease) IA (myocardial infarction) ([facility]) 2015 Essential tremor Overactive bladder Family History [...] on file Legal Sex Male 7:15 AM GUEST SERVICES ASSOCIATE Gender Identity Male 02/20/2021 1:17 PM CDT Sexual Orientation Straight 06/30/2019 7: 44 AM CDT Obstetrics History Last Filed Vital Signs Vital Sign Reading Time Taken Comments Blood Pressure 119/76 02/21/2025 1:45 PM CDT Pulse 75 02/21/2025 1:45 PM CDT Temperature 36.5 C (97.7 F) 12/07/2024 8:12 AM GUEST SERVICES ASSOCIATE Respiratory Rate 16 12/31/2024 8:47 AM GUEST SERVICES ASSOCIATE Oxygen Saturation 99% 02/21/2025 1:45 PM CDT Inhaled Oxygen Concentration - - Weight 95 kg (209 lb 6.4 oz) 02/19/2025 2:45 PM CDT Height 180.3 cm (5' 11 ) 02/19/2025 2:45 PM CDT Body Mass Index 29.21 02/19/2025 2:45 PM CDT Plan of Treatment Health Maintenance Due Date Last Done Comments Colon Cancer Screening-Colonoscopy 1959 Hepatitis B Screening 1977 Pneumococcal vaccine 65+ (1 of 2 - PCV) 1978 Zoster Vaccine (1 of 2) 1978 Covid-19 Vaccine (3 - Pfizer risk series) 03/17/2021 02/17/2021, 01/27/2021 Depression Screening 12/01/2022 12/01/2021 Prostate Cancer Screening-PSA 10/13/2023 10/13/2021, 10/12/2017 Well Visit 65+ 2024 12/01/2021 Influenza Vaccine (Season Ended) 2025 08/20/20 16 Fall Risk Assessment 12/07/2025 12/07/2024, 11/02/20 24 DTaP/Tdap/Td Vaccine (4 - Td or Tdap) 08/19/2033 08/19/2023, 05/12/2015, 05/12/2015 Hepatitis C Screening Completed 12/18/2015 Medical Devices Implanted Type Area Administrative Liaison Device Identifier Shelf Expiration Date Model / [...] ONC ARIA SESSION SUMMARY 01/18/2025 1:42 PM GUEST SERVICES ASSOCIATE RAD ONC ARIA SESSION SUMMARY 01/17/2025 1:40 PM GUEST SERVICES ASSOCIATE RAD ONC ARIA SESSION SUMMARY 01/16/2025 1:48 PM GUEST SERVICES ASSOCIATE RAD ONC ARIA SESSION SUMMARY 01/15/2025 1:58 PM GUEST SERVICES ASSOCIATE MRI PELVIS PROSTATE W WO CONTRAST Schedule Routine, Read Routine (OP Routine) 12/26/2024 10:48 AM GUEST SERVICES ASSOCIATE Prostate cancer (HCC) URINALYSIS AND REFLEX TO MICROSCOPIC AND CULTURE Routine 12/21/2024 11:42 AM GUEST SERVICES ASSOCIATE Prostate cancer (HCC) BIOPSY DEEP BONE Schedule Routine, Read Routine (OP Routine) 12/07/2024 9:56 AM GUEST SERVICES ASSOCIATE Prostate cancer (HCC) TISSUE AEROBIC AND ANAEROBIC CULTURE AND GRAM STAIN Routine 12/07/2024 9:48 AM GUEST SERVICES ASSOCIATE MYCOLOGY (FUNGAL) CULTURE Routine 12/07/2024 9:48 AM GUEST SERVICES ASSOCIATE MYCOBACTERIOLOGY AFB CULTURE Routine 12/07/2024 9:48 AM GUEST SERVICES ASSOCIATE SURGICAL PATHOLOGY Routine 12/07/2024 9: 25 AM GUEST SERVICES ASSOCIATE Prostate cancer (HCC) PROTIME-INR Routine 12/04/2024 10:13 AM GUEST SERVICES ASSOCIATE Prostate cancer (HCC) Hemorrhage, not elsewhere classified PSA SCREEN Routine 10/13/2021 11:56 AM GUEST SERVICES ASSOCIATE HEPATITIS PANEL, ACUTE Routine 6 3:58 PM GUEST SERVICES ASSOCIATE from Last 3 Months or Most Recently [...] ORD ERABLES Final Result Performing Organization Address City/[facility]/ZIP Co de Phone Number LUIS * RAD [...] ORD ERABLES Final Result Performing Organization Address City/[facility]/ZIP Co de Phone Number LUIS * Thyroid Function [place] (02/19/2025 4:50 PM CDT) TSH 1.74 0.30 - 4.20 mcIUnit/mL Blood 02/19/2025 4:50 PM CDT 02/19/2025 5:23 PM CDT us Meghann Hathaway MD PhD LAB BLOOD ORDERABLES F inal Result [facility] Department [place] [address] * Vitamin B12 (02/19/2025 4:50 PM CDT) Vitamin B12 339 230 - 1,250 pg/mL Blood 02/19/2025 4:50 PM CDT 02/19/2025 5:23 PM CDT us Meghann Hathaway MD PhD LAB BLOOD ORDERABLES F inal Result [facility] Department [place] [address] * RAD ONC ARIA SESSION SUMMARY (02/19/2025 1:56 PM CDT) Course Name C1_Prostat e ARIA [...] ORD ERABLES Final Result Performing Organization Address [facility]/[place] Co de Phone Number ARIA * RAD [...] ORD ERABLES Final Result Performing Organization Address City/[facility]/ZIP Co de Phone Number ARIA * RAD ONC ARIA SESSION SUMMARY (02/15/2025 1:48 PM CDT) Course Name C1_Prostat ARIA Course [...] ORD ERABLES Final Result Performing Organization Address City/[facility]/[place] Co de Phone Number ARIA * RAD ONC ARIA SESSION SUMMARY (02/14/2025 2:03 PM CDT) Course Name C1_Prostat ARIA Course [...] LUIS * RAD ONC ARIA SESSION SUMMARY (02/12/2025 2:05 PM CDT) Course Name C1_Prostat e ARIA [...] ORD ERABLES Final Result Performing Organization Address [facility]/[place] Co de Phone Number LUIS * RAD ONC ARIA SESSION SUMMARY (02/11/2025 1:43 PM CDT) Course Name C1_Prostat e ARIA [...] ARIA * RAD ONC ARIA SESSION SUMMARY (02/08/2025 [...] ORD ERABLES Final Result Performing Organization Address City/[facility]/ZIP Co de Phone Number ARIKinza * RAD [...] ARIKinza * RAD ONC ARIA SESSION SUMMARY (02/06/2025 [...] ORD ERABLES Final Result Performing Organization Address [facility]/[place] Co de Phone Number ARIA * RAD ONC ARIA SESSION SUMMARY (02/05/2025 [...] ORD ERABLES Final Result Performing Organization Address [facility]/[place] Co de Phone Number ARIA * RAD ONC ARIA SESSION SUMMARY (02/04/2025 1:48 PM CDT) Course Name C1_Prostat e_2024 ARIA [...] LUIS * RAD ONC ARIA SESSION SUMMARY (02/01/2025 [...] ORD ERABLES Final Result Performing Organization Address [facility] de Phone Number ARIKinza * RAD ONC ARIA SESSION SUMMARY (01/31/2025 1:40 PM CDT) Course Name C1_Prostat e [...] ORD ERABLES Final Result Performing Organization Address [facility]/[place] Co de Phone Number ARIA * RAD ONC ARIA SESSION SUMMARY (01/30/2025 [...] ORD ERABLES Final Result Performing Organization Address City/[facility]/ZIP Co de Phone Number LUIS * RAD ONC ARIA SESSION SUMMARY (01/29/2025 1:41 PM CDT) Course Name C1_Prostat ARIA Course [...] ORD ERABLES Final Result Performing Organization Address [facility]/ZIP Co de Phone Number LUIS * RAD ONC ARIA SESSION SUMMARY (01/25/2025 1:47 PM CDT) Course Name C1_Prostat e [...] ORD ERABLES Final Result Performing Organization Address [facility] de Phone Number ARIA * RAD ONC ARIA SESSION SUMMARY (01/24/2025 1:42 PM CDT) Course Name C1_Prostat e ARIA [...] ARIA * RAD ONC ARIA SESSION SUMMARY (01/23/2025 [...] ORD ERABLES Final Result Performing Organization Address City/[facility]/[place] Co de Phone Number ARIKinza * RAD ONC ARIA SESSION SUMMARY (01/22/2025 1:45 PM CDT) Course Name C1_Prostat ARIA [...] (01/21/2025 1:44 PM CDT) Course Name C1_Prostat e [...] ORD ERABLES Final Result Performing Organization Address [facility]/[place] Co de Phone Number ARIKinza * RAD ONC ARIA SESSION SUMMARY (01/18/2025 1:42 PM GUEST SERVICES ASSOCIATE) Course Name C1_Prostat e_2024 ARIA Course Plan Date 01/01/2025 10:16 AM ARIA Elapsed Days 3 ARIA Treatment Start Date 01/15/2025 ARIA Treatment Site [id number] ARIA Dose Given To Date (cGy) 1,000 ARIA Session Dosage Given (cGy) 250 ARIA Plan ID PROSTATE_P ELV ARIA Fractions Treated 4 ARIA Prescribed Dose Per Fraction (cGy) 250 ARIA Prescribed Total Dose (cGy) 7,000 ARIA 01/18/2025 1:42 PM GUEST SERVICES ASSOCIATE us Not In File Miscellaneous RADIATION ONCOLOGY ORD ERABLES Final Result Performing Organization Address [facility] de Phone Number ARIKinza * RAD ONC ARIA SESSION SUMMARY (01/17/2025 1:40 PM GUEST SERVICES ASSOCIATE) Course Name C1_Prostat e_2024 ARIA Course Plan Date 01/01/2025 10:16 AM ARIA Elapsed Days 2 ARIA Treatment Start Date 01/15/2025 ARIA Treatment Site [id number] ARIA Dose Given To Date (cGy) 750 ARIA Session Dosage Given (cGy) 250 ARIA Plan ID PROSTATE_P ELV ARIA Fractions Treated 3 ARIA Prescribed Dose Per Fraction (cGy) 250 ARIA Prescribed Total Dose (cGy) 7,000 ARIA 01/17/2025 1:40 PM GUEST SERVICES ASSOCIATE us Not In File Miscellaneous RADIATION ONCOLOGY ORD ERABLES Final Result Performing Organization Address [facility]/[place] Co de Phone Number LUIS * RAD ONC ARIA SESSION SUMMARY (01/16/2025 1:48 PM GUEST SERVICES ASSOCIATE) Course Name C1_Prostat e_2024 ARIA Course Plan Date 01/01/2025 10:16 AM ARIA Elapsed Days 1 ARIA Treatment Start Date 01/15/2025 ARIA Treatment Site [id number] ARIA Dose Given To Date (cGy) 500 ARIA Session Dosage Given (cGy) 250 ARIA Plan ID PROSTATE_P ELV ARIA Fractions Treated 2 ARIA Prescribed Dose Per Fraction (cGy) 250 ARIA Prescribed Total Dose (cGy) 7,000 ARIA 01/16/2025 1:48 PM GUEST SERVICES ASSOCIATE us Not In File Miscellaneous RADIATION ONCOLOGY ORD ERABLES Final Result Performing Organization Address [facility] de Phone Number LUIS * RAD ONC ARIA SESSION SUMMARY (01/15/2025 1:58 PM GUEST SERVICES ASSOCIATE) Course Name C1_Prostat e ARIA Course Plan Date 01/01/2025 10:16 AM ARIA Elapsed Days 0 ARIA Treatment Start Date 01/15/2025 ARIA Treatment Site [id number] ARIA Dose Given To Date (cGy) 250 ARIA Session Dosage Given (cGy) 250 ARIA Plan ID PROSTATE_P ELV ARIA Fractions Treated 1 ARIA Prescribed Dose Per Fraction (cGy) 250 ARIA Prescribed Total Dose (cGy) 7,000 ARIA 01/15/2025 1:58 PM GUEST SERVICES ASSOCIATE us Not In File Miscellaneous RADIATION ONCOLOGY ORD ERABLES Final Result Performing Organization Address [facility]/[place] Co de Phone Number LUIS * MRI Pelvis Prostate W WO Contrast (12/26/2024 10:48 AM GUEST SERVICES ASSOCIATE) Anatomical Region Laterality Modality Body N/A Magnetic Resonan ce 12/27/2024 7:53 AM GUEST SERVICES ASSOCIATE Narrative 12/27/2024 8:16 AM GUEST SERVICES ASSOCIATE EXAM DESCRIPTION: MRI PELVIS PROSTATE W WO [...] Sang Grant D.O. PS T: Report ID: [id number] Reading Location: [id number] Procedure Note Sang Grant, DO - 12/27/2024 [...] Sang Grant D.O. PS T: Report ID: [id number] Reading Location: [place] [address] Satya Vidal MD IM MRI PROCEDURES Tila l Result * Urinalysis reflex to microscopic and culture Urine (12/21/2024 11:42 AM GUEST SERVICES ASSOCIATE) Color, ur Yellow Yellow Comment:Testing performed by : [facility], [address] [place] [address]., [id number] Clarity, ur Clear Clear RICHY JURADO Comment:Testing performed by : [address] [address] Specific gravity, ur 1.013 1.003 - 1.030 RICHY Comment:Testing performed by : [facility], [address] [place] [address], [place]., [address] pH, urine 7.0 RICHY Comment: Interpretive Data U rine pH is affected by diet, medications, systemic acid-base disturbances, and renal tubular function. pH may affect urinary stone formation. For example, urine pH below 6.0 may help reduce the tendency for calcium phosphate stones and pH greater than 6.0 may reduce the tendency for uric acid stone formation. Source: [facility] Current Interpretive Data was last revised on 2017 Testing performed by: [facility], [address] [place] [address], [place]., [address] Protein, ur ql Negative Negative RICHY Comment:Testing performed by : [address], [place]., [address] Glucose, ur ql Negative Negative RICHY Comment:Testing performed by : [address], [place]., [address] Ketones, ur Negative Negative RICHY Comment:Testing performed by : [address], [place]., [address] Bilirubin, ur Negative Negative RICHY Comment:Testing performed by : [address], [place]., [address] Blood, ur Negative Negative RICHY Comment:Testing performed by : [address], [place]., [address] Urobilinogen, ur <2.0 <2.0 mg/dL RICHY Comment:Testing performed by : [address] [address] Nitrite, ur Negative Negative RICHY Comment:Testing performed by : [address], [place]., [address] Leukocyte esterase, ur Negative Negative RICHY Comment:Testing performed by : [address] [address] UA reflex comment Reflex conditions for microscopic UA and culture not met. RICHY Comment:Testing performed by : [address], [place]., [address] Urine 12/21/2024 11:4 2 AM GUEST SERVICES ASSOCIATE 12/21/2024 6:12 PM GUEST SERVICES ASSOCIATE us Satya Vidal MD LAB MICROBIOLOGY - GENE RAL ORDERABLES Final Result RICHY [address] [facility] [place] [address] * IR Biopsy Deep Bone (12/07/2024 9:56 AM GUEST SERVICES ASSOCIATE) Anatomical Region Laterality Modality Body N/A Computed Tomogra phy 12/07/2024 10:2 0 AM GUEST SERVICES ASSOCIATE Impressions 12/07/2024 10:23 AM GUEST SERVICES ASSOCIATE T7 bone biopsy under CT guidance. The core specimens were sent to pathology. Aspirate was sent for microbiology. Dictated by: Dallas Cantu MD The radiology attending physician has personally reviewed this study, and had reviewed and/or edited this written report and agrees with it. Electronically signed by: Sina John MD Narrative 12/07/2024 10:23 AM GUEST SERVICES ASSOCIATE EXAMINATION: T7 vertebral bone biopsy under CT [...] was obtained. Prior to beginning the procedure, Liberty Protocol was performed to confirm the patient's [...] for subcutaneous and deep anesthesia. 10/12 gauge [employer] [place] coaxial biopsy device was inserted into the [...] was obtained. Prior to beginning the procedure, Liberty Protocol was performed to confirm the patient's [...] it. Electronically signed by: Sina John MD us Satya Vidal MD IMG IR PROCEDURES Final Result * (ABNORMAL) Tissue aerobic and anaerobic culture and gram stain Bone Thoracic spine (12/07/2024 9:48AM GUEST SERVICES ASSOCIATE) Direct Specimen Exam Stain: Abundant polymorphonuclear leukocytes seen. No organisms seen. Report Final Report: Rare Propionibacterium (Cutibacterium) acnes (.) [facility] Organism PROPIONIBACTERIUM (CUTIBACTERIUM) ACNES [facility] Bone (Thoracic spine) 12/07/2024 9:48 AM GUEST SERVICES ASSOCIATE 12/07/2024 11:46 AM GUEST SERVICES ASSOCIATE Narrative [facility] - 12/11/2024 10:31 AM GUEST SERVICES ASSOCIATE T7 bone biopsy Testing performed by [facility] ([phone]) Specimens submitted from normally sterile body sites [...] interpretive data was last revised on 2020. us Jaret Sauceda MD LAB MICROBIOLOGY - GENERAL ORDERABLES Final Result [facility] Department [place] [address] * Mycology (fungal) culture Bone Thoracic spine (12/07/2024 9:48 AM GUEST SERVICES ASSOCIATE) Report Final Report: No growth of fungus Bone (Thoracic spine) 12/07/2024 9:48 AM GUEST SERVICES ASSOCIATE 12/07/2024 11:46 AM GUEST SERVICES ASSOCIATE Narrative [facility] - 01/04/2025 8:29 AM GUEST SERVICES ASSOCIATE T7 bone biopsy Testing performed by [facility] ([phone]). Satya Vidal MD LAB MICROBIOLOGY - GENE RAL ORDERABLES Final Result Performing Organization Address [facility] de Phone Number [facility] [place] [address] * Mycobacteriology (AFB) culture Bone Thoracic spine (12/07/2024 9:48 AM GUEST SERVICES ASSOCIATE) Report Final Report: No growth of acid-fast bacilli Bone (Thoracic spine) 12/07/2024 9:48 AM GUEST SERVICES ASSOCIATE 12/07/2024 11:46 AM GUEST SERVICES ASSOCIATE Narrative [facility] - 02/04/2025 8:08 AM CDT T7 bone biopsy Testing performed by [facility] ([phone]). Satya Vidal MD LAB MICROBIOLOGY - GENE RAL ORDERABLES Final Result Performing Organization Address [facility] de Phone Number [facility] [place] [address] * Surgical pathology (12/07/2024 9:25 AM GUEST SERVICES ASSOCIATE) Tissue specimen (specimen) (Bone - Biopsy / Curettings) 12/07/2024 9:25 AM GUEST SERVICES ASSOCIATE Comment:T7 bone biopsy Narrative PATHOLOGY [facility] - 12/12/2024 10:25 AM GUEST SERVICES ASSOCIATE EPIC results best viewed via link to PDF [facility] [place] [address] Note to Patients: This report may contain [...] Gender: M : 1960 (Age: 64) Address: [address] [place] [id number] [facility] #: [id number] Taken:12/07/2024 Received:12/07/2024 Reported: 12/12/2024 Patient Type: [facility] Ancillary Service: Laboratory Location: Physician(s): MD Bon Reyes M.D. Diagnosis: Bone, T7, biopsy - Fragments of bone and bone marrow (see comment) sarahy/12/11/2024 08:26 By this signature, I attest that [...] Surgical Pathology and Flow Cytometry Departments at [facility] as part of an ongoing quality control manager program and in compliance with federally [...] Surgical Pathology and Flow Cytometry Departments of [facility]. It has not been cleared or approved by the [place]. S. Food and Drug Administration. IMAGES AND SCANNED DOCUMENTS, IF INCLUDED, ONLY VIEWABLE IN PDF VERSION OF REPORT Satya Vidal MD LAB PATHOLOGY ORDERABLE S Final Result [facility] 3rd Floor [place], [place] [phone] * (ABNORMAL) Protime-INR (12/04/2024 10:13 AM GUEST SERVICES ASSOCIATE) PT 15.4(H) 12.0 - 14.6 sec Comment: Ref Range High Testing performed by: [facility], [address] [place] [address], [place]., [address] INR 1.2 0.9 - 1.2 RICHY JURADO Comment: Ref Range High Interpretive data Oral anticoagulant therapeutic ranges: Venous thromboembolism prophylaxis or treatment: 2.0-3.0 CARDIOLOGY Standard range: 2.0-3.0 High-intensity range: 2.5-3.5 Refer to indication-specific guidelines for appropriate target ranges for prosthetic heart valve replacement. Current interpretive data was last revised on 2019. Testing performed by: [facility], [address] [place] [address], [place]., [address] Blood 12/04/2024 10:1 3 AM GUEST SERVICES ASSOCIATE 12/04/2024 11:55 AM GUEST SERVICES ASSOCIATE Satya Vidal MD LAB BLOOD ORDERABLES Fi nal Result Performing Organization Address [facility] de Phone Number [address] [place] [address] * PSA screen (10/13/2021 11:56 AM GUEST SERVICES ASSOCIATE) PSA-Total 2.39 <=5.40 ng/mL RICHY Comment: Interpretive Data AGE SEX REFERENCE INTERVAL 0 minutes-150 years Female None 0 minutes-49 years Male None 50-59 years Male 0-3.90 60-69 years Male 0-5.40 70-79 years Male 0-6.20 80-150 years Male 0-6.20 Current interpretive data last revised 2018. Blood 10/13/2021 11:5 6 AM GUEST SERVICES ASSOCIATE 10/13/2021 12:54 PM GUEST SERVICES ASSOCIATE Karen Dailey MD LAB BLOOD ORDERABLES Final Resul t Performing Organization Address [facility] de Phone Number [address] [place] [address] * Hepatitis panel, acute (12/18/2015 3:58 PM GUEST SERVICES ASSOCIATE) HepBsAg NONREACT NONREACTIVE 12/18/2015 6:47 PM GUEST SERVICES ASSOCIATE [facility] HISTORICAL RESULTS Comment: [employer] CentaurXP using [employer] (chemiluminescent immunoassay) technology. NONREACTIVE: IgM antibodies to Hepatitis B Surface antigen not detected. REACTIVE: IgM antibodies to Hepatitis B Surface antigen detected. Reactive results will be confirmed by neutralization testing. HBsAb (immune status) NONREACT NONREACTIVE 12/18/2015 6:34 PM GUEST SERVICES ASSOCIATE [facility] [employer] [employer] HISTORICAL RESULTS Comment: Siemens CentaurXP using K[employer]ERON (chemiluminescent immunoassay) technology. NONREACTIVE: IgM antibodies to Hepatitis B Surface antibody not detected. REACTIVE: IgM antibodies to Hepatitis B Surface antibody detected. Hep B core IgM NONREACT NONREACTIVE 7:13 PM GUEST SERVICES ASSOCIATE [facility] HISTORICAL RESULTS Comment: Siemens CentaurXP using [employer]ERON (chemiluminescent immunoassay) technology. NONREACTIVE: IgM antibodies to Hepatitis B Core antigen not detected. EQUIVOCAL: IgM antibodies to Hepatitis B Core antigen may or may not be present. Obtain a new specimen and retest. REACTIVE: IgM antibodies to Hepatitis B Core antigen detected. Hep A IgM NONREACT NONREACTIVE 12/18/2015 7:14 PM GUEST SERVICES ASSOCIATE [facility] HISTORICAL RESULTS Comment: Siemens CentaurXP using [employer] (chemiluminescent immunoassay) technology. NONREACTIVE: IgM antibodies to Hepatitis A not detected. This does not exclude possibility of exposure to Hepatitis A or early acute infection. EQUIVOCAL:IgM antibodies to Hepatitis A may or may not be present. Suggest recollection and retest. REACTIVE: Antibodies to Hepatitis A detected. Hep C Ab NONREACT NONREACTIVE 12/18/2015 7:12 PM GUEST SERVICES ASSOCIATE [facility] HISTORICAL RESULTS Comment: [employer] CentaurXP using [employer]ER[employer] [...] to Hepatitis C detected. 12/18/2015 3:58 PM GUEST SERVICES ASSOCIATE 12/18/2015 4:06 PM GUEST SERVICES ASSOCIATE us Carlos Dailey MD LAB MICROBIOLOGY - GENERAL ORD ERABLES Final Result [facility] HISTORICAL RESULTS from Last 3 Months or Most Recently Relevant to Health Maintenance Insurance MEDICARE [facility] MEDICARE [facility] MEDICARE [employer] [facility] Care Teams Learning Disabilities Specialist Relationship Specialty Start Date End Date Bon Rodriguez MD [address] [place] [address] PCP - General Internal Medicine 10/21/23 Rick Ricci MD [address] [place] [address] Urology 10/08/24
[2025-02-27 14:42] LABS: Basophils Absolute Auto 0.1 K/mm3 (0.0-0.1); Basophils Percent Auto 0.9 % (0.2-1.2); Eosinophils Absolute Auto 0.6 K/mm3 (0-0.3); Eosinophils Percent Auto 8.5 % (0-4.4); Hematocrit 44.3 % (42.0-52.0); Hemoglobin 14.7 g/dL (14.0-18.0); Immature Granulocyte Absolute 0.04 K/mm3 (0.00-0.031); Immature Granulocyte Percent A 0.6 % (0-0.5); Lymphocytes Absolute Auto 0.54 K/mm3 (0.9-3.2); Lymphocytes Percent Auto 8.2 % (18.3-44.2); Mean Corpuscular HGB Conc 33.2 g/dl (32-36); Mean Corpuscular Hemoglobin 31.1 pg (26-34); Mean Corpuscular Volume 93.9 fl (80-100); Mean Platelet Volume 9.2 fl (7.4-10.4); Monocytes Absolute Auto 0.7 K/mm3 (0.1-0.6); Monocytes Percent Auto 10.4 % (2.6-8.5); Neutrophils Absolute Auto 4.7 K/mm3 (1.3-6.7); Neutrophils Percent Auto 71.4 % (45.5-73.1); Platelet Count Result 199 k/mm3 (150-375); Red Blood Count 4.72 M/mm3 (4.6-6.20); Red Cell Distribution Width 13.9 % (11.5-14.5); White Blood Count 6.6 K/mm3 (4.5-10.0)
[2025-02-27 15:12] LABS: INR 1.1; Prothrombin Time 14.8 Seconds (11.1-14.7)
== END 2025-02-27 12:30 | disposition home or self-care (01) ==
PROVIDERS: PCP Internal Medicine; Visit Provider Internal Medicine
DX: G89.29 Other chronic pain (principal); M79.604 Pain in right leg; M79.605 Pain in left leg; Z79.899 Other long term (current) drug therapy; M79.89 Other specified soft tissue disorders; M16.0 Bilateral primary osteoarthritis of hip
CPT/HCPCS: 36415; 73521; 85025; 85610; 93970

== ENCOUNTER 2025-04-10 12:25 | Outpatient (CLI) | payer MEDICARE, OTHER, SELFPAY ==
--- OUTSIDE RECORDS SUMMARY | 2025-04-10 12:31 | XMS_ITS | Data Portability ---
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 Assessment / plan discussed and implemented Encounter scribed by KENJI Erickson. Documentation reviewed and approved by supervising physician briana Not available 10/06/2021 12:10:09 Plan of Treatment Reminders Order Date Submit Date Provider Last Modified By Organization Details Last Modified Time Details Appointments None recorded. Lab None recorded. Referral None recorded. Procedures None recorded. Surgeries None recorded. Imaging electrocard iogram 2020 021 JOSE Not available 1 15:36:07 electrocard iogram 2019 020 JOSE Not available 0 10:24:28 Medication Orders None recorded. Patient TargetsNo targets recorded. Patient Instructions Encounter Date Encounter Id Patient Instructions Last Modified By Organization Details Last Modified Time 01/01/2020 [id number] Exercise advised. Low cholesterol diet advised. Low sodium diet advised. [email or web address] Not available 01/01/2020 12:44:49 Scrbed by Marta [email or web address] Not available 01/01/2020 12:44:37 09/24/2020 [id number] Exercise advised Low cholesterol diet advised Low sodium diet advised [email or web address] Not available 09/24/2020 16:29:41 Scribed by Jessie Franklin [facility] [email or web address] Not available 09/24/2020 16:31:24 12/31/2020 [id number] Exercise advised Low cholesterol diet advised Low sodium diet advised Not available 12/31/2020 10:45:41 Scribed by Jessie Franklin [facility] [email or web address] Not available 12/31/2020 10:45:47 02/26/2021 [id number] Exercise advised Low cholesterol diet advised Low sodium diet advised [email or web address] Not available 02/26/2021 11:13:39 Scribed by Jessie Franklin [facility] [email or web address] Not available 02/26/2021 11:13:41 Reason for Referral None Reported. Results Created Date Observation Date Name Description Value Unit Range Abnormal Flag Note LastModifiedBy Organization Detail LastModifiedTime 01/01/20 20 11/18/2019 elect sayra pandya am No observ ation record ed. [email or web address] Not Available 01/21 09:47:50 02/26/2002/26/2020 chet can cardi olite stres s test (PROC ) No observ ation record ed. [email or web address] Not Available 02/25 13:22:34 02/27/20 20 02/26/2020 chet can cardi olite stres s test (PROC ) No observ ation record ed. [address] , [place], [address], 02/27/2020 14:24:17 03/07/2002/26/2020 [facility] ardio gram No observ ation record ed. [facility] Not Available 2019 12:36:20 09/25/20 20 09/24/2020 jose durantgr am No observ ation record ed. [email or web address] Not Available 2019 10:02:01 01/05/20 21 12/31/2020 elect sayra durantgr am No observ ation record ed. [email or web address] Not Available 01/06 10:03:38 02/24/20 21 02/11/2021 chet can cardi olite stres s test (PROC ) No observ ation record ed. [email or web address] Not Available 02/23 15:45:38 02/26/20 21 02/11/2021 event monit or No observ ation record ed. [email or web address] Not Available 02/25 14:59:40 10/15/20 21 10/06/2021 elect sayra durantgr am No observ ation record ed. [email or web address] Not Available 2020 09:57:56 Result Notes Documentation Provider Name and Address Organization Details Recorded Time Cbc W/ Diff : 06/03/20:WBC 10.3,RBC 5.24,HGB 16.1,HCT 48.1,PLT 285. [facility] 09/26/2020 03:11:55 Cmp, Serum Or Plasma : 06/03/20:Na 139,K 3.9,Cl 105,CO2 26,GLU 98,BUN 16,Cr 1.3,AST 19,ALT 27. Rae zuleta [facility] 09/26/2020 03:11:55 Lipid Panel, Blood : 10/13/21:Na 134,K 3.9,Cl 104,Co2 25,Glu 92,Bun 14,Cr 1.30,Alt 44,Ast 27,Ck 111. 10/13/21:Tc 154,TG 324,HDL 43,LDL 46. Rae zuleta [facility] 03/04/2022 19:13:09 Problems Name Problem SNOMED Code Status Onset Date Resolution Date Notes Provider Name and Address Organization Details Recorded Time History of deep vein thrombosi s 339400138 Active 2020 Not Available [facility] 23:06:57 Diplopia 83880383 Active 2015 Not Available [facility] 23:06:57 Coronary bypass graft finding 139466942 Active 2015 Aortocoron hermila bypass status Not Available [facility] 23:06:57 Hyperlipi demia 91024345 Active 2015 Not Available [facility] 23:06:58 Paroxysma l atrial fibrillat ion 490221546 Active 2015 Not Available [facility] 1 23:06:57 Anxiety 56582487 Active 2015 Not Available [facility] 1 23:06:58 Chronic back pain 805470341 Active 2015 Not Available [facility] 1 23:06:58 Benign essential hypertens ion 9386297 Active 2016 Not Available [facility] 1 23:06:57 Multi vessel coronary artery disease 137684863 Active 2016 Not Available [facility] 1 23:06:57 Hyperthyr oidism 01219536 Active 2016 Not Available [facility] 1 23:06:57 Dyspnea 117986624 Active 2017 Not Available [facility] 1 23:06:57 Obstructi ve sleep apnea syndrome 76352435 Active 2017 Not Available [facility] 1 23:06:58 Edema of lower extremity 731960359 Active 2017 Not Available [facility] 1 23:06:57 Fatigue 58439631 Active 2018 Not Available [facility] 1 23:06:57 Problem Notes None recorded. Procedures Surgical History Date Name Laterality Status Provider Name and Address Organization Details Recorded Time Cabg vein three completed Rae Mendoza [facility] 07/04/2016 15:13:15 Cardiac Catheterization completed Rae Mendoza [facility] 07/04/2016 15:13:29 Hernia Repair completed Mindy Shipley [facility] 07/06/2016 12:21:24 Imaging Results None recorded. Procedure Notes None recorded. Medical Equipment None Reported. Allergies Allergen ID Allergen Name Allergen Category Reaction Reaction Severity Criticality Documentation Date Start Date Code Code System Note Provider Name and Address Organization Details Recorded Time 2080 propoxyph jaleesa medicatio n Not available Not available Not available 07/06/2016 8785 RxNorm Na zuleta [place] [facility] 6 03:56:28 Medications Name Sig Start Date Stop Date Status Note LastModified by Organization Details LastModified Time Prescripti on - Prior Authorizat ion Request 03/27 completed Not Available Not Available Not Available quetiapine 25 mg tablet active pt no longer takes 021 nj Not Available Not Available Not Available cyclobenza lázaro 10 mg tablet 07/03 completed Not Available Not Available Not Available pramipexol e 1 mg tablet TAKE 1 TABLET BY MOUTH EVERYDAY AT BEDTIME active Not Available Not Available No t Available Toprol XL 25 mg tablet,ext ended release Take 1 tablet every day by oral route. 03/29 completed Not Available Not Available Not Available clindamyci n HCl 300 mg capsule 03/27 completed Not Available Not Available Not Available trazodone 50 mg tablet TAKE 1 TABLET BY MOUTH EVERYDAY AT BEDTIME active Not Available Not Available No t Available azithromyc in 250 mg tablet TAKE 2 TABLETS (500 MG) BY ORAL ROUTE ONCE DAILY FOR 1 DAY THEN 1 TABLET (250 MG) BY ORAL ROUTE ONCE DAILY FOR 4 DAYS 01/01 completed Not Available Not Available Not Available miconazole nitrate 2 % topical cream APPLY TO THE AFFECTED AREA(S) BY TOPICAL ROUTE 2 TIMES PER DAY IN THEMORNI NG AND EVENING 07/06 completed Not Available Not Available Not Available amiodarone 200 mg tablet TAKE 1 TABLET BY MOUTH EVERY DAY 03/29 completed Not Available Not Available Not Available clarithrom ycin 500 mg tablet 01/01 completed Not Available Not Available Not Available hydrocodon e 5 mg-acetami nophen 325 mg tablet TAKE 1 TABLET BY MOUTH EVERY DAY active Not Available Not Available No t Available meloxicam 15 mg tablet 01/01 completed Not Available Not Available Not Available sucralfate 1 gram tablet TAKE 1 TABLET BY MOUTH WITH MEALS AND AT BEDTIME DIRECTED active Not Available Not Available No t Available famotidine 40 mg tablet TAKE 1 TABLET BY MOUTH TWICE DAILY active Not Available Not Available No t Available prednisone 20 mg tablet 12/16 completed Not Available Not Available Not Available isosorbide mononitrat e ER 30 mg tablet,ext ended release 24 hr active Not Available Not Available Not Available clonazepam 0.5 mg tablet TAKE 1 TABLET BY MOUTH EVERY DAY NEEDED active Not Available Not Available No t Available simvastati n 10 mg tablet Take 1 tablet every day by oral route at bedtime. 03/27 completed Not Available Not Available Not Available miconazole nitrate 2 % topical powder APPLY TO THE AFFECTED AREA(S) BY TOPICAL ROUTE 2 TIMES PER DAY IN THEMORNI NG AND EVENING 12/16 completed Not Available Not Available Not Available lithium carbonate 150 mg capsule 05/30 completed Not Available Not Available Not Available clopidogre l 75 mg tablet 05/23 completed Not Available Not Available Not Available Vitamin C 500 mg chewable tablet Take 1 tablet every day by oral route. active Not Available Not Available No t Available omeprazole 40 mg capsule,de layed release 09/24 completed Pt not taking 0 Not Available Not Available Not Available tramadol 50 mg tablet TAKE 1 TABLET BY MOUTH EVERY 6 HOURS NEEDED FOR PAIN active pt no longer takes 021 nj Not Available Not Available Not Available amoxicilli n 500 mg tablet 12/22 completed Not Available Not Available Not Available lithium carbonate ER 450 mg tablet,ext ended release Take 1 tablet every day by oral route. 05/30 completed Not Available Not Available Not Available levothyrox ine 25 mcg tablet 02/21 completed Not Available Not Available Not Available Antifungal (miconazol e) 2 % topical cream APPLY TO THE AFFECTED AREA(S) BY TOPICAL ROUTE 2 TIMES PER DAY IN THEMORNI NG AND EVENING active Not Available Not Available No t Available ketorolac 10 mg tablet 03/29 completed Not Available Not Available Not Available oxycodone- acetaminop hen 5 mg-325 mg tablet Take 1 tablet every 4 hours by oral route as needed. 03/29 completed Not Available Not Available Not Available terbinafin e HCl 250 mg tablet TAKE 1 TABLET BY MOUTH EVERY DAY active pt no longer takes 021 nj Not Available Not Available Not Available propranolo l 10 mg tablet TAKE 1 TABLET BY MOUTH TWICE DAILY 12/16 completed Not Available Not Available Not Available temazepam 15 mg capsule Take 1 capsule every day by oral route. 07/03 completed Not Available Not Available Not Available trazodone 100 mg tablet TAKE 1 TABLET BY MOUTH EVERYDAY AT BEDTIME active Not Available Not Available No t Available lithium carbonate 300 mg capsule TAKE 1 CAPSULE BY MOUTH THREE TIMES A DAY active Not Available Not Available No t Available benzonatat e 100 mg capsule 01/01 completed Not Available Not Available Not Available pantoprazo le 40 mg tablet,del ayed release qd 07/03 completed Not Available Not Available Not Available simvastati n 20 mg tablet Take 1 tablet every day by oral route. 12/24 completed Not Available Not Available Not Available nitroglyce rin 0.4 mg sublingual tablet active Not Available Not Available Not Available oxybutynin chloride ER 5 mg tablet,ext ended release 24 hr active Not Available Not Available Not Available gabapentin 300 mg capsule TAKE 1 CAPSULE BY MOUTH THREE TIMES DAILY active pt no longer takes, takes 100 mg qid 021 nj Not Available Not Available Not Available omeprazole 20 mg capsule,de layed release TAKE 1 CAPSULE BY MOUTH EVERY DAY active Not Available Not Available No t Available Enteric Coated Aspirin 325 mg tablet,del ayed release Take 1 tablet every day by oral route. active Not Available Not Available No t Available pravastati n 20 mg tablet qd 03/27 completed Not Available Not Available Not Available lisinopril 5 mg tablet qd 05/23 completed Not Available Not Available Not Available mupirocin 2 % topical ointment 03/27 completed Not Available Not Available Not Available furosemide 20 mg tablet TAKE 1 TABLET BY MOUTH EVERY DAY 05/30 completed Not Available Not Available Not Available gabapentin 100 mg capsule TAKE 1 CAPSULE BY MOUTH THREE TIMES A DAY NEEDED active Not Available Not Available No t Available albuterol 90 mcg/actuat ion aerosol inhaler Inhale 2 puffs by inhalati on route as needed. 03/29 completed qid Not Available Not Available Not Available levofloxac in 500 mg tablet active Not Available Not Available Not Available methylpred nisolone 4 mg tablets in a dose pack 01/01 completed Not Available Not Available Not Available albuterol sulfate HFA 90 mcg/actuat ion aerosol inhaler INHALE 2 PUFFS BY MOUTH EVERY 4 HOURS NEEDED active Not Available Not Available No t Available methimazol e 10 mg tablet 1 tab bid 07/14 completed Not Available Not Available Not Available fluticason e propionate 50 mcg/actuat ion nasal spray,susp ension SPRAY 1 SPRAY INTO EACH NOSTRIL TWICE A DAY active Not Available Not Available No t Available metoclopra mide 10 mg tablet active pt no longer takes 021 nj Not Available Not Available Not Available Fish Oil Concentrat e 1,000 mg capsule Take 1 capsule every day by oral route. active Not Available Not Available No t Available cyclobenza lázaro 5 mg tablet TAKE 1 TABLET EVERY 8 HOURS NEEDED FOR SLEEP AND BACK PAIN active Not Available Not Available No t Available rosuvastat in 5 mg tablet Take 1 tablet every day by oral route. 09/24 completed Pt not taking - 0 Not Available Not Available Not Available rosuvastat in 10 mg tablet Take 1 tablet every day by oral route. 12/16 completed makes pt sick Not Available Not Available Not Available metoprolol tartrate 25 mg tablet TAKE 1/2 TABLET BY MOUTH EVERY DAY active Not Available Not Available No t Available Horizon Nasal Cpap System device at bedtime 03/27 completed Not Available Not Available Not Available eszopiclon e 1 mg tablet TAKE 1 TO 2 TABLETS BY MOUTH AT BEDTIME NEEDED active Not Available Not Available No t Available magnesium active Not Available Not Lala ilable Not Available Tums E-X 2 TAB QHS active pt no longer takes 021 nj Not Available Not Available Not Available zinc active Not Available Not Availa ble Not Available pramipexol e 1 mg 1 tab qd 10/18 completed Not Available Not Available Not Available polyethyle ne glycol 17 gm 1 packet po daily prn 07/03 completed Not Available Not Available Not Available Tapazole 30mg qd 12/16 completed Not Available Not Available Not Available metoprolol succinate 25 mg 0.5 tab qd 03/29 completed Not Available Not Available Not Available Vitamin D3 pt believes he takes 4000 units/da y active Not Available Not Available No t Available clonazepam 0.5 mg po tid 12/22 completed prn 05/30/17 kw Not Available Not Available Not Available Glucosamin e Complex-MS M 1 tab po qd active Not Available Not Available No t Available Xopenex HFA 45 mcg/actuat ion aerosol inhaler 12/16 completed Not Available Not Available Not Available CoQ-10 active Not Available Not Availa ble Not Available fluticason e propionate (bulk) 2 sprays each nare daily 03/29 completed Not Available Not Available Not Available Probiotic 1 tab po bid 01/01 completed Not Available Not Available Not Available Morgan 3-6-9 Fatty Acids 1 cap po bid 03/29 completed Not Available Not Available Not Available Pramipexol e Dihydrochl oride 0.5 mg po daily 03/29 completed Not Available Not Available Not Available melatonin 10 mg capsule Take 1 capsule every day by oral route at bedtime. 12/16 completed states this med doesnt help with sleep. Not Available Not Available Not Available Virtussin AC 10 mg-100 mg/5 mL oral liquid 01/01 completed Not Available Not Available Not Available Praluent Syringe 75 mg/mL subcutaneo us Inject 1 mL every 2 weeks by subcutan eous route. 11/21 completed Not Available Not Available Not Available Praluent Pen 75 mg/mL subcutaneo us pen injector INJECT 75 MG DIRECTED EVERY 2 (TWO) WEEKS active Not Available Not Available No t Available Repatha SureClick 140 mg/mL subcutaneo us pen injector INJECT 1ML SUBCUTAN EOUSLY (UNDER THE SKIN) EVERY 2 WEEKS active Not Available Not Available No t Available Vitals Date Recorded Body height Body mass index (BMI) Body weight Body temperature Respiratory rate Heart rate Oxygen saturation Oxygen saturation in Arterial blood by Pulse oximetry Systolic blood pressure Diastolic blood pressure Provider Name and Address Organization Details Last Updated DateTime 1 180.34 cm 31 kg/m2 306222. 51 g 97.7 [degF] 18 /min 70 /min 98 % 98 % 132 mm[Hg] 82 mm[Hg] JUNIORAlex PEPPER [facility] 1 13:45:26 Date Recorded Body height Body mass index (BMI) Body weight Heart rate Oxygen saturation Oxygen saturation in Arterial blood by Pulse oximetry Systolic blood pressure Diastolic blood pressure Provider Name and Address Organization Details Last Updated DateTime 0 180.34 cm 32.1 kg/m2 969809. 25 g 68 /min 94 % 94 % 118 mm[Hg] 70 mm[Hg] OLYA BOLDEN [place] [facility] 0 12:35:16 Date Recorded Body height Respiratory rate Heart rate Oxygen saturation Oxygen saturation in Arterial blood by Pulse oximetry Body temperature Systolic blood pressure Diastolic blood pressure Provider Name and Address Organization Details Last Updated DateTime 1 180.34 cm 18 /min 62 /min 98 % 98 % 98.6 [degF] 100 mm[Hg] 74 mm[Hg] Bobbi Grant [place] [facility] 1 10:21:02 Date Recorded Body height Body mass index (BMI) Body weight Heart rate Oxygen saturation Oxygen saturation in Arterial blood by Pulse oximetry Body temperature Systolic blood pressure Diastolic blood pressure Provider Name and Address Organization Details Last Updated DateTime 0 180.34 cm 29.6 kg/m2 26506.5 8 g 80 /min 96 % 96 % 97.8 [degF] 120 mm[Hg] 60 mm[Hg] Damon Aquino [facility] 0 16:16:35 Date Recorded Body height Body mass index (BMI) Body weight Oxygen saturation Oxygen saturation in Arterial blood by Pulse oximetry Heart rate Systolic blood pressure Diastolic blood pressure Provider Name and Address Organization Details Last Updated DateTime 1 180.34 cm 31.2 kg/m2 708678. 97 g 94 % 94 % 56 /min 134 mm[Hg] 72 mm[Hg] LESLIE CAMACHORAUDEL [facility] 1 11:46:30 Social History Question Answer Notes LastModified by Guestmob Details LastModified Time Tobacco Smoking Status Never Smoker Mindy zuleta [facility] 07/06/2016 12:19:35 What Is Your Level Of Caffeine Consumption? Moderate Information not available 07/06/2016 How Much Tobacco Do You Chew? None Information not available 07/06/2016 Which Illicit Or Recreational Drugs Have You Used? No Information not available 07/06/2016 Live Alone Or With Others? With Others Information not available 07/06/2016 Marital Status Informatio n not available 07/06/2016 What Was The Date Of Your Most Recent Tobacco Screening? 01/15/2019 Information not available 06/07/2019 How Many Children Do You Have? 3 Information not available 07/06/2016 How Much Tobacco Do You Smoke? No Information not available 12/29/2019 How Many Years Have You Smoked Tobacco? 0 Information not available 05/26/2017 Sex: Unknown Functional Status Question Answer Note LastModified by Guestmob Details LastModified Time What is your level of alcohol consumption? None Information not available 07/06/2016 Do you or have you ever used smokeless tobacco? Never used smokeless tobacco Information not available 12/29/2019 What is your occupation? Disabled Information not available 07/06/2016 Do you or have you ever used e-cigarettes or vape? Never used electronic cigarettes Information not available 12/29/2019 What is your exercise level? None Information not available 07/06/2016 Mental Status None recorded. Family History Nothing Reported. Medical History Condition Response Coronary Artery Disease Y Hyperlipidemia Y Thyroid Disease Y Atrial Fibrillation Y Hypertension Y Past Encounters Encounter ID Performer Location Encounter Start Date Encounter Closed Date Diagnosis/Indication Diagnosis SNOMED-CT Code Diagnosis ICD10 Code Diagnosis Note [id number] Damon Asif MD [place] OFF[facility] [place] [address] 07/06/2016 12:08:05 07/07/2016 13:33:59 Hyperlipidemia 19167128 E78.5 Multi vess el coronary artery disease 385937393 I25.10 s/p [facility]ia [facility] rehab Paroxysmal atrial fibrillation 237475497 I48.0 Now in NSR. On Full dose ASA decrease Amiodarone to 200 mg po qd [id number] Damon Asif MD [place] OFF[facility] [address] [place] [address] 10/18/2016 17:13:09 10/19/2016 09:08:52 Benign essential hypertension 7711448 I10 Multi vess el coronary artery disease 365835655 I25.10 s/p [facility]ia [facility] rehab Paroxysmal atrial fibrillation 280844965 I48.0 Now in NSR. On Full dose ASA decrease Amiodarone to 100 mg po qd then dc Hyperlipidemia 89737253 E78.5 [id number] Judson Mendoza MD [place] OFFICE [address] [place] [address] 03/29/2017 14:51:31 03/30/2017 08:40:22 Benign essential hypertension 9494275 I10 Patient's blood pressure is well-contr olled on present medical therapy. Patient is tolerating , without difficulty , the current medication s. I have not made changes to the current regimen. Patient was advised to eat a low-sodium diet (2 grams sodium or less daily). Multi vess el coronary artery disease 342745786 I25.10 s/p CABGs/p Cardiac rehab Continue ASA and propranolo l. Needs to keep LDL less than 70, and HDL more than 40. Hyperlipidemia 89662568 E78.5 Pt self-disco ntinued statin 2 mo ago due to leg aches. Obtain FLP. Paroxysmal atrial fibrillation 902491202 I48.0 Now in NSR. On Full dose ASA Amiodarone was discontinu ed. Hyperthyroidism 90524229 E05.90 F/u with endocrinol ogist. [id number] Damon Asif MD [place] [facility] [address] [place] [address] 05/30/2017 15:58:25 05/31/2017 09:42:37 Benign essential hypertension 7210330 I10 Multi vess el coronary artery disease 095483021 I25.10 s/p CABG Continue ASA and propranolo l. Needs to keep LDL less than 70, and HDL more than 40. Hyperlipidemia 17597348 E78.5 Pt self-disco ntinued statin 2 mo ago due to leg aches. 04/01/17 LDL 161Will try on Crestor 10 Paroxysmal atrial fibrillation 197345571 I48.0 Now in NSR. On Full dose ASA Amiodarone was discontinu ed. Hyperthyroidism 54742924 E05.90 F/u with endocrinol ogist. Coronary b ypass graft finding 088378259 Z95.1 Coronary arteriosclerosis 02285494 I25.10 [id number] Damon Asif MD [facility] Office [address] [place] [address] 07/14/2017 11:36:44 07/15/2017 11:20:22 Chest pain 75362958 R07.9 Treadmill Myoview Stress test, has high [place] Risk score. Has Known CAD, or CAD risk equivalent . To look for any ischemia. Benign ess ential hypertension 6632357 I10 Multi vess el coronary artery disease 082225773 I25.10 s/p CABG Continue ASA and propranolo l. Needs to keep LDL less than 70, and HDL more than 40. Hyperlipidemia 35220721 E78.5 Needs to keep LDL less than 70, and HDL more than 40Will get fating lipids for follow up 04/01/17 LDL 161Will try on Crestor 10 Paroxysmal atrial fibrillation 093132100 I48.0 Now in NSR. On Full dose ASA Amiodarone was discontinu ed. Hyperthyroidism 39797094 E05.90 F/u with endocrinol ogist. [id number] Damon Asif MD [place] [facility] [place] [address] 12/16/2017 12:04:41 12/16/2017 14:38:33 Dyspnea 788597425 R06.00 Chest pain 46090867 R07. 9 Treadmill Myoview Stress test was negative Benign ess ential hypertension 5396590 I10 Multi vess el coronary artery disease 008745492 I25.10 s/p CABG Continue ASA and propranolo l. Needs to keep LDL less than 70, and HDL more than 40. Hyperlipidemia 39643135 E78.5 Needs to keep LDL less than 70, and HDL more than 40Will get fating lipids for follow up 04/01/17 LDL 161Will try on Crestor 10 Paroxysmal atrial fibrillation 958772068 I48.0 Now in NSR. On Full dose ASA Amiodarone was discontinu ed. Hyperthyroidism 66449202 E05.90 F/u with endocrinol ogist. Weight gain 1492613 R63. 5 Could be due to hypothyroi d or depression [id number] Damon Asif MD [place] OFFICE [facility] [place] [address] 02/21/2018 12:36:07 02/21/2018 16:15:41 Benign essential hypertension 9057356 I10 Well controlled Paroxysmal atrial fibrillation 343378734 I48.0 Now in NSR. On Full dose ASA Amiodarone was discontinu ed. Hyperlipidemia 61806654 E78.5 Needs to keep LDL less than 70, and HDL more than 40Will get fating lipids for follow up 07/20/17 LDL 73On Pravastati n 20 mg Obstructiv e sleep apnea syndrome 35631715 G47.33 Started using a CPAP 3 weeks ago. Edema of l ower extremity 801615895 R60.0 Was at [facility] for leg swelling, improved. Coronary arteriosclerosis in [place] artery 1270581831 107 I25.10 Treadmill Myoview Stress test, has high [place] Risk score. Has Known CAD, or CAD risk equivalent . To look for any ischemia. [id number] Damon Asif MD [place] OFFICE [address] [place] [address] 05/23/2018 14:22:59 05/26/2018 11:14:04 Benign essential hypertension 0616474 I10 Well controlled Paroxysmal atrial fibrillation 957552361 I48.0 Now in NSR. On Full dose ASA Amiodarone was discontinu ed. Hyperlipidemia 48242431 E78.5 Needs to keep LDL less than 70, and HDL more than 40 07/20/17 LDL 73 Unable to tolerate the statins. Will start repatha. Obstructiv e sleep apnea syndrome 40331839 G47.33 Using CPAP machine. Edema of l ower extremity 650679300 R60.0 Was at [facility] for leg swelling, improved. Coronary arteriosclerosis in [place] artery 5659246884 107 I25.10 Had negative stress test on 03/06/18. Multi vess el coronary artery disease 229346513 I25.10 s/p CABG Continue ASA. Plavix discontinu ed. Needs to keep LDL less than 70, and HDL more than 40. Hypotensive episode 6776 3001 I95.9 Will stop lisinopril . Patient is to continue Metoprolol 12.5 mg BID History of deep vein thrombosis 048372281 Z86.718 Patient has pain and swelling to his left upper thigh. History of DVT's. [id number] Damon Asif MD [place] OFF[facility] [address] [place] [address] 12/22/2018 11:31:22 12/22/2018 12:12:27 History of deep vein thrombosis 595107072 Z86.718 Patient has pain and swelling to his left upper thigh. History of DVT's.Cont inue full-dose ASA. Benign ess ential hypertension 9140714 I10 Well controlled Paroxysmal atrial fibrillation 789742998 I48.0 Now in NSR. Continue full-dose ASA. Hyperlipidemia 90716189 E78.5 Needs to keep LDL less than 70, and HDL more than 40 Unable to tolerate the statins. Will start repatha. Not approved yet. Obstructiv e sleep apnea syndrome 70462195 G47.33 Using CPAP machine. Edema of l ower extremity 417836299 R60.0 Improved now. Multi vess el coronary artery disease 339558240 I25.10 s/p CABG Had negative stress test on 03/06/18.Co ntinue ASA. Plavix discontinu ed. still with ARROYO and fatigue. Will arrange for cardiac CTA. He/She has high [place] Risk score. He would benefit from CT to look for any coronary artery disease. Fatigue 69492454 R53.[address] increased his [place] and gabapentin three weeks ago. Could be contributi ng to his symptoms. [id number] Damon Asif MD [facility] Office [address] [place] [address] 01/15/2019 12:19:15 01/15/2019 13:13:00 Multi vessel coronary artery disease 557552894 I25.10 s/p CABG Had negative stress test on 03/06/18.Co ntinue ASA. Plavix discontinu ed. still with ARROYO and fatigue.CT A with Patent 2 grafts Benign ess ential hypertension 3434616 I10 Well controlled Fatigue 53473570 R53.[address] increased his [place] and gabapentin three weeks ago. Could be contributi ng to his symptoms. Paroxysmal atrial fibrillation 476516464 I48.0 Now in NSR. Continue full-dose ASA. History of deep vein thrombosis 850165178 Z86.718 Patient has pain and swelling to his left upper thigh. History of DVT's.Cont inue full-dose ASA. Hyperlipidemia 68677468 E78.5 Needs to keep LDL less than 70, and HDL more than 40 on RepathaNee ds to keep LDL less than 70, and HDL more than 40Will get fating lipids for follow up Edema of l ower extremity 900748442 R60.0 Improved now. Obstructiv e sleep apnea syndrome 80269172 G47.33 Using CPAP machine. [id number] Damon Asif MD [place] OFFICE [address] [place] [address] 03/27/2019 15:45:47 03/27/2019 16:52:27 Multi vessel coronary artery disease 601781956 I25.10 s/p CABG Had negative stress test on 03/06/18.Co ntinue ASA. No longer on Plavix. Still with ARROYO and fatigue.CT A with Patent 2 grafts. Will continue with maximal medical treatment and risk factor modificati on. Benign ess ential hypertension 0444701 I10 Well controlled Fatigue 67543555 R53.[address] increased his [place] and gabapentin three weeks ago. Could be contributi ng to his symptoms. Also with known CAD with only 2 patent grafts. Paroxysmal atrial fibrillation 736359486 I48.0 Now in NSR. Continue full-dose ASA. History of deep vein thrombosis 843374369 Z86.718 Superficia l. Patient has pain and swelling to his left upper thigh. History of DVT's.Cont inue full-dose ASA. Hyperlipidemia 77801292 E78.5 Needs to keep LDL less than 70, and HDL more than 40*Statin intolerant * on Repatha. Tolerating well.03/21: TC 186 ,TG 260, HDL 33 ,LDL 134 Edema of l ower extremity 445347518 R60.0 Improved now. Obstructiv e sleep apnea syndrome 91869596 G47.33 No longer on CPAP. Cannot tolerate. [id number] Damon Asif MD [place] OFF[facility] [address] [place] [address] 07/03/2019 11:51:36 07/03/2019 12:51:41 Multi vessel coronary artery disease 878165673 I25.10 s/p CABG Had negative stress test on 03/06/18.Co ntinue ASA. No longer on Plavix. Still with ARROYO and fatigue.CT A with Patent 2 grafts. Will continue with maximal medical treatment and risk factor modificati on. Benign ess ential hypertension 9693882 I10 Well controlled Fatigue 82022623 R53.[address] increased his [place] and gabapentin three weeks ago. Could be contributi ng to his symptoms. Also with known CAD with only 2 patent grafts. Paroxysmal atrial fibrillation 098115709 I48.0 Now in NSR. Continue full-dose ASA. History of deep vein thrombosis 544520334 Z86.718 Superficia l. Patient has pain and swelling to his left upper thigh. History of DVT's.Cont inue full-dose ASA. Hyperlipidemia 67116542 E78.5 Needs to keep LDL less than 70, and HDL more than 40on Repatha. Tolerating well.LDL now is 64 Edema of l ower extremity 058051445 R60.0 Improved now. Obstructiv e sleep apnea syndrome 19587901 G47.33 No longer on CPAP. Cannot tolerate. [id number] Damon Asif MD [place] OFFICE [address] [place] [address] 01/01/2020 11:15:38 02/03/2020 15:06:52 Multi vessel coronary artery disease 960891669 I25.10 s/p CABG Had negative stress test on 03/06/18.Co ntinue ASA. No longer on Plavix. Still with ARROYO and fatigue.CT A with Patent 2 grafts. Will continue with maximal medical treatment and risk factor modificati on. Benign ess ential hypertension 7832265 I10 Well controlled Fatigue 46720653 R53.[address] increased his [place] and gabapentin three weeks ago. Could be contributi ng to his symptoms. Also with known CAD with only 2 patent grafts. Paroxysmal atrial fibrillation 859980726 I48.0 Now in NSR. Continue full-dose ASA. History of deep vein thrombosis 381742649 Z86.718 Superficia l. Patient has pain and swelling to his left upper thigh. History of DVT's.Cont inue full-dose ASA. Hyperlipidemia 82315876 E78.5 Needs to keep LDL less than 70, and HDL more than 40on Repatha. Tolerating well.LDL now is 64 Edema of l ower extremity 603045428 R60.0 Improved now. Obstructiv e sleep apnea syndrome 77028103 G47.33 No longer on CPAP. Cannot tolerate. [id number] Damon Asif MD [facility] Office [address] [facility] [facility] [place] [address] 09/24/2020 15:25:22 09/24/2020 16:36:14 Multi vessel coronary artery disease 701880458 I25.10 s/p 3V CABG (06/2016) Cardiac CTA 01/01/2019 : Severe coronary artery disease. Patent 2 grafts only (COLIN to LAD, SVG to OM PDA)Contin ue with maximal medical treatment and risk factor modificati on. Benign ess ential hypertension 8247792 I10 Well controlled Fatigue 58135986 R53.83 Improved since restarting CPAP Paroxysmal atrial fibrillation 859533528 I48.0 in NSR 09/24/2020 Remains asymptomat icRate controlled with metoprolol 25mg BIDon full dose ASA History of deep vein thrombosis 247582442 Z86.718 Superficia l; continue full dose ASA Hyperlipidemia 24294814 E78.5 Needs to keep LDL less than 70, and HDL more than 40. 019 LDL 64Continue Praluent injections Will get fasting lipids for follow-up Edema of l ower extremity 034964533 R60.0 Stable, improved.C ontinue leg elevation and low salt diet Obstructiv e sleep apnea syndrome 36475208 G47.33 Compliant with nightly CPAP use Dyspnea on exertion 6084 5006 R06.09 Stable, encouraged more frequent activity. [id number] MD [facility] [place] Office [address] [place] [address] 12/31/2020 13:26:25 12/31/2020 14:50:54 Multi vessel coronary artery disease 074672544 I25.10 s/p 3V CABG (06/2016) Cardiac CTA 01/01/2019 : Severe coronary artery disease. Patent 2 grafts only (COLIN to LAD, SVG to OM PDA)Lexisc an 02/26/2020 : Negative Lexiscan stress testContin ue with maximal medical treatment and risk factor modificati on. Benign ess ential hypertension 9487420 I10 Well controlled on current regimen Fatigue 73655597 R53.83 Improved since restarting CPAP Paroxysmal atrial fibrillation 965204476 I48.0 [id number] Sc score = 2in NSR 12/31/2020 Remains asymptomat icRate controlled with metoprolol 25mg BIDon full dose ASAWill obtain holter monitor to determine AFib burden History of deep vein thrombosis 903449816 Z86.718 Superficia l; continue full dose ASA. Hyperlipidemia 92200073 E78.5 Needs to keep LDL less than 70, and HDL more than 40. 019 LDL 64Continue Praluent injections Will get fasting lipids for follow-up Edema of l ower extremity 099652306 R60.0 Stable, improved.C ontinue leg elevation and low salt diet Obstructiv e sleep apnea syndrome 08287706 G47.33 Compliant with nightly CPAP use Dyspnea on exertion 6084 5006 R06.09 Treadmill Myoview Stress test, has high [place] Risk score. Has Known CAD, or CAD risk equivalent . To look for any ischemia. [id number] Damon Asif MD [facility] Office [address] [place] [address] 02/26/2021 10:14:36 02/26/2021 10:41:16 Multi vessel coronary artery disease 650336574 I25.10 s/p 3V CABG (06/2016) Cardiac CTA 01/01/2019 : Severe coronary artery disease. Patent 2 grafts only (COLIN to LAD, SVG to OM PDA) Lexiscan 02/11/2021 : Adequate Stress with Lexiscan. Positive Lexiscan stress test. Reversible defect consistent wit ischemia in lateral area. Normal LV systolic function. Compared to last study in 2018. There are changes noted. LVEF 56% Continue with maximal medical treatment and risk factor modificati on. Benign ess ential hypertension 4599256 I10 Well controlled on current regimen Fatigue 09417979 R53.83 Improved since restarting CPAP Paroxysmal atrial fibrillation 525647427 I48.0 [id number] Sc score = 2 Remains asymptomat ic Rate controlled with metoprolol 25mg BID on full dose ASA Will obtain holter monitor to determine AFib burden History of deep vein thrombosis 572939194 Z86.718 Superficia l; continue full dose ASA. Hyperlipidemia 23394186 E78.5 Needs to keep LDL less than 70, and HDL more than 40. 019 LDL 64Continue Praluent injections Will get fasting lipids for follow-up Edema of l ower extremity 725092419 R60.0 Stable, improved.C ontinue leg elevation and low salt diet Obstructiv e sleep apnea syndrome 65923071 G47.33 Compliant with nightly CPAP use Dyspnea on exertion 6084 5006 R06.09 Improved Likely multifacto rial with inactivity [id number] Damon Asif MD [place] OFFICE [address] [place] [address] 10/06/2021 11:11:42 10/06/2021 12:24:53 Multi vessel coronary artery disease 354519575 I25.10 s/p 3V CABG (06/2016) Cardiac CTA 01/01/2019 : Severe coronary artery disease. Patent 2 grafts only (COLIN to LAD, SVG to OM PDA) Lexiscan 02/11/2021 : Adequate Stress with Lexiscan. Positive Lexiscan stress test. Reversible defect consistent wit ischemia in lateral area. Normal LV systolic function. Compared to last study in 2018. There are changes noted. LVEF 56% Continue with maximal medical treatment and risk factor modificati on. Needs to increase activity and repeat bloodwork to assess LDL continues on repatha and fish oil no statin Benign ess ential hypertension 9512308 I10 Well controlled on current regimen Fatigue 74259809 R53.83 Improved since restarting CPAP Paroxysmal atrial fibrillation 335032277 I48.0 [id number] Sc score = 2 Remains asymptomat ic Rate controlled with metoprolol 25mg BID on full dose ASA Will obtain holter monitor to determine AFib burden History of deep vein thrombosis 926768670 Z86.718 Superficia l; continue full dose ASA. Hyperlipidemia 86279372 E78.5 Needs to keep LDL less than 70, and HDL more than 40. 019 LDL 64 need FLPContinu e Praluent injections and fish oilWill get fasting lipids soon ANNETTE Edema of l ower extremity 932338234 R60.0 Stable, improved.C ontinue leg elevation and low salt diet Obstructiv e sleep apnea syndrome 92634659 G47.33 Compliant with nightly CPAP use Dyspnea on exertion 6084 5006 R06.09 Moderate to severe ARRO[place]O walking a hill He cannot exercise due to the ARROYO, Activity at this time for exercise is minimal might use eliptical 1-2 x weekly has not done for a month 02/11/21 LEXISCAN Adequate Stress with Lexiscan. Positive Lexiscan stress test. Reversible defect consistent wit ischemia in lateral area. Normal LV systolic function. Compared to last study in 2018. There are changes noted. LVEF 56% 02/26/20 ECHO: The study was technicall y difficult. The left ventricle is normal in size. There is mild concentric left ventricula r hypertroph y. Left ventricula r systolic function is normal. Ejection fraction=5 5-60%. Grade I diastolic dysfunctio n,(abnorma l relaxation pattern). See above 6 month F/U Health Concerns Section Related Observation LastModified by Organization Detai ls LastModified Time None Recorded Concern Status LastModified by Organization Details LastModified Time None Recorded Advance Directives Directive None Recorded Payers Insurance Date Sequence Insurance Name Policy Number Policy Dennis Covered Member ID Dennis Member ID Guarantor Name 04/03/2022 1 [id number] Lacy Madden [id number] Rubens Madden 03/16/2017 1 [place] Roshni Madden [id number] Rubens Madden 04/03/2022 2 [place] Rubens Madden [id number] Rubens Madden Notes Date Note Type Note Provider Name and Address Organization Details Recorded Time 01/01/2020 text/html 01/01/20 CC: Shortness of breath 59 year-old white man with a PMH of coronary artery disease s/p CABG X3 (06/2016), paroxysmal atrial fibrillation, DVTs, hyperlipidemia, hypertension, bipolar, depression is here for follow-up. He was here last 6 months ago. Up 8 lbs. Since then he has been doing fairly well. He is using the treadmill 20 minutes 3 times a week. Patient states that he continues to have SOB. Encouraged to take the metoprolol at bedtime to help with the fatigue. He still reports exertional dyspnea and fatigue. Also reports left sided chest discomfort, worse with anxiety and tender to palpation. Reports having some memory loss that he believes is from is temazepam that was started about 3 months ag. Had cardiac CTA done in 01/01/19 showed SEVERE coronary artery disease with only 3 patent grafts. His psychiatrist increased his [place] and gabapentin but is back taking a lower dose. No chest pain. No SOB at rest. Reports stable dyspnea on exertions. No orthopnea, no PND's. No palpitations. No leg edema. No dizziness. No side effects from current medications. He has been active, building things around the house and working at home. Patient reports fatigue and aches. He has been using his CPAP machine for the last few weeks, but does not feel any improvement in his fatigue. Had Treadmill Nuclear Stress Test 03/06/18 : Negative stress test for ischemia. Normal LV systolic function. Fixed defect consistent with old infarction in inferior area. Exercise tolerance is average LVEF 62%. Had ECHO: 03/20/17 The study was technically difficult. The left ventricle is normal in size. Left ventricle is normal in size. Left ventricular systolic function is normal. Ejection Fraction =55-60%. The left atrium is mildly dilated. There is trace mitral regurgitation. There is trace tricuspid regurgitation. Trace to mild pulmonic valvular regurgitation. Results from this visit, or from the past: lithium, serum 06-28-2019 LITHIUM 0.87 06/28/19: Na 143 , K 4.7 ,CL 108 ,CO2 28 , GLU 105 , BUN 13, CR 1.2, AST 17 ,ALT 28 06/28/19: TC 144 ,TG 186 ,HDL 43 ,LDL 64, 03/21/19: Na 141, K 4.3 ,CL 106 ,CO2 28 , GLU 100 , BUN 17, CR 1.1, AST 22 ,ALT 44, 03/21/19: TC 186 ,TG 260, HDL 33 ,LDL 134, 05/08/2018: SOD 144, K 3.9, CL 109, CO2 26, GL 79, BUN 14, CR 1.2, AST 21, ALT 32 05/08/2018: 9.4, HGB 15.1, HCT 46.3, PLT 251TSH + free T4, serum 07-20-2017 07/20/17: TSH 2.56, T4 1.11 07/20/17:NA 143 ,K 3.8 ,CL 104 ,CO2 27,BUN 15 ,CR 1.2 ,CK 58 , TC 165 ,TG 216 ,HDL 49 ,LDL 73 ,AST 23 ,ALT 36 04/01/17: TSH 0.01, T3 10.32, T4 2.64 03/20/2017; SOD 144, K 3.5, CL 109, CO2, 23, GL 121, BUN 12, CR 0.9 03/20/2017; HGB 13.7, HCT 39.4 EKG, 11/18/19 Sinus Bradycardia. EKG, 03/27/19: Probable old [place]. Flat T waves, anterior leads. mu CT, angiogram, chest, w/wo contrast 01-01-2019 01/01/19 CTA: Severe coronary artery disease. Patent 3 grafts onlytreadmill nuclear stress test (PROC) 03-06-2018 Treadmill Nuclear Stress Test 03/06/18 : Negative stress test for ischemia. Normal LV systolic function. Fixed defect consistent with old infarction in inferior area. Exercisetreadmill nuclear stress test (PROC) 07-28-2017 Treadmill Nuclear Stress Test 07/28/17 : Negative stress test. Normal LV systolic function. Compared to last study in 2014, there are no changes noted. Exercise tolerance is average, LVEF 51%.US, echocardiogram, transthoracic, complete, w/ color flow 03-20-2017 XR, chest 03-19-2017 No acute cardiopulmonary process is identified.ECHO: 03/20/17 The study was techincally difficult. The left ventricle is normal in size. Left ventricle is normal in size. Left ventricular systolic function is normal. Ejection Fraction U S, doppler, venous 02-02-2017 02/02/2017: No evidence of deep vein thrombosis in the right lower extremityXR, chest 03-19-2017 No acute cardiopulmonary process is identified Damon Asif MD [address] [place], [address], [facility] 02/03/2020 15:06:50 09/24/2020 text/html 09/24/2020 CC: Shortness of breath 60 year-old white man with a PMH of coronary artery disease s/p CABG X3 (06/2016), paroxysmal atrial fibrillation, DVTs, hyperlipidemia, hypertension, bipolar, depression is here for follow-up. He was last seen in clinic 9 months ago on 01/01/20. Since then he has been doing fairly well. Admits he is not been exercising as frequently d/t hip pain but walks on his treadmill 2-3x/week. He presents with complaints of progressive dyspnea on exertion. He reports he cannot go short distances without having to stop and catch his breath. He reports his fatigue has significantly improved since restarting CPAP. Reports having some memory loss that he believes is from is temazepam that was started about 3 months ag. Had cardiac CTA done in 01/01/19 showed SEVERE coronary artery disease with only 3 patent grafts. His psychiatrist increased his [place] and gabapentin but is back taking a lower dose. No chest pain. No SOB at rest. Reports stable dyspnea on exertions. No orthopnea, no PND's. No palpitations. No leg edema. No dizziness. No side effects from current medications. He has been active, building things around the house and working at home. Patient reports fatigue and aches. He has been using his CPAP machine for the last few weeks, but does not feel any improvement in his fatigue. Had Treadmill Nuclear Stress Test 03/06/18 : Negative stress test for ischemia. Normal LV systolic function. Fixed defect consistent with old infarction in inferior area. Exercise tolerance is average LVEF 62%. Had ECHO: 03/20/17 The study was technically difficult. The left ventricle is normal in size. Left ventricle is normal in size. Left ventricular systolic function is normal. Ejection Fraction =55-60%. The left atrium is mildly dilated. There is trace mitral regurgitation. There is trace tricuspid regurgitation. Trace to mild pulmonic valvular regurgitation. Results from this visit, or from the past: lithium, serum 06-28-2019 LITHIUM 0.87 06/28/19: Na 143 , K 4.7 ,CL 108 ,CO2 28 , GLU 105 , BUN 13, CR 1.2, AST 17 ,ALT 28 06/28/19: TC 144 ,TG 186 ,HDL 43 ,LDL 64, 03/21/19: Na 141, K 4.3 ,CL 106 ,CO2 28 , GLU 100 , BUN 17, CR 1.1, AST 22 ,ALT 44, 03/21/19: TC 186 ,TG 260, HDL 33 ,LDL 134, 05/08/2018: SOD 144, K 3.9, CL 109, CO2 26, GL 79, BUN 14, CR 1.2, AST 21, ALT 32 05/08/2018: 9.4, HGB 15.1, HCT 46.3, PLT 251TSH + free T4, serum 07-20-2017 07/20/17: TSH 2.56, T4 1.11 07/20/17:NA 143 ,K 3.8 ,CL 104 ,CO2 27,BUN 15 ,CR 1.2 ,CK 58 , TC 165 ,TG 216 ,HDL 49 ,LDL 73 ,AST 23 ,ALT 36 04/01/17: TSH 0.01, T3 10.32, T4 2.64 03/20/2017; SOD 144, K 3.5, CL 109, CO2, 23, GL 121, BUN 12, CR 0.9 03/20/2017; HGB 13.7, HCT 39.4 11/18/2019- Sinus bradycardia,Inferior- posterioc infarct,age undetermind,Abnormal ECG,When compared with ECG of 14-JUN-2019,No EKG, 11/18/19 Sinus Bradycardia. EKG, 03/27/19: Probable old [place]. Flat T waves, anterior leads. mu CT, angiogram, chest, w/wo contrast 01-01-2019 01/01/19 CTA: Severe coronary artery disease. Patent 3 grafts onlytreadmill nuclear stress test (PROC) 03-06-2018 Treadmill Nuclear Stress Test 03/06/18 : Negative stress test for ischemia. Normal LV systolic function. Fixed defect consistent with old infarction in inferior area. Exercisetreadmill nuclear stress test (PROC) 07-28-2017 Treadmill Nuclear Stress Test 07/28/17 : Negative stress test. Normal LV systolic function. Compared to last study in 2014, there are no changes noted. Exercise tolerance is average, LVEF 51%.US, echocardiogram, transthoracic, complete, w/ color flow 03-20-2017 XR, chest 03-19-2017 No acute cardiopulmonary process is identified.ECHO: 03/20/17 The study was techincally difficult. The left ventricle is normal in size. Left ventricle is normal in size. Left ventricular systolic function is normal. Ejection Fraction U S, doppler, venous 02-02-2017 02/02/2017: No evidence of deep vein thrombosis in the right lower extremityXR, chest 03-19-2017 No acute cardiopulmonary process is identified Damon Asif MD [address] [facility], [place], [address], [facility] 09/24/2020 17:49:31 12/31/2020 text/html 12/31/2020 CC: Shortness of breath 60-year-old white man with a PMH of coronary artery disease s/p CABG X3 (06/2016), paroxysmal atrial fibrillation, DVTs, hyperlipidemia, hypertension, bipolar, depression is here for follow-up. He was last seen in clinic 2 months ago on 09/24/2020. Since then he has been feeling well with no complaints. Admits he is not been exercising as frequently d/t hip pain but uses his elliptical 2-3x/week. He previously presented with complaints of progressive dyspnea on exertion. He reported he cannot go short distances without having to stop and catch his breath. He reports he has had progressive worsening dyspnea on exertion. Admits he has had worsening depression over the last few months which has led to inactivity. He reported his fatigue has significantly improved since restarting CPAP. No chest pain. No shortness of breath at rest. No dyspnea on exertion. No orthopnea. No PND's. No dizziness. No palpitation. No syncope or near syncope. No leg swelling. No nausea and vomiting. No side effects from medications. Had cardiac CTA done in 01/01/19 showed SEVERE coronary artery disease with only 3 patent grafts. His psychiatrist increased his [place] and gabapentin but is back taking a lower dose. Had Treadmill Nuclear Stress Test 03/06/18 : Negative stress test for ischemia. Normal LV systolic function. Fixed defect consistent with old infarction in inferior area. Exercise tolerance is average LVEF 62%. Had ECHO: 03/20/17 The study was technically difficult. The left ventricle is normal in size. Left ventricle is normal in size. Left ventricular systolic function is normal. Ejection Fraction =55-60%. The left atrium is mildly dilated. There is trace mitral regurgitation. There is trace tricuspid regurgitation. Trace to mild pulmonic valvular regurgitation. Results from this visit, or from the past: lithium, serum 06-28-2019 LITHIUM 0.87 06/28/19: Na 143 , K 4.7 ,CL 108 ,CO2 28 , GLU 105 , BUN 13, CR 1.2, AST 17 ,ALT 28 06/28/19: TC 144 ,TG 186 ,HDL 43 ,LDL 64, 03/21/19: Na 141, K 4.3 ,CL 106 ,CO2 28 , GLU 100 , BUN 17, CR 1.1, AST 22 ,ALT 44, 03/21/19: TC 186 ,TG 260, HDL 33 ,LDL 134, 05/08/2018: SOD 144, K 3.9, CL 109, CO2 26, GL 79, BUN 14, CR 1.2, AST 21, ALT 32 05/08/2018: 9.4, HGB 15.1, HCT 46.3, PLT 251 TSH + free T4, serum 07-20-2017 07/20/17: TSH 2.56, T4 1.11 07/20/17:NA 143 ,K 3.8 ,CL 104 ,CO2 27,BUN 15 ,CR 1.2 ,CK 58 , TC 165 ,TG 216 ,HDL 49 ,LDL 73 ,AST 23 ,ALT 36 04/01/17: TSH 0.01, T3 10.32, T4 2.64 03/20/2017; SOD 144, K 3.5, CL 109, CO2, 23, GL 121, BUN 12, CR 0.9 03/20/2017; HGB 13.7, HCT 39.4 11/18/2019- Sinus bradycardia,Inferior- posterioc infarct,age undetermind,Abnormal ECG,When compared with ECG of 14-JUN-2019,No EKG, 11/18/19 Sinus Bradycardia. EKG, 03/27/19: Probable old [place]. Flat T waves, anterior leads. mu 01/01/19 CTA: Severe coronary artery disease. Patent 3 grafts only Treadmill Nuclear Stress Test 03/06/18 : Negative stress test for ischemia. Normal LV systolic function. Fixed defect consistent with old infarction in inferior area. Exercise Treadmill Nuclear Stress Test 07/28/17 : Negative stress test. Normal LV systolic function. Compared to last study in 2014, there are no changes noted. Exercise tolerance is average, LVEF 51%. US, echocardiogram, transthoracic, complete, w/ color flow 03-20-2017 XR, chest 03-19-2017 No acute cardiopulmonary process is identified. ECHO: 03/20/17 The study was techincally difficult. The left ventricle is normal in size. Left ventricle is normal in size. Left ventricular systolic function is normal. Ejection Fraction US, doppler, venous 02-02-2017 02/02/2017: No evidence of deep vein thrombosis in the right lower extremity XR, chest 03-19-2017 No acute cardiopulmonary process is identified Damon Asif MD [address] [place], [address], [place] - [facility] 12/31/2020 14:48:24 02/26/2021 text/html 02/26/2021 CC: Shortness of breath 60-year-old white man with a PMH of coronary artery disease s/p CABG X3 (06/2016), paroxysmal atrial fibrillation, DVTs, hyperlipidemia, hypertension, bipolar, depression is here for follow-up. He was last seen in clinic 2 months ago on 12/31/2020. He since underwent Lexiscan stress test which revealed: *Had positive stress test done in 02/11/21 with ischemia in lateral area. Normal LV systolic function. Compared to last study in 2018. There are changes noted. LVEF 56%. He reports his dyspnea on exertion is better than last visit. However, he remains very inactive. He has chronic back pain which has significantly limited his activity. He is in a wheelchair today d/t his inability to walk into the office 2/2 pain. No chest pain. No shortness of breath at rest. No orthopnea. No PND No dizziness. No palpitation. No syncope or near syncope. No leg swelling. No nausea and vomiting. No side effects from medications. He reported his fatigue has significantly improved since restarting CPAP. *Had unremarkable Holter done in 02/11/21 Had cardiac CTA done in 01/01/19 showed SEVERE coronary artery disease with only 3 patent grafts. His psychiatrist increased his [place] and gabapentin but is back taking a lower dose. Had Treadmill Nuclear Stress Test 03/06/18 : Negative stress test for ischemia. Normal LV systolic function. Fixed defect consistent with old infarction in inferior area. Exercise tolerance is average LVEF 62%. Had ECHO: 03/20/17 The study was technically difficult. The left ventricle is normal in size. Left ventricle is normal in size. Left ventricular systolic function is normal. Ejection Fraction =55-60%. The left atrium is mildly dilated. There is trace mitral regurgitation. There is trace tricuspid regurgitation. Trace to mild pulmonic valvular regurgitation. Results from this visit, or from the past: *11/19/2020: Na 138,K 4.2,Cl 105,,Co2 27,Glucose 107,BUN 16,Creati 1.3,Ca 9.9,AST 27,ALT 42,Alkaline phosphatase 85011/19/2020: WBC 9.7,RBC 5.22,HGB 15.9,HCT 47.6,PLT 279 lithium, serum 06-28-2019 LITHIUM 0.87 06/28/19: Na 143 , K 4.7 ,CL 108 ,CO2 28 , GLU 105 , BUN 13, CR 1.2, AST 17 ,ALT 28 06/28/19: TC 144 ,TG 186 ,HDL 43 ,LDL 64, 03/21/19: Na 141, K 4.3 ,CL 106 ,CO2 28 , GLU 100 , BUN 17, CR 1.1, AST 22 ,ALT 44, 03/21/19: TC 186 ,TG 260, HDL 33 ,LDL 134, 05/08/2018: SOD 144, K 3.9, CL 109, CO2 26, GL 79, BUN 14, CR 1.2, AST 21, ALT 32 05/08/2018: 9.4, HGB 15.1, HCT 46.3, PLT 251 TSH + free T4, serum 07-20-2017 07/20/17: TSH 2.56, T4 1.11 07/20/17:NA 143 ,K 3.8 ,CL 104 ,CO2 27,BUN 15 ,CR 1.2 ,CK 58 , TC 165 ,TG 216 ,HDL 49 ,LDL 73 ,AST 23 ,ALT 36 04/01/17: TSH 0.01, T3 10.32, T4 2.64 03/20/2017; SOD 144, K 3.5, CL 109, CO2, 23, GL 121, BUN 12, CR 0.9 03/20/2017; HGB 13.7, HCT 39.4 12/31/2020 : EKG ; Probably old inferior myocardial infarction EKG 09/24/20: Inferior myocardial infarction, age undetermined. Flat T waves, anterior leads11/18/2019- Sinus bradycardia,Inferior- posterioc infarct,age undetermind,Abnormal ECG,When compared with ECG of 14-JUN-2019,No EKG, 11/18/19 Sinus Bradycardia. EKG, 03/27/19: Probable old [place]. Flat T waves, anterior leads. mu 02/11/21 3 DAY EVENT MONITOR Unremarkable holter No Atrial Fibrillation. 02/11/21 LEXISCAN Adequate Stress with Lexiscan. Positive Lexiscan stress test. Reversible defect consistent wit ischemia in lateral area. Normal LV systolic function. Compared to last study in 2017. There are changes noted. LVEF 56% 01/01/19 CTA: Severe coronary artery disease. Patent 3 grafts only Treadmill Nuclear Stress Test 03/06/18 : Negative stress test for ischemia. Normal LV systolic function. Fixed defect consistent with old infarction in inferior area. Exercise Treadmill Nuclear Stress Test 07/28/17 : Negative stress test. Normal LV systolic function. Compared to last study in 2014, there are no changes noted. Exercise tolerance is average, LVEF 51%. US, echocardiogram, transthoracic, complete, w/ color flow 03-20-2017 XR, chest 03-19-2017 No acute cardiopulmonary process is identified. 02/26/20 ECHO: The study was technically difficult. The left ventricle is normal in size. There is mild concentric left ventricular hypertrophy. Left ventricular systolic function is normal. Ejection fraction=55-60%. Grade I diastolic dysfunction,(abnormal relaxation pattern). ECHO: 03/20/17 The study was techincally difficult. The left ventricle is normal in size. Left ventricle is normal in size. Left ventricular systolic function is normal. Ejection Fraction US, doppler, venous 02-02-2017 02/02/2017: No evidence of deep vein thrombosis in the right lower extremity XR, chest 03-19-2017 No acute cardiopulmonary process is identified Damon Asif MD [address] [place], [address], [facility] 02/26/2021 11:13:52 10/06/2021 text/html 10/06/21 CC : ARROYO 61-year-old white man with a PMH of coronary artery disease s/p CABG X3 (06/2016), paroxysmal atrial fibrillation, DVTs, hyperlipidemia, hypertension, bipolar, and depression is here for follow-up. He was last seen in the clinic on 02/26/21 , since then he has had moderate ARROYO. Last hunting trip 1 week ago had a lot of difficulty walking up the hills. This has been going on for several mo Associated with anxiety, no palpitations. near syncope. The following week walked very slowly and was less SOB no chest pain but the ARROYO was moderate to severe. Had CTA in 2019 with patent grafts x 2 and the 3rd graft obstructed. Not exercising at all. He denies ER visits and hospitalizations since he was last seen. Today reports:Denies chest pain.Denies shortness of breath at rest. Yes Mod dyspnea on exertion.No orthopnea. No PNDs.Denies heart palpitations.Denies dizziness. Yes near syncopeNo ankle or leg edema.No major bleeding events.No reported side effects from medications. Taking medications as prescribed with no missed doses.Denies snoring, daytime somnolence and AM headache. *Last LDL was 64 done on 06/27/19 .Pt dose not takes any statins. Previously :*Had positive stress test done in 02/11/21 with ischemia in lateral area. Normal LV systolic function. Compared to last study in 2018. There are changes noted. LVEF 56%. He reported his fatigue has significantly improved since restarting CPAP. *Had unremarkable Holter done in 02/11/21 *Had cardiac CTA done in 01/01/19 showed SEVERE coronary artery disease with only 2 patent grafts. His psychiatrist increased his [place] and gabapentin but is back taking a lower dose. *Had Treadmill Nuclear Stress Test 03/06/18 : Negative stress test for ischemia. Normal LV systolic function. Fixed defect consistent with old infarction in inferior area. Exercise tolerance is average LVEF 62%. *Had ECHO: 03/20/17 The study was technically difficult. The left ventricle is normal in size. Left ventricle is normal in size. Left ventricular systolic function is normal. Ejection Fraction =55-60%. The left atrium is mildly dilated. There is trace mitral regurgitation. There is trace tricuspid regurgitation. Trace to mild pulmonic valvular regurgitation.Results from this visit, or from the past: *11/19/2020: Na 138,K 4.2,Cl 105,,Co2 27,Glucose 107,BUN 16,Creati 1.3,Ca 9.9,AST 27,ALT 42,Alkaline phosphatase 85011/19/2020: WBC 9.7,RBC 5.22,HGB 15.9,HCT 47.6,PLT 279 lithium, serum 06-28-2019 LITHIUM 0.87 06/28/19: Na 143 , K 4.7 ,CL 108 ,CO2 28 , GLU 105 , BUN 13, CR 1.2, AST 17 ,ALT 28 06/28/19: TC 144 ,TG 186 ,HDL 43 ,LDL 64, 03/21/19: Na 141, K 4.3 ,CL 106 ,CO2 28 , GLU 100 , BUN 17, CR 1.1, AST 22 ,ALT 44, 03/21/19: TC 186 ,TG 260, HDL 33 ,LDL 134, 05/08/2018: SOD 144, K 3.9, CL 109, CO2 26, GL 79, BUN 14, CR 1.2, AST 21, ALT 32 05/08/2018: 9.4, HGB 15.1, HCT 46.3, PLT 251 TSH + free T4, serum 07-20-2017 07/20/17: TSH 2.56, T4 1.11 07/20/17:NA 143 ,K 3.8 ,CL 104 ,CO2 27,BUN 15 ,CR 1.2 ,CK 58 , TC 165 ,TG 216 ,HDL 49 ,LDL 73 ,AST 23 ,ALT 36 04/01/17: TSH 0.01, T3 10.32, T4 2.64 03/20/2017; SOD 144, K 3.5, CL 109, CO2, 23, GL 121, BUN 12, CR 0.9 03/20/2017; HGB 13.7, HCT 39.4 12/31/2020 : EKG ; Probably old inferior myocardial infarction EKG 09/24/20: Inferior myocardial infarction, age undetermined. Flat T waves, anterior leads11/18/2019- Sinus bradycardia,Inferior- posterioc infarct,age undetermind,Abnormal ECG,When compared with ECG of 14-JUN-2019,No EKG, 11/18/19 Sinus Bradycardia. EKG, 03/27/19: Probable old [place]. Flat T waves, anterior leads. mu 02/11/21 3 DAY EVENT MONITOR Unremarkable holter No Atrial Fibrillation. 02/11/21 LEXISCAN Adequate Stress with Lexiscan. Positive Lexiscan stress test. Reversible defect consistent wit ischemia in lateral area. Normal LV systolic function. Compared to last study in 2017. There are changes noted. LVEF 56% 01/01/19 CTA: Severe coronary artery disease. Patent 3 grafts only Treadmill Nuclear Stress Test 03/06/18 : Negative stress test for ischemia. Normal LV systolic function. Fixed defect consistent with old infarction in inferior area. Exercise Treadmill Nuclear Stress Test 07/28/17 : Negative stress test. Normal LV systolic function. Compared to last study in 2014, there are no changes noted. Exercise tolerance is average, LVEF 51%. US, echocardiogram, transthoracic, complete, w/ color flow 03-20-2017 XR, chest 03-19-2017 : No acute cardiopulmonary process is identified. 02/26/20 ECHO: The study was technically difficult. The left ventricle is normal in size. There is mild concentric left ventricular hypertrophy. Left ventricular systolic function is normal. Ejection fraction=55-60%. Grade I diastolic dysfunction,(abnormal relaxation pattern). ECHO: 03/20/17 The study was techincally difficult. The left ventricle is normal in size. Left ventricle is normal in size. Left ventricular systolic function is normal. Ejection Fraction US, doppler, venous 02-02-2017 : No evidence of deep vein thrombosis in the right lower extremity XR, chest 03-19-2017 No acute cardiopulmonary process is identified Damon Asif MD [address] [place], [address], [place] - [facility] 11/17/2021 22:04:27
--- OUTSIDE RECORDS SUMMARY | 2025-04-10 12:31 | XMS_ITS | Clinical Summary ---
Author Organization [facility] Address [address] [place] [address] Care Team Providers Care House Builder Name Role Phone Bon Rodriguez MD Primary Care Provider [phone] Source Comments [facility],non-owned Affiliates and Associated Physician Practices is amultiple site organization consisting of ambulatory clinics and hospital sitesin [place], [place], [place] and [place]. This disclosure is being madepursuant to the Care Everywhere program and may not contain all information available regarding this patient. Last updated 18.[facility] Allergies Active Allergy Reactions Criticality Noted Date [...] fluticasone propionate (Flonase) 50 MCG/ACT nasal spray [place] 1 (one) spray into each nostril 2 times daily Active folic acid 800 MCG tablet Take 1 (one) tablet by mouth once daily 4 Active HYDROcodone-ac etaminophen (Lapine) 5-325 MG tablet Take 1 (one) tablet by mouth once daily Active lithium carbonate (Eskalith) 300 MG capsule Take 1 (one) capsule by mouth 3 times daily Active metoprolol succinate XL 24hr (Toprol XL) 25 MG tablet Take 1 (one) tablet by mouth once daily 4 Active nitroGLYCERIN (Nitrostat) 0.4 MG tablet Dissolve 1 (one) tablet under the tongue as needed Active Nystop 940620 UNIT/GM powder Apply 1 Units to affected [...] on file Legal Sex Male 1:44 PM 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 ASSOCIATE Gender Identity Not on file Sexual Orientation Not on file Last Filed Vital Signs Vital Sign Reading Time Taken Comments Blood Pressure 124/82 11/16/2024 1:00 PM BRANCH ASSOCIATE Pulse 60 11/16/2024 1:00 PM BRANCH ASSOCIATE Temperature 36.6 C (97.9 F) 11/04/2024 2:27 PM BRANCH ASSOCIATE Respiratory Rate 18 11/04/2024 2:27 PM BRANCH ASSOCIATE Oxygen Saturation 97% 11/04/2024 2:27 PM BRANCH ASSOCIATE Inhaled Oxygen Concentration - - Weight 92.5 kg (204 lb) 11/16/2024 1:00 PM BRANCH ASSOCIATE Height 180.3 cm (5' 11) 11/16/2024 1:00 PM BRANCH ASSOCIATE Body Mass Index 28.45 11/16/2024 1:00 PM BRANCH ASSOCIATE Plan of Treatment Health Maintenance Due Date [...] COMPREHENSIVE METABOLIC PANEL STAT 11/04/2024 11:38 AM BRANCH ASSOCIATE from Last 3 Months or Most Recently Relevant to Health Maintenance Results * (ABNORMAL) COMPREHENSIVE METABOLIC PANEL (11/04/2024 11:38 AM BRANCH ASSOCIATE) BUN 13 7 - 26 mg/dL 11/04/2024 12:17 PM [facility] Creatinine 1.28(H) 0.71 - 1.16 mg/dL 11/04/2024 12:17 PM [facility] Sodium 138 136 - 145 mmol/L 11/04/2024 12:17 PM [facility] Potassium 3.8 3.5 - 4.5 mmol/L 11/04/2024 12:17 PM [facility] Chloride 108(H) 98 - 107 mmol/L 11/04/2024 [...] Unknown Venipuncture / Unknown 11/04/2024 11:38 AM BRANCH ASSOCIATE 11/04/2024 11:52 AM [facility] us Stacey Faria [facility] - CHEMISTRY ORDER KONG Final Result [facility] [address] [place] [address], [facility] [phone] from Last 3 Months or Most Recently Relevant to Health Maintenance Insurance MEDICARE [facility] MEDICARE Care Teams House Builder Relationship Specialty Start Date End Date Bon Rodriguez MD [address] [place] [address] PCP - General 11/11/22
[2025-04-10 13:06] LABS: Basophils Percent Auto 0.5 % (0.2-1.2); Eosinophils Absolute Auto 0.2 K/mm3 (0-0.3); Eosinophils Percent Auto 3.4 % (0-4.4); Hematocrit 42.7 % (42.0-52.0); Immature Granulocyte Absolute 0.02 K/mm3 (0.00-0.031); Immature Granulocyte Percent A 0.3 % (0-0.5); Lymphocytes Absolute Auto 1.13 K/mm3 (0.9-3.2); Lymphocytes Percent Auto 18.3 % (18.3-44.2); Mean Corpuscular HGB Conc 32.8 g/dl (32-36); Mean Corpuscular Hemoglobin 31.7 pg (26-34); Mean Corpuscular Volume 96.6 fl (80-100); Mean Platelet Volume 9.7 fl (7.4-10.4); Monocytes Absolute Auto 0.5 K/mm3 (0.1-0.6); Monocytes Percent Auto 7.3 % (2.6-8.5); Neutrophils Absolute Auto 4.3 K/mm3 (1.3-6.7); Neutrophils Percent Auto 70.2 % (45.5-73.1); Platelet Count Result 213 k/mm3 (150-375); Red Blood Count 4.42 M/mm3 (4.6-6.20); Red Cell Distribution Width 13.5 % (11.5-14.5); White Blood Count 6.2 K/mm3 (4.5-10.0)
[2025-04-10 13:15] LABS: Hemoglobin A1C 4.8 % (<5.7)
[2025-04-10 13:32] LABS: LDL Cholesterol Direct 68 mg/dL
[2025-04-10 13:33] LABS: Alanine Aminotransferase 37 U/L (6-50); Albumin Level 4.2 g/dL (3.5-5.1); Alkaline Phosphatase 71 U/L (38-126); Anion Gap 7 mmol/L (4-12); Aspartate Amino Transferase 33 U/L (17-59); Bilirubin,Total 0.6 mg/dL (0.2-1.3); Blood Urea Nitrogen 13 mg/dL (9-20); Calcium 9.6 mg/dL (8.4-10.2); Carbon Dioxide 26 mmol/L (22-30); Chloride 109 mmol/L (98-107); Cholesterol 153 mg/dL (0-200); Estimated Glomerular Filt Rate 37; Glucose 98 mg/dL (65-110); HDL Direct 37 mg/dL; Potassium 3.8 mmol/L (3.4-5.0); Sodium 142 mmol/L (137-145); Triglycerides 281 mg/dL (<150)
[2025-04-10 13:37] LABS: Free T4 Free Thyroxine 0.91 ng/dL (0.78-2.19)
== END 2025-04-10 12:26 | disposition home or self-care (01) ==
PROVIDERS: PCP Internal Medicine; Visit Provider Internal Medicine
DX: E88.819 Insulin resistance, unspecified (principal); Z79.899 Other long term (current) drug therapy; Z13.29 Encounter for screening for other suspected endocrine disorder; E78.5 Hyperlipidemia, unspecified
CPT/HCPCS: 36415; 80053; 80061; 83036; 84439; 84443; 85025

== ENCOUNTER 2025-05-24 11:00 | Outpatient (RCR) | payer MEDICARE, OTHER, SELFPAY ==
--- NOTE | 2025-04-26 12:26 | OPREHPOC ---
Outpatient Therapy Plan of Care This is a Multidisciplinary Plan of Care that may contain components documented by all disciplines (PT, OT, and ST.) PT Problem 1 PT Problem #1 Knowledge Deficit PT Goal 1 Goal / Goal Update Patient to demonstrate independence with home exercise program for improved self-reliance of symptom management Target Visit 10 PT Problem 2 PT Problem #2 Pain PT Goal 1 Goal / Goal Update 1. Patient to decrease subjective reports of pain to <3/10 for improved ADL tolerance. PT Problem 3 PT Problem #3 Impaired Flexibility PT Goal 1 Goal / Goal Update 1. Patient will demonstrate an increase in hamstring flexibility, in the 90/90 position from to within -20? of full extension to allow for reduced strain during gait. 2. Pt will report a decrease in leg cramps preventing him from sleeping through the night. Target Visit 10 PT Problem 4 PT Problem #4 Impaired Functional Mobility PT Goal 1 Goal / Goal Update 1. Pt will increase 2 MWT distance to 500 ft to show improvements in functional mobility. 2. Patient to perform 5xSTS from < 13 sec to demonstrate an increase in B LE functional strength. Target Visit 10
--- NOTE | 2025-04-26 12:26 | PTOPEVAL1 ---
Assessment and note entered by Severiano Bruce PT Evaluation Information Assessment Status Evaluation Diagnosis LE weakness and chronic low back / LE pain ICD-10 Condition Codes (PT) Pain in low back M54.50,Difficulty Walking R26.2, Weakness R53.1 Onset chronic Subjective Information Pt states he feels he has generalized weakness and unsteadiness following radiation treatment for prostrate cancer. Pt is currently walking with straight cane and notes he needs it because of pain and weakness in his legs. Pt states he has not fallen recently but has had many close calls. Pt reports difficulty sleeping due to pain and cramps in legs Reported Pain Level Pain Score 2,4: Self Report Assessment PT Clinical Summary Patient presents to physical therapy with a primary issue of back and leg pain along with LE weakness and decreased balance since ending radiation treatment for prostrate cancer.. Patient demonstrates LE weakness, pain, decreased mobility, abnormal posture, gait deficit, and decreased flexibility that limit their ability to perform activities of daily living and functional movements. Patient will benefit from skilled physical therapy to address the above listed deficits and return to prior level of function. Home exercise program instructed and written handout provided, exercises tolerated well with no adverse effects to note post-session. Patient was also educated on anatomy, prognosis, home modalities, and plan of care. Plan of Care Interventions Gait Training,Hot Pack/Cold Pack,Manual Therapy, Mechanical Traction,Neuro Re-education,Patient/ Caregiver Education,Therapeutic Activities, Therapeutic Exercise,Self-Care/Home Management, Other PT Services Indicated Yes Treatment Frequency and 2x week 10 visits Duration These treatments will address the objective and functional deficits as defined above. The patient will be advanced safely and appropriately in order for the patient to progress towards his/her prior level of function. Additional exercises will be introduced and as well as a comprehensive home exercise program upon discharge, if needed, ?to ensure carryover of functional gains achieved in the clinic. This treatment plan has been reviewed and agreement upon by the patient.
--- NOTE | 2025-05-13 11:45 | PCPTNOTE ---
Pt called and canceled treatment session, stating he was feeling sick this morning.
--- NOTE | 2025-07-26 13:06 | PTOPEVAL1 ---
Assessment and note entered by Severiano Bruce, PT Evaluation Information Assessment Status Discharge - Pt Not Present Diagnosis LE weakness and chronic low back / LE pain ICD-10 Condition Codes (PT) Pain in low back M54.50,Difficulty Walking R26.2, Weakness R53.1 Onset chronic Subjective Information Pt was called to schedule future appointments, pt has not called back. Assessment PT Clinical Summary Pt is to be discharged from therapy at this time due to inactivity and no appointments scheduled. Plan of Care Interventions Gait Training,Hot Pack/Cold Pack,Manual Therapy, Mechanical Traction,Neuro Re-education,Patient/ Caregiver Education,Therapeutic Activities, Therapeutic Exercise,Self-Care/Home Management, Other PT Services Indicated No Treatment Frequency and 2x week 10 visits Duration These treatments will address the objective and functional deficits as defined above. The patient will be advanced safely and appropriately in order for the patient to progress towards his/her prior level of function. Additional exercises will be introduced and as well as a comprehensive home exercise program upon discharge, if needed, ?to ensure carryover of functional gains achieved in the clinic. This treatment plan has been reviewed and agreement upon by the patient.
== END 2025-07-25 23:59 | disposition home or self-care (01) ==
LOC: ANHGOSHPT 11:00
PROVIDERS: PCP Internal Medicine; Visit Provider Internal Medicine
DX: M25.551 Pain in right hip (principal); R53.1 Weakness; M41.9 Scoliosis, unspecified; M54.9 Dorsalgia, unspecified; G89.29 Other chronic pain
CPT/HCPCS: 97110; 97112; 97140; 97161; 97530

== ENCOUNTER 2025-07-08 16:04 | Outpatient (CLI) | payer MEDICARE, OTHER, SELFPAY ==
--- OUTSIDE RECORDS SUMMARY | 2025-07-08 16:16 | XMS_ITS | Clinical Summary ---
Author Organization [facility] Address [facility] [place] [address] Care Team Providers Care Permastone Mechanic Name Role Phone Bon Rodriguez MD Primary Care Provider [phone] Allergies Active Allergy Reactions Criticality Noted Date [...] a day for 4 days 12/30/19 Active Family History Medical History Relation Comments Alzheimer's [...] Comments Blood Pressure 91/58 12/21/2024 10:28 AM INSPECTOR REPAIRER Pulse 58 12/21/2024 10:28 AM INSPECTOR REPAIRER Temperature 36.4 C (97.5 F) 12/21/2024 10:28 AM INSPECTOR REPAIRER Respiratory Rate 16 12/21/2024 10:28 AM INSPECTOR REPAIRER Oxygen Saturation 97% 12/21/2024 10:28 AM INSPECTOR REPAIRER Inhaled Oxygen Concentration - - Weight 93.9 kg (207 lb) 12/21/2024 10:28 AM INSPECTOR REPAIRER Height 180.3 cm (5' 11) 12/21/2024 10:28 AM INSPECTOR REPAIRER Body Mass Index 28.87 12/21/2024 10:28 AM INSPECTOR REPAIRER Plan of Treatment Health Maintenance Due Date Last Done Comments Colorectal Cancer Screening Colonoscopy (10 Years) 1959 Hepatitis C 1977 Pneumococcal Vaccine: 50+ Years (1 of 1 - PCV) 2009 Zoster Vaccines (1 of 2) 2009 COVID-19 Vaccine (3 - 2023-2 5 season) 2024 02/17/2021, 01/27/2021 PHQ-2 (Physician [place]) 11/14/2024 DTaP, Tdap and Td Vaccines ( [...] age to complete this topic Insurance MEDICARE [facility] Care Teams Permastone Mechanic Relationship Specialty Start Date End Date Bon Rodriguez MD [address] [place] [id number] PCP - General INTERNAL MEDICINE 01/19/23
--- OUTSIDE RECORDS SUMMARY | 2025-07-08 16:16 | XMS_ITS | Clinical Summary ---
Author Organization [facility] Address [address] [place] [address] Care Team Providers Care Diesel Bus Mechanic Name Role Phone Bon Rodriguez MD Primary Care Provider [phone] Source Comments [facility],non-owned Affiliates and Associated Physician Practices is amultiple site organization consisting of ambulatory clinics and hospital sitesin [place], [place], [place] and [place]. This disclosure is being madepursuant to the Care Everywhere program and may not contain all information available regarding this patient. Last updated 18.[facility] Allergies Active Allergy Reactions Criticality [...] fluticasone propionate (Flonase) 50 MCG/ACT nasal spray Graham 1 (one) spray into each nostril 2 times daily Active folic acid 800 MCG tablet Take 1 (one) tablet by mouth once daily 4 Active HYDROcodone-ac etaminophen ([place]on) 5-325 MG tablet Take 1 (one) tablet by mouth once daily Active lithium carbonate (Eskalith) 300 MG capsule Take 1 (one) capsule by mouth 3 times daily Active metoprolol succinate XL 24hr (Toprol XL) 25 MG tablet Take 1 (one) tablet by mouth once daily 4 Active nitroGLYCERIN (Nitrostat) 0.4 MG tablet Dissolve 1 (one) tablet under the tongue as needed Active Nystop 527349 UNIT/GM powder Apply 1 Units to affected [...] on file Legal Sex Male 1:44 PM IT RISK ANALYST Gender Identity Not on file Sexual Orientation Not on file Last Filed Vital Signs Vital Sign Reading Time Taken Comments Blood Pressure 124/82 11/16/2024 1:00 PM IT RISK ANALYST Pulse 60 11/16/2024 1:00 PM IT RISK ANALYST Temperature 36.6 C (97.9 F) 11/04/2024 2:27 PM IT RISK ANALYST Respiratory Rate 18 11/04/2024 2:27 PM IT RISK ANALYST Oxygen Saturation 97% 11/04/2024 2:27 PM IT RISK ANALYST Inhaled Oxygen Concentration - - Weight 92.5 kg (204 lb) 11/16/2024 1:00 PM IT RISK ANALYST Height 180.3 cm (5' 11) 11/16/2024 1:00 PM IT RISK ANALYST Body Mass Index 28.45 11/16/2024 1:00 PM IT RISK ANALYST Plan of Treatment Health Maintenance Due Date [...] 02/17/2021, 01/27/2021 DEPRESSION SCREENING 11/14/2024 INFLUENZA VACCINE (#1) 2025 08/20/2016 SCREENING FOR DIABETES 11/04/2027 11/04/2024 [...] COMPREHENSIVE METABOLIC PANEL STAT 11/04/2024 11:38 AM IT RISK ANALYST from Last 3 Months or Most Recently Relevant to Health Maintenance Results * (ABNORMAL) COMPREHENSIVE METABOLIC PANEL (11/04/2024 11:38 AM IT RISK ANALYST) BUN 13 7 - 26 mg/dL 11/04/2024 12:[address] [facility] Creatinine 1.28(H) 0.71 - 1.16 mg/dL 11/04/2024 12:[address] [facility] Sodium 138 136 - 145 mmol/L 11/04/2024 12:[address] [facility] Potassium 3.8 3.5 - 4.5 mmol/L 11/04/2024 12:[address] [facility] Chloride 108(H) 98 - 107 [...] Unknown Venipuncture / Unknown 11/04/2024 11:38 AM IT RISK ANALYST 11/04/2024 11:52 AM [facility] us Stacey Faria POLICE SPECIALIST-HANDER IN LAB - CHEMISTRY ORDER KONG Final Result [facility] [address] [place] [address], [facility] [phone] from Last 3 Months or Most Recently Relevant to Health Maintenance Insurance MEDICARE [facility] MEDICARE Care Teams Diesel Bus Mechanic Relationship Specialty Start Date End Date Bon Rodriguez MD [address] [place] [address] PCP - General 11/11/22
--- OUTSIDE RECORDS SUMMARY | 2025-07-08 16:16 | XMS_ITS | Encounter Summary ---
Author Organization [facility] Address [address] [place] [address] Phone Care Team Providers Care Professor Of Apologetics Name Role Phone Bno Rodriguez MD Primary Care Provider [phone] Rick Ricci MD Unavailable [phone] Encounter Details Date Type Department Care Team (Latest Contact Info) Description 01/30/2018 Orders Only [facility] CONVERSION Scanning, Provider Social History Tobacco Use Types Packs/Day Years Used Date Smoking Tobacco: Never Sex and Gender Information Value Date Recorded Sex Assigned at Not on file Legal Sex Male 7:15 AM PATCH WORKER Gender Identity Male 02/20/2021 1:17 PM CDT [...] documented as of this encounter Care Teams Professor Of Apologetics Relationship Specialty Start Date End Date Bon Rodriguez MD [address] [place] [address] PCP - General Internal Medicine 10/21/23 Rick Ricci MD [address] [place] [address] Urology 10/08/24 documented as of this encounter
--- OUTSIDE RECORDS SUMMARY | 2025-07-08 16:16 | XMS_ITS | Encounter Summary ---
Author Organization [facility] Address [address] [place] [address] Care Team Providers Care Firewood Cutter Name Role Phone Bon Rodriguez MD Primary Care Provider [phone] Rick Ricci MD Unavailable [phone] Encounter Details Date Type Department Care Team (Late st Contact Info) Description 06/25/2025 Results Follow-Up [facility] Advanced Medicine Radiation Oncology [address] [facility] Advanced [place] [address] Satya Vidal MD [address] [facility] [address] [place] [address] MRI Lumbar Spine W WO Contrast Social History Tobacco Use Types Packs/Day Years [...] on file 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
--- OUTSIDE RECORDS SUMMARY | 2025-07-08 16:16 | XMS_ITS | Encounter Summary ---
Author Organization [facility] Address [address] [place] [address] Phone Care Team Providers Care After School Program Assistant Name Role Phone Bon Rodriguez MD Primary Care Provider [phone] Rick Ricci MD Unavailable [phone] Encounter Details Date Type Department Care Team (Late st Contact Info) Description 07/08/2025 Telephone [facility] [address] [place] [address] 7th Floor [place] [facility] [place] [address] Jeremias Lawrence MSW Social History Tobacco Use Types Packs/Day Years [...] on file 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 Sandee reports that Rubens is doing well at the moment. This SW discussed finding support for Sandee through these changes. This SWagreed to get Sandee a list of counselors in her area. -FRANKY Avila documented in this encounter Plan of Treatment Not on file documented as of this encounter Visit Diagnoses Not on filedocumented in this encounter Care Teams After School Program Assistant Relationship Specialty Start Date End Date Bon Rodriguez MD [address] [place] [address] PCP - General Internal Medicine 10/21/23 Rick Ricci MD [address] [place] [address] Urology 10/08/24 documented as of this encounter
--- OUTSIDE RECORDS SUMMARY | 2025-07-08 16:17 | XMS_ITS ---
Author Organization [facility] Address [address] [place] [address] Care Team Providers Care French Lecturer Name Role Phone Bon Rodriguez MD Primary Care Provider [phone] Rick Ricci MD Unavailable [phone] Active Problems Problem Noted Date Diagnosed Date Amnesia 02/19/2025 Depression 02/19/2025 Prostate cancer 01/17/2025 Cancer Staging:Clinical:Stage IIC(cT1c, cN0, cM0, PSA: 4.7, Grade Group: 3) - Signed by Satya Vidal MD on 01/17/2025 Diastolic dysfunction 12/25/2021 Assessment & Plan (12/25/2021 10:32 AM FERRY PILOT): As aforementioned the patient had a transthoracic [...] change. Assessment & Plan (12/25/2021 10:27 AM FERRY PILOT): Records mention that the patient has hypertension. [...] change. 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 Assessment & Plan (12/25/2021 10:26 AM FERRY PILOT): Patient's most recent lipid panel is from 10/13/2021 with a total cholesterol 154 and LDL cholesterol 46. This was obtained while the patient was on Praluent. Anxiety 07/04/2016 S/P CABG (coronary artery bypass graft) 07/04/20 16 Overview (12/24/2021): [id number] COLIN to LAD, SVG to OM PDA) . Normal stress February 2020 AK (myocardial infarction) 11/14/2015 Current Treatment and Therapy [...]
--- OUTSIDE RECORDS SUMMARY | 2025-07-08 16:17 | XMS_ITS | Clinical Summary ---
Author Organization [facility] Address [address] [place] [address] Care Team Providers Care Concrete Pourer Name Role Phone Bon Rodriguez MD Primary Care Provider [phone] Rick Ricci MD Unavailable [phone] Allergies Active Allergy Reactions Criticality Noted Date [...] total 25 tablet 6 12/25/19 22 Active folic acid (FOLVITE) 800 mcg tablet Take 1 tablet (800 mcg total) by mouth daily 12/06/19 24 Active cyanocobalamin (Vitamin B-12) 1,000 mcg/mL injection INJECT 1ML INTRAMUSCULARLY ONCE MONTHLY 06/04/20 24 Active propranoloL (INDERAL) 10 mg tablet Take 1 tablet (10 mg total) by mouth 2 (two) times a day 60 tablet 11 10/22/20 24 Active evolocumab (Repatha SureClick) 140 mg/mL pen injector ADMINISTER 1 ML(140 MG) UNDER THE SKIN EVERY 14 DAYS 6 mL 1 11/12/20 24 Active tamsulosin (FLOMAX) 0.4 mg extended release capsule Take 1 capsule (0.4 mg total) by mouth nightly 30 capsule 3 01/18/20 25 Active Active Problems Problem Noted Date Diagnosed Date Amnesia 02/19/2025 Depression 02/19/2025 Prostate cancer 01/17/2025 Cancer Staging:Clinical:Stage IIC(cT1c, cN0, cM0, PSA: 4.7, Grade Group: 3) - Signed by Satya Vidal MD on 01/17/2025 Diastolic dysfunction 12/25/2021 Assessment & Plan (12/25/2021 10:32 AM MANAGER OF SOFTWARE): As aforementioned the patient had a transthoracic [...] change. Assessment & Plan (12/25/2021 10:27 AM MANAGER OF SOFTWARE): Records mention that the patient has hypertension. [...] change. Assessment & Plan (12/25/2021 10:31 AM MANAGER OF SOFTWARE): The patient is known to have triple-vessel [...] inhibitor. Assessment & Plan (12/25/2021 10:26 AM MANAGER OF SOFTWARE): Patient's most recent lipid panel is from 10/13/2021 with a total cholesterol 154 and LDL cholesterol 46. This was obtained while the patient was on Praluent. Anxiety 07/04/2016 S/P CABG (coronary artery bypass graft) 07/04/20 16 Overview (12/24/2021): [id number] COLIN to LAD, SVG to OM PDA) . Normal stress February 2020 [place] (myocardial infarction) 11/14/2015 Resolved Problems Problem Noted Date Diagnosed Date Resolved Date Paroxysmal A-fib 07/04/2016 02/10/2024 Encounters Date Type Department Care Team Description 07/08/2025 Telephone [facility] [address] [facility] 7th [place] [address] Jeremias Lawrence MSW 06/25/2025 Results Follow-Up [facility] Advanced Medicine Radiation Oncology [address] [facility] [place] [address] Satya Vidal MD MRI Lumbar Spine W WO Contrast 06/23/2025 4:47 PM CDT - 06/23/2025 11:59 PM CDT Hospital Encounter [address] [address] Prostate cancer (HCC) Discharge Disposition: Discharge to home or self care 06/23/2025 4:21 PM CDT - 06/23/2025 11:59 PM CDT Hospital Encounter [facility] MRI [address] [place] [address] Discharge Disposition: Discharge to home or self care 06/23/2025 4:03 PM CDT - 06/23/2025 11:59 PM CDT Hospital Encounter [facility] MRI [facility] [place] [address] Prostate cancer (HCC) Discharge Disposition: Discharge to home or self care 06/23/2025 Orders Only [facility] Medical Office Building 2 Radiation Oncology [address] [place] [address] Satya Vidal MD Prostate cancer (HCC) (Primary Dx) 06/14/[address] [facility] Medicine Scheduling [address] [place] [address] Da Portillo Scheduling Appointments 06/05/[address] [facility] Medicine Cardiology [address] [facility] Advanced Medicine 8th [place] [address] [place] [address] Vinod Romano MD 05/22/2025 9:00 AM CDT Clinical Support [facility] [address] [facility] [address] [place] [id number] Rupali Patel, PhD Amnesia 04/25/2025 Telephone [facility] Medical Office Building 2 Radiation Oncology [address] [place] [address] [place] 04/23/2025 1:45 PM CDT Lab [facility] at [address] [address] Prostate cancer (HCC) 04/23/2025 1:00 PM CDT Office Visit [facility] Medical Office Building 2 Radiation Oncology [address] [place] [address] Satya Vidal MD Prostate cancer (HCC) (Primary Dx) from Last 3 Months Immunizations Immunization Administration [...] A-fib (HCC) 07/04/2016 CAD (coronary artery disease) [place] (myocardial infarction) (HCC) 2015 Essential tremor Overactive [...] on file Legal Sex Male 7:15 AM MANAGER OF SOFTWARE Gender Identity Male 02/20/2021 1:17 PM CDT Sexual Orientation Straight 06/30/2019 7: 44 AM CDT Obstetrics History Last Filed Vital Signs Vital Sign Reading Time Taken Comments Blood Pressure 101/66 04/23/2025 12:56 PM CDT Pulse 57 04/23/2025 12:56 PM CDT Temperature 36.5 C (97.7 F) 12/07/2024 8:12 AM MANAGER OF SOFTWARE Respiratory Rate 16 12/31/2024 8:47 AM MANAGER OF SOFTWARE Oxygen Saturation 99% 04/23/2025 12:56 PM CDT Inhaled Oxygen Concentration - - Weight 95.8 kg (211 lb 3.2 oz) 04/23/2025 12:56 PM CDT Height 180.3 cm (5' 11) 02/19/2025 2:45 PM CDT Body Mass Index 29.46 02/19/2025 2:45 PM CDT Plan of Treatment Health Maintenance Due Date Last Done Comments Colon Cancer Screening-Colonoscopy 1959 Hepatitis B Screening 1977 Pneumococcal vaccine 65+ (1 of 2 - PCV) 1978 Zoster Vaccine (1 of 2) 1978 Covid-19 Vaccine (3 - Pfizer risk series) 03/17/2021 02/17/2021, 01/27/2021 Depression Screening 12/01/2022 12/01/2021 Well Visit 65+ 2024 12/01/2021 Influenza Vaccine (#1) 2025 08/20/2016 Fall Risk Assessment 12/07/2025 12/07/2024, 11/02/20 24 Prostate Cancer Screening-PSA 04/23/2027, 10/13/2021, 10/12/2017 DTaP/Tdap/Td Vaccine (4 - Td or Tdap) 08/19/2033 08/19/2023, 05/12/2015, 05/12/2015 Hepatitis C Screening Completed 12/18/2015 Medical Devices Implanted Type Area Plate Glass Grinder Device Identifier Shelf Expiration Date Model / Serial / Lot Sternal Wires Sternum Procedures Procedure Name Priority Date/Time Associated Diagnosis Comments MRI THORACIC SPINE W WO CONTRAST Schedule Routine, Read Routine (OP Routine) 06/23/2025 6:44 PM CDT Prostate cancer (HCC) MRI LUMBAR SPINE W WO CONTRAST Schedule Routine, Read Routine (OP Routine) 06/23/2025 6:44 PM CDT Prostate cancer (HCC) PSA DIAGNOSTIC Routine 04/23/2025 1:46 PM CDT Prostate cancer (HCC) HEPATITIS PANEL, ACUTE Routine 12/18/2015 3:58 PM MANAGER OF SOFTWARE from Last 3 Months or Most Recently Relevant to Health Maintenance Results * MRI Thoracic Spine W WO Contrast (06/23/2025 6:44 PM CDT) Anatomical Region Laterality Modality Spine N/A Magnetic Resonan ce 06/24/2025 1:02 PM CDT Narrative 06/24/2025 1:21 PM CDT EXAM DESCRIPTION: MRI THORACIC SPINE WITHOUT AND WITH CONTRAST; MRI LUMBAR SPINE WITHOUT AND WITH CONTRAST REASON FOR STUDY: Chronic upper and lower back pain. No provided history of radiculopathy. No provided history of trauma or inciting and/or aggravating events. History of prostate cancer of unspecified date of diagnosis, therapeutic interventions, and metastatic, to include osseous metastatic, disease burden. No provided surgical history. Per imaging record, history of hypermetabolic lesion of the T7 vertebral body on October 2024 PET PSMA with subtle corresponding lesion on November 2024 MR imaging of the thoracic spine favored as osseous metastasis. TECHNIQUE: Sagittal and axial imaging of the thoracic and lumbar spine T1, T2, STIR and gradient echo sequences. Post contrast T1-weighted images. Images saved to PACS. Patient motion artifact variably spanning multiple sequences compromises evaluation. CONTRAST TYPE/DOSE: 20 mL Dotarem injected via peripheral IV site without reported incident. COMPARISON: MRI pelvis prostate without and with contrast 12/26/2024; MRI thoracic spine without and with contrast 11/24/2024; PET-CT prostate cancer PSMA 10/29/2024; MRI lumbar spine without contrast 02/22/2021. FINDINGS: THORACIC SPINE: THORACIC ALIGNMENT: Alignment and curvature unchanged. THORACIC VERTEBRAE: No evidence of acute-subacute fracture. Vertebral body heights unchanged. Spondylosis. Within the limitations of motion artifact, there is a faint blush of enhancement at/about the site of previously demonstrated marrow replacing lesion previously favored as osseous metastasis of the right anterior aspect of the T7 vertebral body without MR imaging demonstration of interval enlargement or of violation of the cortical margin. THORACIC DISCS: Multilevel variable intervertebral disc desiccation and loss of intervertebral disc height. THORACIC HARDWARE: None in the thoracic spine. THORACIC CORD: Normal in size and signal intensity. No abnormal enhancement. THORACIC DISCS T1-T12: T9-10: Left eccentric central-slightly left subarticular disc protrusion indenting the left eccentric ventral thecal sac. Bilateral facet arthropathy. No spinal canal stenosis. No neural foraminal stenosis. T10-11: Shallow left subarticular disc protrusion slightly indenting the left eccentric ventral thecal sac. Bilateral facet arthropathy. No spinal canal stenosis. No neural foraminal stenosis. THORACIC OTHER: No other significant finding. LUMBAR SPINE: SEGMENTATION: Top down counting on sagittal localizer sequence demonstrates no lumbosacral transitional anatomy. The lowest fully formed intervertebral disc level is labeled L5-S1. LUMBAR ALIGNMENT: Redemonstration of mild dextroscoliosis of the lumbar spine centered at L2-3. LUMBAR VERTEBRAE: No MR evidence of acute-subacute fracture. Vertebral body heights unchanged. Spondylosis. Robust uniform fatty marrow replacement of the lower lumbar spine through visualized sacrum and pelvic osseous architecture as can be seen with sequelae of radiotherapy. LUMBAR DISCS: Multilevel variable intervertebral disc desiccation and loss of intervertebral disc height. LUMBAR HARDWARE: None in the lumbar spine. LUMBAR CORD AND CONUS: Normal in size and signal intensity with conus medullaris termination at the inferior aspect of L1. No abnormal enhancement. INDIVIDUAL DISC LEVELS L1-2: Mild annular disc bulge. Bilateral hypertrophic facet arthropathy. No spinal canal stenosis. No neural foraminal stenosis. L2-3: Mild annular disc bulge. Bilateral hypertrophic facet arthropathy. No spinal canal stenosis demonstrated on current imaging. Slight bilateral neural foraminal stenosis. L3-4: Annular disc bulge with shallow central-left subarticular disc protrusion with slight annular fissure. Bilateral hypertrophic facet arthropathy. Slight compromise of the left lateral recess. No spinal canal stenosis demonstrated on current imaging. Mild bilateral inferior neural foraminal stenosis, noting variable slight disc contact with exiting bilateral L3 nerve roots. L4-5: Annular disc bulge. Bilateral hypertrophic facet arthropathy. No spinal canal stenosis demonstrated on current imaging. Moderate proximal right and mild inferior left neural foraminal stenosis, noting variable disc contact with the exiting bilateral L4 nerve roots. L5-S1: Mild annular disc bulge. Bilateral hypertrophic facet arthropathy. No spinal canal stenosis. Moderate-severe right and slight proximal left neural foraminal stenosis, noting combination of inferior pedicular surface, posterior cortical margin/disc, and arthropathic facet variable contact with exiting right and slight posterior cortical margin/disc contact with exiting left L5 nerve roots. SACRUM: Visualized upper sacrum intact. SOFT TISSUES: No soft tissue masses. OTHER: No other significant finding. IMPRESSION: 1. Spondylosis and degenerative disc disease of the thoracic and lumbar spine as detailed level by level above. 2. Within the limitations of motion artifact on MRI of the thoracic spine, there is a faint blush of enhancement at/about the site of previously demonstrated marrow replacing lesion previously favored as osseous metastasis of the right anterior aspect of the T7 vertebral body without MR imaging demonstration of interval enlargement or of violation of the cortical margin. 3. If clinically warranted, prostate PSMA PET-CT or scintigraphic evaluation of the spinal axis inclusive of T7 lesion can be performed for further evaluation. THIS IS AN ELECTRONICALLY VERIFIED FINAL REPORT 06/24/2025 1:21 PM - Electronically signed by Dharmesh Portillo M.D. MARY: MARY Report ID: [id number] Reading Location: [place] [id number] Procedure Note Dharmesh Portillo MD - 06/24/2025 EXAM DESCRIPTION: MRI THORACIC SPINE WITHOUT AND WITH CONTRAST; MRILUMBAR SPINE WITHOUT AND WITH CONTRAST REASON FOR STUDY: Chronic upper and lower back pain. No provided historyof radiculopathy. No provided history of trauma or inciting and/oraggravating events. History of prostate cancer of unspecified date of diagnosis, therapeutic interventions, and metastatic, to include osseous metastatic, disease burden. No provided surgical history. Per imaging record, history of hypermetabolic lesion of the T7 vertebralbody on October 2024 PET PSMA with subtle corresponding lesion on November 2024MR imaging of the thoracic spine favored as osseous metastasis. TECHNIQUE: Sagittal and axial imaging of the thoracic and lumbar spine T1,T2, STIR and gradient echo sequences. Post contrast T1-weighted images.Images saved to PACS. Patient motion artifact variably spanning multiplesequences compromises evaluation. CONTRAST TYPE/DOSE: 20 mL Dotarem injected via peripheral IV sitewithout reported incident. COMPARISON: MRI pelvis prostate without and with contrast 12/26/2024;MRI thoracic spine without and with contrast 11/24/2024; PET-CT prostatecancer PSMA 10/29/2024; MRI lumbar spine without contrast 02/22/2021. FINDINGS: THORACIC SPINE: THORACIC ALIGNMENT: Alignment and curvature unchanged. THORACIC VERTEBRAE: No evidence of acute-subacute fracture. Vertebralbody heights unchanged. Spondylosis. Within the limitations of motionartifact, there is a faint blush of enhancement at/about the site of previously demonstrated marrow replacing lesion previously favored as osseousmetastasis of the right anterior aspect of the T7 vertebral body without MR imaging demonstration of interval enlargement or of violation of the corticalmargin. THORACIC DISCS: Multilevel variable intervertebral disc desiccation andloss of intervertebral disc height. THORACIC HARDWARE: None in the thoracic spine. THORACIC CORD: Normal in size and signal intensity. No abnormal enhancement. THORACIC DISCS T1-T12: T9-10: Left eccentric central-slightly left subarticular disc protrusion indenting the left eccentric ventral thecal sac. Bilateral facetarthropathy. No spinal canal stenosis. No neural foraminal stenosis. T10-11: Shallow left subarticular disc protrusion slightly indenting theleft eccentric ventral thecal sac. Bilateral facet arthropathy. No spinalcanal stenosis. No neural foraminal stenosis. THORACIC OTHER: No other significant finding. LUMBAR SPINE: SEGMENTATION: Top down counting on sagittal localizer sequencedemonstrates no lumbosacral transitional anatomy. The lowest fully formed intervertebraldisc level is labeled L5-S1. LUMBAR ALIGNMENT: Redemonstration of mild dextroscoliosis of the lumbar spine centered at L2-3. LUMBAR VERTEBRAE: No MR evidence of acute-subacute fracture. Vertebralbody heights unchanged. Spondylosis. Robust uniform fatty marrow replacementof the lower lumbar spine through visualized sacrum and pelvic osseous architecture as can be seen with sequelae of radiotherapy. LUMBAR DISCS: Multilevel variable intervertebral disc desiccation andloss of intervertebral disc height. LUMBAR HARDWARE: None in the lumbar spine. LUMBAR CORD AND CONUS: Normal in size and signal intensity with conus medullaris termination at the inferior aspect of L1. No abnormalenhancement. INDIVIDUAL DISC LEVELS L1-2: Mild annular disc bulge. Bilateral hypertrophic facetarthropathy. No spinal canal stenosis. No neural foraminal stenosis. L2-3: Mild annular disc bulge. Bilateral hypertrophic facetarthropathy. No spinal canal stenosis demonstrated on current imaging. Slightbilateral neural foraminal stenosis. L3-4: Annular disc bulge with shallow central-left subarticular disc protrusion with slight annular fissure. Bilateral hypertrophic facet arthropathy. Slight compromise of the left lateral recess. No spinalcanal stenosis demonstrated on current imaging. Mild bilateral inferior neural foraminal stenosis, noting variable slight disc contact with exitingbilateral L3 nerve roots. L4-5: Annular disc bulge. Bilateral hypertrophic facet arthropathy. No spinal canal stenosis demonstrated on current imaging. Moderate proximal right and mild inferior left neural foraminal stenosis, noting variabledisc contact with the exiting bilateral L4 nerve roots. L5-S1: Mild annular disc bulge. Bilateral hypertrophic facetarthropathy. No spinal canal stenosis. Moderate-severe right and slight proximal left neural foraminal stenosis, noting combination of inferior pedicularsurface, posterior cortical margin/disc, and arthropathic facet variable contactwith exiting right and slight posterior cortical margin/disc contact withexiting left L5 nerve roots. SACRUM: Visualized upper sacrum intact. SOFT TISSUES: No soft tissue masses. OTHER: No other significant finding. IMPRESSION: 1. Spondylosis and degenerative disc disease of the thoracic and lumbar spine as detailed level by level above. 2. Within the limitations of motion artifact on MRI of the thoracicspine, there is a faint blush of enhancement at/about the site of previously demonstrated marrow replacing lesion previously favored as osseousmetastasis of the right anterior aspect of the T7 vertebral body without MR imaging demonstration of interval enlargement or of violation of the corticalmargin. 3. If clinically warranted, prostate PSMA PET-CT or scintigraphicevaluation of the spinal axis inclusive of T7 lesion can be performed for further evaluation. THIS IS AN ELECTRONICALLY VERIFIED FINAL REPORT 06/24/2025 1:21 PM - Electronically signed by Dharmesh Portillo M.D. MARY: MARY Report ID: [id number] Reading Location: [id number] Satya Vidal MD IMG MRI PROCEDURES Tila l Result * MRI Lumbar Spine W WO Contrast (06/23/2025 6:44 PM CDT) Anatomical Region Laterality Modality Spine N/A Magnetic Resonan ce 06/24/2025 1:02 PM CDT Narrative 06/24/2025 1:21 PM CDT EXAM DESCRIPTION: MRI THORACIC SPINE WITHOUT AND WITH CONTRAST; MRI LUMBAR SPINE WITHOUT AND WITH CONTRAST REASON FOR STUDY: Chronic upper and lower back pain. No provided history of radiculopathy. No provided history of trauma or inciting and/or aggravating events. History of prostate cancer of unspecified date of diagnosis, therapeutic interventions, and metastatic, to include osseous metastatic, disease burden. No provided surgical history. Per imaging record, history of hypermetabolic lesion of the T7 vertebral body on October 2024 PET PSMA with subtle corresponding lesion on November 2024 MR imaging of the thoracic spine favored as osseous metastasis. TECHNIQUE: Sagittal and axial imaging of the thoracic and lumbar spine T1, T2, STIR and gradient echo sequences. Post contrast T1-weighted images. Images saved to PACS. Patient motion artifact variably spanning multiple sequences compromises evaluation. CONTRAST TYPE/DOSE: 20 mL Dotarem injected via peripheral IV site without reported incident. COMPARISON: MRI pelvis prostate without and with contrast 12/26/2024; MRI thoracic spine without and with contrast 11/24/2024; PET-CT prostate cancer PSMA 10/29/2024; MRI lumbar spine without contrast 02/22/2021. FINDINGS: THORACIC SPINE: THORACIC ALIGNMENT: Alignment and curvature unchanged. THORACIC VERTEBRAE: No evidence of acute-subacute fracture. Vertebral body heights unchanged. Spondylosis. Within the limitations of motion artifact, there is a faint blush of enhancement at/about the site of previously demonstrated marrow replacing lesion previously favored as osseous metastasis of the right anterior aspect of the T7 vertebral body without MR imaging demonstration of interval enlargement or of violation of the cortical margin. THORACIC DISCS: Multilevel variable intervertebral disc desiccation and loss of intervertebral disc height. THORACIC HARDWARE: None in the thoracic spine. THORACIC CORD: Normal in size and signal intensity. No abnormal enhancement. THORACIC DISCS T1-T12: T9-10: Left eccentric central-slightly left subarticular disc protrusion indenting the left eccentric ventral thecal sac. Bilateral facet arthropathy. No spinal canal stenosis. No neural foraminal stenosis. T10-11: Shallow left subarticular disc protrusion slightly indenting the left eccentric ventral thecal sac. Bilateral facet arthropathy. No spinal canal stenosis. No neural foraminal stenosis. THORACIC OTHER: No other significant finding. LUMBAR SPINE: SEGMENTATION: Top down counting on sagittal localizer sequence demonstrates no lumbosacral transitional anatomy. The lowest fully formed intervertebral disc level is labeled L5-S1. LUMBAR ALIGNMENT: Redemonstration of mild dextroscoliosis of the lumbar spine centered at L2-3. LUMBAR VERTEBRAE: No MR evidence of acute-subacute fracture. Vertebral body heights unchanged. Spondylosis. Robust uniform fatty marrow replacement of the lower lumbar spine through visualized sacrum and pelvic osseous architecture as can be seen with sequelae of radiotherapy. LUMBAR DISCS: Multilevel variable intervertebral disc desiccation and loss of intervertebral disc height. LUMBAR HARDWARE: None in the lumbar spine. LUMBAR CORD AND CONUS: Normal in size and signal intensity with conus medullaris termination at the inferior aspect of L1. No abnormal enhancement. INDIVIDUAL DISC LEVELS L1-2: Mild annular disc bulge. Bilateral hypertrophic facet arthropathy. No spinal canal stenosis. No neural foraminal stenosis. L2-3: Mild annular disc bulge. Bilateral hypertrophic facet arthropathy. No spinal canal stenosis demonstrated on current imaging. Slight bilateral neural foraminal stenosis. L3-4: Annular disc bulge with shallow central-left subarticular disc protrusion with slight annular fissure. Bilateral hypertrophic facet arthropathy. Slight compromise of the left lateral recess. No spinal canal stenosis demonstrated on current imaging. Mild bilateral inferior neural foraminal stenosis, noting variable slight disc contact with exiting bilateral L3 nerve roots. L4-5: Annular disc bulge. Bilateral hypertrophic facet arthropathy. No spinal canal stenosis demonstrated on current imaging. Moderate proximal right and mild inferior left neural foraminal stenosis, noting variable disc contact with the exiting bilateral L4 nerve roots. L5-S1: Mild annular disc bulge. Bilateral hypertrophic facet arthropathy. No spinal canal stenosis. Moderate-severe right and slight proximal left neural foraminal stenosis, noting combination of inferior pedicular surface, posterior cortical margin/disc, and arthropathic facet variable contact with exiting right and slight posterior cortical margin/disc contact with exiting left L5 nerve roots. SACRUM: Visualized upper sacrum intact. SOFT TISSUES: No soft tissue masses. OTHER: No other significant finding. IMPRESSION: 1. Spondylosis and degenerative disc disease of the thoracic and lumbar spine as detailed level by level above. 2. Within the limitations of motion artifact on MRI of the thoracic spine, there is a faint blush of enhancement at/about the site of previously demonstrated marrow replacing lesion previously favored as osseous metastasis of the right anterior aspect of the T7 vertebral body without MR imaging demonstration of interval enlargement or of violation of the cortical margin. 3. If clinically warranted, prostate PSMA PET-CT or scintigraphic evaluation of the spinal axis inclusive of T7 lesion can be performed for further evaluation. THIS IS AN ELECTRONICALLY VERIFIED FINAL REPORT 06/24/2025 1:21 PM - Electronically signed by Dharmesh Portillo M.D. MARY: MARY Report ID: [id number] Reading Location: [place] [id number] Procedure Note Dharmesh Portillo MD - 06/24/2025 EXAM DESCRIPTION: MRI THORACIC SPINE WITHOUT AND WITH CONTRAST; MRILUMBAR SPINE WITHOUT AND WITH CONTRAST REASON FOR STUDY: Chronic upper and lower back pain. No provided historyof radiculopathy. No provided history of trauma or inciting and/oraggravating events. History of prostate cancer of unspecified date of diagnosis, therapeutic interventions, and metastatic, to include osseous metastatic, disease burden. No provided surgical history. Per imaging record, history of hypermetabolic lesion of the T7 vertebralbody on October 2024 PET PSMA with subtle corresponding lesion on November 2024MR imaging of the thoracic spine favored as osseous metastasis. TECHNIQUE: Sagittal and axial imaging of the thoracic and lumbar spine T1,T2, STIR and gradient echo sequences. Post contrast T1-weighted images.Images saved to PACS. Patient motion artifact variably spanning multiplesequences compromises evaluation. CONTRAST TYPE/DOSE: 20 mL Dotarem injected via peripheral IV sitewithout reported incident. COMPARISON: MRI pelvis prostate without and with contrast 12/26/2024;MRI thoracic spine without and with contrast 11/24/2024; PET-CT prostatecancer PSMA 10/29/2024; MRI lumbar spine without contrast 02/22/2021. FINDINGS: THORACIC SPINE: THORACIC ALIGNMENT: Alignment and curvature unchanged. THORACIC VERTEBRAE: No evidence of acute-subacute fracture. Vertebralbody heights unchanged. Spondylosis. Within the limitations of motionartifact, there is a faint blush of enhancement at/about the site of previously demonstrated marrow replacing lesion previously favored as osseousmetastasis of the right anterior aspect of the T7 vertebral body without MR imaging demonstration of interval enlargement or of violation of the corticalmargin. THORACIC DISCS: Multilevel variable intervertebral disc desiccation andloss of intervertebral disc height. THORACIC HARDWARE: None in the thoracic spine. THORACIC CORD: Normal in size and signal intensity. No abnormal enhancement. THORACIC DISCS T1-T12: T9-10: Left eccentric central-slightly left subarticular disc protrusion indenting the left eccentric ventral thecal sac. Bilateral facetarthropathy. No spinal canal stenosis. No neural foraminal stenosis. T10-11: Shallow left subarticular disc protrusion slightly indenting theleft eccentric ventral thecal sac. Bilateral facet arthropathy. No spinalcanal stenosis. No neural foraminal stenosis. THORACIC OTHER: No other significant finding. LUMBAR SPINE: SEGMENTATION: Top down counting on sagittal localizer sequencedemonstrates no lumbosacral transitional anatomy. The lowest fully formed intervertebraldisc level is labeled L5-S1. LUMBAR ALIGNMENT: Redemonstration of mild dextroscoliosis of the lumbar spine centered at L2-3. LUMBAR VERTEBRAE: No MR evidence of acute-subacute fracture. Vertebralbody heights unchanged. Spondylosis. Robust uniform fatty marrow replacementof the lower lumbar spine through visualized sacrum and pelvic osseous architecture as can be seen with sequelae of radiotherapy. LUMBAR DISCS: Multilevel variable intervertebral disc desiccation andloss of intervertebral disc height. LUMBAR HARDWARE: None in the lumbar spine. LUMBAR CORD AND CONUS: Normal in size and signal intensity with conus medullaris termination at the inferior aspect of L1. No abnormalenhancement. INDIVIDUAL DISC LEVELS L1-2: Mild annular disc bulge. Bilateral hypertrophic facetarthropathy. No spinal canal stenosis. No neural foraminal stenosis. L2-3: Mild annular disc bulge. Bilateral hypertrophic facetarthropathy. No spinal canal stenosis demonstrated on current imaging. Slightbilateral neural foraminal stenosis. L3-4: Annular disc bulge with shallow central-left subarticular disc protrusion with slight annular fissure. Bilateral hypertrophic facet arthropathy. Slight compromise of the left lateral recess. No spinalcanal stenosis demonstrated on current imaging. Mild bilateral inferior neural foraminal stenosis, noting variable slight disc contact with exitingbilateral L3 nerve roots. L4-5: Annular disc bulge. Bilateral hypertrophic facet arthropathy. No spinal canal stenosis demonstrated on current imaging. Moderate proximal right and mild inferior left neural foraminal stenosis, noting variabledisc contact with the exiting bilateral L4 nerve roots. L5-S1: Mild annular disc bulge. Bilateral hypertrophic facetarthropathy. No spinal canal stenosis. Moderate-severe right and slight proximal left neural foraminal stenosis, noting combination of inferior pedicularsurface, posterior cortical margin/disc, and arthropathic facet variable contactwith exiting right and slight posterior cortical margin/disc contact withexiting left L5 nerve roots. SACRUM: Visualized upper sacrum intact. SOFT TISSUES: No soft tissue masses. OTHER: No other significant finding. IMPRESSION: 1. Spondylosis and degenerative disc disease of the thoracic and lumbar spine as detailed level by level above. 2. Within the limitations of motion artifact on MRI of the thoracicspine, there is a faint blush of enhancement at/about the site of previously demonstrated marrow replacing lesion previously favored as osseousmetastasis of the right anterior aspect of the T7 vertebral body without MR imaging demonstration of interval enlargement or of violation of the corticalmargin. 3. If clinically warranted, prostate PSMA PET-CT or scintigraphicevaluation of the spinal axis inclusive of T7 lesion can be performed for further evaluation. THIS IS AN ELECTRONICALLY VERIFIED FINAL REPORT 06/24/2025 1:21 PM - Electronically signed by Dharmesh Portillo M.D. MARY: MARY Report ID: [id number] Reading Location: [place] [address] Satya Vidal MD [facility] [place] PROCEDURES Tila l Result * PSA diagnostic (04/23/2025 1:46 PM CDT) PSA-Total 1.28 <=5.40 ng/mL Comment: Interpretive Data AGE SEX REFERENCE INTERVAL 0 minutes-150 years Female None 0 minutes-49 years Male None 50-59 years Male 0-3.90 60-69 years Male 0-5.40 70-79 years Male 0-6.20 80-150 years Male 0-6.20 The Rasta PSA Total assay procedure was used. Results from different manufacturers or methods may not be comparable. Serial testing should be performed using the same method. Current interpretive data last revised 22. Testing performed by: [facility], [address] [place] [address]., [id number] Blood 04/23/2025 1:46 PM CDT 04/23/2025 4:03 PM CDT us Satya Vidal MD LAB BLOOD ORDERABLES Fi nal Result [facility] [address] [facility] [place] [address] * Hepatitis panel, acute (12/18/2015 3:58 PM MANAGER OF SOFTWARE) HepBsAg NONREACT NONREACTIVE 12/18/2015 6:47 PM MANAGER OF SOFTWARE [facility] [email or web address] HISTORICAL RESULTS Comment: Siemens CentaurXP using KAMERON (chemiluminescent immunoassay) technology. NONREACTIVE: IgM antibodies to Hepatitis B Surface antigen not detected. REACTIVE: IgM antibodies to Hepatitis B Surface antigen detected. Reactive results will be confirmed by neutralization testing. HBsAb (immune status) NONREACT NONREACTIVE 12/18/2015 6:34 PM MANAGER OF SOFTWARE [email or web address] HISTORICAL RESULTS Comment: Siemens CentaurXP using KAMERON (chemiluminescent immunoassay) technology. NONREACTIVE: IgM antibodies to Hepatitis B Surface antibody not detected. REACTIVE: IgM antibodies to Hepatitis B Surface antibody detected. Hep B core IgM NONREACT NONREACTIVE 6 7:13 PM MANAGER OF SOFTWARE [facility] [email or web address] HISTORICAL RESULTS Comment: Siemens CentaurXP using KAMERON (chemiluminescent immunoassay) technology. NONREACTIVE: IgM antibodies to Hepatitis B Core antigen not detected. EQUIVOCAL: IgM antibodies to Hepatitis B Core antigen may or may not be present. Obtain a new specimen and retest. REACTIVE: IgM antibodies to Hepatitis B Core antigen detected. Hep A IgM NONREACT NONREACTIVE 12/18/2015 7:14 PM MANAGER OF SOFTWARE [email or web address] HISTORICAL RESULTS Comment: Siemens CentaurXP using KAMERON (chemiluminescent immunoassay) technology. NONREACTIVE: IgM antibodies to Hepatitis A not detected. This does not exclude possibility of exposure to Hepatitis A or early acute infection. EQUIVOCAL:IgM antibodies to Hepatitis A may or may not be present. Suggest recollection and retest. REACTIVE: Antibodies to Hepatitis A detected. Hep C Ab NONREACT NONREACTIVE 12/18/2015 7:12 PM MANAGER OF SOFTWARE [email or web address] HISTORICAL RESULTS Comment: Siemens CentaurXP using KAMERON [...] to Hepatitis C detected. 12/18/2015 3:58 PM MANAGER OF SOFTWARE 12/18/2015 4:06 PM MANAGER OF SOFTWARE Carlos Dailey MD LAB MICROBIOLOGY - GENERAL ORD ERABLES Final Result [facility] HISTORICAL RESULTS from Last 3 Months or Most Recently Relevant to Health Maintenance Insurance MEDICARE [facility] MEDICARE [employer]IC[employer] Care Teams Concrete Pourer Relationship Specialty Start Date End Date Bon Rodriguez MD [address] [place] [address] PCP - General Internal Medicine 10/21/23 Rick Ricci MD [address] [facility] [address] [place] [address] Urology 10/08/24
[2025-07-08 16:56] LABS: Add Urine Microscopic? NO; Appearance Urine Clear (Clear); Glucose Urine UA Negative (Negative); Leukocyte Esterase Ur Negative LEU/UL (Negative); Nitrate Urine Negative (Negative); Specific Grav Ur 1.011 (1.001-1.035)
[2025-07-08 17:29] LABS: Anion Gap 6 mmol/L (4-12); Blood Urea Nitrogen 14 mg/dL (9-20); Calcium 9.6 mg/dL (8.4-10.2); Carbon Dioxide 25 mmol/L (22-30); Chloride 106 mmol/L (98-107); Estimated Glomerular Filt Rate > 60; Glucose 99 mg/dL (65-110); Potassium 4.1 mmol/L (3.4-5.0); Sodium 137 mmol/L (137-145)
== END 2025-07-08 16:05 | disposition home or self-care (01) ==
PROVIDERS: PCP Internal Medicine; Visit Provider Internal Medicine
DX: R79.89 Other specified abnormal findings of blood chemistry (principal); Z79.899 Other long term (current) drug therapy
CPT/HCPCS: 36415; 80048; 81003

== ENCOUNTER 2025-07-24 11:04 | Emergency (ER) | payer MEDICARE, OTHER, SELFPAY ==
--- NOTE | ~2025-07-24 | US_ITS ---
EXAMINATION: US venous doppler [facility], 07/24/2025 11:24 CDT HISTORY: pain, PMH of blood clots COMPARISON: None Technique: Bright-scale and color Doppler images were attempted of the lower saphenofemoral junction, common femoral vein,superficial femoral vein, proximal deep femoral vein, proximal deep femoral vein, popliteal vein and posterior tibial veins. Findings: Deep Venous System:Normal flow, augmentation and compressibility. No echogenic thrombus identified. Superficial Venous system demonstrates thrombus within the mid greater saphenous vein on the right side. Soft tissues: Soft tissues are unremarkable. Impression: Negative for DVT. Superficial thrombophlebitis Reviewed, dictated and finalized at location A. Impression: Negative for DVT. Superficial thrombophlebitis
[2025-07-24 11:12] VITALS: BP 126/94; PULSE 65; RESP 16; TEMP 36.7; O2SAT 100
[2025-07-24 11:34] LABS: Hematocrit 44.3 % (42.0-52.0); Hemoglobin 14.8 g/dL (14.0-18.0); Immature Granulocyte Percent A 0.2 % (0-0.5); Lymphocytes Absolute Auto 1.05 K/mm3 (0.9-3.2); Mean Corpuscular HGB Conc 33.4 g/dl (32-36); Mean Corpuscular Hemoglobin 31.0 pg (26-34); Mean Corpuscular Volume 92.9 fl (80-100); Nucleated Red Blood Cells Absolute Auto 0.000 K/mm3 (0.0-0.012); Nucleated Red Blood Cells Perc 0.0 % (0.0-0.2); Platelet Count Result 234 k/mm3 (150-375); Red Blood Count 4.77 M/mm3 (4.6-6.20); White Blood Count 6.0 K/mm3 (4.5-10.0)
[2025-07-24 11:45] LABS: Alanine Aminotransferase 42 U/L (6-50); Albumin Level 4.2 g/dL (3.5-5.1); Alkaline Phosphatase 68 U/L (38-126); Anion Gap 7 mmol/L (4-12); Aspartate Amino Transferase 32 U/L (17-59); Bilirubin,Total 0.6 mg/dL (0.2-1.3); Blood Urea Nitrogen 16 mg/dL (9-20); Calcium 9.3 mg/dL (8.4-10.2); Carbon Dioxide 23 mmol/L (22-30); Chloride 108 mmol/L (98-107); Estimated Glomerular Filt Rate 53; Glucose 107 mg/dL (65-110); Potassium 4.5 mmol/L (3.4-5.0); Sodium 138 mmol/L (137-145); Total Protein 7.1 g/dL (6.3-8.2)
[2025-07-24 11:47] LABS: INR 1.1; Prothrombin Time 14.8 Seconds (11.1-14.7)
[2025-07-24 11:48] LABS: Partial Thromboplastin Time 35.5 Seconds (22.3-36.8)
--- OUTSIDE RECORDS SUMMARY | 2025-07-24 12:00 | XMS_ITS | Encounter Summary ---
Author Organization [facility] Address [address] [place] [address] Phone Care Team Providers Care Inspector Penetrant Name Role Phone Bon Rodriguez MD Primary Care Provider [phone] Rick Ricci MD Unavailable [phone] Encounter Details Date Type Department Care Team (Latest Contact Info) Description 01/30/2018 Orders Only [facility] CONVERSION Scanning, Provider Social History Tobacco Use Types Packs/Day Years Used Date Smoking Tobacco: Never Sex and Gender Information Value Date Recorded Sex Assigned at Not on file Legal Sex Male 7: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
--- OUTSIDE RECORDS SUMMARY | 2025-07-24 12:00 | XMS_ITS | Clinical Summary ---
Author Organization [facility] Address [address] [place] [address] Care Team Providers Care Illuminator Name Role Phone Bon Rodriguez MD Primary Care Provider [phone] Source Comments [facility],non-owned Affiliates and Associated Physician Practices is amultiple site organization consisting of ambulatory clinics and hospital sitesin [place], [place]. This disclosure is being madepursuant to the Care Everywhere program and may not contain all information available regarding this patient. Last updated 18.[facility] Allergies Active Allergy Reactions Criticality Noted Date [...] fluticasone propionate (Flonase) 50 MCG/ACT nasal spray [place] 1 (one) spray into each nostril 2 times daily Active folic acid 800 MCG tablet Take 1 (one) tablet by mouth once daily 4 Active HYDROcodone-ac etaminophen (Uvalda) 5-325 MG tablet Take 1 (one) tablet by mouth once daily Active lithium carbonate (Eskalith) 300 MG capsule Take 1 (one) capsule by mouth 3 times daily Active metoprolol succinate XL 24hr (Toprol XL) 25 MG tablet Take 1 (one) tablet by mouth once daily 4 Active nitroGLYCERIN (Nitrostat) 0.4 MG tablet Dissolve 1 (one) tablet under the tongue as needed Active Nystop 327175 UNIT/GM powder Apply 1 Units to affected [...] on file Legal Sex Male 1:44 PM CREDIT AND COLLECTIONS ANALYST Gender Identity Not on file Sexual Orientation Not on file Last Filed Vital Signs Vital Sign Reading Time Taken Comments Blood Pressure 124/82 11/16/2024 1:00 PM CREDIT AND COLLECTIONS ANALYST Pulse 60 11/16/2024 1:00 PM CREDIT AND COLLECTIONS ANALYST Temperature 36.6 C (97.9 F) 11/04/2024 2:27 PM CREDIT AND COLLECTIONS ANALYST Respiratory Rate 18 11/04/2024 2:27 PM CREDIT AND COLLECTIONS ANALYST Oxygen Saturation 97% 11/04/2024 2:27 PM CREDIT AND COLLECTIONS ANALYST Inhaled Oxygen Concentration - - Weight 92.5 kg (204 lb) 11/16/2024 1:00 PM CREDIT AND COLLECTIONS ANALYST Height 180.3 cm (5' 11) 11/16/2024 1:00 PM CREDIT AND COLLECTIONS ANALYST Body Mass Index 28.45 11/16/2024 1:00 PM CREDIT AND COLLECTIONS ANALYST Plan of Treatment Health Maintenance Due [...] 2009 ZOSTER VACCINE (1 of 2) 2009 DEPRESSION SCREENING 11/14/2024 COVID-19 VACCINE (3 - 2024-2 6 season) 2025 02/17/2021, 01/27/2021 INFLUENZA VACCINE (#1) 2025 08/20/2016 SCREENING FOR [...] COMPREHENSIVE METABOLIC PANEL STAT 11/04/2024 11:38 AM CREDIT AND COLLECTIONS ANALYST from Last 3 Months or Most Recently Relevant to Health Maintenance Results * (ABNORMAL) COMPREHENSIVE METABOLIC PANEL (11/04/2024 11:38 AM CREDIT AND COLLECTIONS ANALYST) BUN 13 7 - 26 mg/dL 11/04/2024 12:17 PM [facility] Creatinine 1.28(H) 0.71 - 1.16 mg/dL 11/04/2024 12:17 PM [facility] Sodium 138 136 - 145 mmol/L 11/04/2024 12:17 PM [facility] Potassium 3.8 3.5 - 4.5 mmol/L 11/04/2024 12:17 PM [facility] Chloride 108(H) 98 - 107 mmol/L [...] Unknown Venipuncture / Unknown 11/04/2024 11:38 AM CREDIT AND COLLECTIONS ANALYST 11/04/2024 11:52 AM [facility] us Stacey Faria [facility] - CHEMISTRY ORDER KONG Final Result [facility] [address] [place] [address], [facility] [phone] from Last 3 Months or Most Recently Relevant to Health Maintenance Insurance MEDICARE [facility] MEDICARE Care Teams Illuminator Relationship Specialty Start Date End Date Bon Rodriguez MD [address] [place] [address] PCP - General 11/11/22
--- OUTSIDE RECORDS SUMMARY | 2025-07-24 12:00 | XMS_ITS | Clinical Summary ---
Author Organization [facility] Address [address] [place] [address] Care Team Providers Care Inspector Glass Or Mirror Name Role Phone Bon Rodriguez MD Primary Care Provider [phone] Rick Ricci MD Unavailable [phone] Allergies Active Allergy Reactions Criticality Noted Date [...] 12/25/2021 Assessment & Plan (12/25/2021 10:32 AM FACING MACHINE OPERATOR): As aforementioned the patient had a transthoracic [...] change. Assessment & Plan (12/25/2021 10:27 AM FACING MACHINE OPERATOR): Records mention that the patient has hypertension. [...] change. 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 Assessment & Plan (12/25/2021 10:26 AM FACING MACHINE OPERATOR): Patient's most recent lipid panel is from 10/13/2021 with a total cholesterol 154 and LDL cholesterol 46. This was obtained while the patient was on Praluent. Anxiety 07/04/2016 S/P CABG (coronary artery bypass graft) 07/04/20 16 Overview (12/24/2021): [id number] COLIN to LAD, SVG to OM PDA) . 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 [place] [address] Jeremias Lawrence MSW 06/25/2025 Results Follow-Up [facility] Advanced Medicine Radiation Oncology [address] [facility] [place] [address] Satya Vidal MD MRI Lumbar Spine W WO Contrast 06/23/2025 4:47 PM CDT - 06/23/2025 11:59 PM CDT Hospital Encounter [facility] MRI [address] [place] [address] Prostate cancer (HCC) Discharge Disposition: Discharge to home or self care 06/23/2025 4:21 PM CDT - 06/23/2025 11:59 PM CDT Hospital Encounter [facility] MRI [address] [place] [address] Discharge Disposition: Discharge to home or self care 06/23/2025 4:03 PM CDT - 06/23/2025 11:59 PM CDT Hospital Encounter [facility] MRI [address] [place] [address] Prostate cancer (HCC) Discharge Disposition: Discharge to home or self care 06/23/2025 Orders Only [facility] Medical Office Building 2 Radiation Oncology [address] [place] [id number] Satya Vidal MD Prostate cancer (HCC) (Primary Dx) 06/14/2025 Telephone [facility] Medicine Scheduling [address] [place] [address] Da Portillo Scheduling Appointments 06/05/2025 Telephone [facility] Medicine Cardiology [address] [facility] Advanced Medicine 8th [place] [address] [place] [address] Vinod Romano MD 05/22/2025 9:00 AM CDT Clinical Support [facility] Neuro Psychology [address] [facility] [address] [place] [address] Rupali Patel, PhD Amnesia 04/25/2025 Telephone [facility] Medical Office Building 2 Radiation Oncology [address] [place] [address] [place] 04/23/2025 1:45 PM CDT Lab [facility] at [address] [address] Prostate cancer (HCC) 04/23/2025 1:00 PM CDT Office Visit [facility] Medical Office Building 2 Radiation Oncology [address] [place] [address] Satya Vidal MD Prostate cancer (HCC) (Primary [...] A-fib (HCC) 07/04/2016 CAD (coronary artery disease) [place] (myocardial infarction) (HCC) 2015 Essential tremor Overactive [...] on file Legal Sex Male 7:15 AM FACING MACHINE OPERATOR Gender Identity Male 02/20/2021 1:17 PM CDT Sexual Orientation Straight 06/30/2019 7: 44 AM CDT Obstetrics History Last Filed Vital Signs Vital Sign Reading Time Taken Comments Blood Pressure 101/66 04/23/2025 12:56 PM CDT Pulse 57 04/23/2025 12:56 PM CDT Temperature 36.5 C (97.7 F) 12/07/2024 8:12 AM FACING MACHINE OPERATOR Respiratory Rate 16 12/31/2024 8:47 AM FACING MACHINE OPERATOR Oxygen Saturation 99% 04/23/2025 12:56 PM CDT [...] 08/20/2016 Fall Risk Assessment 12/07/2025 12/07/2024, 11/02/20 Prostate Cancer Screening-PSA 04/23/2027, 10/13/2021, 10/12/2017 DTaP/Tdap/Td Vaccine (4 - Td or Tdap) 08/19/2033 08/19/2023, 05/12/2015, 05/12/2015 Hepatitis C Screening Completed 12/18/2015 Medical Devices Implanted Type Area Heel Attacher Wood Device Identifier Shelf Expiration Date Model / Serial / Lot Sternal Wires Sternum Procedures Procedure Name Priority Date/Time Associated Diagnosis Comments US KIDNEY COMPLETE Schedule Routine, Read Routine (OP Routine) 07/10/2025 11:36 AM CDT Other specified abnormal findings of blood chemistry 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 MRI THORACIC SPINE W WO CONTRAST Schedule Routine, Read Routine (OP Routine) 06/23/2025 6:44 PM CDT Prostate cancer (HCC) MRI LUMBAR SPINE W WO CONTRAST Schedule Routine, Read Routine (OP Routine) 06/23/2025 6:44 PM CDT Prostate cancer (HCC) PSA DIAGNOSTIC Routine 04/23/2025 1:46 PM CDT Prostate cancer (HCC) HEPATITIS PANEL, ACUTE Routine 12/18/2015 3:58 PM FACING MACHINE OPERATOR from Last 3 Months or Most Recently Relevant to Health Maintenance Results * US Kidney Complete (aka RENAL) (07/10/2025 11:36 AM CDT) Anatomical Region Laterality Modality Kidney N/A Ultrasound 07/19/2025 11:1 0 PM CDT Narrative 07/19/2025 11:12 PM CDT EXAM DESCRIPTION: US KIDNEY COMPLETE REASON FOR STUDY: Abnormal renal function tests TECHNIQUE: Ultrasound of the kidneys and urinary bladder was performed with grayscale imaging. COMPARISON: None FINDINGS: RIGHT KIDNEY: The right kidney measures 10.5 cm in length. There is no hydronephrosis. There is normal cortical thickness and echogenicity. LEFT KIDNEY: The left kidney measures 11.6 cm in length. There is no hydronephrosis. There is normal cortical thickness and echogenicity. URINARY BLADDER: The urinary bladder, as visualized, appears unremarkable. The bilateral ureteral jets are visualized. OTHER: No other additional findings. IMPRESSION: Normal renal ultrasound. THIS IS AN ELECTRONICALLY VERIFIED FINAL REPORT 07/19/2025 11:12 PM - Electronically signed by Bhavik David M.D. KT: CHARY Report ID: [id number] Reading Location: [id number] Procedure Note Bhavik David MD - 07/19/2025 EXAM DESCRIPTION: US KIDNEY COMPLETE REASON FOR STUDY: Abnormal renal function tests TECHNIQUE: Ultrasound of the kidneys and urinary bladder was performedwith grayscale imaging. COMPARISON: None FINDINGS: RIGHT KIDNEY: The right kidney measures 10.5 cm in length.There is no hydronephrosis. There is normal cortical thickness and echogenicity. LEFT KIDNEY: The left kidney measures 11.6 cm in length. There is no hydronephrosis. There is normal cortical thickness and echogenicity. URINARY BLADDER: The urinary bladder, as visualized, appearsunremarkable. The bilateral ureteral jets are visualized. OTHER: No other additional findings. IMPRESSION: Normal renal ultrasound. THIS IS AN ELECTRONICALLY VERIFIED FINAL REPORT 07/19/2025 11:12 PM - Electronically signed by Bhavik David M.D. KT: CHARY Report ID: [id number] Reading Location: [id number] us Bon Rodriguez MD IMG US PROCEDURES Final Resul t * MRI Thoracic Spine W WO Contrast [...] Dharmesh Portillo M.D. MARY: MARY Report ID: [id number] Reading Location: [id number] Procedure Note Dharmesh Portillo MD - 06/24/2025 [...] Dharmesh Portillo M.D. MARY: MARY Report ID: [id number] Reading Location: [place] [address] us Satya Vidal MD IM MRI PROCEDURES Tila l Result * MRI [...] Dharmesh Portillo M.D. MARY: MARY Report ID: [id number] Reading Location: [id number] Procedure Note Dharmesh Portillo MD - 06/24/2025 [...] Dharmesh Portillo M.D. MARY: MARY Report ID: [id number] Reading Location: [place] [address] Satya Vidal MD IM MRI PROCEDURES Tila l Result * PSA [...] data last revised 22. Testing performed by: [facility], [address] [place] [address], [place]., [address] Blood 04/23/2025 1:46 PM CDT 04/23/2025 4:03 PM CDT Satya Vidal MD LAB BLOOD ORDERABLES [facility] Result [facility] [address] [facility] Department [place] [address] * Hepatitis panel, acute (12/18/2015 3:58 PM FACING MACHINE OPERATOR) Pathologist [facility] HepBsAg NONREACT NONREACTIVE 12/18/2015 6:47 PM FACING MACHINE OPERATOR [facility] [employer] [facility] HISTORICAL RESULTS Comment: Siemens CentaurXP using KAMERON (chemiluminescent immunoassay) technology. NONREACTIVE: IgM antibodies to Hepatitis B Surface antigen not detected. REACTIVE: IgM antibodies to Hepatitis B Surface antigen detected. Reactive results will be confirmed by neutralization testing. HBsAb (immune status) NONREACT NONREACTIVE 12/18/2015 6:34 PM FACING MACHINE OPERATOR [facility] [employer] HISTORICAL RESULTS Comment: Siemens CentaurXP using KAMERON (chemiluminescent immunoassay) technology. NONREACTIVE: IgM antibodies to Hepatitis B Surface antibody not detected. REACTIVE: IgM antibodies to Hepatitis B Surface antibody detected. Hep B core IgM NONREACT NONREACTIVE 6 7:13 PM FACING MACHINE OPERATOR [facility] [employer] HISTORICAL RESULTS Comment: Siemens CentaurXP using KAMERON (chemiluminescent immunoassay) technology. NONREACTIVE: IgM antibodies to Hepatitis B Core antigen not detected. EQUIVOCAL: IgM antibodies to Hepatitis B Core antigen may or may not be present. Obtain a new specimen and retest. REACTIVE: IgM antibodies to Hepatitis B Core antigen detected. Hep A IgM NONREACT NONREACTIVE 12/18/2015 7:14 PM FACING MACHINE OPERATOR [facility] HISTORICAL RESULTS Comment: Siemens CentaurXP using KAMERON (chemiluminescent immunoassay) technology. NONREACTIVE: IgM antibodies to Hepatitis A not detected. This does not exclude possibility of exposure to Hepatitis A or early acute infection. EQUIVOCAL:IgM antibodies to Hepatitis A may or may not be present. Suggest recollection and retest. REACTIVE: Antibodies to Hepatitis A detected. Hep C Ab NONREACT NONREACTIVE 12/18/2015 7:12 PM FACING MACHINE OPERATOR [facility] HISTORICAL RESULTS Comment: Siemens CentaurXP using KAMERON [...] to Hepatitis C detected. 12/18/2015 3:58 PM FACING MACHINE OPERATOR 12/18/2015 4:06 PM FACING MACHINE OPERATOR us Carlos Dailey MD LAB MICROBIOLOGY - GENERAL ORD ERABLES Final Result [facility] HISTORICAL RESULTS from Last 3 Months or Most Recently Relevant to Health Maintenance Insurance MEDICARE [facility] Address: [facility] [address] [place] [address] [facility] MEDICARE [facility] MEDICARE [facility] Care Teams Inspector Glass Or Mirror Relationship Specialty Start Date End Date Bon Rodriguez MD [address] [place] [address] PCP - General Internal Medicine 10/21/23 Rick Ricci MD [address] [place] [address] Urology 10/08/24
--- OUTSIDE RECORDS SUMMARY | 2025-07-24 12:00 | XMS_ITS | Encounter Summary ---
Author Organization [facility] Address [address] [place] [address] Care Team Providers Care Residential Worker Name Role Phone Bon Rodriguez MD Primary Care Provider [phone] Rick Ricci MD Unavailable [phone] Encounter Details Date Type Department Care Team (Late st Contact Info) Description 06/25/2025 Results Follow-Up [facility] Advanced Medicine Radiation Oncology [address] [facility] Advanced [place] [address] Satya Vidal MD [address] [facility] [address] [place] [address] MRI Lumbar Spine W WO Contrast Social [...] on file Legal Sex Male 7:15 AM GRANULAR OPERATOR Gender Identity Male 02/20/2021 1:17 PM CDT Sexual Orientation Straight 06/30/2019 7: 44 AM CDT documented as of this encounter Plan of Treatment Not on file documented as of this encounter Visit Diagnoses Not on filedocumented in this encounter Care Teams Residential Worker Relationship Specialty Start Date End Date Bon Rodriguez MD [address] [place] [address] PCP - General Internal Medicine 10/21/23 Rick Ricci MD [address] [place] [address] Urology 10/08/24 documented as of this encounter
--- OUTSIDE RECORDS SUMMARY | 2025-07-24 12:00 | XMS_ITS ---
Author Organization [facility] Address [address] [place] [address] Care Team Providers Care Mannequin Decorator Name Role Phone Bon Rodriguez MD Primary Care Provider [phone] Rick Ricci MD Unavailable [phone] Active Problems Problem Noted Date Diagnosed Date Amnesia 02/19/2025 Depression 02/19/2025 Prostate cancer 01/17/2025 Cancer Staging:Clinical:Stage IIC(cT1c, cN0, cM0, PSA: 4.7, Grade Group: 3) - Signed by Satya Vidal MD on 01/17/2025 Diastolic dysfunction 12/25/2021 Assessment & Plan (12/25/2021 10:32 AM SKI TOW OPERATOR): As aforementioned the patient had a [...] change. Assessment & Plan (12/25/2021 10:27 AM SKI TOW OPERATOR): Records mention that the patient has [...] change. Assessment & Plan (12/25/2021 10:31 AM SKI TOW OPERATOR): The patient is known to have [...] inhibitor. Assessment & Plan (12/25/2021 10:26 AM SKI TOW OPERATOR): Patient's most recent lipid panel is from 10/13/2021 with a total cholesterol 154 and LDL cholesterol 46. This was obtained while the patient was on Praluent. Anxiety 07/04/2016 S/P CABG (coronary artery bypass graft) 07/04/20 16 Overview (12/24/2021): [id number] COLIN to LAD, SVG to OM PDA) . Normal stress February 2020 [place] (myocardial infarction) 11/14/2015 Current Treatment and Therapy [...]
--- OUTSIDE RECORDS SUMMARY | 2025-07-24 12:00 | XMS_ITS | Clinical Summary ---
Author Organization [facility] Address [facility] [place] [address] Care Team Providers Care Bell Spinner Name Role Phone Bon Rodriguez MD Primary Care Provider Allergies Active Allergy Reactions Criticality Noted Date [...] Comments Blood Pressure 91/58 12/21/2024 10:28 AM COIL MAKER Pulse 58 12/21/2024 10:28 AM COIL MAKER Temperature 36.4 C (97.5 F) 12/21/2024 10:28 AM COIL MAKER Respiratory Rate 16 12/21/2024 10:28 AM COIL MAKER Oxygen Saturation 97% 12/21/2024 10:28 AM COIL MAKER Inhaled Oxygen Concentration - - Weight 93.9 kg (207 lb) 12/21/2024 10:28 AM COIL MAKER Height 180.3 cm (5' 11) 12/21/2024 10:28 AM COIL MAKER Body Mass Index 28.87 12/21/2024 10:28 AM COIL MAKER Plan of Treatment Health Maintenance Due Date Last Done Comments Colorectal Cancer Screening Colonoscopy (10 Years) 1959 Hepatitis C 1977 Pneumococcal Vaccine: 50+ Years (1 of 1 - PCV) 2009 Zoster Vaccines (1 of 2) 2009 PHQ-2 (Physician [place]) 11/14/2024 COVID-19 Vaccine (3 - 2024-2 6 season) 2025 02/17/2021, 01/27/2021 DTaP, Tdap and Td Vaccines ( 4 [...] age to complete this topic Insurance MEDICARE [facility] Care Teams Bell Spinner Relationship Specialty Start Date End Date Bon Rodriguez MD [address] [place] [id number] PCP - General INTERNAL MEDICINE 01/19/23
[2025-07-24 12:12] VITALS: BP 107/66; PULSE 60; RESP 18; O2SAT 98
[2025-07-24 13:54] VITALS: BP 110/74; PULSE 62; RESP 18; O2SAT 99
--- NOTE | 2025-07-24 13:57 | ED.EXTPRO ---
HPI - Extremity Problem General Chief complaint: Extremity Problem,Nontraumatic Stated complaint: I HAVE SURFACE BLOOD CLOTS IN BOTH LEGS Time Seen by Provider: 07/24/25 13:24 History of Present Illness HPI Narrative: This is a 64-year-old male with history of varicose veins, restless legs syndrome, prostate cancer, celiac disease, DJD who presents to the ED for left thigh pain. Patient states that for the past few weeks, he has been having worsening left thigh pain. He states that he was diagnosed with superficial clots to his right leg for which he was placed on aspirin-dipyridamole. He states that he saw his PCP today for similar issues to his left thigh and was advised to come to the ED for further evaluation. Patient denies chest pain, shortness of breath, swelling. Related Data Home Medications ?Medication ?Instructions ?Recorded ?Confirmed ?Last Taken ?Type ascorbic acid (vitamin C) 1,000 mg 1 g PO DAILY 11/01/23 06/14/25 Unknown History tablet cholecalciferol (vitamin D3) 50 50 mcg PO DAILY 03/14/24 06/14/25 Unknown History mcg (2,000 unit) capsule evolocumab 140 mg/mL subcutaneous 140 mg subcut .Q2W 03/16/24 06/14/25 Unknown History pen injector (Zaire Watson) fluticasone propionate 50 1 spray intranasal Q12H PRN 09/18/24 06/14/25 Unknown History mcg/actuation nasal Allergy Symptoms spray,suspension hydrocortisone acetate 25 mg 25 mg RECTAL DAILY 02/27/25 06/14/25 Unknown History rectal suppository (Anusol-HC) famotidine 20 mg tablet 20 mg PO QHS 07/03/25 Unknown History trazodone 50 mg tablet 25 mg PO QHS PRN 07/18/25 Unknown History Allergies Allergy/AdvReac Type Severity Reaction Status Date / Time ciprofloxacin (From Cipro) AdvReac Intermediate Nausea and Verified 07/24/25 12:15 Vomiting Review of Systems Review of Systems: Gen.: Denies fevers or chills Eyes: Denies eye pain or visual change ENT: Denies congestion Respiratory: Denies shortness of breath or cough CV: Denies chest pain or palpitations GI: Denies abdominal pain nausea, emesis or diarrhea denies burning, urgency, frequency or hematuria Musculoskeletal: Denies back pain or muscle pain Neuro: Denies numbness, tingling, weakness or focal weakness Skin: As per HPI Except as documented, all other systems reviewed and negative [facility] Past Medical History Medical History Varicosities of leg Right hip pain Radiation proctitis Hyperlipidemia Neuralgia of left perineal nerve Memory impairment Left leg pain Prostate cancer Elevated PSA DJD (degenerative joint disease) BMI 27.0-27.9,adult Nausea Follow up Dizziness Frequent headaches Black-out (not amnesia) Cervicalgia Encounter for routine adult health examination without abnormal findings Insomnia Confusion Mucus in stool Tenesmus (rectal) Hematochezia Laceration of head Head trauma Encounter for routine adult health examination with abnormal findings BMI 28.0-28.9,adult Tremor Chest discomfort Tinea cruris Urinary incontinence Abnormal weight loss Abnormal digestive system diagnostic imaging Colon cancer screening Fundic gland polyposis of stomach Insulin resistance Encounter for Medicare annual wellness exam ASHD (arteriosclerotic heart disease) Vitamin B12 deficiency Overactive bladder Abdominal bloating Chronic low back pain Hypersomnolence GUNJAN (obstructive sleep apnea) Prostate cancer screening Unintentional weight loss RLS (restless legs syndrome) Mixed hyperlipidemia BMI 29.0-29.9,adult On superintendent container terminal drug therapy Bipolar II disorder Encounter to establish care Anxiety with depression COVID-19 GERD (gastroesophageal reflux disease) Anxiety Depression Surgical History Surgical History S/P CABG x 3 Hx of fusion of cervical spine Family History Family History Father Hypertension Depression Heart disease Diverticulitis Alzheimers disease Mother Depression Social History Social History Social History: Caffeine-coffee Smoking status: Never smoker Second hand tobacco smoke exposure: No Alcohol intake: current Alcohol use details: Rare social ETOH. 2-3 drinks yearly. Substance use: never Substance use type: does not use Do You Feel Safe in your Home?: Yes Lack of Transportation: No Lack of Food: Never True Current Housing: I Have Housing Concerned About Future Housing: No Difficulty Paying Gas/Electric Bills: No Difficulty Paying for Meds: No Currently Unemployed: No Education: Bachelor's Degree Difficulty w/ Childcare or Family Care: No Living arrangements: with family Occupation/Education: retired Gender identity (if verbalized by the patient): Male Spiritual care concerns: No Exam Narrative: APPEARANCE: No acute distress, nontoxic, resting in bed EYES: EOMI HEENT: Normocephalic, atraumatic, OMM RESPIRATORY: No respiratory distress Clear to auscultation bilaterally with no rhonchi wheezing or rales. CARDIOVASCULAR: Regular rate and rhythm without murmurs rubs or gallops. ABDOMINAL: Soft, nontender, nondistended, no rebound or guarding MUSCULOSKELETAl: Moves all extremities. No clubbing, cyanosis or edema. NEURO: Awake and alert. Following commands, speech normal, no focal deficits SKIN:: Palpable thready veins to the left popliteal and posterior thigh that are nontender. PSYCHIATRIC: Normal affect/mood, Course Vital Signs Vital signs: Vital Signs Temperature 98.0 F 07/24/25 11:12 Pulse Rate 65 07/24/25 11:12 Respiratory Rate 16 07/24/25 11:12 Blood Pressure 126/94 H 07/24/25 11:12 Pulse Oximetry 100 07/24/25 11:12 Oxygen Delivery Room Air 07/24/25 11:12 Temperature 98.0 F 07/24/25 11:12 Pulse Rate 62 07/24/25 13:54 Respiratory Rate 18 07/24/25 13:54 Blood Pressure 110/74 07/24/25 13:54 Pulse Oximetry 99 07/24/25 13:54 Oxygen Delivery Room Air 07/24/25 12:12 MDM - Extremity (Nontraumatic) MDM Narrative Medical decision making narrative: 64-year-old male who presented to the ED for who leg swelling concerns for DVT. On initial evaluation, patient was in no acute distress afebrile, hemodynamically stable. He did have multiple palpable superficial vessels to his left thigh but no tenderness to palpation. Cbc and CMP with a significant abnormalities. Ultrasound lower extremity showed no evidence of DVT but did show superficial thrombophlebitis. No evidence of infection. Patient is already on aspirin-dipyridamole and advised to continue to take this. He is advised follow-up with his PCP next week for re-evaluation. Patient was agreeable to this plan. Given strict return precautions. Differential Diagnosis Differential diagnosis: Likely cellulitis, superficial thrombophlebitis, lower extremity edema and deep vein thrombosis of lower extremity Lab Data 07/24/25 11:25 07/24/25 11:25 Labs: Lab Results 07/24/25 Range/Units 11:25 WBC 6.0 (4.5-10.0) K/mm3 RBC 4.77 (4.6-6.20) M/mm3 Hgb 14.8 (14.0-18.0) g/dL Hct 44.3 (42.0-52.0) % MCV 92.9 (80-100) fl MCH 31.0 (26-34) pg MCHC 33.4 (32-36) g/dl RDW 12.6 (11.5-14.5) % Plt Count 234 (150-375) k/mm3 MPV 9.3 (7.4-10.4) fl Immature Gran % (Auto) 0.2 (0-0.5) % Neut % (Auto) 71.6 (45.5-73.1) % Lymph % (Auto) 17.6 L (18.3-44.2) % [place] % (Auto) 7.4 (2.6-8.5) % Eos % (Auto) 2.7 (0-4.4) % Baso % (Auto) 0.5 (0.2-1.2) % Lymph # (Auto) 1.05 (0.9-3.2) K/mm3 [place] # (Auto) 0.4 (0.1-0.6) K/mm3 Eos # (Auto) 0.2 (0-0.3) K/mm3 Baso # (Auto) 0.0 (0.0-0.1) K/mm3 Abs Immat Gran (auto) 0.01 (0.00-0.031) K/mm3 Absolute Neuts (auto) 4.3 (1.3-6.7) K/mm3 Absolute Nucleated RBC 0.000 (0.0-0.012) K/mm3 Nucleated RBC % 0.0 (0.0-0.2) % PT 14.8 H (11.1-14.7) Seconds INR 1.1 APTT 35.5 (22.3-36.8) Seconds Sodium 138 (137-145) mmol/L Potassium 4.5 (3.4-5.0) mmol/L Chloride 108 H (98-107) mmol/L Carbon Dioxide 23 (22-30) mmol/L Anion Gap 7 (4-12) mmol/L BUN 16 (9-20) mg/dL Creatinine 1.34 H (0.7-1.3) mg/dL Estim Creat Clear Calc Not Reportable Estimated GFR 53 L (59 - ) Glucose 107 (65-110) mg/dL Calcium 9.3 (8.4-10.2) mg/dL Total Bilirubin 0.6 (0.2-1.3) mg/dL AST 32 (17-59) U/L ALT 42 (6-50) U/L Alkaline Phosphatase 68 (38-126) U/L Total Protein 7.1 (6.3-8.2) g/dL Albumin 4.2 (3.5-5.1) g/dL Discharge Plan Discharge Clinical Impression: Superficial thrombophlebitis Qualifiers: Superficial thrombophlebitis-Involved body area: lower extremity Laterality: bilateral Qualified Code(s): I80.03 - Phlebitis and thrombophlebitis of superficial vessels of lower extremities, bilateral Patient Disposition: Home Condition: Stable Instructions: Antibiotic Form, Superficial Thrombophlebitis (ED) Additional Instructions: Continue to take the aspirin-dipyridamole as prescribed. Follow-up with the PCP in the next week for re-evaluation. Return to the ED for any new or worsening symptoms. Patient Language: Nepali Prescriptions: No Action nitroglycerin 0.4 mg tablet, sublingual 0.4 mg sublingual Q5M PRN (Reason: chest pain) Qty: 25 0RF Rx Instructions: do not exceed 3 doses per episode pramipexole 1 mg tablet 1 mg PO DAILY Qty: 270 1RF dapagliflozin propanediol [Farxiga] 10 mg tablet 10 mg PO DAILY Qty: 90 1RF hydrocodone-acetaminophen 5-325 mg tablet 1 tablet PO Q8H PRN (Reason: pain) Qty: 30 0RF Repatha SureClick 140 mg/mL pen injector 140 mg subcut .Q2W fluticasone propionate 50 mcg/actuation spray,suspension 1 spray intranasal Q12H PRN (Reason: Allergy Symptoms) Patient Comments: uses at bedtime once Rx Instructions: administer into each nostril hydrocortisone acetate [Anusol-HC] 25 mg suppository 25 mg RECTAL DAILY gabapentin 100 mg capsule 100 mg PO TID Qty: 90 0RF ascorbic acid (vitamin C) 1,000 mg Tablet 1 g PO DAILY (DME) blood-glucose meter [Blood Glucose Monitoring] Kit See Rx Instructions .Route Qty: 1 4RF Rx Instructions: As directed (DME) Blood Glucose Test Strip See Rx Instructions .Route Qty: 25 3RF Rx Instructions: As directed cholecalciferol (vitamin D3) 50 mcg (2,000 unit) capsule 50 mcg PO DAILY lithium carbonate 300 mg capsule 300 mg PO BID Qty: 180 0RF cyanocobalamin (vitamin B-12) 1,000 mcg/mL solution See Rx Instructions .ROUTE .COMPLEX Qty: 10 0RF Dose Instruction: INJECT 1ML INTRAMUSCULARLY ONCE MONTHLY Rx Instructions: INJECT 1ML INTRAMUSCULARLY ONCE MONTHLY clonazepam 0.5 mg tablet 0.5 mg PO TID PRN (Reason: anxiety) Qty: 60 0RF nystatin 100,000 unit/gram powder 1 applic topical BID Qty: 60 1RF aspirin-dipyridamole 25-200 mg capsule, ER multiphase 12 hr See Rx Instructions .ROUTE .COMPLEX Qty: 180 0RF Dose Instruction: TAKE 1 CAPSULE BY MOUTH EVERY DAY AT BEDTIME Rx Instructions: TAKE 1 CAPSULE BY MOUTH EVERY DAY AT BEDTIME famotidine 20 mg tablet 20 mg PO QHS trazodone 50 mg tablet 25 mg PO QHS PRN Follow-up/Referrals: Bon Rodriguez MD [Primary Care Provider, Internal Medicine] Markus Feliz MD [Physician, Orthopedics]
--- OUTSIDE RECORDS SUMMARY | 2025-07-24 14:23 | XMS_ITS ---
Author Organization [facility] Address [address] [place] [address] Care Team Providers Care Wood Cut Engraver Name Role Phone Bon Rodriguez MD Primary Care Provider [phone] Rick Ricci MD Unavailable [phone] Active Problems Problem Noted Date Diagnosed Date Amnesia 02/19/2025 Depression 02/19/2025 Prostate cancer 01/17/2025 Cancer Staging:Clinical:Stage IIC(cT1c, cN0, cM0, PSA: 4.7, Grade Group: 3) - Signed by Satya Vidal MD on 01/17/2025 Diastolic dysfunction 12/25/2021 Assessment & Plan (12/25/2021 10:32 AM SCREEDMAN/LABORER): As aforementioned the patient had a transthoracic [...] change. Assessment & Plan (12/25/2021 10:27 AM SCREEDMAN/LABORER): Records mention that the patient has hypertension. [...] change. Assessment & Plan (12/25/2021 10:31 AM SCREEDMAN/LABORER): The patient is known to have triple-vessel [...] inhibitor. Assessment & Plan (12/25/2021 10:26 AM SCREEDMAN/LABORER): Patient's most recent lipid panel is from 10/13/2021 with a total cholesterol 154 and LDL cholesterol 46. This was obtained while the patient was on Praluent. Anxiety 07/04/2016 S/P CABG (coronary artery bypass graft) 07/04/20 16 Overview (12/24/2021): [id number] COLIN to LAD, SVG to OM PDA) . Normal stress February 2020 [place] (myocardial infarction) 11/14/2015 Current Treatment and Therapy [...]
--- OUTSIDE RECORDS SUMMARY | 2025-07-24 14:23 | XMS_ITS | Clinical Summary ---
Author Organization [facility] Address [address] [place] [address] Care Team Providers Care Ergonomic Specialist Name Role Phone Bon Rodriguez MD Primary Care Provider [phone] Rick Ricci MD Unavailable [phone] Allergies Active Allergy Reactions Criticality Noted Date [...] 12/25/2021 Assessment & Plan (12/25/2021 10:32 AM MINISTER OF RELIGION): As aforementioned the patient had a transthoracic [...] change. Assessment & Plan (12/25/2021 10:27 AM MINISTER OF RELIGION): Records mention that the patient has hypertension. [...] change. 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 Assessment & Plan (12/25/2021 10:26 AM MINISTER OF RELIGION): Patient's most recent lipid panel is from 10/13/2021 with a total cholesterol 154 and LDL cholesterol 46. This was obtained while the patient was on Praluent. Anxiety 07/04/2016 S/P CABG (coronary artery bypass graft) 07/04/20 16 Overview (12/24/2021): [id number] COLIN to LAD, SVG to OM PDA) . 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 [place] [address] Jeremias Lawrence MSW 06/25/2025 Results Follow-Up [facility] Advanced Medicine Radiation Oncology [address] [facility] [place] [address] Satya Vidal MD MRI Lumbar Spine W WO Contrast 06/23/2025 4:47 PM CDT - 06/23/2025 11:59 PM CDT Hospital Encounter [facility] MRI [address] [place] [address] Prostate cancer (HCC) Discharge Disposition: Discharge to home or self care 06/23/2025 4:21 PM CDT - 06/23/2025 11:59 PM CDT Hospital Encounter [facility] MRI [address] [place] [address] Discharge Disposition: Discharge to home or self care 06/23/2025 4:03 PM CDT - 06/23/2025 11:59 PM CDT Hospital Encounter [facility] MRI [address] [place] [address] Prostate cancer (HCC) Discharge Disposition: Discharge to home or self care 06/23/2025 Orders Only [facility] Medical Office Building 2 Radiation Oncology [address] [place] [address] Satya Vidal MD Prostate cancer (HCC) (Primary Dx) 06/14/2025 Telephone [facility] Medicine Scheduling [address] [place] [address] Da Portillo Scheduling Appointments 06/05/2025 Telephone [facility] Medicine Cardiology [address] [facility] Advanced Medicine 8th [place] [address] [place] [address] Vinod Romano MD 05/22/2025 9:00 AM CDT Clinical Support [facility] Neuro Psychology [address] [facility] [address] [place] [address] Rupali Patel, PhD Amnesia 04/25/2025 Telephone [facility] Medical Office Building 2 Radiation Oncology [address] [place] [address] [place] 04/23/2025 1:45 PM CDT Lab [facility] at [address] [address] Prostate cancer (HCC) 04/23/2025 1:00 PM CDT Office Visit [facility] Medical Office Building 2 Radiation Oncology [address] [place] [address] Satya Vidal MD Prostate cancer (HCC) (Primary [...] A-fib (HCC) 07/04/2016 CAD (coronary artery disease) [place] (myocardial infarction) (HCC) 2015 Essential tremor Overactive [...] on file Legal Sex Male 7:15 AM MINISTER OF RELIGION Gender Identity Male 02/20/2021 1:17 PM CDT Sexual Orientation Straight 06/30/2019 7: 44 AM CDT Obstetrics History Last Filed Vital Signs Vital Sign Reading Time Taken Comments Blood Pressure 101/66 04/23/2025 12:56 PM CDT Pulse 57 04/23/2025 12:56 PM CDT Temperature 36.5 C (97.7 F) 12/07/2024 8:12 AM MINISTER OF RELIGION Respiratory Rate 16 12/31/2024 8:47 AM MINISTER OF RELIGION Oxygen Saturation 99% 04/23/2025 12:56 PM CDT [...] Completed 12/18/2015 Medical Devices Implanted Type Area Block Setter Gypsum Device Identifier Shelf Expiration Date Model / Serial / Lot Sternal Wires Sternum Procedures Procedure Name Priority Date/Time Associated Diagnosis Comments US KIDNEY COMPLETE Schedule Routine, Read Routine (OP Routine) 07/10/2025 11:36 AM CDT Other specified abnormal findings of blood chemistry Other se[employer]ora 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 KT: CHARY Report ID: [id number] Reading Location: [id number] Procedure Note Bhavik David MD - 07/19/2025 [...] Bhavik David M.D. KT: CHARY Report ID: [id number] Reading Location: [id number] us Bon Rodriguez MD IMG US PROCEDURES [...] Dharmesh Portillo M.D. MARY: MARY Report ID: [id number] Reading Location: [id number] Procedure Note Dharmesh Portillo MD - 06/24/2025 [...] Dharmesh Portillo M.D. MARY: MARY Report ID: [id number] Reading Location: [place] [address] us Satya Vidal MD IM MRI PROCEDURES [...] Dharmesh Portillo M.D. MARY: MARY Report ID: [id number] Reading Location: [id number] Procedure Note Dharmesh Portillo MD - 06/24/2025 [...] Dharmesh Portillo M.D. MARY: MARY Report ID: [id number] Reading Location: [place] [address] Satya Vidal MD IM MRI PROCEDURES Tila [...] last revised 22. Testing performed by: [facility], [address] [place] [address], [place]., [address] Blood 04/23/2025 1:46 PM CDT 04/23/2025 4:03 PM CDT Satya Vidal MD LAB BLOOD ORDERABLES [facility] Result [facility] [address] [facility] Department [place] [address] * Hepatitis panel, acute (12/18/2015 3:58 PM MINISTER OF RELIGION) Pathologist [facility] HepBsAg NONREACT NONREACTIVE 12/18/2015 6:47 PM MINISTER OF RELIGION [facility] [employer] [facility] HISTORICAL RESULTS Comment: Siemens CentaurXP using KAMERON (chemiluminescent immunoassay) technology. NONREACTIVE: IgM antibodies to Hepatitis B Surface antigen not detected. REACTIVE: IgM antibodies to Hepatitis B Surface antigen detected. Reactive results will be confirmed by neutralization testing. HBsAb (immune status) NONREACT NONREACTIVE 12/18/2015 6:34 PM MINISTER OF RELIGION [facility] [employer] HISTORICAL RESULTS Comment: Siemens CentaurXP using KAMERON (chemiluminescent immunoassay) technology. NONREACTIVE: IgM antibodies to Hepatitis B Surface antibody not detected. REACTIVE: IgM antibodies to Hepatitis B Surface antibody detected. Hep B core IgM NONREACT NONREACTIVE 6 7:13 PM MINISTER OF RELIGION [facility] [employer] HISTORICAL RESULTS Comment: Siemens CentaurXP using KAMERON (chemiluminescent immunoassay) technology. NONREACTIVE: IgM antibodies to Hepatitis B Core antigen not detected. EQUIVOCAL: IgM antibodies to Hepatitis B Core antigen may or may not be present. Obtain a new specimen and retest. REACTIVE: IgM antibodies to Hepatitis B Core antigen detected. Hep A IgM NONREACT NONREACTIVE 12/18/2015 7:14 PM MINISTER OF RELIGION [facility] HISTORICAL RESULTS Comment: Siemens CentaurXP using KAMERON (chemiluminescent immunoassay) technology. NONREACTIVE: IgM antibodies to Hepatitis A not detected. This does not exclude possibility of exposure to Hepatitis A or early acute infection. EQUIVOCAL:IgM antibodies to Hepatitis A may or may not be present. Suggest recollection and retest. REACTIVE: Antibodies to Hepatitis A detected. Hep C Ab NONREACT NONREACTIVE 12/18/2015 7:12 PM MINISTER OF RELIGION [facility] HISTORICAL RESULTS Comment: Siemens CentaurXP using KAMERON [...] to Hepatitis C detected. 12/18/2015 3:58 PM MINISTER OF RELIGION 12/18/2015 4:06 PM MINISTER OF RELIGION us Carlos Dailey MD LAB MICROBIOLOGY - GENERAL ORD ERABLES Final Result [facility] HISTORICAL RESULTS from Last 3 Months or Most Recently Relevant to Health Maintenance Insurance MEDICARE [facility] Address: [facility] [address] [place] [address] [facility] MEDICARE [facility] MEDICARE [facility] Care Teams Ergonomic Specialist Relationship Specialty Start Date End Date Bon Rodriguez MD [address] [place] [address] PCP - General Internal Medicine 10/21/23 Rick Ricci MD [address] [place] [address] Urology 10/08/24
--- OUTSIDE RECORDS SUMMARY | 2025-07-24 14:23 | XMS_ITS | Clinical Summary ---
Author Organization [facility] Address [facility] [place] [address] Care Team Providers Care Coffee Roaster Helper Name Role Phone Bon Rodriguez MD Primary Care Provider [phone] Allergies Active Allergy Reactions Criticality Noted Date [...] Comments Blood Pressure 91/58 12/21/2024 10:28 AM MILL BEAM FITTER Pulse 58 12/21/2024 10:28 AM MILL BEAM FITTER Temperature 36.4 C (97.5 F) 12/21/2024 10:28 AM MILL BEAM FITTER Respiratory Rate 16 12/21/2024 10:28 AM MILL BEAM FITTER Oxygen Saturation 97% 12/21/2024 10:28 AM MILL BEAM FITTER Inhaled Oxygen Concentration - - Weight 93.9 kg (207 lb) 12/21/2024 10:28 AM MILL BEAM FITTER Height 180.3 cm (5' 11) 12/21/2024 10:28 AM MILL BEAM FITTER Body Mass Index 28.87 12/21/2024 10:28 AM MILL BEAM FITTER Plan of Treatment Health Maintenance Due Date Last Done Comments Colorectal Cancer Screening Colonoscopy (10 Years) 1959 Hepatitis C 1977 Pneumococcal Vaccine: 50+ Years (1 of 1 - PCV) 2009 Zoster Vaccines (1 of 2) 2009 PHQ-2 (Physician [place]) 11/14/2024 COVID-19 Vaccine (3 - 2024-2 6 [...] age to complete this topic Insurance MEDICARE [facility] Care Teams Coffee Roaster Helper Relationship Specialty Start Date End Date Bon Rodriguez MD [address] [place] [id number] PCP - General INTERNAL MEDICINE 01/19/23
--- OUTSIDE RECORDS SUMMARY | 2025-07-24 14:23 | XMS_ITS | Encounter Summary ---
Author Organization [facility] Healthcare Address [address] [place] [address] Care Team Providers Care Admissions Director Name Role Phone Bon Rodriguez MD Primary Care Provider [phone] Rick Ricci MD Unavailable [phone] Encounter Details Date Type Department Care Team (Late st Contact Info) Description 06/25/2025 Results Follow-Up [facility] Advanced Medicine Radiation Oncology [address] [facility] Advanced [place] [address] Satya Vidal MD [address] [facility] [address] [place] [address] MRI Lumbar Spine W WO Contrast Social [...] on file Legal Sex Male 7:15 AM ALLOCATION ANALYST Gender Identity Male 02/20/2021 1:17 PM CDT Sexual Orientation Straight 06/30/2019 7: 44 AM CDT documented as of this encounter Plan of Treatment Not on file documented as of this encounter Visit Diagnoses Not on filedocumented in this encounter Care Teams Admissions Director Relationship Specialty Start Date End Date Bon Rodriguez MD [address] [place] [address] PCP - General Internal Medicine 10/21/23 Rick Ricci MD [address] [place] [address] Urology 10/08/24 documented as of this encounter
--- OUTSIDE RECORDS SUMMARY | 2025-07-24 14:23 | XMS_ITS | Encounter Summary ---
Author Organization [facility] Address [address] [place] [address] Phone Care Team Providers Care Under Cutter Name Role Phone Bon Rodriguez MD Primary Care Provider [phone] Rick Ricci MD Unavailable [phone] Encounter Details Date Type Department Care Team (Latest Contact Info) Description 01/30/2018 Orders Only [facility] CONVERSION Scanning, Provider Social History Tobacco Use Types Packs/Day Years Used Date Smoking Tobacco: Never Sex and Gender Information Value Date Recorded Sex Assigned at Not on file Legal Sex Male 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
--- OUTSIDE RECORDS SUMMARY | 2025-07-24 14:23 | XMS_ITS | Clinical Summary ---
Author Organization [facility] Address [address] [facility] [place] [address] Care Team Providers Care Director College Name Role Phone Bon Rodriguez MD Primary Care Provider [phone] Source Comments [facility],non-owned Affiliates and Associated Physician Practices is amultiple site organization consisting of ambulatory clinics and hospital sitesin [place], [place], [place] and [place]. This disclosure is being madepursuant to the Care Everywhere program and may not contain all information available regarding this patient. Last updated 18.[facility] Allergies Active Allergy Reactions Criticality Noted Date [...] fluticasone propionate (Flonase) 50 MCG/ACT nasal spray [place] 1 (one) spray into each nostril 2 times daily Active folic acid 800 MCG tablet Take 1 (one) tablet by mouth once daily 4 Active HYDROcodone-ac etaminophen (Mingo) 5-325 MG tablet Take 1 (one) tablet by mouth once daily Active lithium carbonate (Eskalith) 300 MG capsule Take 1 (one) capsule by mouth 3 times daily Active metoprolol succinate XL 24hr (Toprol XL) 25 MG tablet Take 1 (one) tablet by mouth once daily 4 Active nitroGLYCERIN (Nitrostat) 0.4 MG tablet Dissolve 1 (one) tablet under the tongue as needed Active Nystop [id number] UNIT/GM powder Apply 1 Units to affected [...] on file Legal Sex Male 1:44 PM WHARFMASTER Gender Identity Not on file Sexual Orientation Not on file Last Filed Vital Signs Vital Sign Reading Time Taken Comments Blood Pressure 124/82 11/16/2024 1:00 PM WHARFMASTER Pulse 60 11/16/2024 1:00 PM WHARFMASTER Temperature 36.6 C (97.9 F) 11/04/2024 2:27 PM WHARFMASTER Respiratory Rate 18 11/04/2024 2:27 PM WHARFMASTER Oxygen Saturation 97% 11/04/2024 2:27 PM WHARFMASTER Inhaled Oxygen Concentration - - Weight 92.5 kg (204 lb) 11/16/2024 1:00 PM WHARFMASTER Height 180.3 cm (5' 11) 11/16/2024 1:00 PM WHARFMASTER Body Mass Index 28.45 11/16/2024 1:00 PM WHARFMASTER Plan of Treatment Health Maintenance Due Date [...] COMPREHENSIVE METABOLIC PANEL STAT 11/04/2024 11:38 AM WHARFMASTER from Last 3 Months or Most Recently Relevant to Health Maintenance Results * (ABNORMAL) COMPREHENSIVE METABOLIC PANEL (11/04/2024 11:38 AM WHARFMASTER) BUN 13 7 - 26 mg/dL 11/04/2024 12:17 PM [facility] Creatinine 1.28(H) 0.71 - 1.16 mg/dL 11/04/2024 12:17 PM [facility] Sodium 138 136 - 145 mmol/L 11/04/2024 12:17 PM [facility] Potassium 3.8 3.5 - 4.5 mmol/L 11/04/2024 12:17 PM [facility] Chloride 108(H) 98 - 107 mmol/L 11/04/2024 12:17 PM [facility] CO2 27 22 - 29 mmol/L 11/04/2024 12:17 PM [facility] Glucose 105(H) 70 - 99 mg/dL 11/04/2024 12:17 PM [facility] Calcium 9.7 8.4 - 10.2 mg/dL 11/04/2024 12:17 PM [facility] Protein Total 6.8 6.0 - 8.3 g/dL 11/04/2024 12:17 PM [facility] Albumin 3.8 3.4 - 5.0 g/dL 11/04/2024 12:17 PM [facility] Bilirubin Total 0.5 0.2 - 1.2 mg/dL 11/04/2024 12:17 PM [facility] Alkaline Phosphatase 79 40 - 150 U/L 11/04/2024 12:17 PM [facility] ALT 26 5 - 55 U/L 11/04/2024 12:17 PM [facility] AST 20 5 - 34 U/L 11/04/2024 12:17 PM [facility] Anion Gap 3(L) 6 - 16 11/04/2024 12:17 PM [facility] BUN/Creatinine Ratio 10 7 - 23 11/04/2024 12:17 PM [facility] Osmolality Calculated 286 275 - 295 mOsm/kg 11/04/2024 12:17 PM [facility] Albumin/Globulin Ratio 1.3 1.1 - 2.3 11/04/2024 12:17 PM [facility] eGFR by CKD-EPI 62(L) >=90 mL/min/1.7 3 m2 11/04/2024 12:17 PM [facility] Blood BLOOD SPECIMEN / Unknown Venipuncture / Unknown 11/04/2024 11:38 AM WHARFMASTER 11/04/2024 11:52 AM [facility] us Stacey Faria GROUP ACCOUNT DIRECTOR-SOCIAL SCIENCES CHAIR LAB - CHEMISTRY ORDER KONG Final Result [facility] [address] [place] [address], [facility] [phone] from Last 3 Months or Most Recently Relevant to Health Maintenance Insurance MEDICARE [facility] MEDICARE Care Teams Director College Relationship Specialty Start Date End Date Bon Rodriguez MD [address] [place] [address] PCP - General 11/11/22
== END 2025-07-24 14:22 | disposition home or self-care (01) ==
PROVIDERS: Emergency Medicine; Emergency Provider Student in an Organized Health Care Education/Training Program; PCP Internal Medicine
DX: I80.03 Phlebitis and thrombophlebitis of superficial vessels of lower extremities, bilateral (principal); I25.10 Atherosclerotic heart disease of native coronary artery without angina pectoris; E78.5 Hyperlipidemia, unspecified; E78.2 Mixed hyperlipidemia; N32.81 Overactive bladder; R32 Unspecified urinary incontinence; K90.0 Celiac disease; K21.9 Gastro-esophageal reflux disease without esophagitis; G25.81 Restless legs syndrome; G47.33 Obstructive sleep apnea (adult) (pediatric); F31.81 Bipolar II disorder; F41.8 Other specified anxiety disorders; Z98.1 Arthrodesis status; Z86.16 Personal history of COVID-19; Z85.46 Personal history of malignant neoplasm of prostate; Z95.1 Presence of aortocoronary bypass graft; Z79.899 Other long term (current) drug therapy
CPT/HCPCS: 36415; 80053; 85025; 85610; 85730; 93970; 99284

== ENCOUNTER 2025-08-26 13:00 | Outpatient (CLI) | payer MEDICARE, OTHER, SELFPAY ==
[2025-08-26 13:41] LABS: Hematocrit 43.0 % (42.0-52.0); Hemoglobin 14.5 g/dL (14.0-18.0); Immature Granulocyte Percent A 0.5 % (0-0.5); Lymphocytes Absolute Auto 0.91 K/mm3 (0.9-3.2); Mean Corpuscular HGB Conc 33.7 g/dl (32-36); Mean Corpuscular Hemoglobin 31.1 pg (26-34); Mean Corpuscular Volume 92.3 fl (80-100); Nucleated Red Blood Cells Absolute Auto 0.000 K/mm3 (0.0-0.012); Nucleated Red Blood Cells Perc 0.0 % (0.0-0.2); Platelet Count Result 248 k/mm3 (150-375); Red Blood Count 4.66 M/mm3 (4.6-6.20); White Blood Count 6.1 K/mm3 (4.5-10.0)
--- OUTSIDE RECORDS SUMMARY | 2025-08-26 14:10 | XMS_ITS | Encounter Summary ---
Author Organization [facility] Address [address] [place] [address] Phone Care Team Providers Care Early Childhood Education Coordinator Name Role Phone Bon Rodriguez MD Primary Care Provider [phone] Rick Ricci MD Unavailable [phone] Encounter Details Date Type Department Care Team (Latest Contact Info) Description 01/30/2018 Orders Only [facility] CONVERSION Scanning, Provider Social History Tobacco Use Types Packs/Day Years Used Date Smoking Tobacco: Never Sex and Gender Information Value Date Recorded Sex Assigned at Not on file Legal Sex Male 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 Gender Identity Male 02/20/2021 1:17 PM CDT Sexual Orientation Straight 06/30/2019 7: 44 AM CDT documented as of this encounter Plan of Treatment Upcoming Encounters Date Type Department Care Team (Late st Contact Info) Description 08/27/2025 5:15 PM CDT Hospital Encounter [facility] [address] [place] [address] documented as of this encounter Procedures Procedure [...] documented as of this encounter Care Teams Early Childhood Education Coordinator Relationship Specialty Start Date End Date Bon Rodriguez MD PCP - General Internal Medicine 10/21/23 Rick Ricci MD [address] [place] [address] Urology 10/08/24 documented as of this encounter
--- OUTSIDE RECORDS SUMMARY | 2025-08-26 14:10 | XMS_ITS | Clinical Summary ---
Author Organization [facility] Address [address] [place] [address] Care Team Providers Care Personnel Quality Assurance Auditor Name Role Phone Bon Rodriguez MD Primary Care Provider [phone] Rick Ricci MD Unavailable [phone] Allergies Active Allergy Reactions Criticality Noted Date Comments Zolpidem Hallucinations Medium 11/02/2024 Propoxyphene Other (See comments) Low 02/25/2020 Confusion Rosuvastatin Other (See comments) Reaction: CRAMPS, Medications ascorbic acid, vitamin C, (VITAMIN C) 500 mg capsule, extended release CR capsule 500 mg. 0 0 017 Active HYDROcodone-a cetaminophen (NORCO) 5-325 mg per tablet take 1 tablet by oral route every 6 hours as needed for pain 0 0 017 Active clonazePAM (KlonoPIN) 0.5 mg tablet Take 1 tablet (0.5 mg total) by mouth daily as needed for anxiety Active lithium 300 mg capsule Take 1 tablet/capsule (300 mg total) by mouth 2 (two) times a day with meals 021 Active nitroglycerin (NITROSTAT) 0.[address] 1 tablet (0.4 mg total) under the tongue every 5 (five) minutes as needed for chest pain May repeat dose q 5 min, up to 3 doses total 25 tablet 6 022 Active cyanocobalami n (Vitamin B-12) 1,000 mcg/mL injection INJECT 1ML INTRAMUSCULARLY ONCE MONTHLY Active evolocumab (Repatha SureClick) 140 mg/mL pen injector ADMINISTER 1 ML(140 MG) UNDER THE SKIN EVERY 14 DAYS 6 mL 1 Active aspirin-dipyr idamole (AGGRENOX) 25-200 mg per 12 hr capsule Take 1 capsule by mouth daily Active omeprazole (PriLOSEC) 20 mg capsule take 1 capsule by oral route every day 30 minutes to 1 hour before a meal 0 0 017 2024 Discontinued pramipexole (MIRAPEX) 1 mg tablet take 1 tablet by oral route 3 times every day 0 0 017 2024 Discontinued folic acid (FOLVITE) 800 mcg tablet Take 1 tablet (800 mcg total) by mouth daily 024 2024 Discontinued propranoloL (INDERAL) 10 mg tablet Take 1 tablet (10 mg total) by mouth 2 (two) times a day 60 tablet 11 024 2024 Discontinued tamsulosin (FLOMAX) 0.4 mg extended release capsule Take 1 capsule (0.4 mg total) by mouth nightly 30 capsule 3 025 2024 Discontinued Active Problems Problem Noted Date Diagnosed Date Amnesia 02/19/2025 Depression 02/19/2025 Prostate cancer 01/17/2025 Cancer Staging:Clinical:Stage IIC(cT1c, cN0, cM0, PSA: 4.7, Grade Group: 3) - Signed by Satya Vidal MD on 01/17/2025 Diastolic dysfunction 12/25/2021 Assessment & Plan (12/25/2021 10:32 AM PRODUCER ARBORIST MANAGER): As aforementioned the patient had a [...] change. Assessment & Plan (12/25/2021 10:27 AM PRODUCER ARBORIST MANAGER): Records mention that the patient has [...] change. Assessment & Plan (12/25/2021 10:31 AM PRODUCER ARBORIST MANAGER): The patient is known to have triple-vessel disease and is currently status post triple-vessel CABG in 2016 with COLIN to LAD, SVG to RCA [...] inhibitor. Assessment & Plan (12/25/2021 10:26 AM PRODUCER ARBORIST MANAGER): Patient's most recent lipid panel is from 10/13/2021 with a total cholesterol 154 and LDL cholesterol 46. This was obtained while the patient was on Praluent. Anxiety 07/04/2016 S/P CABG (coronary artery bypass graft) 07/04/20 16 Overview (12/24/2021): [id number] COLIN to LAD, SVG to OM PDA) . Normal stress February 2020 LA (myocardial infarction) 11/14/2015 Resolved Problems Problem Noted Date Diagnosed Date Resolved Date Paroxysmal A-fib 07/04/2016 02/10/2024 Encounters Date Type Department Care Team Description 07/30/2025 1:00 PM CDT Office Visit [facility] Medical Office Building 2 Radiation Oncology [address] [place] [address] Satya Vidal MD Prostate cancer (HCC) (Primary Dx) 07/26/2025 10:50 AM CDT Lab [facility] Lab [address] [place] [address] Prostate cancer (HCC) 07/10/2025 11:07 AM CDT - 07/10/2025 11:59 PM CDT Hospital Encounter [facility] Ultrasound [address] [place] [address] Other specified abnormal findings of blood chemistry; 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 7th [place] [address] Jeremias Lawrence FRANKY 06/25/2025 Results Follow-Up [facility] Radiation Oncology [address] [facility] [place] [address] Satya Vidal MD MRI Lumbar Spine W WO Contrast 06/23/2025 4:47 PM CDT - 06/23/2025 11:59 PM CDT Hospital Encounter [facility] MRI [address] [place] [address] Prostate cancer (HCC) Discharge Disposition: Discharge to home or self care 06/23/2025 4:21 PM CDT - 06/23/2025 11:59 PM CDT Hospital Encounter [facility] MRI [address] [place] [address] Discharge Disposition: Discharge to home or self care 06/23/2025 4:03 PM CDT - 06/23/2025 11:59 PM CDT Hospital Encounter [facility] MRI [address] [place] [address] Prostate cancer (HCC) Discharge Disposition: Discharge to home or self care 06/23/2025 Orders Only [facility] Medical Office Building 2 Radiation Oncology [address] [place] [address] Satya Vidal MD Prostate cancer (HCC) (Primary Dx) 06/14/2025 Telephone [facility] Medicine Scheduling [address] [place] [address] Da Portillo Scheduling Appointments 06/05/2025 Telephone [facility] Cardiology [address] [facility] 8th [place] [address] [place] [address] Vinod Romano MD from Last 3 Months Immunizations Immunization Administration [...] A-fib (HCC) 07/04/2016 CAD (coronary artery disease) [place] (myocardial infarction) ([facility]) 2015 Essential tremor Overactive bladder Family [...] on file Legal Sex Male 7:15 AM PRODUCER ARBORIST MANAGER Gender Identity Male 02/20/2021 1:17 PM CDT Sexual Orientation Straight 06/30/2019 7: 44 AM CDT Obstetrics History Last Filed Vital Signs Vital Sign Reading Time Taken Comments Blood Pressure 120/85 07/30/2025 12:56 PM CDT Pulse 64 07/30/2025 12:56 PM CDT Temperature 36.5 C (97.7 F) 12/07/2024 8:12 AM PRODUCER ARBORIST MANAGER Respiratory Rate 16 12/31/2024 8:47 AM PRODUCER ARBORIST MANAGER Oxygen Saturation 98% 07/30/2025 12:56 PM CDT Inhaled Oxygen Concentration - - Weight 97.8 kg (215 lb 9.6 oz) 07/30/2025 12:56 PM CDT Height 180.3 cm (5' 11) 02/19/2025 2:45 PM CDT Body Mass Index 30.07 02/19/2025 2:45 PM CDT Plan of Treatment Upcoming Encounters Date Type Department Care Team (Late st Contact Info) Description 08/27/2025 5:15 PM CDT Hospital Encounter [address] [address] Health Maintenance Due Date Last Done Comments Colon Cancer Screening-Colonoscopy 1960 Pneumococcal vaccine 65+ (1 of 2 - PCV) 1978 Zoster Vaccine (1 of 2) 1978 Covid-19 Vaccine (3 - Pfizer risk series) 03/17/2021 02/17/2021, 01/27/2021 Depression Screening 12/01/2022 12/01/2021 Well Visit 65+ 2024 12/01/2021 Influenza Vaccine (#1) 2025 08/20/2016 Fall Risk Assessment 12/07/2025 12/07/2024, 11/02/20 Prostate Cancer Screening-PSA 07/26/2027, 04/23/2025, 10/13/2021, Additional history exists DTaP/Tdap/Td Vaccine (4 - Td or Tdap) 08/19/2033 08/19/2023, 05/12/2015, 05/12/2015 Hepatitis B Screening Completed 12/18/2015 Hepatitis C Screening Completed 12/18/2015 Medical Devices Implanted Type Area Mail Delivery Supervisor Device Identifier Shelf Expiration Date Model / Serial / Lot Sternal Wires Sternum Procedures Procedure Name Priority Date/Time Associated Diagnosis Comments PSA DIAGNOSTIC Routine 07/26/2025 11:06 AM CDT Prostate cancer (HCC) US KIDNEY COMPLETE Schedule Routine, Read Routine (OP Routine) 07/10/2025 11:36 AM CDT Other specified abnormal findings of blood chemistry Other halfway (current) drug therapy MRI THORACIC SPINE W WO CONTRAST Schedule Routine, Read Routine (OP Routine) 06/23/2025 6:44 PM CDT Prostate cancer (HCC) MRI LUMBAR SPINE W WO CONTRAST Schedule Routine, Read Routine (OP Routine) 06/23/2025 6:44 PM CDT Prostate cancer (HCC) HEPATITIS PANEL, ACUTE Routine 12/18/2015 3:58 PM PRODUCER ARBORIST MANAGER from Last 3 Months or Most Recently Relevant to Health Maintenance Results * PSA diagnostic (07/26/2025 11:06 AM CDT) PSA-Total 0.78 <=5.40 ng/mL Comment: Interpretive Data AGE SEX [...] data last revised 22. Testing performed by: [facility], [address] [place] [address]., [address] Blood 07/26/2025 11:0 6 AM CDT 07/26/2025 11:08 AM CDT us Satya Vidal MD LAB BLOOD ORDERABLES Fi nal Result [facility] [address] [facility] Department [place] [address] * US Kidney Complete (aka RENAL) (07/10/2025 [...] Electronically signed by Bhavik David M.D. KT: KT Report ID: [id number] Reading Location: [id number] Procedure Note Bhavik David MD - 07/19/2025 [...] Bhavik David M.D. KT: CHARY Report ID: [id number] Reading Location: [id number] us Bon Rodriguez MD IMG US PROCEDURES [...] Dharmesh Portillo M.D. MARY: MARY Report ID: [id number] Reading Location: [place] [address] Procedure Note Dharmesh Portillo MD - 06/24/2025 [...] Dharmesh Portillo M.D. MARY: MARY Report ID: [id number] Reading Location: [id number] Satya Vidal MD IMG MRI PROCEDURES Tila [...] Dharmesh Portillo M.D. MARY: MARY Report ID: [id number] Reading Location: [place] [address] Procedure Note Dharmesh Portillo MD - 06/24/2025 [...] Dharmesh Portillo M.D. MARY: MARY Report ID: [id number] Reading Location: [place] [address] Satya Vidal MD IM MRI PROCEDURES Tila l Result * Hepatitis panel, acute (12/18/2015 3:58 PM PRODUCER ARBORIST MANAGER) HepBsAg NONREACT NONREACTIVE 12/18/2015 6:47 PM PRODUCER ARBORIST MANAGER [facility] HISTORICAL RESULTS Comment: Siemens [employer] using KAMERON (chemiluminescent immunoassay) technology. NONREACTIVE: IgM antibodies to Hepatitis B Surface antigen not detected. REACTIVE: IgM antibodies to Hepatitis B Surface antigen detected. Reactive results will be confirmed by neutralization testing. HBsAb (immune status) NONREACT NONREACTIVE 12/18/2015 6:34 PM PRODUCER ARBORIST MANAGER [facility] [employer] HISTORICAL RESULTS Comment: Siemens [employer] using KAMERON (chemiluminescent immunoassay) technology. NONREACTIVE: IgM antibodies to Hepatitis B Surface antibody not detected. REACTIVE: IgM antibodies to Hepatitis B Surface antibody detected. Hep B core IgM NONREACT NONREACTIVE 6 7:13 PM PRODUCER ARBORIST MANAGER [facility] [employer] [facility] HISTORICAL RESULTS Comment: Siemens [employer] using KAMERON (chemiluminescent immunoassay) technology. NONREACTIVE: IgM antibodies to Hepatitis B Core antigen not detected. EQUIVOCAL: IgM antibodies to Hepatitis B Core antigen may or may not be present. Obtain a new specimen and retest. REACTIVE: IgM antibodies to Hepatitis B Core antigen detected. Hep A IgM NONREACT NONREACTIVE 12/18/2015 7:14 PM PRODUCER ARBORIST MANAGER [facility] HISTORICAL RESULTS Comment: Siemens CentaurXP using KMAERON (chemiluminescent immunoassay) technology. NONREACTIVE: IgM antibodies to Hepatitis A not detected. This does not exclude possibility of exposure to Hepatitis A or early acute infection. EQUIVOCAL:IgM antibodies to Hepatitis A may or may not be present. Suggest recollection and retest. REACTIVE: Antibodies to Hepatitis A detected. Hep C Ab NONREACT NONREACTIVE 12/18/2015 7:12 PM PRODUCER ARBORIST MANAGER [employer] HISTORICAL RESULTS Comment: Siemens CentaurXP using [...] to Hepatitis C detected. 12/18/2015 3:58 PM PRODUCER ARBORIST MANAGER 12/18/2015 4:06 PM PRODUCER ARBORIST MANAGER Carlos Dailey MD LAB MICROBIOLOGY - GENERAL ORD ERABLES Final Result [facility] HISTORICAL RESULTS from Last 3 Months or Most Recently Relevant to Health Maintenance Insurance MEDICARE [employer] MEDICARE [employer] MEDICARE [facility] Care Teams Personnel Quality Assurance Auditor Relationship Specialty Start Date End Date Bon Rodriguez MD PCP - General Internal Medicine 10/21/23 Rick Ricci MD [address] [facility] [address] [place] [address] Urology 10/08/24
--- OUTSIDE RECORDS SUMMARY | 2025-08-26 14:10 | XMS_ITS | Clinical Summary ---
Author Organization [facility] Address [facility] [place] [address] Care Team Providers Care Supervisor Typesetting Name Role Phone Bon Rodriguez MD Primary Care Provider [phone] Allergies Active Allergy Reactions Criticality Noted Date [...] Comments Blood Pressure 91/58 12/21/2024 10:28 AM RAG SHREDDER Pulse 58 12/21/2024 10:28 AM RAG SHREDDER Temperature 36.4 C (97.5 F) 12/21/2024 10:28 AM RAG SHREDDER Respiratory Rate 16 12/21/2024 10:28 AM RAG SHREDDER Oxygen Saturation 97% 12/21/2024 10:28 AM RAG SHREDDER Inhaled Oxygen Concentration - - Weight 93.9 kg (207 lb) 12/21/2024 10:28 AM RAG SHREDDER Height 180.3 cm (5' 11) 12/21/2024 10:28 AM RAG SHREDDER Body Mass Index 28.87 12/21/2024 10:28 AM RAG SHREDDER Plan of Treatment Health Maintenance Due Date Last Done Comments Colorectal Cancer Screening Colonoscopy (10 Years) 1959 Hepatitis C 1977 Pneumococcal Vaccine: 50+ Years (1 of 1 - PCV) 2009 Zoster Vaccines (1 of 2) 2009 PHQ-2 (Physician Kimball) 11/14/2024 COVID-19 Vaccine (3 - 2024-2 6 season) 2025 02/17/2021, 01/27/2021 Influenza Adult (#1) 2025 08/20/2016 DTaP, Tdap and Td Vaccines ( 4 [...] Insurance MEDICARE [facility] Care Teams Supervisor Typesetting Relationship Specialty Start Date End Date Bon Rodriguez MD [address] - [facility] [address] [place] [address] PCP - General INTERNAL MEDICINE 01/19/23
--- OUTSIDE RECORDS SUMMARY | 2025-08-26 14:10 | XMS_ITS ---
Author Organization [facility] Address [address] [place] [address] Care Team Providers Care Burr Bench Operator Name Role Phone Bon Rodriguez MD Primary Care Provider [phone] Rick Ricci MD Unavailable [phone] Active Problems Problem Noted Date Diagnosed Date Amnesia 02/19/2025 Depression 02/19/2025 Prostate cancer 01/17/2025 Cancer Staging:Clinical:Stage IIC(cT1c, cN0, cM0, PSA: 4.7, Grade Group: 3) - Signed by Satya Vidal MD on 01/17/2025 Diastolic dysfunction 12/25/2021 Assessment & Plan (12/25/2021 10:32 AM FLOORING SALES MANAGER): As aforementioned the patient had a [...] change. Assessment & Plan (12/25/2021 10:27 AM FLOORING SALES MANAGER): Records mention that the patient has [...] change. Assessment & Plan (12/25/2021 10:31 AM FLOORING SALES MANAGER): The patient is known to have [...] inhibitor. Assessment & Plan (12/25/2021 10:26 AM FLOORING SALES MANAGER): Patient's most recent lipid panel is from 10/13/2021 with a total cholesterol 154 and LDL cholesterol 46. This was obtained while the patient was on Praluent. Anxiety 07/04/2016 S/P CABG (coronary artery bypass graft) 07/04/20 16 Overview (12/24/2021): [id number] COLIN to LAD, SVG to OM PDA) . Normal stress February 2020 RI (myocardial infarction) 11/14/2015 Current Treatment and Therapy [...]
--- OUTSIDE RECORDS SUMMARY | 2025-08-26 14:10 | XMS_ITS | Encounter Summary ---
Author Organization [facility] Address [address] [place] [address] Care Team Providers Care Estimator Project Manager Name Role Phone Bon Rodriguez MD Primary Care Provider [phone] Rick Ricci MD Unavailable [phone] Encounter Details Date Type Department Care Team (Late st Contact Info) Description 06/25/2025 Results Follow-Up [facility] Advanced Medicine Radiation Oncology [address] [facility] Advanced [place] [address] Satya Vidal MD [address] [facility] [address] [place] [address] MRI Lumbar Spine W WO Contrast Social [...] on file Legal Sex Male 7:15 AM EQUINE VET Gender Identity Male 02/20/2021 1:17 PM CDT Sexual Orientation Straight 06/30/2019 7: 44 AM CDT documented as of this encounter Plan of Treatment Upcoming Encounters Date Type Department Care Team (Late st Contact Info) Description 08/27/2025 5:15 PM CDT Hospital Encounter [facility] [address] [place] [address] documented as of this encounter Visit Diagnoses Not on filedocumented in this encounter Care Teams Estimator Project Manager Relationship Specialty Start Date End Date Bon Rodriguez MD PCP - General Internal Medicine 10/21/23 Rick Ricci MD [address] [facility] [address] [place] [address] Urology 10/08/24 documented as of this encounter
--- OUTSIDE RECORDS SUMMARY | 2025-08-26 14:10 | XMS_ITS | Clinical Summary ---
Author Organization [facility] Address [address] [facility] [place] [address] Care Team Providers Care Sports Information Director Name Role Phone Bon Rodriguez MD Primary Care Provider [phone] Source Comments [facility],non-owned Affiliates and Associated Physician Practices is amultiple site organization consisting of ambulatory clinics and hospital sitesin [place], [place], [place] and [place]. This disclosure is being madepursuant to the Care Everywhere program and may not contain all information available regarding this patient. Last updated 18.[facility] Allergies Active Allergy Reactions Criticality Noted [...] fluticasone propionate (Flonase) 50 MCG/ACT nasal spray [place] 1 (one) spray into each nostril 2 times daily Active folic acid 800 MCG tablet Take 1 (one) tablet by mouth once daily 4 Active HYDROcodone-ac etaminophen ([place]pton) 5-325 MG tablet Take 1 (one) tablet by mouth once daily Active lithium carbonate (Eskalith) 300 MG capsule Take 1 (one) capsule by mouth 3 times daily Active metoprolol succinate XL 24hr (Toprol XL) 25 MG tablet Take 1 (one) tablet by mouth once daily 4 Active nitroGLYCERIN (Nitrostat) 0.4 MG tablet Dissolve 1 (one) tablet under the tongue as needed Active Nystop [id number] UNIT/GM powder Apply 1 Units to affected [...] on file Legal Sex Male 1:44 PM CASH TELLER Gender Identity Not on file Sexual Orientation Not on file Last Filed Vital Signs Vital Sign Reading Time Taken Comments Blood Pressure 124/82 11/16/2024 1:00 PM CASH TELLER Pulse 60 11/16/2024 1:00 PM CASH TELLER Temperature 36.6 C (97.9 F) 11/04/2024 2:27 PM CASH TELLER Respiratory Rate 18 11/04/2024 2:27 PM CASH TELLER Oxygen Saturation 97% 11/04/2024 2:27 PM CASH TELLER Inhaled Oxygen Concentration - - Weight 92.5 kg (204 lb) 11/16/2024 1:00 PM CASH TELLER Height 180.3 cm (5' 11) 11/16/2024 1:00 PM CASH TELLER Body Mass Index 28.45 11/16/2024 1:00 PM CASH TELLER Plan of Treatment Health Maintenance Due Date [...] COMPREHENSIVE METABOLIC PANEL STAT 11/04/2024 11:38 AM CASH TELLER from Last 3 Months or Most Recently Relevant to Health Maintenance Results * (ABNORMAL) COMPREHENSIVE METABOLIC PANEL (11/04/2024 11:38 AM CASH TELLER) BUN 13 7 - 26 mg/dL 11/04/2024 12:[address] [facility] Creatinine 1.28(H) 0.71 - 1.16 mg/dL 11/04/2024 12:[address] [facility] Sodium 138 136 - 145 mmol/L 11/04/2024 12:[address] [facility] Potassium 3.8 3.5 - 4.5 mmol/L 11/04/2024 12:[address] [facility] Chloride 108(H) 98 - 107 mmol/L 11/04/2024 12:17 PM [facility] CO2 27 22 - 29 mmol/L 11/04/2024 12:17 PM [facility] Glucose 105(H) 70 - 99 mg/dL 11/04/2024 12:17 PM [facility] Calcium 9.7 8.4 - 10.2 mg/dL 11/04/2024 12:17 PM [facility] Protein Total 6.8 6.0 - 8.3 g/dL 11/04/2024 12:17 PM [facility] Albumin 3.8 3.4 - 5.0 g/dL 11/04/2024 12:17 PM [facility] Bilirubin Total 0.5 0.2 - 1.2 mg/dL 11/04/2024 12:17 PM [facility] Alkaline Phosphatase 79 40 - 150 U/L 11/04/2024 12:17 PM [facility] ALT 26 5 - 55 U/L 11/04/2024 12:17 PM [facility] AST 20 5 - 34 U/L 11/04/2024 12:17 PM [facility] Anion Gap 3(L) 6 - 16 11/04/2024 12:17 PM [facility] BUN/Creatinine Ratio 10 7 - 23 11/04/2024 12:17 PM [facility] Osmolality Calculated 286 275 - 295 mOsm/kg 11/04/2024 12:17 PM [facility] Albumin/Globulin Ratio 1.3 1.1 - 2.3 11/04/2024 12:17 PM [facility] eGFR by CKD-EPI 62(L) >=90 mL/min/1.7 3 m2 11/04/2024 12:17 PM [facility] Blood BLOOD SPECIMEN / Unknown Venipuncture / Unknown 11/04/2024 11:38 AM CASH TELLER 11/04/2024 11:52 AM [facility] us Stacey Faria CHEESE CUTTER-RESOURCE RECOVERY ENGINEER LAB - CHEMISTRY ORDER KONG Final Result [facility] [address] [place] [address], [facility] [place] [phone] from Last 3 Months or Most Recently Relevant to Health Maintenance Insurance MEDICARE [facility] MEDICARE Care Teams Sports Information Director Relationship Specialty Start Date End Date Bon Rodriguez MD [address] [place] [address] PCP - General 11/11/22
[2025-08-26 14:14] LABS: Lithium 0.8 mmol/L (0.6-1.2)
[2025-08-26 14:16] LABS: Alanine Aminotransferase 45 U/L (6-50); Albumin Level 4.1 g/dL (3.5-5.1); Alkaline Phosphatase 71 U/L (38-126); Anion Gap 6 mmol/L (4-12); Aspartate Amino Transferase 29 U/L (17-59); Bilirubin,Total 0.6 mg/dL (0.2-1.3); Blood Urea Nitrogen 16 mg/dL (9-20); Calcium 9.6 mg/dL (8.4-10.2); Carbon Dioxide 26 mmol/L (22-30); Chloride 106 mmol/L (98-107); Estimated Glomerular Filt Rate 57; Glucose 95 mg/dL (65-110); Potassium 3.7 mmol/L (3.4-5.0); Sodium 138 mmol/L (137-145); Total Protein 7.0 g/dL (6.3-8.2)
== END 2025-08-26 13:01 | disposition home or self-care (01) ==
PROVIDERS: PCP Internal Medicine
DX: Z51.81 Encounter for therapeutic drug level monitoring (principal); Z79.899 Other long term (current) drug therapy
CPT/HCPCS: 36415; 80053; 80178; 85025